=== PATIENT | female | born 1955 | race Caucasian/White ===

== ENCOUNTER → 2019-03-12 07:21 | Outpatient (CLI) | payer MEDICARE, OTHER, SELFPAY ==
--- NOTE | 2019-03-12 | DI.RAD.S_ITS ---
PROCEDURE: XR LUMBAR SPINE 2-3V INDICATIONS: Osteoarthritis TECHNIQUE: 3 views of the lumbar spine were acquired. COMPARISON: [facility], , L-SPINE 2-3 VIEWS, 05/07/2010, 10:52. FINDINGS: Bones: No fracture or focal osseous destruction. Lateral curvature of the spine. Multilevel degenerative endplate sclerosis and spurring. Diffuse facet arthropathy. Straightening of the normal lordotic curvature. Severe diffuse narrowing of all lumbar disc spaces. Trace retrolisthesis of L2 on L3 and L3 on L4. Grade 1 anterolisthesis of L5 on S1 Soft tissues: Scattered vascular calcifications seen in the aorta. IMPRESSION: Severe diffuse lumbar spondylosis and facet disease, progressed since 05/07/10. Dictated by: Frederick Dudley M.D. on 03/12/2019 at 10:16 Approved by: Frederick Dudley M.D. on 03/12/2019 at 10:17
--- NOTE | 2019-03-12 | DI.RAD.S_ITS ---
PROCEDURE: XR HAND RT MIN 3V INDICATIONS: osteoarthritis TECHNIQUE: 3 views of the hand(s) acquired. COMPARISON: [facility], , HAND 3V RIGHT, 04/22/2014, 9:28. FINDINGS: Bones: No fractures or dislocations. Carpal bones are normally aligned. No suspicious bony lesions. Severe first CMC joint degeneration, with severe subluxation as before, and triscaphe osteoarthritis. Chronic ossicle projects adjacent to the triquetrum. Diffuse interphalangeal joint degeneration. Soft tissues: No suspicious soft tissue calcifications. IMPRESSION: Severe right wrist joint degeneration. Overall, no interval change Dictated by: Frederick Dudley M.D. on 03/12/2019 at 11:32 Approved by: Frederick Dudley M.D. on 03/12/2019 at 11:35
--- NOTE | 2019-03-12 | DI.RAD.S_ITS ---
PROCEDURE: XR FOOT RT MIN 3V INDICATIONS: osteoarthritis TECHNIQUE: 3 views of the foot were acquired. COMPARISON: [facility], , FOOT 3V RIGHT, 04/22/2014, 9:28. FINDINGS: Bones: No fractures or dislocations. No suspicious bony lesions. There are unchanged surgical screws within the distal first metatarsal. There are similar mild degenerative changes of the first tarsometatarsal joint, first metatarsophalangeal joint, and first through fifth interphalangeal joints. Soft tissues: No tibiotalar joint effusion. IMPRESSION: Similar mild degenerative changes of the forefoot and right first digit when compared with exam of 04/22/14. Dictated by: Cedrick Ramon M.D. on 03/12/2019 at 13:47 Approved by: Cedrick Ramon M.D. on 03/12/2019 at 13:59
--- NOTE | 2019-03-12 | DI.RAD.S_ITS ---
PROCEDURE: XR HAND LT MIN 3V INDICATIONS: osteoarthritis TECHNIQUE: 3 views of the hand(s) acquired. COMPARISON: [facility], , HAND 3V LEFT, 04/22/2014, 9:28. [facility], CR, XR HAND RT MIN 3V, 03/12/2019, 7:34. FINDINGS: Bones: No fractures or dislocations. Carpal bones are normally aligned. No suspicious bony lesions. Severe first CMC joint degeneration with subluxation as before. Adjacent ununited ossified versus chronic ossicle. Overall, no interval change. Diffuse interphalangeal joint degeneration. Soft tissues: No suspicious soft tissue calcifications. IMPRESSION: Severe first CMC joint degeneration and subluxation. No definite interval change. Dictated by: Frederick Dudley M.D. on 03/12/2019 at 11:35 Approved by: Frederick Dudley M.D. on 03/12/2019 at 11:36
--- NOTE | 2019-03-12 | DI.RAD.S_ITS ---
PROCEDURE: XR FOOT LT MIN 3V INDICATIONS: osteoarthritis TECHNIQUE: 3 views of the foot were acquired. COMPARISON: [facility], CR, FOOT 3V LEFT, 04/22/2014, 9:28. [facility], CR, XR FOOT RT MIN 3V, 03/12/2019, 7:40. FINDINGS: Bones: No fractures or dislocations. No suspicious bony lesions. Similar-appearing surgical screws of the first metatarsal. Mild degenerative changes of the first metatarsophalangeal and first through fifth interphalangeal joints, similar to comparison exam of 04/22/14. There is mild degenerative change of the anterior tibiotalar joint, which is slightly increased from comparison exam. Soft tissues: No tibiotalar joint effusion. IMPRESSION: 1. Mild degenerative changes of the left forefoot and left first digit, similar to comparison exam of 04/22/14. 2. Mild degenerative change of the anterior left tibiotalar joint, slightly increased from comparison exam of 04/14/14. Dictated by: Cedrick Ramon M.D. on 03/12/2019 at 13:59 Approved by: Cedrick Ramon M.D. on 03/12/2019 at 14:04
[2019-03-12 09:17] LABS: Add Manual Diff / Slide Review NO; Basophils Absolute Auto 0 /uL (0-100); Basophils Percent Auto 0.6 % (0-2); Eosinophils Absolute Auto 100 /uL (0-450); Hematocrit 41.7 % (36-46); Hemoglobin 14.1 g/dL (12.0-16.0); Lymphocytes Absolute Auto 900 /uL (1100-4500); Lymphocytes Percent Auto 22.3 % (25-40); Mean Corpuscular HGB Conc 33.7 % (30-36); Mean Corpuscular Volume 91.9 fL (80-100); Monocytes Absolute Auto 400 /uL (0-900); Monocytes Percent Auto 8.8 % (3-14); Neutrophils Absolute Auto 2800 /uL (1500-7000); Neutrophils Percent Auto 66.3 % (50-75); Platelet Count 229 X10^3/uL (150-400); Red Blood Cell Count 4.54 X10^6/uL (4.0-5.2); Red Cell Distribution Width 12.7 % (11.6-14.8); White Blood Cell Count 4.3 X10^3/uL (4.5-11.0)
[2019-03-12 09:23] LABS: Hemoglobin A1C% w Est Avg Glu 5.2 % (4.0-6.0)
[2019-03-12 09:38] LABS: BUN Creatinine Ratio 13.3 (6-22); Blood Urea Nitrogen 12 mg/dL (7-17); Calcium 9.9 mg/dL (8.4-10.2); Carbon Dioxide 30 mmol/L (22-32); Chloride 99 mmol/L (98-107); Cholesterol 207 mg/dL (140-199); Estimated Glomerular Filt Rate > 60.0 mL/min (>60); Glucose 89 mg/dL (80-110); HDL Cholesterol 64 mg/dL (40-60); HEMOLYSIS < 15 (0-50); LDL Cholesterol Calculated 124 mg/dL (<100); Potassium 4.7 mmol/L (3.4-5.1); Sodium 137 mmol/L (137-145); Triglycerides 95 mg/dL (35-150)
== END ==
PROVIDERS: Visit Provider Student in an Organized Health Care Education/Training Program
DX: Z00.00 Encounter for general adult medical examination without abnormal findings (principal); M19.071 Primary osteoarthritis, right ankle and foot; M47.816 Spondylosis without myelopathy or radiculopathy, lumbar region; M19.042 Primary osteoarthritis, left hand; M19.041 Primary osteoarthritis, right hand; M18.12 Unilateral primary osteoarthritis of first carpometacarpal joint, left hand
CPT/HCPCS: 36415; 72100; 73130; 73630; 80048; 80061; 83036; 85025

== ENCOUNTER 2019-06-13 06:10 | Emergency (ER) | payer MEDICARE, OTHER, SELFPAY ==
[2019-06-13 06:22] VITALS: BP 190/86; PULSE 97; RESP 12; TEMP 36.5; O2SAT 98; BMI 27.4
[2019-06-13] MEDS: LIDOCAINE 1% W/EPI 1 ML SUBCUT (06:22)
--- NOTE | 2019-06-13 07:02 | DI.RAD.S_ITS ---
PROCEDURE: XR HAND RT MIN 3V INDICATIONS: fall with R hand pain TECHNIQUE: 3 views of the hand(s) acquired. COMPARISON: [facility], CR, XR HAND RT MIN 3V, 03/12/2019, 7:34. [facility], CR, HAND 3V RIGHT, 04/22/2014, 9:28. [facility], CR, HAND 3V RIGHT, 05/07/2010, 10:36. FINDINGS: Bones: There is an oblique fracture seen involving the 5th metacarpal shaft. No intra-articular involvement can be seen. Carpal bones are normally aligned. No suspicious bony lesions. Prominent focal degenerative change is seen involving carpometacarpal joint. Soft tissues: No suspicious soft tissue calcifications. IMPRESSION: 5th metacarpal shaft fracture. Focal prominent 1st carpometacarpal joint degenerative change. Dictated by: Faraz Resendiz M.D. on 06/13/2019 at 6:46 Approved by: Faraz Resendiz M.D. on 06/13/2019 at 6:47
--- NOTE | 2019-06-13 07:02 | DI.RAD.S_ITS ---
PROCEDURE: XR SHOULDER LT MIN 2V INDICATIONS: fall with shoulder pain TECHNIQUE: 3 views of the shoulder were acquired. COMPARISON: [facility], CR, XR HAND RT MIN 3V, 06/13/2019, 7:01. FINDINGS: Bones: No fractures or dislocations. No suspicious bony lesions. Visualized ribs appear intact. Degenerative changes are seen, including mild subacromial spurring. Soft tissues: No suspicious soft tissue calcifications. The visualized lung demonstrates an unremarkable appearance. IMPRESSION: Unremarkable imaging examination for age. Dictated by: Faraz Resendiz M.D. on 06/13/2019 at 6:48 Approved by: Faraz Resendiz M.D. on 06/13/2019 at 6:48
--- NOTE | 2019-06-13 07:05 | ED.FALL ---
HPI - Fall <Isaac Bradshaw DO - Last Filed: 06/14/19 05:23> General Chief Complaint: Fall Stated Complaint: facial wound tripped over wood at home/fell Time Seen by Provider: 06/13/19 06:12 Source: patient Mode of arrival: Family Vehicle Limitations: no limitations History of Present Illness HPI Narrative: 63-year-old female nonsmoker with noncontributory medical history presents with her in the chief complaint of a ground level fall in which she fell forward into a wood burning stove (it was not hot). She suffered a laceration to the left side of her face as well as an injury to her left anterior shoulder and right hand. She denies loss of consciousness or nausea or vomiting. She takes no blood thinners. She has full recall of the event. She denies any chest pain or shortness of breath. Her left shoulder hurts worse with range of motion, she denies any numbness, tingling or weakness. Right lateral hand hurts with range of motion but she can make a fist and denies any numbness, tingling or weakness. MD complaint: fall Onset (ago): minute(s) Fall from: standing Fall witnessed: yes, by family Place fall occurred: home Loss of consciousness: none Prolonged down time: no Symptoms prior to fall: none Context: tripped/slipped Location of injury: head and face Location of injury - extremities: Left: shoulder Severity: mild Quality: burning Related Data Previous Rx's Medication Instructions Recorded cephalexin [Keflex] 500 mg PO QID 7 Days #28 cap 06/13/19 Allergies Allergy/AdvReac Type Severity Reaction Status Date / Time Codeine Allergy Unknown Uncoded 09/03/17 13:01 Metoprolol Allergy Unknown Uncoded 09/03/17 13:01 Spironolactone Allergy Unknown Uncoded 09/03/17 13:01 Review of Systems <Isaac Bradshaw DO - Last Filed: 06/14/19 05:23> Constitutional Constitutional: Denies chills, Denies fatigue, Denies fever(s), Denies frequent falls, Denies lethargy and Denies weakness Eyes Eyes: Denies change in vision, Denies eye discharge, Denies irritation and Denies loss of vision ENT Ears, Nose, Mouth, and Throat: Denies change in voice, Denies dizziness, Denies neck pain, Denies sore throat and Denies throat swelling Cardiovascular Cardiovascular: Denies chest pain, Denies irregular heart rhythm, Denies lightheadedness, Denies palpitations, Denies dyspnea, Denies dyspnea on exertion and Denies orthopnea Respiratory Respiratory: Denies cough, Denies dyspnea, Denies dyspnea on exertion and Denies wheezing Gastrointestinal Gastrointestinal: Denies abdominal pain, Denies change in bowel habits, Denies diarrhea, Denies nausea and Denies vomiting Genitourinary Genitourinary: Denies hematuria, Denies flank pain, Denies urinary incontinence and Denies urinary urgency Musculoskeletal Musculoskeletal: Denies back pain, Denies muscle weakness, Denies neck pain, Denies numbness and Denies tingling Integumentary/Breasts Skin/Breast: Denies pruritus, Denies erythema, Denies rash and Reports wounds Neurologic Neurologic: Denies behavioral changes, Denies confusion, Denies dizziness, Denies frequent falls, Denies loss of vision, Denies numbness, Denies tingling and Denies weakness Psychiatric Psychiatric: Denies anxiety, Denies behavioral changes, Denies confusion, Denies depression, Denies homicidal ideation and Denies suicidal ideation Endocrine Endocrine: Denies fatigue, Denies flushing and Denies palpitations Hematologic/Lymphatic Hematologic/Lymphatic: Denies easy bruising Allergic/Immunologic Allergic/Immunologic: Denies urticaria, Denies throat swelling and Denies wheezing Patient History <Isaac Brasdhaw DO - Last Filed: 06/14/19 05:23> Social History Smoking Status: Never smoker Smoking Status: Never smoker Substance Use Type: does not use Exam <Isaac Bradshaw DO - Last Filed: 06/14/19 05:23> Narrative Exam Narrative: GENERAL: [63] year old patient appears stated age. Well-nourished, well-developed patient, in mild distress. GCS 15 HEAD: Atraumatic. Normocephalic. 5cm irregular flap laceration to L cheek. Minimal active bleeding. EYES: Pupils equal round and reactive. Extraocular motions intact. No scleral icterus. No injection or drainage. ENT: Nose without bleeding, purulent drainage. Throat without erythema, tonsillar hypertrophy or exudate. Airway patent. NECK: Trachea midline. Non tender CARDIOVASCULAR: Regular rate and rhythm without murmurs, gallops, or rubs. RESPIRATORY: Clear to auscultation. Breath sounds equal bilaterally. No wheezes, rales, or rhonchi. GASTROINTESTINAL: Abdomen soft, non-tender, nondistended. EXTREMITIES: Painful but full ROM of L shoulder with visible ecchymosis anteriorly. Full strength and sensation. R hand with mild edema and ecchymosis overlying 5th metacarpal. Closed and NV in tact BACK: Nontender without deformity or crepitance. No flank tenderness. NEURO: AOx3. SKIN: No rash or erythema of visible areas other than what is noted above. Initial Vital Signs Initial Vital Signs: Vital Signs Temperature 97.7 F 06/13/19 06:22 Pulse Rate 97 H 06/13/19 06:22 Respiratory Rate 12 06/13/19 06:22 Blood Pressure 190/86 H 06/13/19 06:22 Pulse Oximetry 98 06/13/19 06:22 <Breanna Bueno DO - Last Filed: 06/13/19 08:22> Initial Vital Signs Initial Vital Signs: Vital Signs Temperature 97.7 F 06/13/19 06:22 Pulse Rate 97 H 06/13/19 06:22 Respiratory Rate 12 06/13/19 06:22 Blood Pressure 190/86 H 06/13/19 06:22 Pulse Oximetry 98 06/13/19 06:22 Procedures <Isaac Bradshaw DO - Last Filed: 06/14/19 05:23> Laceration Repair Laceration 1: Site: face Side (If applicable): left Size (cm): 5 Description: flap Depth: involves muscle layer Local Anesthetic: lidocaine 1% and with epi Amount of anesthesia used (mL): 5 Pre-repair: wound explored Skin layer closed with: nylon Size (cm): 6-0 Number of sutures: 10 Technique: simple, interrupted Subcutaneous layer closed with: vicryl Size: 5-0 Number of sutures: 1 Technique: simple, interrupted Orthopedic Splinting/Casting Injury #1: Side: left Upper Extremity Injury Location: shoulder Upper Extremity Immobilizer: sling/shoulder immobilizer Post splinting neuro exam: intact Post splinting vascular exam: intact Placed by: Nursing Course <DO Osmar Lopez Last Filed: 06/14/19 05:23> Course Course Narrative: signed out to Dr. Bueno for completion of care. Orders Ordered: Discontinued Medications Lidocaine/Epinephrine (Xylocaine 1% W/Epi) 1 ml SUBCUT NOW ONE Stop: 06/13/19 06:17 Last Admin: 06/13/19 06:22 Dose: 1 ml Documented by: JEREMIAH Vital Signs Vital signs: Vital Signs - 8 hr 06/13/19 06:22 Temperature 97.7 F Pulse Rate 97 H Respiratory Rate 12 Blood Pressure 190/86 H Pulse Oximetry 98 <Breanna Bueno, - Last Filed: 06/13/19 08:22> Orders Ordered: Discontinued Medications Lidocaine/Epinephrine (Xylocaine 1% W/Epi) 1 ml SUBCUT NOW ONE Stop: 06/13/19 06:17 Last Admin: 06/13/19 06:22 Dose: 1 ml Documented by: JEREMIAH Vital Signs Vital signs: Vital Signs - 8 hr 06/13/19 06:22 Temperature 97.7 F Pulse Rate 97 H Respiratory Rate 12 Blood Pressure 190/86 H Pulse Oximetry 98 <Breanna Bueno, - Last Filed: 06/13/19 08:22> Imaging Data shoulder xray: Radiologist's Impression: [address] [address] XRay Report Signed Patient: Zimmer EtteMR#: [id number] : [id number]:[id number] Age/Sex: 63 / FDate of Service: 06/13/19 Loc: ED Accession Number: [id number] Procedure: XR shoulder LT min 2V Ordering Provider: Isaac Bradshaw D.O. PROCEDURE: XR SHOULDER LT MIN 2V INDICATIONS: fall with shoulder pain TECHNIQUE: 3 views of the shoulder were acquired. COMPARISON: [facility], CR, XR HAND RT MIN 3V, 06/13/2019, 7:01. FINDINGS: Bones: No fractures or dislocations. No suspicious bony lesions. Visualized ribs appear intact. Degenerative changes are seen, including mild subacromial spurring. Soft tissues: No suspicious soft tissue calcifications. The visualized lung demonstrates an unremarkable appearance. IMPRESSION: Unremarkable imaging examination for age. Dictated by: Faraz Resendiz M.D. on 06/13/2019 at 6:48 Approved by: Fraaz Resendiz M.D. on 06/13/2019 at 6:48 hand xray: Radiologist's Impression: [address] [address] XRay Report Signed Patient: Zimmer EtteMR#: [id number] : 4Acct:[id number] Age/Sex: 63 / FDate of Service: 06/13/19 Loc: ED Accession Number: [id number] Procedure: XR hand RT min 3V Ordering Provider: Isaac Bradshaw D.O. PROCEDURE: XR HAND RT MIN 3V INDICATIONS: fall with R hand pain TECHNIQUE: 3 views of the hand(s) acquired. COMPARISON: [facility], CR, XR HAND RT MIN 3V, 03/12/2019, 7:34. [facility], CR, HAND 3V RIGHT, 04/22/2014, 9:28. [facility], CR, HAND 3V RIGHT, 05/07/2010, 10:36. FINDINGS: Bones: There is an oblique fracture seen involving the 5th metacarpal shaft. No intra-articular involvement can be seen. Carpal bones are normally aligned. No suspicious bony lesions. Prominent focal degenerative change is seen involving carpometacarpal joint. Soft tissues: No suspicious soft tissue calcifications. IMPRESSION: 5th metacarpal shaft fracture. Focal prominent 1st carpometacarpal joint degenerative change. Dictated by: Faraz Resendiz M.D. on 06/13/2019 at 6:46 Approved by: Faraz Resendiz M.D. on 06/13/2019 at 6:47 MDM Narrative Medical decision making narrative: Patient and I reviewed imaging. Patient is actually able to use her right hand fairly well. She is able to drinking using glass. She has full range of motion of all 5 fingers and neurovascularly intact. She also has good movement of her shoulder although she finds that more uncomfortable than her hand. Patient was sutured by Dr. Bradshaw, she has minor ooze and had a small bandage. Patient is feeling better. Defers any additional prescriptions for pain. Splint placed by nursing staff, rechecked by myself. NVI after splint placement. Discharge Plan Departure Patient Disposition: Home Clinical Impression: Closed fracture of fifth metatarsal bone Complex laceration of face Qualifiers: Encounter type: initial encounter Qualified Code(s): S01.91XA - Laceration without foreign body of unspecified part of head, initial encounter Contusion of left shoulder Qualifiers: Encounter type: initial encounter Qualified Code(s): S40.012A - Contusion of left shoulder, initial encounter Contusion of hand, right Qualifiers: Encounter type: initial encounter Qualified Code(s): S60.221A - Contusion of right hand, initial encounter Discharge Date/Time: 06/13/19 08:10 Instructions: How to Prevent Falls Activity Restrictions/Additional Instructions: *You have been diagnosed with fall with facial laceration, shoulder contusion and hand fracture. Follow up with Orthopedic surgery in the next 5-7 days for recheck. Call for an appointment. *What to do: *Take medications as directed. You may take tylenol up to 1000mg every 8 hours as needed for pain. *Follow up with your primary care provider in 2-3 days, call for an appointment. Let them know you were seen in the Emergency Department and that we ask that you be seen in follow up *Return to ER if you should have any new, worsening or concerning symptoms Splint Care: Keep splint clean and dry. Elevated affected body part to decrease swelling. OK to use ice pack on the affected body part. Use for 15-20 minutes each time, for 5-6x per day. If you develop worsening pain, numbness, tingling, discoloration of the affected body part, loosen the splint by loosening the MATTHEW wrap, and either see your doctor for an urgent re-assessment, or return to the Emergency Department. Return to the Emergency Department for any new or worsening symptoms. Prescriptions: New cephalexin [Keflex] 500 mg capsule 500 mg PO QID 7 Days Qty: 28 RF: 0 Referrals: Yenny Cardona MD [Physician] -
== END 2019-06-13 08:10 | disposition home or self-care (01) ==
PROVIDERS: Emergency Provider Emergency Medicine
DX: S62.326A Displaced fracture of shaft of fifth metacarpal bone, right hand, initial encounter for closed fracture (principal); S01.91XA Laceration without foreign body of unspecified part of head, initial encounter; S40.012A Contusion of left shoulder, initial encounter; S60.221A Contusion of right hand, initial encounter; W18.09XA Striking against other object with subsequent fall, initial encounter
CPT/HCPCS: 12013; 29125; 73030; 73130; 99283

== ENCOUNTER 2020-11-19 18:14 | Emergency (ER) | payer MEDICARE, OTHER, SELFPAY ==
[2020-11-19 18:22] VITALS: BP 198/99; PULSE 107; RESP 18; TEMP 37; O2SAT 95
[2020-11-19 18:49] LABS: Add Manual Diff / Slide Review NO; Basophils Absolute Auto 0 /uL (0-100); Basophils Percent Auto 0.3 % (0-2); Eosinophils Absolute Auto 0 /uL (0-450); Eosinophils Percent Auto 0.1 % (2-4); Hematocrit 43.6 % (36-46); Hemoglobin 14.4 g/dL (12.0-16.0); Lymphocytes Absolute Auto 700 /uL (1100-4500); Lymphocytes Percent Auto 9.1 % (25-40); Mean Corpuscular HGB Conc 32.9 % (30-36); Mean Corpuscular Hemoglobin 30.6 PG (26-34); Monocytes Absolute Auto 300 /uL (0-900); Neutrophils Absolute Auto 6200 /uL (1500-7000); Neutrophils Percent Auto 86.5 % (50-75); Platelet Count 263 X10^3/uL (150-400); Red Blood Cell Count 4.69 X10^6/uL (4.0-5.2); White Blood Cell Count 7.2 X10^3/uL (4.5-11.0)
[2020-11-19 18:50] LABS: Alanine Aminotransferase 15 IU/L (<35); Albumin 4.4 g/dL (3.5-5.0); Albumin Globulin Ratio 1.7 (1.0-2.8); Alkaline Phosphatase 79 U/L (38-126); Aspartate Aminotransferase 22 IU/L (14-36); BUN Creatinine Ratio 14.5 (6-22); Blood Urea Nitrogen 12 mg/dL (7-17); Calcium 9.5 mg/dL (8.4-10.2); Carbon Dioxide 24 mmol/L (22-32); Chloride 103 mmol/L (98-107); Estimated Glomerular Filt Rate > 60.0 mL/min (>60); Globulin 2.6 g/dL (1.7-4.1); Glucose 139 mg/dL (80-110); HEMOLYSIS < 15 (0-50); Lipase 62 U/L (23-300); Potassium 4.1 mmol/L (3.4-5.1); Sodium 135 mmol/L (137-145)
[2020-11-19 20:32] LABS: Bacteria Urine None Seen; RBC Urine None Seen (0-5/HPF)
[2020-11-19 20:36] VITALS: BP 187/110; PULSE 93; RESP 16; O2SAT 96
[2020-11-19 20:40] LABS: Culture Indicated Urine Cult Not Indicated; Squamous Epithelial Cell Urine 0-1 /HPF (0-5/HPF); WBC Urine 1-5/HPF (0-5/HPF)
--- NOTE | 2020-11-19 20:43 | ED_ITS ---
HPI - General Adult General Chief complaint: Abdominal Pain Stated complaint: Cramps and Nausea Time Seen by Provider: 11/19/20 19:49 Source: patient Mode of arrival: Ambulatory History of Present Illness HPI narrative: Patient is a 64-year-old female here for evaluation of approximately 24 hours of abdominal cramping. She states she has had constipation in the past this is felt like his. Also has had some nausea but no vomiting. Related Data Previous Rx's Medication Instructions Recorded ciprofloxacin HCl 500 mg tablet 500 mg PO BID 10 Days #20 tab 11/19/20 metronidazole 500 mg tablet 500 mg PO TID 10 Days #30 tab 11/19/20 (Flagyl) Allergies Allergy/AdvReac Type Severity Reaction Status Date / Time Codeine Allergy Unknown Uncoded 09/03/17 13:01 Metoprolol Allergy Unknown Uncoded 09/03/17 13:01 Spironolactone Allergy Unknown Uncoded 09/03/17 13:01 Review of Systems Constitutional Constitutional: Denies fever(s) Cardiovascular Cardiovascular: Reports system reviewed and no additional complaints, except as documented Respiratory Respiratory: Reports system reviewed and no additional complaints, except as documented Gastrointestinal Gastrointestinal: Reports abdominal pain, Reports constipation, Reports nausea and Denies vomiting Genitourinary Genitourinary: Denies dysuria Genitourinary: Denies dysuria Musculoskeletal Musculoskeletal: Reports system reviewed and no additional complaints, except as documented Integumentary/Breasts Skin/Breast: Reports system reviewed and no additional complaints, except as documented Neurologic Neurologic: Reports system reviewed and no additional complaints, except as documented Psychiatric Psychiatric: Reports system reviewed and no additional complaints, except as do cumented Hematologic/Lymphatic On Anticoagulants: No Allergic/Immunologic Allergic/Immunologic: Reports system reviewed and no additional complaints, except as documented Patient History Medical History Constipation Social History Smoking Status: Never smoker Smoking Status: Never smoker Substance Use Type: does not use Exam Initial Vital Signs Initial Vital Signs: Vital Signs Temperature 98.6 F 11/19/20 18:22 Pulse Rate 107 H 11/19/20 18:22 Respiratory Rate 18 11/19/20 18:22 Blood Pressure 198/99 H 11/19/20 18:22 Pulse Oximetry 95 11/19/20 18:22 Const General: cooperative and healthy appearing [facility] Head: normal to inspection and normocephalic Eyes General: appearance normal, both eyes and all related structures Resp Effort & Inspection: normal respiratory effort Cardio Rate: tachycardic GI Inspection: non-distended Palpation: soft and tender Skin General: no rashes or lesions noted Neuro General: patient alert and patient awake Extrem General: normal to inspection and No edema Psych Appearance: grossly normal and well kempt Course Orders Ordered: Discontinued Medications Ciprofloxacin (Ciprofloxacin 250 Mg Tablet) 500 mg PO NOW ONE Stop: 11/19/20 22:08 Last Admin: 11/19/20 22:17 Dose: 500 mg Documented by: ATAYLOR Sodium Chloride (Normal Saline 0.9%) 1,000 mls @ 1,000 mls/hr IV BOLUS ONE Stop: 11/19/20 21:42 Last Infusion: 11/19/20 22:21 Dose: 0 mls/hr Documented by: Admin: 11/19/20 21:10 Dose: 1,000 mls/hr Documented by: ATAYLOR Metronidazole (Metronidazole 500 Mg Tablet) 500 mg PO NOW ONE Stop: 11/19/20 22:08 Last Admin: 11/19/20 22:17 Dose: 500 mg Documented by: ATAALISSAOR Vital Signs Vital signs: Vital Signs - 8 hr 11/19/20 18:22 11/19/20 20:36 Temperature 98.6 F Pulse Rate 107 H 93 H Respiratory Rate 18 16 Blood Pressure 198/99 H 187/110 H Pulse Oximetry 95 96 Medical Decision Making Medical Records Medical records reviewed: Yes I reviewed the patient's medical records. Lab Data Lab results reviewed: Yes I reviewed the patient's lab results. Result diagrams: 11/19/20 18:32 11/19/20 18:32 Labs: Lab Results 11/19/20 11/19/20 11/19/20 Range/Units 18:32 18:32 20:23 WBC 7.2 (4.5-11.0) X10^3/uL RBC 4.69 (4.0-5.2) X10^6/uL Hgb 14.4 (12.0-16.0) g/dL Hct 43.6 (36-46) % MCV 93.0 (80-100) fL MCH 30.6 (26-34) PG MCHC 32.9 (30-36) % RDW 13.0 (11.6-14.8) % Plt Count 263 (150-400) X10^3/uL Neut % (Auto) 86.5 H (50-75) % Lymph % (Auto) 9.1 L (25-40) % Sharp % (Auto) 4.0 (3-14) % Eos % (Auto) 0.1 L (2-4) % Baso % (Auto) 0.3 (0-2) % Neut # (Auto) 6200 (9202-6653) /uL Lymph # (Auto) 700 L (4117-8901) /uL Sharp # (Auto) 300 (0-900) /uL Eos # (Auto) 0 (0-450) /uL Baso # (Auto) 0 (0-100) /uL Sodium 135 L (137-145) mmol/L Potassium 4.1 (3.4-5.1) mmol/L Chloride 103 (98-107) mmol/L Carbon Dioxide 24 (22-32) mmol/L BUN 12 (7-17) mg/dL Creatinine 0.83 (0.52-1.04) mg/dL Estimated GFR > 60.0 (>60) mL/min BUN/Creatinine Ratio 14.5 (6-22) Glucose 139 H (80-110) mg/dL Calcium 9.5 (8.4-10.2) mg/dL Total Bilirubin 1.0 (0.2-1.3) mg/dL AST 22 (14-36) IU/L ALT 15 (<35) IU/L Alkaline Phosphatase 79 (38-126) U/L Total Protein 7.0 (6.3-8.2) g/dL Albumin 4.4 (3.5-5.0) g/dL Globulin 2.6 (1.7-4.1) g/dL Albumin/Globulin Ratio 1.7 (1.0-2.8) Lipase 62 (23-300) U/L Urine RBC None seen (0-5/HPF) Urine WBC 1-5/hpf (0-5/HPF) Ur Squamous Epith Cells 0-1 /hpf (0-5/HPF) Urine Bacteria None seen (None) Ur Culture Indicated? Cult not indicated Urine Dip Bedside Urine Glucose Negative Bedside Urine Bilirubin - Negative Bedside Urine Ketone - Negative Urine Specific [place] 1.015 Bedside Urine Occult Blood - Negative Bedside Urine pH 6.5 Bedside Urine Protein + 30 Bedside Urine Urobilinogen 0.2 mg/dL Bedside Urine Nitrite - Negative Bedside Urine Leukocytes +/- 15 Esterase Point of care testing: Urine Dip Bedside Urine Glucose Negative Bedside Urine Bilirubin - Negative Bedside Urine Ketone - Negative Urine Specific [place] 1.015 Bedside Urine Occult Blood - Negative Bedside Urine pH 6.5 Bedside Urine Protein + 30 Bedside Urine Urobilinogen 0.2 mg/dL Bedside Urine Nitrite - Negative Bedside Urine Leukocytes +/- [address] scan - abdomen/pelvis: Radiologist's Impression: [address] [id number] Scan ReportSigned Patient: Zimmer EtteMR#: [id number]: 4Acct:[id number]/Sex: 64 / FDate of Service: 11/19/20Loc: EDAccession Number: [id number] Procedure: CT abdomen pelvis w con Ordering Provider: Nate Clay D.O. PROCEDURE: CT ABDOMEN PELVIS W CON INDICATIONS: generalized abdominal pain no BM in 1 week TECHNIQUE: After the administration of intravenous contrast, axial sections acquired from the lung bases to the pubic symphysis. Coronal and sagittal reformats were performed. For radiation dose reduction, the following was used: automated exposure control, adjustment of mA and/or kV according to patient size. COMPARISON: None. FINDINGS: ABDOMEN: Lung bases: Normal. Heart: No significant findings. Liver: Hepatic steatosis. Right hepatic cysts. Subcentimeter hepatic foci are statistically cysts or hemangiomas, although technically too small to characterize accurately and therefore nonspecific. Gallbladder: Normal. Bile ducts: Normal. Pancreas: Normal. Spleen: Normal. Adrenals: Normal. Kidneys and Ureters: Right kidney absent. No hydronephrosis. Mild prominence of the left ureter although the exact etiology is unclear. Stomach and duodenum: Normal. Bowel: Large amount of stool is present. No transition point to suggest bowel obstruction. There is long segment mural thickening involving the sigmoid colon. Numerous colonic diverticula are present. The rectum is decompressed. Other: No free fluid or air. Abdominal nodes: Normal. Aorta and IVC: Normal in size. Ventral wall: Normal. PELVIS: Bladder: Normal. Inguinal region: No hernia. Pelvic nodes: Normal. Bones: Spondylytic changes and facet arthropathy. No vertebral body compression fracture. Diffuse osteopenia. IMPRESSION: Long segment sigmoid colonic wall thickening. This could reflect acute on chronic diverticulitis although technically nonspecific. Differential includes infectious or inflammatory colitis. As clinically warranted, consider further evaluation with lower endoscopy to exclude neoplasm if clinical data warrants. Hepatic steatosis. Large amount of stool. Dictated by: Frederick Dudley M.D. on 11/19/2020 at 21:38 Approved by: Frederick Dudley M.D. on 11/19/2020 at 21:44 [facility] Narrative Medical decision making narrative: CT scan of the abdomen shows findings that are consistent with constipation in this also fits her presentation. There was also some concern about diverticulitis so we will start her on antibiotics. I feel that we can hold on further workup for now. She was given return precautions and follow-up instructions. She expressed understanding and agreement. Discharge Plan Departure Patient Disposition: Home Clinical Impression: Diverticulitis, Constipation, Abdominal pain Instructions: DI for Diverticulitis Activity Restrictions/Additional Instructions: I do recommend that you contact your primary care provider to discuss further workup and to discuss the indications for a colonoscopy. This is the recommendation based on the findings today. Start taking the antibiotics as directed. You can change your diet to include increasing Your fluid intake and also increasing your fiber. This does not improve your constipation issues then you may need to start taking a stool softener or laxative. You can purchase these [id number]. return to the emergency department for any new or worsening symptoms Prescriptions: New ciprofloxacin HCl 500 mg tablet 500 mg PO BID 10 Days Qty: 20 RF: 0 metronidazole [Flagyl] 500 mg tablet 500 mg PO TID 10 Days Qty: 30 RF: 0 Referrals: Taty Boateng MD [Primary Care Provider] -
[2020-11-19] MEDS: SODIUM CHLORIDE 0.9% 1,000 ML 1000 ML IV (21:10)
[2020-11-19] MEDS: metroNIDAZOLE 500 MG TABLET PO (22:17)
[2020-11-19] MEDS: CIPROFLOXACIN 250 MG TABLET 500 MG PO (22:17)
[2020-11-19 22:21] VITALS: BP 180/90; PULSE 89; RESP 16; TEMP 37.1; O2SAT 96
== END 2020-11-19 22:21 | disposition home or self-care (01) ==
PROVIDERS: Emergency Provider Emergency Medicine; PCP Student in an Organized Health Care Education/Training Program
DX: K57.92 Diverticulitis of intestine, part unspecified, without perforation or abscess without bleeding (principal); R11.0 Nausea; K59.00 Constipation, unspecified
CPT/HCPCS: 36415; 74177; 80053; 81003; 81015; 83690; 85025; 96360; 99284; Q9967

== ENCOUNTER → 2022-04-17 10:28 | Outpatient (CLI) | payer MEDICARE, OTHER, SELFPAY | PROVIDERS: PCP Family Medicine; Referring Provider Family Medicine; Visit Provider Family Medicine | DX: Z13.820 Encounter for screening for osteoporosis (principal); Z78.0 Asymptomatic menopausal state; M81.0 Age-related osteoporosis without current pathological fracture | CPT/HCPCS: 77080 ==

== ENCOUNTER 2022-06-29 08:29 | Emergency (ER) | payer MEDICARE, OTHER, SELFPAY ==
[2022-06-29] VITALS (27 sets, daily range): BP systolic 140–181; BP diastolic 69–81; PULSE 80–101; RESP 16–20; TEMP 36.8–37; O2SAT 96–99; BMI 21.2
--- NOTE | 2022-06-29 09:11 | DI.CT.S_ITS ---
PROCEDURE: CT ABDOMEN PELVIS W CON INDICATIONS: Bilateral lower abdominal pain history of diverticulitis TECHNIQUE: After the administration of intravenous contrast, axial sections acquired from the lung bases to the pubic symphysis. Coronal and sagittal reformats were performed. For radiation dose reduction, the following was used: automated exposure control, adjustment of mA and/or kV according to patient size. COMPARISON: [facility], CT, CT ABDOMEN PELVIS W CON, 11/19/2020, 21:29. FINDINGS: Lower thorax: The lung bases are clear. Heart size normal. No hiatal hernia. Liver: Normal in size and attenuation. No contour deformity present. Renal cysts measure up to 1.4 cm, similar prior Biliary system: No calcified cholelithiasis or pericholecystic inflammation. No intra or extrahepatic bile duct dilatation. Pancreas: Unremarkable without mass or inflammation evident. Spleen: Normal in size and density. Adrenals: Normal morphology and density. Reproductive system: Unremarkable as visualized. Urinary system: Absent right kidney. Left kidney unremarkable. Gastrointestinal system: Wall thickening and pericolonic inflammatory change noted involving the transverse, descending and sigmoid colon. Several diverticula arise from the sigmoid colon as well. No evidence of pneumatosis, abscess or obstruction. There is a prominent loop of small bowel in the pelvis measuring up to 2.7 cm in diameter axis fluid-filled Appendix: No findings to suggest acute appendicitis. Peritoneal spaces: No mesenteric or retroperitoneal adenopathy. No free air. No free fluid. Vasculature: Aortic atherosclerotic vascular calcification noted without evidence of aneurysm. Abdominal wall: Abdominal wall intact without evidence of ventral or inguinal hernias. Musculoskeletal: Normal bone mineralization. Degenerative disc disease and arthropathy noted in lower lumbar spine. And grade 1 degenerative anterior spondylolisthesis L5-S1. No acute fractures. IMPRESSION: 1. Acute colitis. Wall thickening and mild inflammatory change involving the transverse, descending and sigmoid colon is either infectious or inflammatory. Although no pneumatosis present, colitis is in the distribution of the TO[place], and ischemic colitis not entirely excluded. No abscess, obstruction or evidence of perforation. 2. Superimposed sigmoid diverticulosis. Additional chronic changes as above. Approved by: Paddy Youngblood M.D. on 06/29/2022 at 9:54
--- NOTE | 2022-06-29 09:13 | ED_ITS ---
HPI - General Adult General Chief complaint: Abdominal Pain Stated complaint: ABD pain T-4 N/V/D fever Time Seen by Provider: 06/29/22 09:05 Source: patient Mode of arrival: Ambulatory Limitations: no limitations History of Present Illness HPI narrative: Patient is a 66-year-old female who is here for evaluation of approximately 1.5 weeks of lower abdominal left being greater than right tenderness. She has had symptoms similar to this in the past off and on for past couple years. During her 1st episode a couple years ago she was told that she had diverticulitis. That has been the only time that she is been seen for this discomfort because she states that every other time it is only lasts 1-2 days and that is completely resolved. She has had some subjective fevers. Some nausea. No diarrhea. Pain is not made worse with bowel movements or urination. Eating sometimes makes her discomfort worse and sometimes makes it better. No prior abdominal surgeries. Related Data Previous Rx's Medication Instructions Recorded sulfamethoxazole 400 1 tab PO BID 3 days #6 tabs 06/29/22 mg-trimethoprim 80 mg tablet (Bactrim) Allergies Allergy/AdvReac Type Severity Reaction Status Date / Time Codeine Allergy Unknown Uncoded 09/03/17 13:01 Metoprolol Allergy Unknown Uncoded 09/03/17 13:01 Spironolactone Allergy Unknown Uncoded 09/03/17 13:01 Review of Systems Constitutional Constitutional: Reports system reviewed and no additional complaints, except as documented Gastrointestinal Gastrointestinal: Reports system reviewed and no additional complaints, except as documented Genitourinary Genitourinary: Reports system reviewed and no additional complaints, except as documented Musculoskeletal Musculoskeletal: Reports system reviewed and no additional complaints, except as documented Patient History Medical History Constipation Social History Smoking Status: Never smoker Smoking Status: Never smoker Substance Use Type: does not use Exam Initial Vital Signs Initial Vital Signs: Vital Signs Pulse Oximetry 96 06/29/22 08:50 HENMT Head: normal to inspection and normocephalic GI Inspection: normal to inspection and non-distended Palpation: tender (Lower abdomen) Back/Spine/Pelvis Back: No CVA tenderness Skin General: no rashes or lesions noted Neuro General: patient alert, patient awake and moves all extremities Extrem General: normal to inspection and capillary refill normal Course Orders Ordered: ED Orders 06/29/22 09:00 Complete Blood Count AUTO DIFF Stat Comprehensive Metabolic Panel Stat Lactate (Lactic Acid) Stat Lipase Stat 06/29/22 09:11 CT abdomen pelvis w con Stat 06/29/22 10:20 Packed Cells Stat Type and Screen Stat Discontinued Medications Potassium Chloride (Potassium Chloride 20 Meq Tab) 40 meq PO NOW ONE Stop: 06/29/22 11:43 Last Admin: 06/29/22 12:23 Dose: 40 meq Documented By: RB Vital Signs Vital signs: Vital Signs - 8 hr 06/29/22 08:53 06/29/22 08:50 06/29/22 08:51 Temperature 98.2 F Pulse Rate 101 H 94 H Respiratory Rate 18 Blood Pressure 181/81 H Pulse Oximetry 96 96 98 Oxygen Delivery Method Room Air 06/29/22 08:51 06/29/22 09:00 06/29/22 09:00 Temperature Pulse Rate 83 Respiratory Rate Blood Pressure 181/81 H 158/74 H Pulse Oximetry 98 Oxygen Delivery Method 06/29/22 09:30 06/29/22 09:30 06/29/22 10:00 Temperature Pulse Rate 80 85 Respiratory Rate 18 Blood Pressure 167/80 H Pulse Oximetry 96 96 Oxygen Delivery Method 06/29/22 10:32 06/29/22 10:32 06/29/22 11:00 Temperature Pulse Rate 95 H Respiratory Rate Blood Pressure 169/76 H 150/74 H Pulse Oximetry 99 Oxygen Delivery Method 06/29/22 11:00 06/29/22 11:30 06/29/22 11:30 Temperature Pulse Rate 88 87 Respiratory Rate Blood Pressure 154/72 H Pulse Oximetry 96 98 Oxygen Delivery Method 06/29/22 12:00 06/29/22 13:15 06/29/22 13:17 Temperature Pulse Rate 82 88 89 Respiratory Rate Blood Pressure Pulse Oximetry 98 97 97 Oxygen Delivery Method 06/29/22 13:17 06/29/22 13:30 06/29/22 13:30 Temperature Pulse Rate 85 Respiratory Rate Blood Pressure 143/71 H 140/69 Pulse Oximetry 98 Oxygen Delivery Method 06/29/22 13:46 06/29/22 14:01 06/29/22 14:23 Temperature 98.6 F 98.3 F 98.3 F Pulse Rate 86 86 85 Respiratory Rate 17 18 19 Blood Pressure 157/77 H 159/75 H 157/75 H Pulse Oximetry Oxygen Delivery Method 06/29/22 14:55 06/29/22 15:30 06/29/22 13:45 Temperature 98.3 F 98.2 F Pulse Rate 91 H 86 Respiratory Rate 16 20 Blood Pressure 159/80 H 145/70 H 157/77 H Pulse Oximetry Oxygen Delivery Method 06/29/22 13:45 06/29/22 14:00 06/29/22 14:00 Temperature Pulse Rate 87 85 Respiratory Rate Blood Pressure 159/75 H Pulse Oximetry 98 97 Oxygen Delivery Method 06/29/22 14:15 06/29/22 14:15 06/29/22 14:30 Temperature Pulse Rate 86 Respiratory Rate Blood Pressure 157/75 H 162/79 H Pulse Oximetry 96 Oxygen Delivery Method 06/29/22 14:30 06/29/22 14:45 06/29/22 14:45 Temperature Pulse Rate 84 87 Respiratory Rate Blood Pressure 159/80 H Pulse Oximetry 97 97 Oxygen Delivery Method 06/29/22 15:04 06/29/22 15:05 06/29/22 15:05 Temperature Pulse Rate 96 H 88 Respiratory Rate Blood Pressure 152/76 H Pulse Oximetry 97 98 Oxygen Delivery Method 06/29/22 15:15 06/29/22 15:15 06/29/22 15:30 Temperature Pulse Rate 85 Respiratory Rate Blood Pressure 156/73 H 145/70 H Pulse Oximetry 99 Oxygen Delivery Method 06/29/22 15:30 Temperature Pulse Rate 88 Respiratory Rate Blood Pressure Pulse Oximetry 97 Oxygen Delivery Method Medical Decision Making Medical Records Medical records reviewed: Yes I reviewed the patient's medical records. Lab Data Lab results reviewed: Yes I reviewed the patient's lab results. 06/29/22 09:00 06/29/22 09:00 Labs: Lab Results 06/29/22 06/29/22 06/29/22 Range/Units 09:00 09:00 09:00 WBC 6.6 (4.5-11.0) X10^3/uL RBC 3.40 L (4.0-5.2) X10^6/uL Hgb 6.3 L* (12.0-16.0) g/dL Hct 21.6 L (36-46) % MCV 63.4 L (80-100) fL MCH 18.4 L (26-34) PG MCHC 29.1 L (30-36) % RDW 19.2 H (11.6-14.8) % Plt Count 532 H (150-400) X10^3/uL Neut % (Auto) Not Reportable Lymph % (Auto) Not Reportable [place] % (Auto) Not Reportable Eos % (Auto) Not Reportable Baso % (Auto) Not Reportable Lymph # (Auto) Not Reportable [place] # (Auto) Not Reportable Baso # (Auto) Not Reportable Total Counted 100 Seg Neutrophils % 74.0 H (38-70) % Lymphocytes % (Manual) 16.0 L (25-45) % Monocytes % (Manual) 10.0 (2-11) % Neutrophils # (Manual) 4884 (5822-0523) /uL Nucleated RBCs 1 H ( - 0) #/Diff RBC Morphology See below Hypochromasia 2+ H Poikilocytosis 1+ H Anisocytosis 2+ H Target Cells 1+ H Sodium 134 L (137-145) mmol/L Potassium 3.2 L (3.4-5.1) mmol/L Chloride 101 (98-107) mmol/L Carbon Dioxide 21 L (22-32) mmol/L BUN 14 (7-17) mg/dL Creatinine 0.94 (0.52-1.04) mg/dL Estimated GFR > 60 (>60) mL/min BUN/Creatinine Ratio 14.9 (6-22) Glucose 110 (80-110) mg/dL Lactate 0.8 (0.7-2.1) mmol/L Calcium 8.6 (8.4-10.2) mg/dL Total Bilirubin 0.4 (0.2-1.3) mg/dL AST 18 (14-36) IU/L ALT 15 (<35) IU/L Alkaline Phosphatase 91 (38-126) U/L Total Protein 6.5 (6.3-8.2) g/dL Albumin 3.8 (3.5-5.0) g/dL Globulin 2.7 (1.7-4.1) g/dL Albumin/Globulin Ratio 1.4 (1.0-2.8) Lipase 37 (23-300) U/L Blood Type Antibody Screen Crossmatch 06/29/22 Range/Units 10:20 WBC (4.5-11.0) X10^3/uL RBC (4.0-5.2) X10^6/uL Hgb (12.0-16.0) g/dL Hct (36-46) % MCV (80-100) fL MCH (26-34) PG MCHC (30-36) % RDW (11.6-14.8) % Plt Count (150-400) X10^3/uL Neut % (Auto) Lymph % (Auto) [place] % (Auto) Eos % (Auto) Baso % (Auto) Lymph # (Auto) [place] # (Auto) Baso # (Auto) Total Counted Seg Neutrophils % (38-70) % Lymphocytes % (Manual) (25-45) % Monocytes % (Manual) (2-11) % Neutrophils # (Manual) (5271-6016) /uL Nucleated RBCs ( - 0) #/Diff RBC Morphology Hypochromasia Poikilocytosis Anisocytosis Target Cells Sodium (137-145) mmol/L Potassium (3.4-5.1) mmol/L Chloride (98-107) mmol/L Carbon Dioxide (22-32) mmol/L BUN (7-17) mg/dL Creatinine (0.52-1.04) mg/dL Estimated GFR (>60) mL/min BUN/Creatinine Ratio (6-22) Glucose (80-110) mg/dL Lactate (0.7-2.1) mmol/L Calcium (8.4-10.2) mg/dL Total Bilirubin (0.2-1.3) mg/dL AST (14-36) IU/L ALT (<35) IU/L Alkaline Phosphatase (38-126) U/L Total Protein (6.3-8.2) g/dL Albumin (3.5-5.0) g/dL Globulin (1.7-4.1) g/dL Albumin/Globulin Ratio (1.0-2.8) Lipase (23-300) U/L Blood Type O Positive Antibody Screen Negative Crossmatch See Detail Urine Dip Bedside Urine Glucose Negative Bedside Urine Bilirubin - Negative Bedside Urine Ketone - Negative Urine Specific [place] 1.005 Bedside Urine Occult Blood - Negative Bedside Urine pH 6.0 Bedside Urine Protein - Negative Bedside Urine Urobilinogen - Negative Bedside Urine Nitrite - Negative Bedside Urine Leukocytes - Negative Esterase Point of care testing: Urine Dip Bedside Urine Glucose Negative Bedside Urine Bilirubin - Negative Bedside Urine Ketone - Negative Urine Specific [place] 1.005 Bedside Urine Occult Blood - Negative Bedside Urine pH 6.0 Bedside Urine Protein - Negative Bedside Urine Urobilinogen - Negative Bedside Urine Nitrite - Negative Bedside Urine Leukocytes - Negative Esterase Imaging Data CT scan - abdomen/pelvis: Radiologist's Impression: [address] [address] [address] Scan Report Signed Patient: Salmon MR#: [id number] : 1955 Acct:[id number] Age/Sex: 66 / F Date of Service: 06/29/22 Loc: ED Accession Number: [id number] ?? Procedure: CT abdomen pelvis w con Ordering Provider: Nate Clay D.O. PROCEDURE:? CT ABDOMEN PELVIS W CON ? INDICATIONS:? Bilateral lower abdominal pain history of diverticulitis ? TECHNIQUE:? After the administration of intravenous contrast, axial sections acquired from the lung bases to the pubic symphysis.? Coronal and sagittal reformats were performed.? For radiation dose reduction, the following was used:? automated exposure control, adjustment of mA and/or kV according to patient size.? ? COMPARISON:? [facility], CT, CT ABDOMEN PELVIS W CON, 11/19/2020, 21:29. ? FINDINGS: ? Lower thorax: The lung bases are clear.? Heart size normal.? No hiatal hernia. ? Liver:? Normal in size and attenuation. No contour deformity present.? Renal cysts measure up to 1.4 cm, similar prior ? Biliary system:? No calcified cholelithiasis or pericholecystic inflammation.? No intra or extrahepatic bile duct dilatation. ? Pancreas:? Unremarkable without mass or inflammation evident. ? Spleen:? Normal in size and density. ? Adrenals:? Normal morphology and density. ? Reproductive system:? Unremarkable as visualized. ? Urinary system:? Absent right kidney.? Left kidney unremarkable. ? Gastrointestinal system:? Wall thickening and pericolonic inflammatory change noted involving the transverse, descending and sigmoid colon.? Several diverticula arise from the sigmoid colon as well.? No evidence of pneumatosis, abscess or obstruction.? There is a prominent loop of small bowel in the pelvis measuring up to 2.7 cm in diameter axis fluid-filled ? Appendix:? No findings to suggest acute appendicitis. ? Peritoneal spaces:? No mesenteric or retroperitoneal adenopathy.? No free air.? No free fluid.? ? Vasculature:? Aortic atherosclerotic vascular calcification noted without evidence of aneurysm. ? Abdominal wall:? Abdominal wall intact without evidence of ventral or inguinal hernias. ? Musculoskeletal:? Normal bone mineralization.? Degenerative disc disease and arthropathy noted in lower lumbar spine.? And grade 1 degenerative anterior spondylolisthesis L5-S1.? No acute fractures.? ? IMPRESSION: ? 1. Acute colitis.? Wall thickening and mild inflammatory change involving the transverse, descending and sigmoid colon is either infectious or inflammatory.? Although no pneumatosis present, colitis is in the distribution of the TOBIN, and ischemic colitis not entirely excluded.? No abscess, obstruction or evidence of perforation. ? 2. Superimposed sigmoid diverticulosis.? Additional chronic changes as above. ? Approved by: Paddy Youngblood M.D. on 06/29/2022 at 9:54? MDM Narrative Medical decision making narrative: CT scan does show colitis without signs of diverticulitis. She is not had any recent travel and no recent antibiotics. She is had the symptoms for the past 10 days. Will start her on antibiotics for this after discussion of the risks and benefits. Patient was mildly hypokalemic. She tolerated oral potassium. Was also found today that she was anemic. She is not on blood thinners but does take an aspirin. We discussed the risks and benefits of a blood transfusion and I feel given her hemoglobin hematocrit today that a blood transfusion would be appropriate. She expressed understanding of these risks and benefits and she did receive 1 unit of packed red blood cells. I suspect that her bleeding is from a GI source. She is not had a colonoscopy. We did discuss the importance of colonoscopy in the concern that we have given her anemia and her occasional off and on abdominal discomfort of potential etiologies such as ulcerative colitis, Crohn's disease and colon cancer. Patient expressed understanding of this. She was given follow-up information for General surgery to have this performed as an outpatient as it does not need to happened today given her vital signs and her exam I suspect that the anemia is chronic. Patient does have a follow-up with her primary doctor in 10 days from now and she asked if she could wait until that to talk with her primary doctor about a colonoscopy. I told her that this would be appropriate. She was given return precautions and follow-up instructions. She expressed understanding and agreement. Discharge Plan Departure Patient Disposition: Home Clinical Impression: Colitis, Anemia Instructions: DI for Colitis Activity Restrictions/Additional Instructions: I do recommend that you start taking the antibiotics as directed. [facility] [place]. I do think it is important that you consider having a colonoscopy. Please talk with your primary doctor about this knee have an appointment later this month. I also provided you the contact information for the General surgery group here at the hospital and you can contact them to discuss the follow-up appointment. Return to the emergency department for new or worsening symptoms. Prescriptions: New sulfamethoxazole-trimethoprim [Bactrim] 400-80 mg tablet 1 tab PO BID 3 Days Qty: 6 0RF Referrals: Snehal Valdes MD [Physician] - Reilly Ross MD [Primary Care Provider] - Stand Alone Forms: Patient Portal/API
[2022-06-29 09:25] LABS: Alanine Aminotransferase 15 IU/L (<35); Albumin 3.8 g/dL (3.5-5.0); Albumin Globulin Ratio 1.4 (1.0-2.8); Alkaline Phosphatase 91 U/L (38-126); Aspartate Aminotransferase 18 IU/L (14-36); BUN Creatinine Ratio 14.9 (6-22); Bilirubin Total 0.4 mg/dL (0.2-1.3); Blood Urea Nitrogen 14 mg/dL (7-17); Calcium 8.6 mg/dL (8.4-10.2); Carbon Dioxide 21 mmol/L (22-32); Chloride 101 mmol/L (98-107); Estimated Glomerular Filt Rate > 60 mL/min (>60); Globulin 2.7 g/dL (1.7-4.1); Glucose 110 mg/dL (80-110); HEMOLYSIS < 15 (0-50); Lipase 37 U/L (23-300); Potassium 3.2 mmol/L (3.4-5.1); Sodium 134 mmol/L (137-145); Total Protein 6.5 g/dL (6.3-8.2)
[2022-06-29 09:52] LABS: Hematocrit 21.6 % (36-46); Mean Corpuscular HGB Conc 29.1 % (30-36); Mean Corpuscular Hemoglobin 18.4 PG (26-34); Mean Corpuscular Volume 63.4 fL (80-100); Platelet Count 532 X10^3/uL (150-400); Red Cell Distribution Width 19.2 % (11.6-14.8); White Blood Cell Count 6.6 X10^3/uL (4.5-11.0)
[2022-06-29 10:09] LABS: Add Manual Diff / Slide Review YES; Hemoglobin 6.3 g/dL (12.0-16.0)
[2022-06-29 11:24] LABS: Lactate (Lactic Acid) 0.8 mmol/L (0.7-2.1)
[2022-06-29 11:42] LABS: Hypochromasia 2+; Neutrophils Absolute Manual 4884 /uL (3000-5900); Nucleated Red Blood Cells 1 #/Diff; Total Cells Counted 100
[2022-06-29 11:43] LABS: Anisocytosis 2+; Poikilocytosis 1+
[2022-06-29 11:44] LABS: Target Cells 1+
[2022-06-29] MEDS: POTASSIUM CHLORIDE 20 MEQ TAB 40 MEQ PO (12:23)
== END 2022-06-29 15:56 | disposition home or self-care (01) ==
PROVIDERS: Emergency Provider Emergency Medicine; PCP Family Medicine
DX: K52.9 Noninfective gastroenteritis and colitis, unspecified (principal); D64.9 Anemia, unspecified; E87.6 Hypokalemia
CPT/HCPCS: 36415; 36430; 74177; 80053; 81003; 83605; 83690; 85007; 85025; 86850; 86900; 86901; 99284; P9016; P9040; Q9967

== ENCOUNTER 2023-08-09 08:52 | Inpatient (IN) | payer MEDICARE, OTHER, SELFPAY ==
[2023-08-09] VITALS (12 sets, daily range): BP systolic 134–185; BP diastolic 62–88; PULSE 72–84; RESP 16–18; TEMP 36.3–36.6; O2SAT 96–99; BMI 20.7
--- NOTE | 2023-08-09 09:04 | ED.RECABL ---
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 She would outpatient blood work done 4 days ago she had a hemoglobin of 5 at that time , 2 days ago, she was instructed to come to the emergency department for blood transfusion. She arrives for blood transfusion. She has absolutely no symptoms. She denies blood in her stool she denies black stool she denies shortness of breath dizziness or lightheadedness. She has had anemia previously a year ago she had a hemoglobin of 6.3 and a hematocrit of 21.6. Unclear what workup has been done for her. Related Data Allergies Allergy/AdvReac Type Severity Reaction Status Date / Time codeine Allergy Verified 08/09/23 09:00 Patient History Medical History Constipation Social History Smoking Status: Never smoker Smoking Status: Never smoker alcohol intake frequency: holidays/special occasions only Substance Use Type: does not use Exam Initial Vital Signs Initial Vital Signs: Vital Signs Temperature 97.8 F 08/09/23 08:54 Pulse Rate 84 08/09/23 08:54 Respiratory Rate 17 08/09/23 08:54 Blood Pressure 134/64 08/09/23 08:54 Pulse Oximetry 99 08/09/23 08:54 Oxygen Delivery Method Room Air 08/09/23 08:54 GENERAL: Alert pleasant 67-year-old female appears slightly pain HEENT: Head atraumatic,EOMI, pupils reactive, face symmetric, moist mucous membrane CARDIOVASCULAR: Regular rate and rhythm without murmurs, rubs or gallops. RESPIRATORY: Breath sounds equal bilaterally, no wheezes rales or rhonchi. ABDOMEN: Soft, nontender. Normoactive bowel sounds all 4 quadrants. No guarding or rebound. EXTREMITIES: Normal range of motion, no clubbing or edema. Neurovascularly intact NEUROLOGICAL: Alert and oriented x4.Normal gait and speech. SKIN: Warm, dry, no laceration, no petechiae, no rashes or lesions. Course Orders Ordered: ED Orders 08/09/23 09:00 CBC Auto Diff [Complete Blood Count AUTO DIFF] Stat CMP [Comprehensive Metabolic Panel] Stat PT [Prothrombin Time INR] Stat PTT [PTT Partial Thromboplastin Dev] Stat Type and Screen Stat 08/09/23 09:46 PRBC [Packed Cells] Stat Vital Signs Vital signs: Vital Signs - 8 hr 08/09/23 08:54 08/09/23 09:00 08/09/23 09:00 Temperature 97.8 F Pulse Rate 84 79 Respiratory Rate 17 Blood Pressure 134/64 135/62 Pulse Oximetry 99 99 Oxygen Delivery Method Room Air 08/09/23 09:30 08/09/23 09:30 Temperature Pulse Rate 72 Respiratory Rate Blood Pressure 145/68 H Pulse Oximetry 96 Oxygen Delivery Method MDM - Recheck/Abnormal Lab/Rx Lab Data 08/09/23 09:00 08/09/23 09:00 Labs: Lab Results 08/09/23 Range/Units 09:00 WBC 5.6 (4.5-11.0) X10^3/uL RBC 3.12 L (4.0-5.2) X10^6/uL Hgb 5.6 L* (12.0-16.0) g/dL Hct 20.4 L* (36-46) % MCV 65.3 L (80-100) fL MCH 17.9 L (26-34) PG MCHC 27.5 L (30-36) % RDW 20.7 H (11.6-14.8) % Plt Count 446 H (150-400) X10^3/uL Neut % (Auto) Not Reportable Lymph % (Auto) Not Reportable [place] % (Auto) Not Reportable Eos % (Auto) Not Reportable Baso % (Auto) Not Reportable Lymph # (Auto) Not Reportable [place] # (Auto) Not Reportable Baso # (Auto) Not Reportable PT 11.1 (9.4-12.5) SECONDS INR 1.0 (0.9-1.3) APTT 31 (25.1-36.5) SECONDS Sodium 134 L (137-145) mmol/L Potassium 4.2 (3.4-5.1) mmol/L Chloride 105 (98-107) mmol/L Carbon Dioxide 23 (22-32) mmol/L BUN 16 (7-17) mg/dL Creatinine 1.01 (0.52-1.04) mg/dL Estimated GFR > 60 (>60) mL/min BUN/Creatinine Ratio 15.8 (6-22) Glucose 92 (80-110) mg/dL Calcium 9.5 (8.4-10.2) mg/dL Total Bilirubin 0.6 (0.2-1.3) mg/dL AST 18 (14-36) IU/L ALT 10 (<35) IU/L Alkaline Phosphatase 63 (38-126) U/L Total Protein 6.9 (6.3-8.2) g/dL Albumin 4.2 (3.5-5.0) g/dL Globulin 2.7 (1.7-4.1) g/dL Albumin/Globulin Ratio 1.6 (1.0-2.8) MDM Narrative Medical decision making narrative: Patient 67-year-old female history of anemia presents today with anemia. She is completely asymptomatic she looks slightly pale. Vitals are stable. She denies any shortness of breath dizziness lightheadedness. She has no abdominal pain. Apparently she colitis in the past and after that has had a colonoscopy although I do not have record of that. She denies any sort of bloody stool or dark stool. She has no abdominal pain. Blood work has been reviewed and shows hemoglobin 5.6 hematocrit 20 point or no leukocytosis, electrolyte abnormality or TERESITA. Imaging not done Dr. Horn updated patient's symptoms test results she is reviewed patient's chart confirms colonoscopy in the past. She accepts patient to observation Patient seems that she is chronically anemic she has been compensating she is overall stable with any obvious blood loss. Patient is ordered 2 units of packed red blood cells. Discharge Plan Departure Patient Disposition: Admitted as Observation Clinical Impression: Anemia Admit Date/Time: 08/09/23 09:58 Admit Provider: Kaye Horn
--- NOTE | 2023-08-09 09:10 | PC.NURSE ---
Pt advised to come to ER by Dr Ross/[facility] office for hgb of approx 5 however pt is not sure and states i dont know, nobody tells me anything. They called me [2 days ago] and told me to come get a blood transfusion Pt is AAOx3, slightly pale however states she feels at baseline despite her chronic back pain. states she was told there was blood in her stool however none visible. Last transfusion was Jun 2022.
[2023-08-09 09:35] LABS: Prothrombin Time 11.1 SECONDS (9.4-12.5)
[2023-08-09 09:36] LABS: Mean Corpuscular HGB Conc 27.5 % (30-36); Mean Corpuscular Hemoglobin 17.9 PG (26-34); Mean Corpuscular Volume 65.3 fL (80-100); Platelet Count 446 X10^3/uL (150-400); Red Blood Cell Count 3.12 X10^6/uL (4.0-5.2); Red Cell Distribution Width 20.7 % (11.6-14.8); White Blood Cell Count 5.6 X10^3/uL (4.5-11.0)
[2023-08-09 09:38] LABS: PTT Partial Thromboplastin Tim 31 SECONDS (25.1-36.5)
[2023-08-09 09:44] LABS: Hematocrit 20.4 % (36-46); Hemoglobin 5.6 g/dL (12.0-16.0)
[2023-08-09 09:45] LABS: Add Manual Diff / Slide Review YES; Alanine Aminotransferase 10 IU/L (<35); Albumin 4.2 g/dL (3.5-5.0); Albumin Globulin Ratio 1.6 (1.0-2.8); Alkaline Phosphatase 63 U/L (38-126); Aspartate Aminotransferase 18 IU/L (14-36); BUN Creatinine Ratio 15.8 (6-22); Bilirubin Total 0.6 mg/dL (0.2-1.3); Blood Urea Nitrogen 16 mg/dL (7-17); Calcium 9.5 mg/dL (8.4-10.2); Carbon Dioxide 23 mmol/L (22-32); Chloride 105 mmol/L (98-107); Estimated Glomerular Filt Rate > 60 mL/min (>60); Globulin 2.7 g/dL (1.7-4.1); Glucose 92 mg/dL (80-110); HEMOLYSIS < 15 (0-50); Potassium 4.2 mmol/L (3.4-5.1); Sodium 134 mmol/L (137-145); Total Protein 6.9 g/dL (6.3-8.2)
[2023-08-09 10:39] LABS: Neutrophils Absolute Manual 3640 /uL (3000-5900); Total Cells Counted 100
[2023-08-09 10:40] LABS: Anisocytosis 2+; Hypochromasia 2+
[2023-08-09 10:41] LABS: Microcytosis 1+
--- NOTE | 2023-08-09 14:06 | DI.CT.S_ITS ---
PROCEDURE: CT ABDOMEN PELVIS W CON INDICATIONS: abdominal pain TECHNIQUE: After the administration of intravenous contrast, axial sections acquired from the lung bases to the pubic symphysis. Coronal and sagittal reformats were performed. For radiation dose reduction, the following was used: automated exposure control, adjustment of mA and/or kV according to patient size. COMPARISON: [facility], CT, CT ABDOMEN PELVIS W CON, 06/29/2022, 9:36. FINDINGS: Image quality: Diagnostic. Lower Chest: No significant findings at the lung bases. Coronary artery calcifications/stents. ABDOMEN: Liver: Right hepatic cysts and additional subcentimeter hepatic hypodensities which are too small to characterize, probable cysts versus hemangiomas. Gallbladder: No radiopaque gallstones or wall thickening. Biliary ducts: No biliary dilation. Pancreas: No ductal dilation. Spleen: Size is within normal limits. Adrenal Glands: No adrenal nodules. Kidneys and Ureters: Right kidney is absent. No hydronephrosis. No solid mass. No complex renal cystic lesion which requires follow up. Stomach and Bowel: No small bowel obstruction. Focal bowel wall thickening in the sigmoid colon, for example series 2, image 62. Scattered colonic diverticula without evidence of acute inflammation. Peritoneum: No abnormal intraperitoneal fluid. No free air. Ventral Wall: No significant ventral hernia. Abdominal Nodes: No retroperitoneal or mesenteric adenopathy by size criteria. Vessels: Aorta and inferior vena cava are normal in size. Aorto bi iliac atherosclerotic calcifications. PELVIS: Pelvic Organs: Unremarkable. Bladder: No bladder wall thickening, accounting for underdistention. Pelvic Nodes: No enlarged lymph nodes. Miscellaneous: No inguinal hernias are seen. Bones: No acute or suspicious osseous abnormality. No vertebral body compression fracture. Grade 1 anterolisthesis of L5 on S1 osseous abnormality. IMPRESSION: Short segment of bowel wall thickening of the sigmoid colon. Finding is indeterminate and underlying malignancy cannot be excluded. Recommend further evaluation with colonoscopy. Scattered colonic diverticula without CT evidence of acute diverticulitis. Approved by: Kimberly Mccarthy M.D. on 08/09/2023 at 18:11
--- NOTE | 2023-08-09 16:56 | P.HP_ITS ---
History of Present Illness History of Present Illness Date Patient Seen: 08/09/23 Time Patient Seen: 13:00 Chief complaint: states Dr sent her for a infusion Narrative: This is a very pleasant 67-year-old female who is under the primary care of Dr. Ross. She saw Dr. Ross on August 04 and H&H was obtained that subsequently showed hemoglobin of 5.6. A fit test was done that day as well and that result is positive. She was called and told to report to the ER for further workup and probable blood transfusion. She reported to the ER on day of admission which is today. Her vital signs were stable and she had no symptoms. Only symptoms or cramping in her legs that she attributes to her chronic low back pain. She does state that she has a history of diverticulosis in his had colitis before. I reviewed her ER visit in June of 2022. Her hemoglobin at that time was 6.6. She had a subsequent hemoglobin in her clinic that was in the same range. In December of 2022. No other blood work. She refused to have a colonoscopy. Dr. Ross discussed this with her on August 04 as well and she still declined. She does not think that she can go through the prep due to her diverticulosis and pain that she has intermittently with her constipation. She does not currently have constipation. She has no bowel symptoms except that she states sometimes after she eats she is upper abdominal pain. She was not able to characterize that further. Patient states she has been in her usual state of health. She denies any shortness a breath. She does feel tired but no chest pain no palpitations no lightheadedness no dizziness. She denies any hematuria, melena, hematochezia. She denies any diarrhea or constipation. She denies any weight loss or rashes or fevers or cough. She does state that she feels tired but feels this is normal for her age Past medical history: 1. Anemia of unclear etiology 2. Occipital CVA, followed by Dr. Genao 3. Peripheral vascular disease 4. Hyperlipidemia 5. Hypertension 6. Chronic low back pain 7. GERD 8. Osteoporosis 9. Osteoarthritis 10. History of tobacco use, quit in 1998 11. Congenitally absent kidney 12. Congenitally absent uterus. Patient is unsure of the exact syndrome. Medications: Catapres patch 0.1 mg, nifedipine extended release 30 mg daily, pravastatin 40 mg daily, omeprazole 20 mg daily, baby aspirin Allergies: Codeine Past surgical history: Cataract surgery Health related behavior. Patient no longer smokes. Patient does not use illicit drugs. Patient does not use alcohol. Family history: Dad of COPD and black lung in his 60s. He was a coal worker. Mom of acute IL at age 71 Maternal grandfather of an acute [place] Maternal grandmother had stomach cancer Social history: Patient lives with her . She is originally from [place] but came out here because her was in the . No children. Twelve point review of system is otherwise negative than [facility] Medical History Constipation Social History (Updated 08/09/23 @ 17:05 by Kaye Horn MD) household members: spouse Smoking Status: Former smoker Meds Home Medications and Allergies Allergies Allergy/AdvReac Type Severity Reaction Status Date / Time codeine Allergy Verified 08/09/23 09:00 Exam Vital Signs (past 8 hours): - 08/09/23 09:00 08/09/23 09:00 08/09/23 09:30 Temperature Pulse Rate 79 72 Respiratory Rate Blood Pressure 135/62 Pulse Oximetry 99 96 08/09/23 09:30 08/09/23 10:00 08/09/23 10:00 Temperature Pulse Rate 73 Respiratory Rate Blood Pressure 145/68 H 141/65 H Pulse Oximetry 96 08/09/23 10:57 08/09/23 11:13 08/09/23 13:48 Temperature 97.6 F 97.8 F 97.6 F Pulse Rate 75 76 80 Respiratory Rate 18 18 18 Blood Pressure 140/66 135/62 149/72 H Pulse Oximetry 08/09/23 14:14 08/09/23 14:30 08/09/23 14:31 Temperature 97.3 F L 97.6 F 97.6 F Pulse Rate 73 78 78 Respiratory Rate 18 18 18 Blood Pressure 156/75 H 158/74 H 158/74 H Pulse Oximetry 08/09/23 16:41 Temperature 97.8 F Pulse Rate 74 Respiratory Rate 18 Blood Pressure 185/88 H Pulse Oximetry Oxygen Delivery Method Room Air Narrative Exam Narrative: Patient is alert and oriented x3. She has in no apparent distress. She is lying in the hospital bed comfortably and appears slightly pale HEENT is unremarkable Neck: Patient with a right carotid bruit, no masses, no adenopathy Chest: Clear to auscultation with no wheezes rhonchi or crackles Cor: Regular rate and rhythm with distant S1-S2 Abdomen: Positive bowel sounds, soft, nontender, nondistended Extremities: No edema Moves all extremities well Neurologic exam is nonfocal. Skin shows no bruising or other abnormalities. Objective Labs 08/09/23 09:00 08/09/23 09:00 Labs: Laboratory Results - last 24 hr 08/09/23 09:00 WBC 5.6 RBC 3.12 L Hgb 5.6 L* Hct 20.4 L* MCV 65.3 L MCH 17.9 L MCHC 27.5 L RDW 20.7 H Plt Count 446 H Neut % (Auto) Not Reportable Lymph % (Auto) Not Reportable [place] % (Auto) Not Reportable Eos % (Auto) Not Reportable Baso % (Auto) Not Reportable Lymph # (Auto) Not Reportable [place] # (Auto) Not Reportable Baso # (Auto) Not Reportable Total Counted 100 Seg Neutrophils % 65.0 Lymphocytes % (Manual) 20.0 L Monocytes % (Manual) 12.0 H Eosinophils % (Manual) 2.0 Basophils % (Manual) 1.0 Neutrophils # (Manual) 3640 RBC Morphology See below Hypochromasia 2+ H Anisocytosis 2+ H Microcytosis 1+ H PT 11.1 INR 1.0 APTT 31 Sodium 134 L Potassium 4.2 Chloride 105 Carbon Dioxide 23 BUN 16 Creatinine 1.01 Estimated GFR > 60 BUN/Creatinine Ratio 15.8 Glucose 92 Calcium 9.5 Total Bilirubin 0.6 AST 18 ALT 10 Alkaline Phosphatase 63 Total Protein 6.9 Albumin 4.2 Globulin 2.7 Albumin/Globulin Ratio 1.6 Blood Type O Positive Antibody Screen Negative Crossmatch See Detail Assessment & Plan Assessment & Plan narrative: 67-year-old female with severe microcytic anemia of unclear etiology Assessment 1. Microcytic anemia of unclear etiology without any evidence of acute blood loss. She did have a guaiac that was positive. She is very asymptomatic which is suggestive that this is a chronic issue and review of her chart confirms that. There has been no clear etiology. Obviously this profound anemia puts her at great risk for other complications especially given her cardiovascular risk given her peripheral vascular disease and previous CVA. Plan: Patient will be admitted to the hospital for further workup. She is currently being transfused her 2nd unit. We will recheck H&H after this. Surgery was consulted to discuss EGD and colonoscopy due to patient being guaiac positive. Patient is adamant that she will not do a colonoscopy. She understands she could have occult malignancy. We had a lengthy discussion of potential etiologies of her condition. Discussed possibility of occult blood loss versus gross blood loss versus bone marrow issue versus hemolysis. She will be continued on a proton pump inhibitor. We will do a CT of her abdomen and pelvis. Unfortunately iron studies were not done be for she was transfused. She had a positive fit test that was done as an outpatient so we will not repeat this. Assessment 2. History of hypertension Plan: Will continue Catapres and nifedipine. Assessment 3. History of CVA without acute issues Plan: Continue with monitoring blood pressure and statin therapy. Assessment 4. Hyperlipidemia Plan: Continue pravastatin Assessment 5. GI prophylaxis Plan: Pantoprazole orally Assessment 6. DVT prophylaxis Plan: Due to severe anemia will hold any anticoagulants until we see if we are going to do any endoscopy. Assessment 7. Chronic back pain Plan: Will monitor give Tylenol. I am hopeful that her cramping is not related to the back pain but related to the profound anemia and will improve with blood transfusion.
[2023-08-09 17:37] LABS: Add Manual Diff / Slide Review NO; Basophils Absolute Auto 0 /uL (0-100); Basophils Percent Auto 0.6 % (0-2); Eosinophils Absolute Auto 200 /uL (0-450); Eosinophils Percent Auto 2.5 % (2-4); Hematocrit 29.5 % (36-46); Lymphocytes Absolute Auto 1400 /uL (1100-4500); Lymphocytes Percent Auto 19.1 % (25-40); Mean Corpuscular HGB Conc 30.5 % (30-36); Mean Corpuscular Hemoglobin 22.1 PG (26-34); Mean Corpuscular Volume 72.4 fL (80-100); Monocytes Absolute Auto 700 /uL (0-900); Monocytes Percent Auto 8.7 % (3-14); Neutrophils Absolute Auto 5200 /uL (1500-7000); Neutrophils Percent Auto 69.1 % (50-75); Platelet Count 400 X10^3/uL (150-400); Red Blood Cell Count 4.08 X10^6/uL (4.0-5.2); Red Cell Distribution Width 24.5 % (11.6-14.8); White Blood Cell Count 7.6 X10^3/uL (4.5-11.0)
[2023-08-09 18:00] LABS: Anisocytosis 2+; Hypochromasia 1+; Ovalocytes 1+; Polychromasia 1+; Stomatocytes 1+; Target Cells 1+
[2023-08-09 18:01] LABS: Macrocytosis 1+; Microcytosis 1+
[2023-08-10 04:00] VITALS: BP 148/80; PULSE 80; RESP 16; TEMP 36.7; O2SAT 97
[2023-08-10 05:57] LABS: Alanine Aminotransferase 10 IU/L (<35); Albumin 4.2 g/dL (3.5-5.0); Albumin Globulin Ratio 1.4 (1.0-2.8); Alkaline Phosphatase 65 U/L (38-126); Aspartate Aminotransferase 23 IU/L (14-36); BUN Creatinine Ratio 17.2 (6-22); Bilirubin Total 1.4 mg/dL (0.2-1.3); Blood Urea Nitrogen 16 mg/dL (7-17); Calcium 9.6 mg/dL (8.4-10.2); Carbon Dioxide 26 mmol/L (22-32); Chloride 103 mmol/L (98-107); Estimated Glomerular Filt Rate > 60 mL/min (>60); Globulin 2.9 g/dL (1.7-4.1); Glucose 85 mg/dL (80-110); HEMOLYSIS < 15 (0-50); Potassium 4.1 mmol/L (3.4-5.1); Sodium 136 mmol/L (137-145); Total Protein 7.1 g/dL (6.3-8.2)
[2023-08-10 05:59] LABS: Hematocrit 31.9 % (36-46); Hemoglobin 9.7 g/dL (12.0-16.0); Mean Corpuscular HGB Conc 30.4 % (30-36); Mean Corpuscular Hemoglobin 21.7 PG (26-34); Mean Corpuscular Volume 71.6 fL (80-100); Platelet Count 426 X10^3/uL (150-400); Red Blood Cell Count 4.46 X10^6/uL (4.0-5.2); Red Cell Distribution Width 24.6 % (11.6-14.8); White Blood Cell Count 5.6 X10^3/uL (4.5-11.0)
[2023-08-10 06:01] LABS: Add Manual Diff / Slide Review YES
[2023-08-10] MEDS: PANTOPRAZOLE DR 20 MG TABLET PO (06:23)
[2023-08-10 06:24] LABS: Neutrophils Absolute Manual 3248 /uL (3000-5900); Total Cells Counted 100
[2023-08-10 06:27] LABS: Anisocytosis 2+; Microcytosis 1+
[2023-08-10 06:28] LABS: Target Cells 1+
[2023-08-10] MEDS: NIFEdipine 30 MG TAB ER PO (08:52)
--- NOTE | 2023-08-10 09:09 | CM.DANOTE ---
DCP Assessment Note Pt is a 67yo F here following suggestion from Dr. Ross to come in for a transfusion due to low H&H. PCP Vandana Payer Medicare and for life. PRODUCT SPECIALIST reviewed EMR. After transfusion, H&H rising. Per H&P, no clear etiology for anemia at this time. Per RN, anticipate home today no CM needs. PRODUCT SPECIALIST met with spouse and pt in room. Pt reports eager to dc home. Active/indep/no DME/drives. Spouse plan for ride home. Denies CM needs. Plan: anticipate home when stable, potentially today. Spouse to transport in POV. CM team will follow as needed. STEVE Ba Discharge Planning/Care Management CM Discharge Assessment Start: 08/10/23 09:08 Freq: Status: Active Protocol: Document 08/10/23 09:09 (Rec: 08/10/23 09:09 [id number]) Discharge Planning Assessment Assigned Network Support Technician STEVE Gorman DPOA/Assigned Designee Name Elias spouse Contact Information [phone] Advance Directives? Yes Advance Directives on File No History Provided By Patient Prior Living Arrangements Mobile home Household Members spouse Type of transporation used prior to Drives own vehicle admit Independent with ADL's Yes Is patient alert and oriented? Yes Discharge Plan Home Transportation Arrangement spouse in POV Referrals Initiated None needed Whiteboard Updated in Patient Room with Yes name and ext. # of Network Support Technician Review Status In Process Next Review Type Continued Stay Review
--- NOTE | 2023-08-10 10:09 | PC.NURSE ---
Addendum entered by Maddie Frey R.N. 08/10/23 10:13: Patients blood pressure down to 178/78, pulse of 70 and map of 104. Original Note: Assess- Patient states that she is feeling good, she denies sob or feeling syncopal. Visiting with her at bedside and hoping to go home today. Systolic blood pressure 180s, patient given her blood pressure medication. Will recheck blood pressure again soon.
[2023-08-10 12:00] VITALS: BP 190/84; PULSE 81; RESP 12; TEMP 36.7; O2SAT 99
--- NOTE | 2023-08-10 12:05 | PM.DS.1 ---
History of Present Illness History of Present Illness Date Patient Seen: 08/10/23 Time Patient Seen: 12:05 Chief complaint: states Dr sent her for a infusion Narrative: This is a very pleasant 67-year-old female who is under the primary care of Dr. Ross. She saw Dr. Ross on August 04 and H&H was obtained that subsequently showed hemoglobin of 5.6. A fit test was done that day as well and that result is positive. She was called and told to report to the ER for further workup and probable blood transfusion. She reported to the ER on day of admission which is today. Her vital signs were stable and she had no symptoms. Only symptoms or cramping in her legs that she attributes to her chronic low back pain. She does state that she has a history of diverticulosis in his had colitis before. I reviewed her ER visit in June of 2022. Her hemoglobin at that time was 6.6. She had a subsequent hemoglobin in her clinic that was in the same range. In December of 2022. No other blood work. She refused to have a colonoscopy. Dr. Ross discussed this with her on August 04 as well and she still declined. She does not think that she can go through the prep due to her diverticulosis and pain that she has intermittently with her constipation. She does not currently have constipation. She has no bowel symptoms except that she states sometimes after she eats she is upper abdominal pain. She was not able to characterize that further. Patient states she has been in her usual state of health. She denies any shortness a breath. She does feel tired but no chest pain no palpitations no lightheadedness no dizziness. She denies any hematuria, melena, hematochezia. She denies any diarrhea or constipation. She denies any weight loss or rashes or fevers or cough. She does state that she feels tired but feels this is normal for her age Past medical history: 1. Anemia of unclear etiology 2. Occipital CVA, followed by Dr. Genao 3. Peripheral vascular disease 4. Hyperlipidemia 5. Hypertension 6. Chronic low back pain 7. GERD 8. Osteoporosis 9. Osteoarthritis 10. History of tobacco use, quit in 1998 11. Congenitally absent kidney 12. Congenitally absent uterus. Patient is unsure of the exact syndrome. Medications: Catapres patch 0.1 mg, nifedipine extended release 30 mg daily, pravastatin 40 mg daily, omeprazole 20 mg daily, baby aspirin Allergies: Codeine Past surgical history: Cataract surgery Health related behavior. Patient no longer smokes. Patient does not use illicit drugs. Patient does not use alcohol. Family history: Dad of COPD and black lung in his 60s. He was a coal worker. Mom of acute [place] at age 71 Maternal grandfather of an acute [place] Maternal grandmother had stomach cancer Social history: Patient lives with her . She is originally from [place] but came out here because her was in the . No children. Twelve point review of system is otherwise negative than HPI Discharge Providers Provider Date of admission: 08/09/23 09:58 Discharge Date: 08/10/23 Primary care physician: Reilly Ross MD Consults: 08/09/23 13:49 Consult to Physician Routine Comment: Consulting Provider: Eloy Castrejon Reason for consultation: guiac positive Has provider been notified: Yes Discharge provider: Kaye Horn MD Summary Hospital Course Discharge Diagnosis: 1. Severe microcytic anemia of unclear etiology, improved after 2 units packed red blood cells 2. Guaiac-positive stools 3. Intermittent constipation 4. Hypertension Hospital Course: Patient admitted to the hospital. She was given 2 units of packed red blood cells. Discussed with surgery but they did not feel like this was acute bleed. Patient does have guaiac-positive stools and intermittent constipation which she has had for years. Patient had no symptoms when her hemoglobin was 5.6 and maybe feels a little better today with increased energy but really did not have any problems and did not have any abdominal complaints. No other medication changes. However her blood pressure did increase today but she states that it does that when she gets stressed and blood pressure is fine at home. CT scan was done that showed thickening of left colon. Patient will be discharged home today. She will monitor blood pressure and call me if blood pressure is persistently above a systolic blood pressure of 180. She will continue on her same outpatient medications. She will follow up with Dr. Ross for further workup of her severe microcytic anemia and heme-positive stools. She consents to an EGD which will be done as an outpatient. She will need to have the referral. I discussed the findings on her CT scan that can not rule out malignancy and need for her to have some type of endoscopy. She is adamant that she could not go through the prep for colonoscopy. She says it would give her too much pain. We discussed that perhaps she could do a lesser prep and just have a flex sig to look at this area. Discussed with Dr. Ross and recommend iron studies, CEA and referral to photographic artist all as an outpatient. This was discussed with the patient as well. Status at Discharge Cognitive/behavioral status at discharge: oriented Functional status at discharge: independent ambulation Overall status at discharge: patient is back to baseline Exam Vital Signs (past 8 hours): Oxygen Delivery Method Room Air Oxygen Flow Rate 0 Narrative Exam Narrative: Color is improved today Afebrile vital signs are stable other than elevated blood pressure HEENT unremarkable and unchanged Neck: Supple without adenopathy Chest: Clear to auscultation without wheezes rhonchi or crackles Cor: Regular rate and rhythm without a murmur Abdomen: Positive bowel sounds x4. No masses and no tenderness Extremities no edema Pulses intact Objective Labs 08/10/23 05:30 08/10/23 05:30 Labs: Laboratory Results - last 24 hr 08/09/23 08/09/23 08/10/23 09:00 16:55 05:30 WBC 7.6 5.6 RBC 4.08 4.46 Hgb 9.0 L 9.7 L Hct 29.5 L 31.9 L MCV 72.4 L D 71.6 L MCH 22.1 L 21.7 L MCHC 30.5 D 30.4 RDW 24.5 H 24.6 H Plt Count 400 426 H Neut % (Auto) 69.1 Not Reportable Lymph % (Auto) 19.1 L Not Reportable [place] % (Auto) 8.7 Not Reportable Eos % (Auto) 2.5 Not Reportable Baso % (Auto) 0.6 Not Reportable Neut # (Auto) 5200 Lymph # (Auto) 1400 Not Reportable [place] # (Auto) 700 Not Reportable Eos # (Auto) 200 Baso # (Auto) 0 Not Reportable Total Counted 100 Seg Neutrophils % 58.0 Lymphocytes % (Manual) 28.0 Monocytes % (Manual) 6.0 Eosinophils % (Manual) 4.0 Basophils % (Manual) 4.0 H Neutrophils # (Manual) 3248 RBC Morphology See below See below Polychromasia 1+ H Hypochromasia 1+ H Anisocytosis 2+ H 2+ H Microcytosis 1+ H 1+ H Macrocytosis 1+ H Target Cells 1+ H 1+ H Ovalocytes 1+ H Stomatocytes 1+ H Sodium 136 L Potassium 4.1 Chloride 103 Carbon Dioxide 26 BUN 16 Creatinine 0.93 Estimated GFR > 60 BUN/Creatinine Ratio 17.2 Glucose 85 Calcium 9.6 Total Bilirubin 1.4 H AST 23 ALT 10 Alkaline Phosphatase 65 Total Protein 7.1 Albumin 4.2 Globulin 2.9 Albumin/Globulin Ratio 1.4 Blood Type O Positive Antibody Screen Negative Crossmatch See Detail [facility] Medical History Constipation Social History (Updated 08/09/23 @ 17:05 by Kaye Horn MD) household members: spouse Smoking Status: Former smoker Discharge Assessment & Plan Assessment and Plan Assessment: 1. Severe microcytic anemia of unclear etiology, improved after 2 units packed red blood cells 2. Guaiac-positive stools 3. Intermittent constipation 4. Hypertension Plan of Treatment: Discharge to home in stable condition. Continue same outpatient medications Follow up with Dr. Ross in anticipate referral to Dr. Castrejon for EGD and hopefully flex sig if patient will consent to at least this. Also recommend referral to Hematology. Also will need iron studies and CEA. Patient will call if systolic blood pressure greater than 180 and we will adjust medications. 36 minute spent with patient in discharge planning and discussing with nursing meeting with patient and arranging a plan. Discharge Plan Discharge Plan Patient Disposition: Home Discharge orders & Medications Follow up/Referrals: Reilly Ross MD [Primary Care Provider] - Discharge Health Status Multidrug resistant organism: No MDRO Diet/Activity/Treatments Diet: Diet as Tolerated Visit Report/Discharge Packet Stand Alone Forms: Patient Portal/API, Stroke Signs & Symptoms Discharge Data Primary Care Provider: Reilly Ross Attending Provider: Kaye Horn Admit Date/Time: 08/09/23 09:58
--- NOTE | 2023-08-10 12:45 | PC.NURSE ---
When taking pt vital signs, initial BP was 211/83 (MAP 148). RN retook BP an additional time on that arm and two times on the other arm. The lowest blood pressure taken was 190/84 (MAP 140). RN verified pt had received BP med that morning and verified that clonidine patch was intact on pt's skin. Pt denied GUERRA or vision changes. RN reported BP to provider, retook the BP with provider at bedside with systolic of 188. Provider instructed patient to take blood pressure at home and to call the office if SBP >180. Provider told pt to schedule a follow-up appointment with primary provider. Provider gave these instructions with RN at bedside.
--- NOTE | 2023-08-10 12:51 | CM.DPC ---
DCP Discharge Home SW spoke to MD and pt declines colonoscopy as pt does not feel she can tolerate the prep but agreeable to outpt EGD to determine source of bleed and no barriers to discharge and no discharge needs at this time. Pt medically stable to discharge this afternoon. Pt preference is to discharge home today and pt does not anticipate any further needs and spouse to provide transport. STEVE Veliz
== END 2023-08-10 14:08 | disposition home or self-care (01) | DRG 812 ==
LOC: ED 09:04 → AC 09:59
PROVIDERS: Admitting Provider Family Medicine; Emergency Provider Emergency Medicine; PCP Family Medicine; Referring Provider Emergency Medicine; Visit Provider Family Medicine
DX: D50.9 Iron deficiency anemia, unspecified (principal); I10 Essential (primary) hypertension; E78.5 Hyperlipidemia, unspecified; G89.29 Other chronic pain; M54.9 Dorsalgia, unspecified; R19.5 Other fecal abnormalities; K59.09 Other constipation; Z87.891 Personal history of nicotine dependence; Z86.73 Personal history of transient ischemic attack (TIA), and cerebral infarction without residual deficits
CPT/HCPCS: 36415; 36430; 74177; 80053; 85007; 85025; 85610; 85730; 86850; 86900; 86901; 99284; G0378; P9016; Q9967

== ENCOUNTER → 2023-08-24 10:11 | Outpatient (CLI) | payer MEDICARE, OTHER, SELFPAY ==
[2023-08-09 10:35] VITALS: BMI 20.7
--- NOTE | 2023-08-24 | DI.MRI.S_ITS ---
PROCEDURE: MR LUMBAR SPINE WO CON INDICATIONS: Spinal stenosis, lumbar region TECHNIQUE: Noncontrast sagittal T1 spin echo and T2 fast echo, sagittal STIR, and T2 fast spin echo through the lumbar spine. In cases with scoliosis, additional coronal T2 fast spin echo may be performed. COMPARISON: [facility], CT, CT ABDOMEN PELVIS W CON, 11/19/2020, 21:29. FINDINGS: Image quality: Excellent. Alignment and Curvature: There is sacralization of the L5 vertebral body and thus four [id number] vertebra. There is chronic grade 2 anterolisthesis L4 on S1. There is been about 2 mm of progression since 11/19/20. Trace retrolisthesis L2-3. Minor transverse scoliosis due to multilevel asymmetric disc height loss. Bone Marrow: Marrow is of normal overall signal. No acute vertebral body compression fractures. Spinal Cord: Conus medullaris terminates at the L1 level. Visualized cord demonstrates normal signal and size. Paraspinous Soft Tissues: No paravertebral masses. The right kidney is absent. T12-L1: Disc desiccation and moderate disc height loss. Broad-based right central and foraminal disc bulge without significant neural foraminal narrowing. L1-L2: Disc desiccation and moderate disc height loss. Broad-based near circumferential moderate disc osteophyte effacing the anterior CSF. Moderate facet arthropathy contributes to dorsal central canal narrowing resulting in a mild overall central canal stenosis. L2-L3: Severe disc height loss and desiccation. Circumferential disc osteophyte. Moderate to severe ligamentum flavum hypertrophy and facet arthropathy. Mild central canal narrowing. Moderate to severe left foraminal narrowing. L3-L4: Severe disc height loss and desiccation. Circumferential disc osteophyte. Prior right hemilaminectomy surgical change. Severe facet arthropathy and ligamentum flavum hypertrophy. Severe left foraminal narrowing and mild right foraminal narrowing mainly due to facet arthropathy. There is likely right lateral recess narrowing and mild central canal stenosis. L4-S1: There is disc uncovering and severe facet arthropathy. Moderate ligamentum flavum hypertrophy and central canal stenosis but with maintenance of CSF space. Severe right and moderate left foraminal narrowing. IMPRESSION: Chronic appearing disc and endplate degeneration at multiple levels. Chronic anterolisthesis L4-S1. Multilevel bilateral foraminal and central canal narrowing as described. Dictated by: Tracy Villarreal M.D. on 08/25/2023 at 11:17 Approved by: Tracy Villarreal M.D. on 08/25/2023 at 12:02
== END ==
PROVIDERS: PCP Family Medicine; Referring Provider Orthopaedic Surgery Orthopaedic Surgery of the Spine; Visit Provider Orthopaedic Surgery Orthopaedic Surgery of the Spine
DX: M48.062 Spinal stenosis, lumbar region with neurogenic claudication (principal); M48.07 Spinal stenosis, lumbosacral region; M43.16 Spondylolisthesis, lumbar region; M43.17 Spondylolisthesis, lumbosacral region; M47.816 Spondylosis without myelopathy or radiculopathy, lumbar region; M47.817 Spondylosis without myelopathy or radiculopathy, lumbosacral region
CPT/HCPCS: 72148

== ENCOUNTER → 2023-09-10 09:36 | Outpatient (CLI) | payer MEDICARE, OTHER, SELFPAY ==
[2023-08-09 10:35] VITALS: BMI 20.7
--- NOTE | 2023-09-10 09:38 | DI.CT.S_ITS ---
PROCEDURE: CT LUMBAR SPINE WO CON INDICATIONS: Spinal stenosis, lumbar region TECHNIQUE: Noncontrast 3 mm thick sections acquired from the T12 level to the sacrum. Sagittal and coronal reformats were constructed. For radiation dose reduction, the following was used: automated exposure control. COMPARISON: [facility], CT, CT ABDOMEN PELVIS W CON, 08/09/2023, 17:17. [facility], MR, MR LUMBAR SPINE WO CON, 08/24/2023, 10:17. FINDINGS: Image quality: Excellent. Bones: There is appearance of tried initial anatomy with lumbarization of the 1st sacral vertebral body. For purposes of this exam, vertebral bodies are labeled 1 through 5, in keeping with prior nomenclature.. Prior to any surgical intervention, full x-ray spine series is recommended for further evaluation. No visualized fracture or dislocation. No suspicious osseous lesions. There is 7 mm anterolisthesis of L5 on S1. Multilevel moderate to severe disc desiccation most significant from L3-4 through L5-S1. Sclerotic endplate changes are present. Multilevel anterior osteophytes are present most severe at L4-5. Disc bulges/disc osteophyte complexes are present at L1-2, L2-3 including left lateral component, L3-4, L4-5 including left lateral component as well as L5-S1. There is mild spinal stenosis L2-3, moderate L3-4, moderate to severe L4-5. Minimal bilateral foraminal narrowing T12-L1 moderate right foraminal narrowing with narrowing through the left subarticular recess at L1-2, moderate to severe left foraminal narrowing L2-3, severe left foraminal narrowing is present at L3-4,, severe right and mild right foraminal narrowing at L4-5, moderate to severe left and severe right foraminal narrowing with compression of the exiting right L5 nerve root at L5-S1. Multilevel facet and ligamentum flavum hypertrophy are present. Soft tissues: No retroperitoneal hematomas. Markedly atrophic right kidney. Multiple simple hepatic cysts. Visualized aorta is normal in caliber. IMPRESSION: Multilevel degenerative changes unchanged compared to MRI of 08/24/2023. Dictated by: Phoebe Saenz M.D. on 09/10/2023 at 13:45 Approved by: Phoebe Saenz M.D. on 09/10/2023 at 14:07
== END ==
LOC: CT 09:36
PROVIDERS: PCP Family Medicine; Referring Provider Orthopaedic Surgery Orthopaedic Surgery of the Spine; Visit Provider Orthopaedic Surgery Orthopaedic Surgery of the Spine
DX: M48.062 Spinal stenosis, lumbar region with neurogenic claudication (principal); M47.816 Spondylosis without myelopathy or radiculopathy, lumbar region; M51.36 Other intervertebral disc degeneration, lumbar region; K76.89 Other specified diseases of liver
CPT/HCPCS: 72131

== ENCOUNTER → 2023-10-15 08:56 | Outpatient (CLI) | payer MEDICARE, OTHER, SELFPAY ==
[2023-08-09 10:35] VITALS: BMI 20.7
[2023-10-15 10:40] LABS: Add Manual Diff / Slide Review NO; Basophils Absolute Auto 0 /uL (0-100); Eosinophils Absolute Auto 100 /uL (0-450); Eosinophils Percent Auto 2.3 % (2-4); Hemoglobin 9.6 g/dL (12.0-16.0); Lymphocytes Absolute Auto 1000 /uL (1100-4500); Lymphocytes Percent Auto 19.7 % (25-40); Mean Corpuscular Hemoglobin 24.7 PG (26-34); Mean Corpuscular Volume 79.6 fL (80-100); Monocytes Absolute Auto 500 /uL (0-900); Monocytes Percent Auto 9.6 % (3-14); Neutrophils Absolute Auto 3300 /uL (1500-7000); Neutrophils Percent Auto 67.4 % (50-75); Platelet Count 307 X10^3/uL (150-400); Red Cell Distribution Width 22.3 % (11.6-14.8); White Blood Cell Count 4.9 X10^3/uL (4.5-11.0)
[2023-10-15 10:49] LABS: Hemoglobin A1C% w Est Avg Glu 4.9 % (4.0-6.0)
[2023-10-15 11:16] LABS: Anisocytosis 1+
[2023-10-15 11:23] LABS: BUN Creatinine Ratio 17.4 (6-22); Blood Urea Nitrogen 20 mg/dL (7-17); Calcium 9.2 mg/dL (8.4-10.2); Carbon Dioxide 27 mmol/L (22-32); Chloride 104 mmol/L (98-107); Estimated Glomerular Filt Rate 52 mL/min (>60); Glucose 89 mg/dL (80-110); HEMOLYSIS < 15 (0-50); Potassium 4.6 mmol/L (3.4-5.1); Sodium 138 mmol/L (137-145)
== END ==
PROVIDERS: PCP Family Medicine; Referring Provider Orthopaedic Surgery Orthopaedic Surgery of the Spine; Visit Provider Orthopaedic Surgery Orthopaedic Surgery of the Spine
DX: Z01.818 Encounter for other preprocedural examination (principal); Z01.812 Encounter for preprocedural laboratory examination; R73.9 Hyperglycemia, unspecified
CPT/HCPCS: 36415; 80048; 83036; 85025; 93005

== ENCOUNTER → 2023-11-04 07:26 | Outpatient (CLI) | payer MEDICARE, OTHER, SELFPAY ==
[2023-08-09 10:35] VITALS: BMI 20.7
[2023-11-04 08:49] LABS: Add Manual Diff / Slide Review NO; Basophils Absolute Auto 0 /uL (0-100); Eosinophils Absolute Auto 100 /uL (0-450); Eosinophils Percent Auto 2.7 % (2-4); Hematocrit 32.1 % (36-46); Lymphocytes Absolute Auto 1100 /uL (1100-4500); Lymphocytes Percent Auto 22.2 % (25-40); Mean Corpuscular HGB Conc 31.2 % (30-36); Mean Corpuscular Hemoglobin 25.2 PG (26-34); Mean Corpuscular Volume 80.7 fL (80-100); Monocytes Absolute Auto 500 /uL (0-900); Monocytes Percent Auto 9.5 % (3-14); Neutrophils Absolute Auto 3100 /uL (1500-7000); Neutrophils Percent Auto 64.6 % (50-75); Platelet Count 291 X10^3/uL (150-400); Red Blood Cell Count 3.98 X10^6/uL (4.0-5.2); Red Cell Distribution Width 22.1 % (11.6-14.8); White Blood Cell Count 4.9 X10^3/uL (4.5-11.0)
[2023-11-04 09:00] LABS: Anisocytosis 1+; Poikilocytosis 1+
[2023-11-04 09:18] LABS: Blood Urea Nitrogen 22 mg/dL (7-17); Calcium 9.4 mg/dL (8.4-10.2); Carbon Dioxide 27 mmol/L (22-32); Chloride 104 mmol/L (98-107); Estimated Glomerular Filt Rate 58 mL/min (>60); Glucose 93 mg/dL (80-110); HEMOLYSIS < 15 (0-50); Potassium 5.1 mmol/L (3.4-5.1); Sodium 136 mmol/L (137-145)
== END ==
LOC: LAB 07:28
PROVIDERS: PCP Family Medicine; Referring Provider Orthopaedic Surgery Orthopaedic Surgery of the Spine; Visit Provider Orthopaedic Surgery Orthopaedic Surgery of the Spine
DX: Z01.812 Encounter for preprocedural laboratory examination (principal)
CPT/HCPCS: 36415; 80048; 85025

== ENCOUNTER → 2023-11-20 07:23 | Outpatient (CLI) | payer MEDICARE, OTHER, SELFPAY ==
[2023-08-09 10:35] VITALS: BMI 20.7
--- NOTE | 2023-11-20 07:24 | DI.NM.S_ITS ---
PROCEDURE: NM EXERCISE TREADMILL NON NUC COMPARISON: None. INDICATIONS: Abnormal EKG FINDINGS: The patient exercised for 6 minutes and 1 second reaching 97% of maximum predicted heart rate. 7.0METs, NELY -2%. Resting ECG showed non-specific ST changes in the inferior and anterolateral leads. No diagnostic ST changes and no angina during exercise or recovery. Rare PVCs present. IMPRESSION: Low risk, normal treadmill ECG only stress test form inducible ischemia standpoint. Average exercise tolerance (7.0METS, NELY -2%). Dictated by: Robert Caldwell MD on 11/20/2023 at 17:38 Approved by: Robert Caldwell MD on 11/20/2023 at 17:41
== END ==
PROVIDERS: PCP Family Medicine; Referring Provider Family Medicine; Visit Provider Family Medicine
DX: R94.31 Abnormal electrocardiogram [ECG] [EKG] (principal)
CPT/HCPCS: 93017

== ENCOUNTER 2023-12-22 06:05 | Inpatient (IN) | payer MEDICARE, OTHER, SELFPAY ==
[2023-08-09 10:35] VITALS: BMI 20.7
[2023-10-23 09:48] VITALS: BMI 20.5
[2023-12-22] VITALS (18 sets, daily range): BP systolic 127–218; BP diastolic 64–98; PULSE 70–889; RESP 10–18; TEMP 35.6–37.1; O2SAT 92–100; BMI 21.4
[2023-12-22] MEDS: ACETAMINOPHEN 325 MG TABLET 975 MG PO (07:10)
[2023-12-22] MEDS: LACTATED RINGERS 1,000 ML 42 ML IV ×3 (07:11→12:53)
--- NOTE | 2023-12-22 07:39 | PM.PREOP ---
Pre-operative Note Interval Note History & Physical reviewed/Exam performed by Physician: Yes Changes to H&P: No
--- NOTE | 2023-12-22 07:43 | PM.OP.1 ---
Operative Date/Time/Diagnoses Date of procedure: 12/22/23 Time of procedure: 07:40 Pre-op diagnosis: 1. L3-4, L4-S1 foramen stenosis 2. L4-S1 anterolisthesis 3. Spinal stenosis with radiculopathy Post-op diagnosis: same Procedure & Clinicians Procedure: 1. L3-4, L4-S1 Postero-lateral and posterior interbody fusion 2. L3-4, L4-S1 interbody cage placement. 3. L3-4, L4-S1 decompressive laminectomy with bilateral facetecomies 4. L3-4, L4-S1 Posterior segmental instrumentation 5. Patriot of bone marrow from iliac crest 6. Utilization of microsurgical technique and operating microscope 7. Utilization of robotic assisted navigation Same procedure as scheduled: Yes Indications: Patient has been having chronic back pain and worsening lumbar radiculopathy bilaterally left worse than right. Patient is found to have significant lumbar foraminal stenosis bilaterally at L3-4 L4-S1 as well as significant instability at L4-S1 level correlating with her symptoms. Patient failed multiple conservative management with worsening back pain, leg pain weakness and numbness in her lower extremity. Patient has been having difficulty performing activity of daily living. After discussing risks benefits of treatment options, patient elected proceed with surgery. Surgeon: Yenny Cardona Production Team Leader: Tamiko Oliveros Click Yes if Unassisted: No Anesthesia Type: General Operative Notes Closure Type: primary Specimen(s): none sent Prosthetic devices, grafts, tissues, transplants, or devices: Globus CREO MIS screws, Rise cages Applied: catheter Estimated Blood Loss (mL): 150 Blood products transfused: none Procedure in detail: Patient was seen in the preoperative area. Risks and benefits of the surgery was discussed with the patient. Informed consent was obtained from the patient and placed in the chart. Surgical site was marked. Patient was taken to the operative room. General anesthesia was administered. Prophylactic antibiotic was given to the patient less than 30 min before the incision was made. Patient was placed into a prone position on the Nathan table. Patient's back was then prepped and draped in the sterile fashion. Time-out was performed at this time. After patient was prepped and draped, patient's PSIS was palpated and marked bilaterally. Small 1 cm incision was made over the PSIS for placement of the reference probes. Two trocar was placed into the PSIS 1 on each side. The reference probe was attached to the trocar of the reference apparatus. Patient has 4 lumbar segments per Radiology. In order to keep nomenclature and levels and naming consistent patient's two most caudal mobile segments are named L3-4, L4-S1. And there are 2 levels of her lumbar spine being surgically decompressed and fused today. At this time the C-arm imaging was used to confirm AP and lateral of L3-4, L4-S1 vertebrae and merged the C-arm imaging using the [employer] robotic navigation system with the CT of the lumbar spine. After successful merging was completed and confirmed, skin marker was used to gene out the skin incision using the [employer] robotic arm. Bilateral incision was made at this time. Pre templated trajectory was used and guided using the [employer] robotic navigation system for bilateral L3, L4, S1 pedicle screw placement. This was done by using the robotic arm to guide the high-speed bur to make a cortical entry point. Next a drill was placed also using the robotic arm and guided using the navigation system drilling partially through bilateral L3, L4 and S1 pedicles. Next L3, L4, S1 pedicle screws it was pre templated and measured was placed onto the power roll off driver and inserted into the pedicles bilaterally. After all 6 screws were placed C-arm imaging was taken of both AP and lateral to confirm the placement. Excellent placement of the screws were confirmed and a matched precisely with the pre planned screw placement using the navigation system. MARs retractor was inserted using [employer]ivation guidence. Globus MARS retractors was placed inside the incision and docked onto the L3 and L4 lamina. Using microsurgical technique and operating microscope, a L3, L4 laminectomy and L3-4, L4-S1 facetectomy was performed using a Kerrison rongeur. The laminectomy and facetectomy was performed in order to decompress patient's cauda equina as well as the nerve roots exiting at the L3-4, L4-S1 level. Patient was found have severe central stenosis, lateral recess and neural foramen stenosis which was fully decompressed after the laminectomy facetectomy. Patient had visible gross instability at the L4-S1 level once the facet joints were able to be visualized. Once the decompression was completed, L3-4, L4-S1 were both grossly unstable and required fusion procedure to stabilize. More than 75% of the facets were removed during the process of decompression rendering L3-4, L4-S1 level grossly unstable and required a fusion procedure at the same time. The disc space at L3-4, L4-S1 was identified, and a total diskectomy was performed at L3-4, L4-S1 level. The endplates were decorticated using a rasp and shaver. The total diskectomy and decortication was performed at L3-4, L4-S1 level in order to to accomplish a L3-4, L4-S1 fusion. The local bone from the laminectomy and facetectomy was saved for local bone grafting. After the total diskectomy and decortication was completed, Viacel bone graft material was combined with local bone that was harvested earlier. At this time, a separate skin is incision was made over the iliac crest. A Jamshidi needle was inserted into the iliac crest through a separate skin incision. 5 cc of bone marrow aspiration was obtained through the separate skin incision using a Jamshidi needle from the iliac crest. The bone marrow aspiration was combined with local bone and the Viacel bone grafting material. The bone grafting material was placed into the L3-4, L4-S1 interbody space along with a expandable cage. The cage was expanded to its maximum height using the torque limiting screwdriver. The disc preparation as well as the cage insertion were also performed under navigation guidance. After the cage was placed, AP and lateral C-arm imaging was taken to confirm placement of the cage and excellent position was confirmed. Globus MARS retractor was inserted and docked onto the L3-4, L4-S1 posterolateral gutter on the right side. Using the power drill, posterior-lateral decortication was performed at L3-4, L4-S1 level until bleeding cortical bone was identified. The remaining bone grafting material was placed into the L3-4, L4-S1 posterior lateral gutter he order to accomplish posterolateral fusion at the L3-4, L4-S1 level. At this time the tulips were attached to the L3, L4, S1 pedicle screw shanks. After measuring the length of the rods, they were inserted into the tulips of the pedicle screws and locked in place using locking caps and torque limiting screwdriver bilaterally. Total 6 caps and 2 titanium rods was used in order to complete the posterior instrumentation construct. After all the hardware was placed, and confirmed with AP and lateral C-arm imaging, the wound was then irrigated with sterile normal saline and packed with Ray-Suly gauze for 3 min to accomplish hemostasis. After the gauze was removed the deep fascia was closed with #1 Vicryl suture. The subcutaneous layer was closed with 2-0 Vicryl. The skin was closed with skin anders. Patient tolerated the procedure well. There were no complications. Neuro monitoring system was used to monitor patient's neurologic status throughout entire procedure. There was no disturbance of the neural monitoring signals throughout the case. The Operation could not have been safely performed without compromising the technical result or length of the procedure, without the assistance of a skilled surgical technician. The surgical technician was medically necessary for proper positioning, retraction and manipulation of instruments, proper exposure, surgical preparation, and manipulation of tissue. Complications: none Post-operative Condition: stable Disposition: PACU Plan for aftercare: Admit to inpatient hospital
[2023-12-22] MEDS: CEFAZOLIN 2 GM/100 ML PREMIX 100 ML IV ×3 (08:10→20:24)
--- NOTE | 2023-12-22 08:14 | SUR.OPER ---
Prone on spine table, head in foam head support, padded chest and pelvic supports, gel pad at knees, lower legs supported by pillows; nipples, genitalia and toes free of pressure, arms secured on foam padded arm boards at <90 degrees abduction. Tape over blanket at thigh secured to table.
[2023-12-22] MEDS: BUPIVACAINE LIPOSOME 266 MG/20 ML VIAL INJ (08:21)
[2023-12-22] MEDS: BUPIVACAINE 0.25% (PF) 60 ML, EPINEPHrine 0.15 MG INJ (08:22)
--- NOTE | 2023-12-22 12:07 | DI.RAD.S_ITS ---
PROCEDURE: XR LUMBAR SPINE 2-3V INDICATIONS: L4-5, L5-S1 TLIF ROBOT TECHNIQUE: 4 low resolution intraoperative fluoroscopic spot films COMPARISON: [facility], [place], XR LUMBAR SPINE 2-3V, 03/12/2019, 7:38. FINDINGS: L4-5 and L5-S1 discectomy and fusion with posterior instrumentation in good position intraoperatively IMPRESSION: Fluoroscopic guidance Approved by: Paddy Youngblood M.D. on 12/22/2023 at 13:30
[2023-12-22] MEDS: HYDROMORPHONE 1 MG INJ IV ×2 (12:33→12:46)
[2023-12-22] MEDS: ONDANSETRON 4 MG/2 ML INJ IV (12:34)
[2023-12-22] MEDS: OXYCODONE IR 5 MG TABLET PO (12:47)
[2023-12-22] MEDS: LACTATED RINGERS 1,000 ML 125 ML IV ×2 (13:17→23:12)
[2023-12-22] MEDS: NIFEdipine 30 MG TAB ER PO (16:00)
[2023-12-22] MEDS: OXYCODONE IR 10 MG TABLET PO ×3 (16:02→23:22)
--- NOTE | 2023-12-22 17:59 | PC.NURSE ---
Addendum entered by Maddie Frey R.N. 12/22/23 19:01: Patients last systolic pressure 202, Texted Dr. Cardona who called to consult about pressures. Patient just given 10mg of oral hydralazine and 0.1mg of po clonidine. There is also a prn hydralazine order. She is resting supine. Original Note: Patients blood pressure has been high last reading 186/80s. Phoned and he was going to talk to pharmacist to see what other options we could do for her. She was given her nifedipine 30mg and 10mg of po oxycodone that helped for her pain. She has a bulky back dressing on that is cdi and is lying supine. She is getting LR at 125cc/hr and tolerating this well. SCDS in place and patient is resting comfortably. No new orders at this time.
--- NOTE | 2023-12-22 18:52 | PM.CN ---
History of Present Illness Consult details Date Patient Seen: 12/22/23 Time Patient Seen: 18:52 Chief complaint: Translam Intrbody Fus./Laminotomy -Robot Narrative: Asked to see a patient he was having hypertension tonight. Her last BP was 202/84. She was history of hypertension and solitary kidney. She was status bone a spinal fusion procedure. Her pain is at about a 5/10 but really exacerbates only when she was moving. She takes a clot Catapres patch chronically which she took off yesterday. She also takes nifedipine 30 mg a day. She denies any symptoms of chest pain or headache. No dyspnea. In reviewing her blood pressures today they have all been elevated over the 150-160 range but have escalated recently. Certainly part of this is related to pain. Meds Home Medications and Allergies Home Medications Medication Instructions Recorded Confirmed Type aspirin 81 mg tablet,delayed 81 mg PO DAILY 09/12/23 12/22/23 History release acetaminophen 650 mg 1,300 mg PO DAILY PRN Pain 10/23/23 12/22/23 History tablet,extended release cetirizine 10 mg tablet 10 mg PO DAILY 10/23/23 12/22/23 History clonidine 0.1 mg/24 hr weekly 1 patch transdermal QWEEK 10/23/23 12/22/23 History transdermal patch diclofenac sodium 1 % topical gel 2 g topical QID PRN Pain 10/23/23 12/22/23 History ferrous sulfate 324 mg (65 mg 324 mg PO BID 10/23/23 12/22/23 History iron) tablet,delayed release nifedipine 30 mg tablet,extended 30 mg PO DAILY 10/23/23 10/23/23 History release 24 hr omeprazole 20 mg tablet,delayed 20 mg PO DAILY 10/23/23 12/22/23 History release pravastatin 40 mg tablet 40 mg PO DAILY 10/23/23 12/22/23 History propylene glycol 0.6 % eye drops 1 drp EYE-BOTH DAILY 10/23/23 12/22/23 History (Systane Complete) Allergies Allergy/AdvReac Type Severity Reaction Status Date / Time codeine AdvReac Severe Dizziness Verified 12/22/23 06:32 Review of Systems Review of Systems Narrative: All else reviewed and otherwise unremarkable except as noted in the history and physical. Exam Vital Signs (past 8 hours): - 12/22/23 12:21 12/22/23 12:26 12/22/23 12:31 Temperature 97.5 F L Pulse Rate 77 889 H 86 Respiratory Rate 11 L 11 L 11 L Blood Pressure 133/64 127/71 157/70 H Pulse Oximetry 97 97 97 Oxygen Delivery Method Nasal Cannula Nasal Cannula Nasal Cannula Oxygen Flow Rate 2 2 2 12/22/23 12:36 12/22/23 12:41 12/22/23 12:46 Temperature Pulse Rate 85 83 80 Respiratory Rate 11 L 11 L 10 L Blood Pressure 164/79 H 161/79 H 162/81 H Pulse Oximetry 97 97 96 Oxygen Delivery Method Nasal Cannula Nasal Cannula Nasal Cannula Oxygen Flow Rate 2 2 2 12/22/23 12:54 12/22/23 13:10 12/22/23 13:45 Temperature 96.4 F L 96.1 F L Pulse Rate 80 81 83 Respiratory Rate 11 L 16 16 Blood Pressure 161/84 H 163/81 H 176/91 H Pulse Oximetry 96 92 97 Oxygen Delivery Method Nasal Cannula Oxygen Flow Rate 2 2 0 12/22/23 15:15 12/22/23 18:37 Temperature 96.7 F L 96.9 F L Pulse Rate 71 70 Respiratory Rate 16 16 Blood Pressure 197/86 H 202/84 H Pulse Oximetry 99 100 Oxygen Delivery Method Oxygen Flow Rate 2 2 Oxygen Delivery Method Nasal Cannula Oxygen Flow Rate 2 Narrative Exam Narrative: NAD, alert and oriented. Fluent speech. Lungs are clear, normal rate and effort. Heart is regular, no murmur gallop or rub. Abdomen is soft, non distended. Extremities are free of edema. Good pedal pulses. No rash or lesions. No joint swelling on arms or legs. She was calm, and has normal judgment. Objective Labs Labs: Laboratory Results - last 24 hr 12/22/23 06:58 Blood Type O Positive Antibody Screen Negative [facility] Medical History Occipital stroke (~2017) Easy bruisability 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 PVD (peripheral vascular disease) Gastrointestinal hemorrhage with melena Spinal stenosis Hallux valgus Heart murmur Osteoporosis Arthritis Hyperlipemia Hypertension Slipped cervical disc Pancreatitis Constipation Surgical History History of bunionectomy of right great toe History of bunionectomy of left great toe Hx of bilateral cataract extraction Hx of laparoscopy H/O eye surgery Family History Mother Heart disease Brother Diabetes mellitus Skin cancer Grandmother Cancer Social History marital status: household members: spouse lives independently: Yes occupational status: employed Tobacco & Substance Use Smoking Status: Former smoker alcohol intake: current substance use type: does not use Assessment & Plan Assessment & Plan narrative: Hypertension, with very poor control in the post operative. Solitary kidney. Plan: -hydralazine 10 mg p.o. Q 8 hours, clonidine 0.1 mg p.o. b.i.d.. Hydralazine IV as needed hypertension. Continue amlodipine 30 mg XL. -monitor blood pressure and pain control overnight. -monitor renal function. -discontinue IV metoprolol order which is written as a as needed. Time-Based Coding :: 25 min spent with patient and on the chart (including review of chart, obtaining history, exam, reviewing outside data, placing orders, documenting exam and treatment plan, and counseling patient) on 12/21.
[2023-12-22] MEDS: cloNIDine 0.1 MG TABLET PO (18:59)
[2023-12-22] MEDS: HYDRALAZINE 10 MG TABLET PO (18:59)
[2023-12-22] MEDS: FERROUS SULFATE 325 MG TABLET PO (20:24)
[2023-12-22] MEDS: HYDRALAZINE 20 MG/ML VIAL 10 MG IV (20:25)
[2023-12-22] MEDS: ACETAMINOPHEN 325 MG TABLET 650 MG PO (21:54)
[2023-12-23] VITALS (7 sets, daily range): BP systolic 108–143; BP diastolic 52–71; PULSE 68–77; RESP 16–17; TEMP 36.6–37; O2SAT 94–97
[2023-12-23] MEDS: CEFAZOLIN 2 GM/100 ML PREMIX 100 ML IV (03:40)
[2023-12-23] MEDS: OXYCODONE IR 10 MG TABLET PO ×2 (03:40→08:08)
[2023-12-23] MEDS: HYDRALAZINE 10 MG TABLET PO (03:41)
[2023-12-23 05:32] LABS: Hematocrit 26.7 % (36-46); Hemoglobin 8.4 g/dL (12.0-16.0)
[2023-12-23 06:06] LABS: BUN Creatinine Ratio 18.3 (6-22); Blood Urea Nitrogen 15 mg/dL (7-17); Calcium 8.2 mg/dL (8.4-10.2); Carbon Dioxide 26 mmol/L (22-32); Chloride 99 mmol/L (98-107); Estimated Glomerular Filt Rate > 60 mL/min (>60); Glucose 103 mg/dL (80-110); HEMOLYSIS < 15 (0-50); Potassium 4.3 mmol/L (3.4-5.1); Sodium 130 mmol/L (137-145)
--- NOTE | 2023-12-23 07:42 | P.PN_ITS ---
Subjective Subjective Date Patient Seen: 12/23/23 Time Patient Seen: 07:42 Interval history: Emily sitting up in be comforably w/ 1L O2 via NC; this was taken off during our visit and she maintained O2 sats 96% or greater. She c/o post-surgical pain and reports that the pain in her legs is much less intense and frequent than it had been prior to surgery. She had SBP > [address] Stack was consulted and made medication changes. She has hypertension at baseline d/t congenital kidney agenesis; has only one functioning kidney. She removed her catapres patch on the day before surgery in anticipation of surgery; she thinks that plus the combination of surgery is what drove up her BP. Dr Stack changed meds, and Cr and BUN today are WNL. Exam Vital Signs (past 8 hours): - 12/23/23 02:14 12/23/23 03:41 12/23/23 05:05 Temperature 98.6 F Pulse Rate 77 Respiratory Rate 17 Blood Pressure 143/71 H 132/67 132/67 Pulse Oximetry 96 Oxygen Flow Rate 1 Oxygen Delivery Method Nasal Cannula Oxygen Flow Rate 1 Narrative Exam Narrative: 5/5 strength in hip flexors, quadriceps, hamstrings, DF, PF, EHL bilaterally. Sensation to light touch intact throughout BLE, calves soft and compressible. SCDs are off; spt says she likes them, but they cause calf cramping and her back is currently too sore for her to reach down and adjust them. Objective Labs 12/23/23 05:05 12/23/23 05:05 Labs: Laboratory Results - last 24 hr 12/22/23 12/23/23 06:58 05:05 Hgb 8.4 L Hct 26.7 L Sodium 130 L Potassium 4.3 Chloride 99 Carbon Dioxide 26 BUN 15 Creatinine 0.82 Estimated GFR > 60 BUN/Creatinine Ratio 18.3 Glucose 103 Calcium 8.2 L Blood Type O Positive Antibody Screen Negative [facility] Medical History (Updated 12/23/23 @ 07:51 by Tamiko Oliveros PA-C) Occipital stroke (~2016) Easy bruisability 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 PVD (peripheral vascular disease) Gastrointestinal hemorrhage with melena Spinal stenosis Hallux valgus Heart murmur Osteoporosis Arthritis Hyperlipemia Hypertension Slipped cervical disc Pancreatitis Constipation Surgical History (Updated 12/23/23 @ 07:50 by Tamiko Oliveros PA-C) History of bunionectomy of right great toe History of bunionectomy of left great toe Hx of bilateral cataract extraction Hx of laparoscopy H/O eye surgery Family History Mother Heart disease Brother Diabetes mellitus Skin cancer Grandmother Cancer Social History marital status: household members: spouse lives independently: Yes occupational status: employed Smoking Status: Former smoker alcohol intake: current substance use type: does not use Assessment & Plan Post-op Assessment and plan (1) S/P lumbar fusion: Assessment and Plan narrative: Remove Duffy, work w/ PT today. Plan to d/c home w/ spouse tomorrow if she makes adequate progress today. (2) Acute on chronic blood loss anemia: Assessment and Plan narrative: Pt had a suspected GI bleed earlier this year and it was recommended that she have a colonoscopy. Discussed pts refusal to get a colonoscopy. She explained to me that she has severe diverticulosis and the thought of doing the bowel prep required will cause unbearable pain. She said her blood levels have been stable with oral iron. She has a specific diet she follows to manage her diverticulitis symptoms. (3) Hypertension: Assessment and Plan narrative: Appreciate Dr Stack's help w/ management. Hopeful to d/c tomorrow if he feels this is appropriate and will change meds per his recommendations. Postoperative Procedures: Procedures Operation Date: 12/22/23 07:45 Actual Procedure Side Surgeon p L3-4, L4-S1 TLIF with posterior instrumentation Yenny Cardona MD Postoperative day: 1 Quality VTE Deep Vein Thrombosis/Pulmonary Embolism Present on Admission: No
[2023-12-23] MEDS: LORATADINE 10 MG TABLET PO (08:07)
[2023-12-23] MEDS: ASPIRIN EC 81 MG TABLET PO (08:07)
[2023-12-23] MEDS: FERROUS SULFATE 325 MG TABLET PO (08:07)
[2023-12-23] MEDS: cloNIDine 0.1 MG TABLET PO (08:07)
[2023-12-23] MEDS: NIFEdipine 30 MG TAB ER PO (08:11)
--- NOTE | 2023-12-23 09:17 | PM.PN.1 ---
Subjective Subjective Interval history: Doing well this morning. Pain is 5/10. No leg weakness or numbness. Blood pressure is well-controlled. Kidney function is also normal. Exam Vital Signs (past 8 hours): - 12/23/23 02:14 12/23/23 03:41 12/23/23 05:05 Temperature 98.6 F Pulse Rate 77 Respiratory Rate 17 Blood Pressure 143/71 H 132/67 132/67 Pulse Oximetry 96 Oxygen Flow Rate 1 12/23/23 08:07 Temperature Pulse Rate Respiratory Rate Blood Pressure 130/67 Pulse Oximetry Oxygen Flow Rate Oxygen Delivery Method Nasal Cannula Oxygen Flow Rate 1 Narrative Exam Narrative: NAD, alert and oriented. Fluent speech. Lungs are clear, normal rate and effort. Heart is regular, no murmur gallop or rub. Abdomen is soft, non distended. Extremities are free of edema. Can wiggle feet without difficulty, good pedal pulses. 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 PVD (peripheral vascular disease) Gastrointestinal hemorrhage with melena Spinal stenosis Hallux valgus Heart murmur Osteoporosis Arthritis Hyperlipemia Hypertension Slipped cervical disc Pancreatitis Constipation Surgical History History of bunionectomy of right great toe History of bunionectomy of left great toe Hx of bilateral cataract extraction Hx of laparoscopy H/O eye surgery Family History Mother Heart disease Brother Diabetes mellitus Skin cancer Grandmother Cancer Social History marital status: household members: spouse lives independently: Yes occupational status: employed Smoking Status: Former smoker alcohol intake: current substance use type: does not use Assessment & Plan Assessment & Plan narrative: 1. Hypertension, with very poor control in the post operative. Pressures are better today with pain control, p.o. hydralazine, and p.o. clonidine. 2. Solitary kidney. Renal function is stable. Plan: -Continue hydralazine 10 mg p.o. Q 8 hours, clonidine 0.1 mg p.o. b.i.d.. Hydralazine IV as needed hypertension. Continue amlodipine 30 mg XL. -monitor blood pressure and pain control overnight. -monitor renal function. Would recommend continuing his medications until discharge and then stopping her clonidine and transitioning back to her Catapres patch. Medicine is signing off, contact us for further issues or questions. Time-Based Coding :: 20 min spent with patient and on the chart (including review of chart, obtaining history, exam, reviewing outside data, placing orders, documenting exam and treatment plan, and counseling patient) on 12/22. Quality VTE Deep Vein Thrombosis/Pulmonary Embolism Present on Admission: No
--- NOTE | 2023-12-23 10:20 | OT.IP.EVAL ---
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 Constipation Easy bruisability Gastrointestinal hemorrhage with melena Hallux valgus Heart murmur Hyperlipemia Hypertension Herron-Rokitansky Syndrome Occipital stroke (~2017) Osteoporosis Pancreatitis PVD (peripheral vascular disease) Slipped cervical disc Spinal stenosis Surgical History (Last Reviewed 12/23/23 @ 09:17 by Giles Stack MD) H/O eye surgery History of bunionectomy of left great toe History of bunionectomy of right great toe Hx of bilateral cataract extraction Hx of laparoscopy Occupational Therapy Inpatient Evaluation/Re-Eval M1 PT/OT-IP Prior Functional Status Start: 12/23/23 10:26 Freq: NEEDED Status: Active Protocol: Document 12/23/23 10:26 [facility] (Rec: 12/23/23 10:41 [facility] [id number]) Medical Review Prior Functional Status Medical History Reviewed Yes Communication Independent Mobility and Gait Pt did not use a device to walk with and limited for distance and needing to use the grocery cart at the store. Activities of Daily Living and IADL's Pt able to do but had pain. Prior Functional Level (Other details) Pt's to be able to assist her. Social History Household Members spouse Living Arrangements Mobile home Number of Floors (Floors) One Floor Number of Stairs To Enter/Railing? 4-5 steps with bilateral rails . Home Environment Standard Height Toilet,High Toilet,Tub/Shower Home Equipment Front Wheel Walker,Straight Cane,Long Handled Sponge,Long Handled Shoe Horn Additional Social History Comment Pt insists that she will just stay sleep in the recliner to start. M2 OT-IP Current Condition Start: 12/23/23 10:26 Freq: Status: Active Protocol: Document 12/23/23 10:26 [facility] (Rec: 12/23/23 10:41 [facility] [id number]) Occupational Therapy Current Condition Current Condition Evaluation Date 12/23/23 Treatment Diagnosis S/P L3-4, L4-S1 TLIF Diagnosis Onset Date 12/22/23 Post Operative Precautions Lumbar Precautions Log Roll,No Twisting,Limit Bending,Lifting Restriction of 10 lbs,Gait Belt above Incisional Area M3 OT- IP Subjective and Pain Start: 12/23/23 10:26 Freq: Status: Active Protocol: Document 12/23/23 10:26 [facility] (Rec: 12/23/23 10:41 [facility] [id number]) OT- Subjective Occupational Therapy Visit Type Type Initial Evaluation Visit Start Time 09:35 Visit Stop Time 10:20 Occupational Therapy Visit Comments Patient Comments Pt agreed to get up. Patient/Caregiver Goals To go home. OT Pain Assessment Pain When Pain Assessed At Rest Pain Present Pain Present Pain Reported Location back Intensity 7 Scale Used Numeric (0 - 10) M4 OT- IP ADL's Start: 12/23/23 10:26 Freq: Status: Active Protocol: Document 12/23/23 10:26 [facility] (Rec: 12/23/23 10:41 [facility] [id number]) OT QEJ-Noyu-[place]av General Evaluation Self-Feeding Ability Independent OT ADL-Grooming General Evaluation Grooming Ability Standby Assistance Areas Needing Assistance Retrieving/Set-up of Grooming Items Comments OT Grooming Comments While seated. OT ADL-Oral Care General Eval Oral Care Ability Independent Comments Oral Care Comments While seated, pt just completed when OT came in. Educated if standing to hinge at her hips to spit or just spit into a cup to best follow her back precautions. OT ADL-Dressing General Eval Lower Body Dressing Ability Maximum Assistance Comments OT Dressing Comments Pt will need assist from her . Otherwise would benefit from LB dressing equipment. Pt states to just wear slippers and a gown as home. OT ADL-Toileting General Evaluation Toileting Ability Total Assistance Areas Needing Assistance Empty Catheter or Colostomy Comments OT Toileting Comments Duffy in place. Spoke of standing to wipe , use of wet one and pads at night. Pt may benefit from a BSC as pt to sleep in the recliner initially. OT ADL-Bathing Comments OT Bathing Comments Pt states the tub/shower is being renovated and so will the other tub, and at this time to just sponge off. Educated of covering the dressing during showering needs. M5 OT- IP IADL's Start: 12/23/23 10:26 Freq: Status: Active Protocol: Document 12/23/23 10:26 [facility] (Rec: 12/23/23 10:41 [facility] [id number]) OT-Instrumental Activities of Daily Living Deficits IADL Deficits Identified Deficits Home Safety Awareness Awareness of Need for Assistance at Home Good Awareness Ability to Problem Solve Emergency Able to Problem Solve Situations Medication Management Medication Management No Deficits Identified Money Management Money Management Caregiver Provides Assistance Meal Preparation Meal Preparation Caregiver Provides Assist Orthodontic Assistant Orthodontic Assistant Caregiver Provides Assist M6 OT- IP Functional Cognition Start: 12/23/23 10:26 Freq: Status: Active Protocol: Document 12/23/23 10:26 [facility] (Rec: 12/23/23 10:41 [facility] [id number]) Cognitive Factors Limiting Selfcare Function Cognitive Ability Level of Alertness Alert Patient Orientation Name,Age,Birthday,Month,Date, Year,Day of Week,Place, Situation Attention Span Ability Capable of Focused Attention, Capable of Sustained Attention Ability to Follow Commands Able to Follow One Step Commands Safety Awareness Decreased Recall of Precautions Cognitive Comments Cognitive Assessment Comments Pt needing initial education of her back precautions and then able to follow for mobility needs. OT- Vision and Hearing OT- Hearing Assessment OT- Hearing Assessment WFL OT- Vision Assessment Visual Acuity Glasses All The Time Visual Attentiveness WFL Occular Pursuits WFL M7 OT- IP Mobility and Balance Start: 12/23/23 10:26 Freq: Status: Active Protocol: Document 12/23/23 10:26 [facility] (Rec: 12/23/23 10:41 [facility] [id number]) OT- Bed Mobility Assessment Supine to Sit Supine to Sit Assist Standby Assistance Scooting Scooting to Edge of Bed Standby Assistance Scooting Up and Down in Bed Standby Assistance OT-Transfer Assessment Sit to and From Stand Sit to and from Stand Minimal Assistance Transfers Transfer Ability Contact Guard Assistance Technique Transfer Destination Bed,Chair Transfer Technique Stand Step Pivot Devices Transfer Assistive Devices Gait Belt,Front Wheeled Walker Comments Mobility Comments Pt states to sleep in the recliner and not wanting to do log rolling at this time. With HOB up pt able to get her legs the edge of bed. RICHARD to stand to FWW. CGA with FWW to transfer to the recliner. BP with hob up 96/51, sitting at EOB 101/51, standing 87/45, after transfer to recliner 92 /49 and 100/48- pt not symptomatic and nursing notified of BP number as prior was having HTN especially yesterday. OT- Balance Assessment Sitting Balance and Reactions Static Sitting Balance Ability Good Dynamic Sitting Balance Ability Good Standing Balance and Reactions Static Standing Balance Ability Fair Dynamic Standing Balance Ability Fair M8 OT- IP Objective Assessments Start: 12/23/23 10:26 Freq: Status: Active Protocol: Document 12/23/23 10:26 [facility] (Rec: 12/23/23 10:41 [facility] [id number]) OT Gross Range of Motion Upper Extremity Range of Motion Assessment Within Functional Limits OT Strength Upper Extremity Strength Assessment Within Functional Limits M9 OT- IP Assessment and Plan Start: 12/23/23 10:26 Freq: Status: Active Protocol: Document 12/23/23 10:26 [facility] (Rec: 12/23/23 10:41 [facility] [id number]) OT Summary Assessment and Plan Potential Rehabilitation Potential Excellent Analytic Complexity at Evaluation Low Summary OT Impairments Pain,Strength,Balance, Functional Mobility,Dressing, Toileting,Bathing,Toilet Transfers,Shower Transfers Progress Towards Goals Progressing Toward Goals Assessment Summary Pt low complexity and main barriers are steps, and will need assist for ADL needs for her or benefit from getting LB dressing equipment. Pt will also benefit from a BSC and plans to sleep in the recliner initially. Pt to go home with 24/7 available assist when medically stable. Goals Grooming Goal Independent Dressing Goal Minimal Assistance Toileting Goal Independent Bathing Goal Minimal Assistance Toilet Transfer Goal Independent Shower Transfer Goal Standby Assistance Days to Meet Goals 7 Frequency of Treatment Other frequency 5x/wk Treatment Plan OT Treatment Plan ADL Training,Functional Mobility,Patient/Family Education,Discharge Planning Discharge Recommendations OT Discharge Recommendations Home with 24/7 Assist Available Home Equipment Needs LB dressing equipment, BSC Transportation Needs at Discharge Private Vehicle
[2023-12-23] MEDS: ACETAMINOPHEN 325 MG TABLET 650 MG PO (11:20)
--- NOTE | 2023-12-23 11:20 | PT.IIE ---
Current Diagnoses Acute posthemorrhagic anemia (12/22/23) Essential (primary) hypertension (12/22/23) Spondylolisthesis, lumbar region (12/22/23) Spinal stenosis, lumbar region with neurogenic claudication (12/22/23) Arthrodesis status (12/22/23) Surgery Performed Operation Date: 12/22/23 07:45 Actual Procedures p L3-4, L4-S1 TLIF with posterior instrumentation - Yenny Cardona MD Surgical History (Last Reviewed 12/23/23 @ 09:17 by Giles Stack MD) H/O eye surgery History of bunionectomy of left great toe History of bunionectomy of right great toe Hx of bilateral cataract extraction Hx of laparoscopy Medical History (Last Reviewed 12/23/23 @ 09:17 by Giles Stack MD) Arthritis 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 Constipation Easy bruisability Gastrointestinal hemorrhage with melena Hallux valgus Heart murmur Hyperlipemia Hypertension Herron-Rokitansky Syndrome Occipital stroke (~2017) Osteoporosis Pancreatitis PVD (peripheral vascular disease) Slipped cervical disc Spinal stenosis Physical Therapy Inpatient Evaluation/Re-Eval M1 PT/OT-IP Prior Functional Status Start: 12/23/23 12:52 Freq: NEEDED Status: Active Protocol: Document 12/23/23 11:20 [facility] (Rec: 12/23/23 13:04 [facility] [id number]) Medical Review Prior Functional Status Medical History Reviewed Yes Communication able to make needs known Mobility and Gait pt stated that she was independent with all mobilities and ambulation without AD Social History Household Members spouse Living Arrangements House Number of Floors (Floors) One Floor Number of Stairs To Enter/Railing? has 4 steps B rails to enter the house Home Environment High Toilet,Tub/Shower Home Equipment Front Wheel Walker,Straight Cane,Hand Held Shower,Long Handled Sponge,Long Handled Shoe Horn Additional Social History Comment pt stated that she will do sponge bathing for now since shower is in the process of renovation M2 PT-IP Current Condition Start: 12/23/23 12:52 Freq: NEEDED Status: Active Protocol: Document 12/23/23 11:20 [facility] (Rec: 12/23/23 13:04 [facility] [id number]) Physical Therapy Current Condition Current Condition Evaluation Date 12/23/23 Treatment Diagnosis s/p L#-4, L4-S1 TLIF; difficulty in walking Onset Date 12/22/23 M3 PT-IP Subjective Start: 12/23/23 12:52 Freq: NEEDED Status: Active Protocol: Document 12/23/23 11:20 [facility] (Rec: 12/23/23 13:04 AB [id number]) Subjective Physical Therapy Visit Type Type Initial Evaluation Visit Start Time 11:20 Visit Stop Time 11:40 Number of CONTROL TOWER OPERATOR Visits 0 Physical Therapy Visit Comments Patient Comments agreeable to do PT Therapy Pain Assessment Pain When Pain Assessed At Rest Pain Present Pain Present Pain Reported Location back Intensity 7 Scale Used Numeric (0 - 10) Pain Behaviors Guarding Pain Management Techniques Distraction,Modification of Treatment,Timing of Activity with Medications M4 PT-IP Mobility and Gait Start: 12/23/23 12:52 Freq: NEEDED Status: Active Protocol: Document 12/23/23 11:20 [facility] (Rec: 12/23/23 13:04 [id number]) PT-Bed Mobility Assessment Rolling Type of Rolling Log Rolling Level of Assist Standby Assistance PT-Transfer Assessment Sit to and From Stand Sit to and from Stand Contact Guard Assistance,1 Person Assistance,Use of Upper Extremities Equipment Transfer Assistive Device Gait Belt,Front Wheeled Walker Orthotic/Prosthetic Devices or Brace: No Transfers Transfer Destination Chair Transfer Technique ambulated Transfer Ability Level of Assist Contact Guard Assistance,1 Person Assistance,Use of Upper Extremities Comments Mobility Comments pt supine in bed and agreeable to do PT. obtained PLOF and home set up from pt. reviewed back precautions with pt. pt completed log roll supine to sit SBA. able to sit on EOB SBA. complete sit to stand CGA and ambulated ~ 20 ft using FWW CGA. pt sat on the chair for lunch. positioned pt on the chair. call light and table placed within reach. Caregiver training set up at 2 pm this afternoon. Gait Assessment Gait Gait Assistance Required: Contact Guard Assist Distance (Feet) 20 Able to Maintain Weight Bearing Status Yes During Gait Assistive Devices Assistive Device Gait Belt,Front Wheeled Walker Orthotic/Prosthetic Devices or Brace: No Gait Deviations General Gait Pattern Decreased Stride Length, Decreased Feet Clearance Factors Limiting Gait Function Factors Limiting Gait Function Decreased Activity Tolerance, Decreased Strength,Difficulty Following Directions,Limited Range of Motion,Pain,Poor Balance,Poor Safety Awareness PT-Balance Assessment Sitting Balance and Reactions Static Sitting Balance Ability Good Dynamic Sitting Balance Ability Good Standing Balance and Reactions Static Standing Balance Ability Fair Dynamic Standing Balance Ability Fair Device Used FWW M5 PT-IP Objective Assessments Start: 12/23/23 12:52 Freq: NEEDED Status: Active Protocol: Document 12/23/23 11:20 [facility] (Rec: 12/23/23 13:04 AB [id number]) Orientation Orientation/Cognition Level of Alertness Alert Orientation Name,Place,Situation Language Function Ability No Deficits Noted Safety Awareness Decreased Safety Awareness Memory Description No Deficits Noted Gross Range of Motion Lower Extremity ROM Assessment Within Functional Limits Strength Lower Extremity Strength Assessment Within Functional Limits Coordination Assessment Gross Coordination Gross Coordination WNL Sensation Assessment Sensation Gross Sensation WNL Muscle Tone Muscle Tone WNL Yes M6 PT-IP Treatment Start: 12/23/23 12:52 Freq: NEEDED Status: Active Protocol: Document 12/23/23 11:20 [facility] (Rec: 12/23/23 13:04 AB [id number]) Physical Therapy Treatment Education Education Provided Precautions,Weight Bearing Status,Safety M7 PT-IP Assessment and Plan Start: 12/23/23 12:52 Freq: NEEDED Status: Active Protocol: Document 12/23/23 11:20 [facility] (Rec: 12/23/23 13:04 AB [id number]) PT Summary Assessment and Plan Potential Rehabilitation Potential Fair Status of Condition at Evaluation Stable Summary Impairments Pain,ROM,Strength,Balance, Coordination,Sensation,Bed Mobility,Transfers,Gait, Activity Tolerance Assessment Summary pt is a 67 y/o F s/p L3-4, L4- S1 TLIF POD 1. pt requiring CGA with mobility using FWW. caregiver training set up for this afternoon ~ 2 pm. will continue to assess progress. pt also has stairs to enter the house and will complete stair climbing training prior to d/c. Goals Bed Mobility Goal Independent Transfer Goal Independent,Front Wheeled Walker Gait Goal Independent,Front Wheel Walker Gait Distance 200 Other Goals up/down 4 steps B rails SBA Days to Meet Goals 5 Frequency of Treatment Frequency Of Treatment Twice a Day Treatment Plan Physical Therapy Treatment Plan Bed Mobility Training,Transfer Training,Gait Training, Therapeutic Exercise,Balance Retraining,Post Op Education, Discharge Planning,Hot or Cold Pack,Neuromuscular Re-ed, Coordination Retraining,Manual Therapy Precautions Lumbar Precautions Log Roll,No Twisting,Limit Bending,Lifting Restriction of 10 lbs,Gait Belt above Incisional Area Recommendations To Nursing Amount of Assist Needed 1 Person Assist Discharge Recommendations PT Discharge Recommendations Home with Assistance Transportation Needs at Discharge Private Vehicle
--- NOTE | 2023-12-23 14:00 | PT.IPTN ---
Current Diagnoses Acute posthemorrhagic anemia (12/22/23) Essential (primary) hypertension (12/22/23) Spondylolisthesis, lumbar region (12/22/23) Spinal stenosis, lumbar region with neurogenic claudication (12/22/23) Arthrodesis status (12/22/23) Surgery Performed Operation Date: 12/22/23 07:45 Actual Procedures p L3-4, L4-S1 TLIF with posterior instrumentation - Yenny Cardona MD Physical Therapy Treatment Note M2 PT-IP Current Condition Start: 12/23/23 12:52 Freq: NEEDED Status: Discharge Protocol: Document 12/23/23 11:20 [facility] (Rec: 12/23/23 13:04 AB [id number]) Physical Therapy Current Condition Current Condition Evaluation Date 12/23/23 Treatment Diagnosis s/p L#-4, L4-S1 TLIF; difficulty in walking Onset Date 12/22/23 M3 PT-IP Subjective Start: 12/23/23 12:52 Freq: NEEDED Status: Discharge Protocol: Document 12/23/23 14:00 [facility] (Rec: 12/23/23 16:36 AB [id number]) Subjective Physical Therapy Visit Type Type Treatment Note Visit Start Time 14:00 Visit Stop Time 14:40 Number of TEACHER COUNSELOR Visits 0 Physical Therapy Visit Comments Patient Comments agreeable to do PT Therapy Pain Assessment Pain When Pain Assessed At Rest Pain Present Pain Present Pain Reported Location back Intensity 5 Scale Used Numeric (0 - 10) Pain Management Techniques Distraction,Modification of Treatment,Re-positioning, Timing of Activity with Medications M4 PT-IP Mobility and Gait Start: 12/23/23 12:52 Freq: NEEDED Status: Discharge Protocol: Document 12/23/23 14:00 [facility] (Rec: 12/23/23 16:36 AB [id number]) PT-Bed Mobility Assessment Rolling Type of Rolling Log Rolling Level of Assist Standby Assistance Supine to Sit Supine to Sit Standby Assistance Sit to Supine Sit to Supine Standby Assistance PT-Transfer Assessment Sit to and From Stand Sit to and from Stand Contact Guard Assistance,1 Person Assistance,Use of Upper Extremities Equipment Transfer Assistive Device Gait Belt,Front Wheeled Walker Orthotic/Prosthetic Devices or Brace: No Transfers Transfer Destination Bed,Chair Transfer Technique ambulated Transfer Ability Level of Assist Contact Guard Assistance,1 Person Assistance,Use of Upper Extremities Comments Mobility Comments pt sitting on the chair. spouse in room for caregiver training. educated spouse on pt's back precautions and log roll. spouse stated that he is familiar with the precautions /log roll since he had back surgeries before as well. educated spouse on how to use safety belt and how to assist pt. spouse was able to put safety belt on and assisted pt with sit to stand from the chair. pt ambulated to the EOB ~ 20 ft. pt completed log roll sit<>supine SBA and cues for techniques. pt completed sit to stand with spouse assisting and ambulated in the hallway using FWW CGA ~ 40 ft . stair climbing training: educated pt and spouse on how to do stairs. pt completed up /down steps using B rails CGA. spouse was able to assist pt safely. assisted pt back to her room. ambulated from w/c to bed using fWW CGA with spouse assisting. pt completed log roll sit to supine SBA. positioned pt in bed. call light and table placed within reach. Gait Assessment Gait Gait Assistance Required: Contact Guard Assist Distance (Feet) 40 Able to Maintain Weight Bearing Status Yes During Gait Assistive Devices Assistive Device Gait Belt,Front Wheeled Walker Orthotic/Prosthetic Devices or Brace: No Gait Deviations General Gait Pattern Decreased Stride Length, Decreased Feet Clearance Factors Limiting Gait Function Factors Limiting Gait Function Decreased Activity Tolerance, Decreased Strength,Limited Range of Motion,Pain,Poor Balance,Poor Safety Awareness Stair Climbing Assessment Evaluation Level of Assist On Stairs Contact Guard Assistance Devices Stair Climbing Assistive Devices Left Railing,Right Railing Technique/Endurance Stair Climbing Direction Ascend and Descend Stair Climbing Technique Step to Step Number of Steps Climbed 3 Stair Climbing Set # Repetitions (reps) 1 M5 PT-IP Objective Assessments Start: 12/23/23 12:52 Freq: NEEDED Status: Discharge Protocol: Document 12/23/23 11:20 [facility] (Rec: 12/23/23 13:04 AB [id number]) Orientation Orientation/Cognition Level of Alertness Alert Orientation Name,Place,Situation Language Function Ability No Deficits Noted Safety Awareness Decreased Safety Awareness Memory Description No Deficits Noted Gross Range of Motion Lower Extremity ROM Assessment Within Functional Limits Strength Lower Extremity Strength Assessment Within Functional Limits Coordination Assessment Gross Coordination Gross Coordination WNL Sensation Assessment Sensation Gross Sensation WNL Muscle Tone Muscle Tone WNL Yes M6 PT-IP Treatment Start: 12/23/23 12:52 Freq: NEEDED Status: Discharge Protocol: Document 12/23/23 14:00 [facility] (Rec: 12/23/23 16:36 AB [id number]) Physical Therapy Treatment Education Education Provided Precautions,Safety M7 PT-IP Assessment and Plan Start: 12/23/23 12:52 Freq: NEEDED Status: Discharge Protocol: Document 12/23/23 14:00 [facility] (Rec: 12/23/23 16:36 AB [id number]) PT Summary Assessment and Plan Potential Rehabilitation Potential Fair Summary Impairments Pain,ROM,Strength,Balance, Coordination,Sensation,Tone, Cognition,Bed Mobility, Transfers,Gait,Activity Tolerance Assessment Summary pt progressing slowly with mobility. caregiver training conducted and spouse was able to safely assist pt with mobility. pt may go home when medically stable. Goals Bed Mobility Goal Independent Transfer Goal Independent,Front Wheeled Walker Gait Goal Independent,Front Wheel Walker Gait Distance 200 Other Goals up/down 4 steps B rails SBA Days to Meet Goals 5 Frequency of Treatment Frequency Of Treatment Twice a Day Treatment Plan Physical Therapy Treatment Plan Bed Mobility Training,Transfer Training,Gait Training, Therapeutic Exercise,Balance Retraining,Post Op Education, Discharge Planning,Hot or Cold Pack,Neuromuscular Re-ed, Coordination Retraining,Manual Therapy Precautions Lumbar Precautions Log Roll,No Twisting,Limit Bending,Lifting Restriction of 10 lbs,Gait Belt above Incisional Area Recommendations To Nursing Amount of Assist Needed 1 Person Assist Discharge Recommendations PT Discharge Recommendations Home with Assistance Transportation Needs at Discharge Private Vehicle
--- NOTE | 2023-12-23 14:00 | CM.DANOTE ---
Initial DCP Assessment Visit Note Reviewed EMR and team rounds for status updates. Met with pt at bedside to introduce self and role, pt was found to be alert/oriented, and able to discuss her preference for home d/c once she's medically cleared, which we anticipated for tomorrow 12/23. Pt resides with her in their own home in [place]. Her will be here to transport her tomorrow am after cg training. She denies any further d/c assistance or resource needs at this time. Payor: Medicare Attending: Dr. Cardona Pt is a 67 year-old F post-op day 1 from her TLIF surgery. She is doing well postoperatively with no concerns at this time. Pt has a hx of worsening lumbar pain with radiculopathy pain going down both legs. She's tried conservative methods with no lasting benefit. She states that she is independent at baseline, however recently the pain has been limiting her ability to drive and engage in ADL's without considerable discomfort. She has all of the DME she will need at home, and has a plan for OP PT in place. Will continue to monitor for any further evolving d/c needs prior to her departure home. Discharge Planning/Care Management Advanced directive, confirm from FAMILY Start: 12/22/23 13:39 Freq: Q24H Status: Active Protocol: Document 12/23/23 13:12 CM (Rec: 12/23/23 13:14 CM [id number]) Advance Directive, confirm on record Time 13:14 Person contacted Pt Copy received No Advanced directive available on record No CM Discharge Assessment Start: 12/23/23 13:55 Freq: Status: Active Protocol: Document 12/23/23 13:55 DPL (Rec: 12/23/23 14:00 DPL [id number]) Discharge Planning Assessment Assigned Fusing Furnace Loader STEVE Nicholas Advance Directives? Yes: AMARJIT Advance Directives on File No History Provided By Patient,Medical Record Has Patient been admitted in last 30 No days? Prior Living Arrangements House Household Members spouse Type of transporation used prior to Drives own vehicle admit Independent with ADL's Yes Is patient alert and oriented? Yes Comment N/A Caregiver for Another No Community Services used prior to Physical Therapy admission: DME Already Rented / Owned Elevated Toilet Seat,FWW / Walker Patient/Family Preference OP PT Therapy Barriers to Discharge No Discharge Plan Home Transportation Arrangement spouse in POV Referrals Initiated None needed Whiteboard Updated in Patient Room with Yes name and ext. # of Fusing Furnace Loader Review Status In Process Please Provide Date Initial DC 12/23/23 Assessment Was Performed Pre-Anesthesia Assessment Start: 10/23/23 09:48 Freq: Status: Active Protocol: Document 10/23/23 09:48 CAB (Rec: 10/23/23 10:31 CAB [id number]) Pre-Anesthesia Assessment Preferred Name [facility] Patient Information Reviewed Via Phone Assessment Assessment Completed With Patient Diagnostic Results BMP/CMP,CBC Primary Care Provider Reilly Ross Comment Pre-op 09/16/23 and clearance form 09/02/23 scanned and in surgery folder Seen Specialist in Last 12 Months Yes Specialist Seen Orthopedist Primary Language Pakistani Preferred Language Pakistani Still Operator Gin Required No Height 154.94 cm Weight 49.442 kg Body Mass Index (BMI) 20.5 Hearing Ability Normal Visual Assist Glasses Dentition Type Teeth, Natural Present,Teeth, Missing Barriers to Learning None Hx Anesthesia Reactions No Hx Family Anesthesia Reaction No Hx Malignant Hyperthermia No Hx Blood Transfusions Yes: s/p anemia jun-jul 2023 Hx Blood Transfusion Reaction No Anesthesia Review Requested Yes: PAC courstesy re: abnormal pre-op 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 No Does patient have MENDEZ/SOB No Hx Sleep Apnea No Currently Taking a Beta Nestor No Can You Climb a Flight of Stairs Without Yes SOB Hx Chest Pain No Hx SOB No Hx Syncope or Dizziness No Anti-Coagulant Therapy Yes: ASA 81mg Has a Cooker Syrup No Cardiac Testing No Hx Pacemaker/ICD No Pacemaker Rep Required? No Cardiac Clearance Received Not Applicable Diet Type At Home Regular Dysphagia No Gastrointestinal Symptoms None Chronic UTI No Urinary Catheter Present No Hx Urinary Self Catheterization No Diabetes No HgbA1C 4.9 Date 10/15/23 Patient No Lactating No Hx Drug Resistant Organism No Presence of External or Internal Medical Yes: Bilat eye IOLs, joao great Devices toe Received a COVID vaccine? Yes Received all doses? Yes Marital Status Lives With spouse Current Living Arrangements Mobile home Number of Floors (Floors) One Floor Support System Spouse Does the Patient Have Assistance After Yes Surgery Patient Discharge Plan Description Return Home Comment Pt advised overnight length of stay per surgeon Feels Safe in Current Environment Yes Been Physically Hurt or Threatened By a No Person in Current Environment Do you have thoughts of harming yourself None or others? Are you currently considering suicide? No Do you have a plan to hurt yourself or No Plan others? Do You Have Any Spiritual Beliefs That No May Affect Your HC Choices? Do You Have Any Cultural Practices That No May Affect Your HC Choices? Who Can We Speak to About Patient's Care Family, friends Identifying Code for Release of Patient Declines to issue Information Health Care Proxy/Next of Kin Elias () Health Care Proxy Emergency Contact Name Elias () Emergency Contact Advance Directives? Yes: POLST Advance Directives on File No Power of Industrial Spraypainter Yes Power of Industrial Spraypainter Name Elias () Power of Industrial Spraypainter PAC Instructions Durable medical equipment, Medications to take/avoid, Nasal antibiotic,No ETOH/ petroleum product on skin DOS, NPO,Pre-surgical wash,Sensory aids,Sturdy shoes/comfortable clothes,Do not bring valuables and remove jewelry
--- NOTE | 2023-12-23 15:18 | PC.NURSE ---
Pt has been cleared by Physical Therapy and would like to d/c home today. Sent a message down to OR per Pt request.
--- NOTE | 2023-12-23 15:30 | P.DS_ITS ---
History of Present Illness History of Present Illness Date Patient Seen: 12/23/23 Time Patient Seen: 15:30 Chief complaint: Translam Intrbody Fus./Laminotomy -Robot Narrative: Operative Date/Time/Diagnoses Date of procedure: 12/22/23 Time of procedure: 07:40 Pre-op diagnosis: 1. L3-4, L4-S1 foramen stenosis 2. L4-S1 anterolisthesis 3. Spinal stenosis with radiculopathy Post-op diagnosis: same Procedure & Clinicians Procedure: 1. L3-4, L4-S1 Postero-lateral and posterior interbody fusion 2. L3-4, L4-S1 interbody cage placement. 3. L3-4, L4-S1 decompressive laminectomy with bilateral facetecomies 4. L3-4, L4-S1 Posterior segmental instrumentation 5. Shade of bone marrow from iliac crest 6. Utilization of microsurgical technique and operating microscope 7. Utilization of robotic assisted navigation Same procedure as scheduled: Yes Indications: Patient has been having chronic back pain and worsening lumbar radiculopathy bilaterally left worse than right. Patient is found to have significant lumbar foraminal stenosis bilaterally at L3-4 L4-S1 as well as significant instability at L4-S1 level correlating with her symptoms. Patient failed multiple conservative management with worsening back pain, leg pain weakness and numbness in her lower extremity. Patient has been having difficulty performing activity of daily living. After discussing risks benefits of treatment options, patient elected proceed with surgery. Surgeon: Yenny Cardona Plate And Weld Inspector: Tamiko Oliveros Click Yes if Unassisted: No Anesthesia Type: General Operative Notes Closure Type: primary Specimen(s): none sent Prosthetic devices, grafts, tissues, transplants, or devices: Globus CREO MIS screws, Rise cages Applied: catheter Estimated Blood Loss (mL): 150 Blood products transfused: none Discharge Providers Provider Date of admission: 12/22/23 06:05 Discharge Date: 12/23/23 Primary care physician: Reilly Ross MD Consults: 10/23/23 14:10 Consult to Anesthesiology Routine Comment: Consulting Provider: Anesthesiologist Reason for consultation: PAC courtesy re: Abnormal pre-op EKG 12/22/23 13:10 Consult to Occupational Therapy Evaluate & Treat Comment: Physician Instructions: Evaluate and treat Consult to Physical Therapy Evaluate & Treat Comment: Physician Instructions: Evaluate and Treat Discharge provider: Tamiko Oliveros PA-C Summary Hospital Course Discharge Diagnosis: 1) L3-4, L4-S1 foramen stenosis, L4-S1 anterolisthesis, Spinal stenosis with radiculopathy; s/p L3-4 and L4-S1 lumbar fusion 2) Acute on chronic anemia d/t expected surgical blood loss 3) Postoperative exacerbation of hypertension Hospital Course: Ms Mckeon's hospital course was remarkable for postoperative HTN; the hospitalist service was consulted and this was episodically treated with addition of hydralazine. Her BP had returned to normal on the morning of POD# 1. Later that day, I received a message that the pt wanted to discharge home. I called the pt to confirm, and she reported that she was eating and voiding without difficulty and despite pain was comfortable with discharging with family. She was evaluated by PT and they felt she was safe for discharge. Exam Vital Signs (past 8 hours): - 12/23/23 08:00 12/23/23 08:07 12/23/23 11:16 Temperature 97.9 F Pulse Rate 68 69 Respiratory Rate 16 Blood Pressure 130/62 130/67 108/52 L Pulse Oximetry 94 Oxygen Delivery Method Oxygen Flow Rate 0 Fraction of Inspired Oxygen 12/23/23 11:38 Temperature Pulse Rate Respiratory Rate Blood Pressure Pulse Oximetry 97 Oxygen Delivery Method Nasal Cannula Oxygen Flow Rate 1 Fraction of Inspired Oxygen 24 Fraction of Inspired Oxygen 24 SaO2/FiO2 Ratio 404 Oxygen Delivery Method Nasal Cannula Oxygen Flow Rate 1 Narrative Exam Narrative: Please see progress note from earlier today. 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 PVD (peripheral vascular disease) Gastrointestinal hemorrhage with melena Spinal stenosis Hallux valgus Heart murmur Osteoporosis Arthritis Hyperlipemia Hypertension Slipped cervical disc Pancreatitis Constipation Surgical History History of bunionectomy of right great toe History of bunionectomy of left great toe Hx of bilateral cataract extraction Hx of laparoscopy H/O eye surgery Family History Mother Heart disease Brother Diabetes mellitus Skin cancer Grandmother Cancer Social History marital status: household members: spouse lives independently: Yes occupational status: employed Smoking Status: Former smoker alcohol intake: current substance use type: does not use Discharge Assessment & Plan Assessment and Plan Assessment: 1) L3-4, L4-S1 foramen stenosis, L4-S1 anterolisthesis, Spinal stenosis with radiculopathy; s/p L3-4 and L4-S1 lumbar fusion 2) Acute on chronic anemia d/t expected surgical blood loss 3) Postoperative exacerbation of hypertension Plan of Treatment: 1) Pt has received all postop pain meds. 2) Continue FeSO4. No further intervention required. 3) Continue home HTN meds. Recommended f/u w/ PCP within next 1-2 weeks for review. Discharge Plan Discharge Plan Patient Disposition: Home Discharge orders & Medications Prescriptions: Continued aspirin 81 mg tablet,delayed release (DR/EC) 81 mg PO DAILY clonidine 0.1 mg/24 hr Patch Weekly 1 patch TRANSDERMAL QWEEK pravastatin 40 mg Tablet 40 mg PO DAILY acetaminophen 650 mg Tablet Extended Release 1,300 mg PO DAILY PRN (Reason: Pain) nifedipine 30 mg Tablet Extended Release 24hr 30 mg PO DAILY cetirizine 10 mg Tablet 10 mg PO DAILY ferrous sulfate 324 mg (65 mg iron) Tablet,Delayed Release (Dr/Ec) 324 mg PO BID diclofenac sodium 1 % Gel 2 g TOPICAL QID PRN (Reason: Pain) omeprazole 20 mg Tablet,Delayed Release (Dr/Ec) 20 mg PO DAILY Systane Complete 0.6 % Drops 1 drp EYE-BOTH DAILY Follow up/Referrals: Yenny Cardona MD [Physician] - 2 Weeks Reilly Ross MD [Primary Care Provider] - Diet/Activity/Treatments Diet: Diet as Tolerated Activity: No deep bending or twisting at the waist. No lifting more than 10 pounds. Cold/Heat Therapy: Heating pad to low back as needed for pain. Skin/Wound/Dressing Care Report to your healthcare provider any signs of infection, such as:: chills, fever, night sweats, unusual drainage and unusual redness Dressing: May shower. Keep dressing as dry as possible. If dressing becomes wet or dirty, may remove and replace with clean, dry gauze. No bathing or otherwise soaking incisions. Do not apply any creams, lotions, or ointments to incisions. Visit Report/Discharge Packet Instructions: DI for Transforaminal Lumbar Interbody Fusion, DI for Prescription Opioid Use Stand Alone Forms: Patient Portal/API, Stroke Signs & Symptoms, Surgery Discharge Discharge Data Primary Care Provider: Reilly Ross VTE Deep Vein Thrombosis/Pulmonary Embolism Present on Admission: No
--- NOTE | 2023-12-23 16:10 | PC.NURSE ---
Pt is dressed and ready for discharge home with Spouse. IV has been removed. Change dressing to back to water resistant Coversite. Went over d/c instructions with Pt -discussed d/c meds, time of last dose, reviewed stroke education, s/s of infection, back precautions, and follow up appointments. Encouraged Pt to drink plenty of fluids to prevent constipation or dehydration. Reminded Pt that she is not to exceed 3000mg of Acetaminophen in 24 hours due to risk of liver damage. Pt denied further questions and was taken out via w/c by DREDGE OPERATOR SUPERVISOR to POV with Spouse and all belongings.
== END 2023-12-23 16:15 | disposition home or self-care (01) | DRG 454 ==
PROVIDERS: Internal Medicine; Admitting Provider Orthopaedic Surgery Orthopaedic Surgery of the Spine; PCP Family Medicine; Referring Provider Orthopaedic Surgery Orthopaedic Surgery of the Spine; Visit Provider Orthopaedic Surgery Orthopaedic Surgery of the Spine
PROC: 0SG00AJ Fusion of Lumbar Vertebral Joint with Interbody Fusion Device, Posterior Approach, Anterior Column, Open Approach (ICD-10-PCS; principal; 2023-12-22 07:45)
DX: M48.061 Spinal stenosis, lumbar region without neurogenic claudication (principal); D62 Acute posthemorrhagic anemia; Q60.0 Renal agenesis, unilateral; M48.07 Spinal stenosis, lumbosacral region; M43.17 Spondylolisthesis, lumbosacral region; I10 Essential (primary) hypertension; M54.17 Radiculopathy, lumbosacral region; M54.16 Radiculopathy, lumbar region; E78.5 Hyperlipidemia, unspecified; Z87.891 Personal history of nicotine dependence
CPT/HCPCS: 36415; 72100; 76000; 80048; 85014; 85018; 86850; 86900; 86901; 97161; 97165; 97530; 97535; A9270; C1713; C9290; J0171; J0330; J0360; J0690; J1100; J1170; J2250; J2405; J2704; J3010

== ENCOUNTER 2024-03-20 18:39 | Emergency (ER) | payer MEDICARE, OTHER, SELFPAY ==
[2023-12-22 13:31] VITALS: BMI 21.4
[2024-03-20 19:00] VITALS: BP 187/93; PULSE 92; RESP 16; TEMP 36.3; O2SAT 97; BMI 21.4
[2024-03-20 20:56] VITALS: BP 198/89; PULSE 88; O2SAT 95
[2024-03-20 21:00] VITALS: BP 197/88; PULSE 84; O2SAT 97
[2024-03-20 21:12] LABS: Appearance Urine UA SL CLOUDY; Bilirubin Urine UA NEGATIVE (NEGATIVE); Color Urine UA YELLOW; Glucose Urine UA NEGATIVE (Negative); Ketones Urine UA TRACE (NEGATIVE); Leukocyte Esterase Urine UA 3+ (NEGATIVE); Nitrite Urine UA NEGATIVE (Negative); Occult Blood Urine UA 2+ (Negative); Protein Urine UA TRACE (Negative); Specific Gravity Urine UA 1.015 (1.000-1.035); Urobilinogen Urine UA 0.2 E.U./dL (0.2)
[2024-03-20 21:14] LABS: pH Urine UA 5.5 (4.5-8.0)
[2024-03-20 21:20] LABS: Urine Volume 10mL (spun)
[2024-03-20 21:21] LABS: Bacteria Urine Many (>30); RBC Urine 5-10/HPF (0-5/HPF); Squamous Epithelial Cell Urine 1-5 /HPF (0-5/HPF); WBC Urine 30-100/HPF (0-5/HPF)
[2024-03-20 21:22] LABS: Culture Indicated Urine Specimen Cultured
[2024-03-20 21:30] VITALS: BP 173/84; PULSE 77; O2SAT 95
--- NOTE | 2024-03-20 22:06 | PC.NURSE ---
Patient tells this RN that it's not actually blood in her urine she thinks its her stool, patient states that she has been experiencing incontinence of bowel and bladder for two months. Patients urine is cloudy and malodorous. Patient had spine surgery in November
--- NOTE | 2024-03-20 23:47 | ED_ITS ---
HPI - Female Genitourinary General Chief complaint: Urogenital-Female Stated complaint: bleed in urine or stool, not sure Time Seen by Provider: 03/20/24 23:47 History of Present Illness HPI Narrative: 68-year-old female has blood in her urine diaper noted, with frequency of urination, and painful urination, ongoing urinary incontinence, no self catheterization, no indwelling Duffy catheter or suprapubic catheters. No recent exposure to antibiotics. No fevers or chills. She has chronic back pain after surgery a few months ago, has postoperative discomfort that is not changed. Denies pain in her flanks. Denies anterior abdominal discomfort. No diarrhea symptoms. No black or red stools. No injury trauma or new activities. Denies cough or shortness of breath. Related Data Previous Rx's Medication Instructions Recorded nitrofurantoin 100 mg PO Q12H 7 days #14 caps 03/21/24 monohydrate/macrocrystals 100 mg capsule (Macrobid) phenazopyridine 100 mg tablet 100 mg PO TID PRN pain 6 doses #6 03/21/24 (Pyridium) tabs Allergies Allergy/AdvReac Type Severity Reaction Status Date / Time codeine AdvReac Verified 03/20/24 19:00 Review of Systems Review of Systems Narrative: see HPI Exam Narrative Exam Narrative: GENERAL: Well-developed patient, in mild distress. HEAD: Atraumatic. Normocephalic. EYES: Pupils equal round and reactive. Extraocular motions intact. No scleral icterus. No injection or drainage. ENT: Nose without bleeding, purulent drainage. Throat without erythema, tonsillar hypertrophy or exudate. Airway patent. NECK: Trachea midline. Non tender CARDIOVASCULAR: Regular rate and rhythm without murmurs, gallops, or rubs. RESPIRATORY: Clear to auscultation. Breath sounds equal bilaterally. No wheezes, rales, or rhonchi. GASTROINTESTINAL: Abdomen soft, non-tender, nondistended. EXTREMITIES: No edema or joint tenderness. BACK: Nontender without deformity or crepitance. No flank tenderness. NEURO: AOx3. Motor functions grossly nonfocal SKIN: No rash or erythema of visible areas Initial Vital Signs Initial Vital Signs: Vital Signs Temperature 97.4 F L 03/20/24 19:00 Pulse Rate 92 H 03/20/24 19:00 Respiratory Rate 16 03/20/24 19:00 Blood Pressure 187/93 H 03/20/24 19:00 Pulse Oximetry 97 03/20/24 19:00 Oxygen Delivery Method Room Air 03/20/24 19:00 Course Orders Ordered: Discontinued Medications Nitrofurantoin Macrocrystals (Nitrofurantoin Er 100 Mg Capsule) 100 mg PO NOW ONE Stop: 03/21/24 00:02 Last Admin: 03/21/24 00:06 Dose: 100 mg Documented By: NIKKY Phenazopyridine HCl (Phenazopyridine 100 Mg Tablet) 100 mg PO NOW ONE Stop: 03/21/24 00:02 Last Admin: 03/21/24 00:07 Dose: 100 mg Documented By: NIKKY Vital Signs Vital signs: Vital Signs - 8 hr 03/20/24 19:00 03/20/24 20:56 03/20/24 20:56 Temperature 97.4 F L Pulse Rate 92 H 88 Respiratory Rate 16 Blood Pressure 187/93 H 198/89 H Pulse Oximetry 97 95 Oxygen Delivery Method Room Air 03/20/24 21:00 03/20/24 21:00 03/20/24 21:30 Temperature Pulse Rate 84 77 Respiratory Rate Blood Pressure 197/88 H Pulse Oximetry 97 95 Oxygen Delivery Method 03/20/24 21:30 Temperature Pulse Rate Respiratory Rate Blood Pressure 173/84 H Pulse Oximetry Oxygen Delivery Method MDM - Female Genitourinary Lab Data Attestation: I reviewed the patient's lab results. Lab results narrative: Urinalysis suspicious for infection, urine culture pending Labs: Lab Results 03/20/24 Range/Units 21:04 Urine Color Yellow Urine Appearance Sl cloudy Urine pH 5.5 (4.5-8.0) Ur Specific [place] 1.015 (1.000-1.035) Urine Protein Trace H (Negative) Urine Glucose (UA) Negative (Negative) g/dL Urine Ketones Trace H (NEGATIVE) Urine Occult Blood 2+ H (Negative) Urine Nitrate Negative (Negative) Urine Bilirubin Negative (NEGATIVE) Urine Urobilinogen 0.2 (0.2) E.U./dL Ur Leukocyte Esterase 3+ H (NEGATIVE) Urine RBC 5-10/hpf H (0-5/HPF) Urine WBC 30-100/hpf H (0-5/HPF) Ur Squamous Epith Cells 1-5 /hpf (0-5/HPF) Urine Bacteria Many (>30) H (None) Ur Culture Indicated? Specimen cultured Vol Urine Centrifuged 10ml (spun) MDM Narrative Medical decision making narrative: 68-year-old with UTI symptoms, some possible gross hematuria symptoms, afebrile, sirs screen negative, no flank pain area discomfort, has back pain but feels like it is postoperative surgical back surgery related and not increased or changed. No anterior abdominal discomfort. No anterior abdominal tenderness, no CVA region tenderness. Urinalysis suspicious for infection. We will treat for cystitis. Oral dose nitrofurantoin antibiotic, oral dose Pyridium. Further antibiotic and Pyridium prescription doses sent to her pharmacy. Encouraged to drink plenty of fluid. Informed that the Pyridium may make her urine appear orange/red in color. Advised recheck with regular provider if symptoms not improving in the next 2-3 days. Return precautions also discussed Discharge Plan Departure Patient Disposition: Home Clinical Impression: Urinary tract infection Instructions: DI for Urinary Tract Infection (UTI) Prescriptions: New nitrofurantoin monohyd/m-cryst [Macrobid] 100 mg capsule 100 mg PO Q12H 7 Days Qty: 14 0RF Rx Instructions: must administer with a meal/food phenazopyridine [Pyridium] 100 mg tablet 100 mg PO TID PRN (Reason: pain) Qty: 6 0RF Stand Alone Forms: Patient Portal/API
[2024-03-21] MEDS: NITROFURANTOIN ER 100 MG CAPSULE PO (00:06)
[2024-03-21] MEDS: PHENAZOPYRIDINE 100 MG TABLET PO (00:07)
[2024-03-21 00:11] VITALS: BP 179/83; PULSE 87; RESP 17; TEMP 36.4; O2SAT 97
== END 2024-03-21 00:24 | disposition home or self-care (01) ==
PROVIDERS: Emergency Provider Emergency Medicine
DX: N39.0 Urinary tract infection, site not specified (principal)
CPT/HCPCS: 81001; 87077; 87086; 87186; 99283

== ENCOUNTER 2024-03-31 22:36 | Emergency (ER) | payer MEDICARE, OTHER, SELFPAY ==
[2023-12-22 13:31] VITALS: BMI 21.4
[2024-03-31 22:41] VITALS: BP 193/88; PULSE 88; RESP 15; TEMP 36.4; O2SAT 98; BMI 20.9
--- NOTE | 2024-03-31 22:58 | ED.GENADULT ---
HPI - General Adult General Chief complaint: Urogenital-Female Stated complaint: bleeding and pain in genital area Time Seen by Provider: 03/31/24 22:39 Source: patient Mode of arrival: Ambulatory History of Present Illness HPI narrative: Patient is a 68-year-old female. Has recently seen here in the emergency department and diagnosed with a urinary tract infection. Completed a course of antibiotics. Has followed up with the primary doctor's office. During that time at the doctor's office which was approximately 1.5 weeks ago she states she had ?scraping? of some lesions that were on her labia and also in the inside of her vagina. She states that the pathology results were negative. There was no signs of infection or malignancy. She states that since that time she has had increase in discomfort, quite a bit of irritation, and now is having bleeding. She contacted her primary doctor's office today however she never received a phone call back from the provider so she comes in the emergency department for pain control. Related Data Home Medications Medication Instructions Recorded Confirmed aspirin 81 mg tablet,delayed 81 mg PO DAILY 09/12/23 12/22/23 release acetaminophen 650 mg 1,300 mg PO DAILY PRN Pain 10/23/23 12/22/23 tablet,extended release cetirizine 10 mg tablet 10 mg PO DAILY 10/23/23 12/22/23 clonidine 0.1 mg/24 hr weekly 1 patch transdermal QWEEK 10/23/23 12/22/23 transdermal patch diclofenac sodium 1 % topical gel 2 g topical QID PRN Pain 10/23/23 12/22/23 ferrous sulfate 324 mg (65 mg 324 mg PO BID 10/23/23 12/22/23 iron) tablet,delayed release nifedipine 30 mg tablet,extended 30 mg PO DAILY 10/23/23 10/23/23 release 24 hr omeprazole 20 mg tablet,delayed 20 mg PO DAILY 10/23/23 12/22/23 release pravastatin 40 mg tablet 40 mg PO DAILY 10/23/23 12/22/23 propylene glycol 0.6 % eye drops 1 drp EYE-BOTH DAILY 10/23/23 12/22/23 (Systane Complete) Previous Rx's Medication Instructions Recorded phenazopyridine 100 mg tablet 100 mg PO TID PRN pain 6 doses #6 03/21/24 (Pyridium) tabs lidocaine 5 % topical gel 1 ea topical TID PRN vaginal pain 03/31/24 #10 grams Allergies Allergy/AdvReac Type Severity Reaction Status Date / Time codeine AdvReac Severe Dizziness Verified 03/22/24 08:02 Review of Systems Review of Systems Narrative: See HPI Patient History Medical History Occipital stroke (~2017) Easy bruisability 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 PVD (peripheral vascular disease) Gastrointestinal hemorrhage with melena Spinal stenosis Hallux valgus Heart murmur Osteoporosis Arthritis Hyperlipemia Hypertension Slipped cervical disc Pancreatitis Constipation Surgical History History of bunionectomy of right great toe History of bunionectomy of left great toe Hx of bilateral cataract extraction Hx of laparoscopy H/O eye surgery Family History Mother Heart disease Brother Diabetes mellitus Skin cancer Grandmother Cancer Social History marital status: household members: spouse lives independently: Yes occupational status: employed Smoking Status: Former smoker alcohol intake: current substance use type: does not use Smoking Status: Former smoker alcohol intake frequency: holidays/special occasions only Substance Use Type: does not use Exam Initial Vital Signs Initial Vital Signs: Vital Signs Temperature 97.6 F 03/31/24 22:41 Pulse Rate 88 03/31/24 22:41 Respiratory Rate 15 03/31/24 22:41 Blood Pressure 193/88 H 03/31/24 22:41 Pulse Oximetry 98 03/31/24 22:41 Oxygen Delivery Method Room Air 03/31/24 22:41 Const General: cooperative and No ill appearing HENMT Head: normal to inspection Other: Quite a bit of irritation noted in the vaginal region. No blisters. No pustules. I could not see a specific lesion where any biopsy was taken however there does appear to be mucosal irritation most likely from an area of ?scraping. No active bleeding. Course Orders Ordered: Discontinued Medications Lidocaine HCl (Lidocaine Jelly 2% 5 Ml) 1 applic TOP NOW ONE Stop: 03/31/24 23:10 Last Admin: 03/31/24 23:24 Dose: Not Given Documented By: CHERY Lidocaine HCl (Lidocaine 2% (Glydo) 6 Ml Gel) 6 ml TOP NOW ONE Stop: 03/31/24 23:15 Last Admin: 03/31/24 23:26 Dose: 6 ml Documented By: CHERY Vital Signs Vital signs: Vital Signs - 8 hr 03/31/24 22:41 Temperature 97.6 F Pulse Rate 88 Respiratory Rate 15 Blood Pressure 193/88 H Pulse Oximetry 98 Oxygen Delivery Method Room Air Medical Decision Making MDM Narrative Medical decision making narrative: There was no specific source of infection seen. Her exam is not consistent with an STI such as herpes. She reports vast improvement of symptoms after some lidocaine jelly. Will discharge home with a prescription for lidocaine jelly in his instructions to contact her primary doctor's office for a follow-up. We will hold on any antibiotics for now. Patient was given return precautions. Discharge Plan Departure Patient Disposition: Home Clinical Impression: Vaginal pain, Urinary tract infection Activity Restrictions/Additional Instructions: Use the topical lidocaine jelly as needed for the discomfort. Tried to keep the areas clean as possible with soap and water. Tomorrow contact your primary care doctor's office for a follow-up. Return to the emergency department for new symptoms. Prescriptions: New lidocaine 5 % gel 1 ea topical TID PRN (Reason: vaginal pain) Qty: 10 2RF No Action aspirin 81 mg tablet,delayed release (DR/EC) 81 mg PO DAILY clonidine 0.1 mg/24 hr Patch Weekly 1 patch TRANSDERMAL QWEEK pravastatin 40 mg Tablet 40 mg PO DAILY acetaminophen 650 mg Tablet Extended Release 1,300 mg PO DAILY PRN (Reason: Pain) nifedipine 30 mg Tablet Extended Release 24hr 30 mg PO DAILY cetirizine 10 mg Tablet 10 mg PO DAILY ferrous sulfate 324 mg (65 mg iron) Tablet,Delayed Release (Dr/Ec) 324 mg PO BID diclofenac sodium 1 % Gel 2 g TOPICAL QID PRN (Reason: Pain) omeprazole 20 mg Tablet,Delayed Release (Dr/Ec) 20 mg PO DAILY Systane Complete 0.6 % Drops 1 drp EYE-BOTH DAILY phenazopyridine [Pyridium] 100 mg tablet 100 mg PO TID PRN (Reason: pain) Qty: 6 0RF Referrals: Reilly Ross MD [Primary Care Provider] - Stand Alone Forms: Patient Portal/API/Survey
--- NOTE | 2024-03-31 23:15 | PC.NURSE ---
chaperoned pelvic exam with Dr Clay, dried blood noted to pt's labia and around the vagina, area is raw and tender
--- NOTE | 2024-03-31 23:20 | PC.NURSE ---
lidocain jelly applied to vaginal area pt tolerated well, pt states pain not totally relieved but eased and tolerable
[2024-03-31] MEDS: LIDOCAINE 2% (GLYDO) 6 ML GEL TOP (23:26)
--- NOTE | 2024-03-31 23:29 | PC.NURSE ---
pt c/o pain to the labia and perineum area, states area is raw and irritated, has been seen by her physician who took scrapings of some sores
== END 2024-03-31 23:44 | disposition home or self-care (01) ==
PROVIDERS: Emergency Provider Emergency Medicine; PCP Family Medicine
DX: N39.0 Urinary tract infection, site not specified (principal); R10.2 Pelvic and perineal pain
CPT/HCPCS: 99282

== ENCOUNTER → 2024-04-02 | Outpatient (CLI) | payer MEDICARE, OTHER, SELFPAY ==
[2023-12-22 13:31] VITALS: BMI 21.4
--- NOTE | 2024-04-02 | DI.CT.S_ITS ---
PROCEDURE: CT ABDOMEN PELVIS W CON INDICATIONS: pelvic and perineal pain TECHNIQUE: After the administration of intravenous contrast, axial sections acquired from the lung bases to the pubic symphysis. Coronal and sagittal reformats were performed. For radiation dose reduction, the following was used: automated exposure control, adjustment of mA and/or kV according to patient size. COMPARISON: [facility], CT, CT ABDOMEN PELVIS W CON, 08/09/2023, 17:17. FINDINGS: Image quality: Diagnostic. Lower Chest: Clear lung bases. Heavy coronary artery calcification versus stent. ABDOMEN: Liver: Numerous tiny hepatic cysts. No solid mass. Gallbladder: No wall thickening or calcified stones. Biliary ducts: No biliary dilation. Pancreas: Normal size and morphology without visible ductal dilatation or inflammation. Spleen: Size is within normal limits. Adrenal Glands: No adrenal nodules. Kidneys and Ureters: The right kidney is absent. The left kidney demonstrates minor hydronephrosis. No nephrolithiasis. No suspicious renal mass. No hydroureter. Stomach and Bowel: In the left lower quadrant, there is a short segment of marked circumferential mucosal thickening and hyperenhancement. This measures about 4.3 cm in length. There is transmural extension of abnormal hyperenhancing mass to the left lateral pelvic sidewall about 1 cm beyond the serosal surface. Proximal to this, the colon is within normal limits but contains a moderately increased quantity of solid stool. Normal appendix. Normal stomach and small bowel loops. Peritoneum: No abnormal intraperitoneal fluid. No free air. Ventral Wall: No significant ventral hernia. Abdominal Nodes: No retroperitoneal or mesenteric adenopathy by size criteria. Vessels: The abdominal aorta, IVC, and portal vein are of normal caliber. Heavy abdominal aortic atherosclerotic calcification. PELVIS: Pelvic Organs: The uterus is absent. Ovaries are not seen. Bladder: No wall thickening, stones, or definite intraluminal mass. Pelvic Nodes: 1.8 cm hyperenhancing left pelvic sidewall lymph node. No other pelvic adenopathy. Miscellaneous: No inguinal hernias are seen. Bones: No aggressive osseous abnormality. Posterior fusion hardware and disc spacers from L4 through S1. IMPRESSION: Suspicious mucosal thickening and enhancement within a short segment of mid sigmoid colon extension to the left pelvic sidewall. Findings are suspicious for malignancy, either primary or metastatic disease. Chronic infection is possible, less likely. Colonoscopy recommended if recently performed. 1.8 cm hyperenhancing pelvic sidewall lymph node. Several hypodensities in the liver, though one is less hypodense compared to several other is and may not be a simple cyst or hemangioma. Right nephrectomy. Dictated by: Tracy Villarreal M.D. on 04/02/2024 at 21:35 Approved by: Tracy Villarreal M.D. on 04/02/2024 at 21:52
== END ==
PROVIDERS: PCP Family Medicine; Referring Provider Family Medicine; Visit Provider Family Medicine
DX: K63.9 Disease of intestine, unspecified (principal); R10.2 Pelvic and perineal pain; N89.8 Other specified noninflammatory disorders of vagina; R59.0 Localized enlarged lymph nodes; Z90.5 Acquired absence of kidney
CPT/HCPCS: 74177; Q9967

== ENCOUNTER 2024-04-15 06:33 | Inpatient (IN) | payer MEDICARE, OTHER, SELFPAY ==
[2023-12-22 13:31] VITALS: BMI 21.4
[2024-04-15] VITALS (19 sets, daily range): BP systolic 118–160; BP diastolic 60–82; PULSE 69–90; RESP 6–18; TEMP 35.8–36.6; O2SAT 90–98; BMI 20.5
--- NOTE | 2024-04-15 | PATH_ITS ---
[facility] [place] Accession Number: [id number] No. of containers..01 Tissue . 01 Material submitted: . colon - SIGMOID COLON W STITCH AT PROXIMAL END . 01 Clinical history: . 4 OTHER SPECIMENS REC'D WITH CASE [id number] DOCS SENT TO SCANNING 04 21 24 . 01 Diagnosis: SIGMOID COLON WITH STITCH AT PROXIMAL END, PARTIAL RESECTION: Invasive adenocarcinoma, moderately differentiated and with the following features: Tumor size: 4.8 x 4.5 cm. Tumor extent: Invades through muscularis propria into pericolonic tissue. Macroscopic tumor perforation: Not identified. Lymphovascular invasion: Not identified. Perineural invasion: Not identified. Tumor buds: Not applicable. Margins: All margins are negative for invasive carcinoma. Five lymph nodes, negative for metastatic carcinoma (0/5). See comment. Tumor deposits: Not identified. Pathologic stage: pT3 pN0. MRV 04/26/2024 1453 Local . 01 Comment: Only one lymph node was identified on the initial examination. Re-examination and submission of tissue identified four additional lymph nodes. . 01 Electronically signed: . Serenity Smith MD, Pathologist NPI- [id number] . 01 Gross description: . Received in formalin with two patient identifiers and sigmoid, stitch at 1, is an oriented segment of colon, 11.3 cm in length and ranging from 1.5 to 4.3 cm in diameter. The serosa is intact with a pale buck hard smooth area, 3.6 x 3.5 cm, located 4.2 cm from the nearest proximal margin. The remaining serosa is buck and smooth with no perforations immediately identified. The proximal margin is inked blue, the distal margin is inked black, the slightly ragged mesenteric margin is green, and the pale buck area of serosa is inked orange. . The lumen contains a small amount of buck mucoid material. An annular friable mass is located centrally and measures 4.8 x 4.5 cm, but not obstructing the lumen. The mass extends through the wall into the adjacent adipose, and is at the orange-inked serosal surface. The mass is located 2.6 cm from the proximal margin, 2.4 cm from the distal margin, and is at the green-inked mesenteric margin as well. The remaining mucosa is buck and velvety with normal appearing folds and diverticula measuring up to 0.9 cm deep. No additional lesions are identified. Palpation of the small amount of attached adipose reveals six buck lymph node candidates ranging from 0.1 to 0.2 cm in greatest dimension. . Stoker Mechanic sections are submitted as follows: A1: Entire proximal margin en face. A2: Entire distal margin en face. A3: Mass to normal mucosa. A4-A5: Mass to deepest extension with orange-inked serosa and nearest mesenteric margin. A6: Diverticula and normal mucosa. A7: Six intact lymph node candidates. ([id number]) . Palpation reveals four buck lymph node candidates ranging from 0.2 cm to 0.3 cm in greatest dimension. The soft tissue is submitted as follows: A8: Whole bisected lymph node candidate. A9: Three intact lymph node candidates. . A10-A13: Additional adipose tissue with possible lymph node candidates. ([id number]) /MRV 04/26/2024 [facility]5 Local . 01 Pathologist provided ICD-10: C18.7 . 01 CPT . 794463 Performed at: [address] [id number] MD Alcides Dugan MD Phone: [phone]
--- NOTE | 2024-04-15 | PATH_ITS ---
[facility] Accession Number: [id number] No. of containers..04 Tissue . 01 Material submitted: . PART A: colon - SIGMOID COLON PART B: rectum - RECTAL FISTULA PART C: vagina - RIGHT VAGINAL WALL INTROITUS PART D: vagina - LEFT VAGINAL WALL INTROTIUS . 01 Diagnosis: A. SIGMOID COLON, BIOPSY: Invasive, moderately differentiated adenocarcinoma, with immunophenotype consistent with colonic primary. No perineural or lymphovascular invasion identified. See comment. . B. RECTAL FISTULA, BIOPSY: No tissue identified. . C. RIGHT VAGINAL WALL INTROITUS, BIOPSY: Invasive squamous cell carcinoma, well to moderately differentiated (p16 diffusely and strongly positive). Suspicious for lymphovascular invasion. See commment. . D. LEFT VAGINAL WALL INTROITUS, BIOPSY: Atypical squamous proliferation ( atleast high-grade squamous intraepithelial squamous proliferation) with features worrisome for invasion, in a background of ulceration and inflamed granulation tissue. MRV 04/23/2024 1342 Local . 01 Comment: B. Immunohistochemistry for mismatch repair proteins was performed and showed the following results- MLH1: Intact nuclear expression; MSH2: Intact nuclear expression; MSH6: Intact nuclear expression and PMS2: Intact nuclear expression. Background nonneoplastic tissue/internal control with intact nuclear expression. INTERPRETATION: No loss of nuclear expression of MMR proteins: low probability of microsatellite instability-high (MSI-H)* . As part of ongoing senior quality assurance engineer, this case is also reviewed by Dr. Madeleine Omalley, who agrees with the interpretation. . Findings were called to the provider's office and a message for call back was left on 04/21/[address] Smith. . 01 Electronically signed: . Serenity Smith MD, Pathologist NPI- [id number] . 01 Gross description: . Part A: SIGMOID COLON: Received in formalin are 3 fragment(s) of buck, soft tissue measuring 0.2 x 0.2 x 0.2 cm to 0.5 x 0.2 x 0.2 cm submitted entirely in 1 cassette(s) Part B: RECTAL FISTULA: Received in formalin is 1 fragment(s) of buck, soft tissue measuring 0.1 x 0.1 x 0.1 cm submitted entirely in 1 cassette(s) Part C: RIGHT VAGINAL WALL INTROITUS: Received in formalin is 1 fragment(s) of buck, soft tissue measuring 0.6 x 0.5 x 0.4 cm submitted entirely in 1 cassette(s) Part D: LEFT VAGINAL WALL INTROTIUS: Received in formalin is 1 fragment(s) of buck, soft tissue measuring 0.5 x 0.5 x 0.4 cm submitted entirely in 1 cassette(s) /SHERI 04/16/2024 2000 Local . 01 Microscopic: . A. The malignant cells forming glands are positive for SATB2, CDX2, and villin, and are negative for PAX8, vimentin, MO, and GATA3. P16 shows nonspecific focal expression. These findings support adenocarcinoma of colon and argue against adenocarcinoma from muelllerian and cervical origin. . C. The malignant cells are positive for p40, CK5/6, and p16, confirming squamous cell carcinoma. Controls stain appropriately. . * This test was developed and the performance characteristics were validated by [employer]. It has not been cleared or approved by the U.S. Food and Drug Administration. . 01 Pathologist provided ICD-10: C18.7, C52 . 01 CPT . 427323, 430985, [id number], M53370, 053501, 501177 Specimen Comment: A courtesy copy of this report has been sent to [phone] Performed at: [address] [facility], [place], [place] [id number] MD Alcides Dugan MD Phone: [phone]
[2024-04-15] MEDS: LACTATED RINGERS 1,000 ML 42 ML IV (07:04)
--- NOTE | 2024-04-15 07:26 | SUR.OPER ---
Lithotomy on padded OR bed, head on pillow, arms secured on padded arm boards at <90 degrees abduction. Legs secured in padded yellow fins stirrups.
--- NOTE | 2024-04-15 07:30 | PM.GYNHP.1 ---
History of Present Illness History of Present Illness Narrative: Emily Mckeon is a 68 year old female with vaginal pain, suspect vaginal cancer. Also has sigmoid colon wall thickening. She is here for an examination under anesthesia possible biopsies. We will also do a cystoscopy if suspect this has gone into the bladder. Dr. Webb we will do a colonoscopy to rule out colon pathology. 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 PVD (peripheral vascular disease) Gastrointestinal hemorrhage with melena Spinal stenosis Hallux valgus Heart murmur Osteoporosis Arthritis Hyperlipemia Hypertension Slipped cervical disc Pancreatitis Constipation Surgical History (Updated 04/12/24 @ 10:45 by Theresa Pradhan RN) History of back surgery (12/22/23) History of bunionectomy of right great toe History of bunionectomy of left great toe Hx of bilateral cataract extraction Hx of laparoscopy H/O eye surgery Family History Mother Heart disease Brother Diabetes mellitus Skin cancer Grandmother Cancer Social History marital status: household members: spouse lives independently: Yes occupational status: employed Smoking Status: Former smoker alcohol intake: never substance use type: does not use Meds Home Medications and Allergies Home Medications Medication Instructions Recorded Confirmed Type aspirin 81 mg tablet,delayed 81 mg PO DAILY 09/12/23 04/15/24 History release acetaminophen 650 mg 1,300 mg PO DAILY PRN Pain 10/23/23 04/08/24 History tablet,extended release cetirizine 10 mg tablet 10 mg PO DAILY 10/23/23 04/15/24 History clonidine 0.1 mg/24 hr weekly 1 patch transdermal QWEEK 10/23/23 04/15/24 History transdermal patch diclofenac sodium 1 % topical gel 2 g topical QID PRN Pain 10/23/23 04/08/24 History ferrous sulfate 324 mg (65 mg 324 mg PO BID 10/23/23 04/08/24 History iron) tablet,delayed release nifedipine 30 mg tablet,extended 30 mg PO DAILY 10/23/23 04/15/24 History release 24 hr omeprazole 20 mg tablet,delayed 20 mg PO DAILY 10/23/23 04/15/24 History release pravastatin 40 mg tablet 40 mg PO DAILY 10/23/23 04/15/24 History propylene glycol 0.6 % eye drops 1 drp EYE-BOTH DAILY 10/23/23 04/08/24 History (Systane Complete) lidocaine 5 % topical gel 1 ea topical TID PRN vaginal pain 03/31/24 04/08/24 Rx #10 grams oxycodone 5 mg tablet 2.5 mg (1/2 x 5 mg) PO Q6H PRN 04/08/24 04/08/24 Rx pain #10 tabs Allergies Allergy/AdvReac Type Severity Reaction Status Date / Time codeine AdvReac Severe Dizziness Verified 04/15/24 06:57 Exam Vital Signs (past 8 hours): - 04/15/24 07:05 Temperature 97.7 F Pulse Rate 84 Respiratory Rate 16 Blood Pressure 145/75 H Pulse Oximetry 98 Oxygen Delivery Method Room Air Oxygen Delivery Method Room Air Narrative Exam Narrative: Generally: A thin white female, no acute distress Lungs: Clear to auscultation bilaterally Cardiovascular: Regular rate and rhythm Abdomen: Soft and flat. External genitalia: Examined in the office, deferred today to OR Vagina: Examined in the office, deferred today to OR Extremities: No edema Assessment & Plan Assessment & Plan narrative: Assessment: 68-year-old with vaginal pain, suspect vaginal cancer Thickening of the colon wall on imaging Plan: Examination under anesthesia with biopsy of the vagina, possible cystoscopy Colonoscopy by Dr. Webb The risks, benefits, and alternatives to the examination under anesthesia with biopsy and possible cystoscopy are bleeding and infection. A full par Q was held and consent form was signed. Time-Based Coding :: [TOTAL MINUTES] spent with patient and on the chart (including review of chart, obtaining history, exam, reviewing outside data, placing orders, documenting exam and treatment plan, and counseling patient) on [DATE].
--- NOTE | 2024-04-15 07:34 | PM.PREOP ---
Pre-operative Note Interval Note History & Physical reviewed/Exam performed by Physician: Yes Changes to H&P: No H&P completed within 30 days and has changed as indicated here:: 04/15/24
--- NOTE | 2024-04-15 07:42 | PM.PREOP ---
Pre-operative Note COVID-19 COVID-19 status: Not tested Interval Note History & Physical reviewed/Exam performed by Physician: Yes Changes to H&P: No ASA Class (for procedural sedation): III
[2024-04-15] MEDS: ACETAMINOPHEN 325 MG TABLET 650 MG PO (07:45)
--- NOTE | 2024-04-15 08:06 | PM.OP.COLON ---
Operative Date/Time/Diagnoses Date of procedure: 04/15/24 Time of procedure: 08:06 Pre-op diagnosis: Abnormal CT scan Post-op diagnosis: same Procedure & Clinicians Study performed: Sigmoidoscopy Same procedure as scheduled: Yes Surgeon: Palmer Webb Procedure Notes Procedure in detail: Surgeon: Palmer Webb MD Anesthesia: Analisa Ibanez DO Procedure: The patient was brought to the operating room on the [facility] and placed in left lateral decubitus position. The patient was connected to monitoring devices. A time-out was performed. Sedation was administered. Once the patient was adequately sedated, a digital rectal exam was performed and was normal. The scope was then inserted and advanced to the mid sigmoid colon where there was an apparent stricture. There was inflamed tissue at the entrance to the stricture which was biopsied with the Jumbo forceps. There were some diverticula adjacent to the stricture. The scope could not be safely advanced through the stricture. The scope was slowly withdrawn. 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 The scope could easily be inserted into the cavity where there was fungating tissue. A single biopsies were taken from within the rectovaginal fistula with cold forceps. The scope was straightened and removed. Dr. Wynn then proceeded with her portion of the procedure. 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
[2024-04-15] MEDS: HYDROMORPHONE 1 MG INJ IV (08:47)
--- NOTE | 2024-04-15 08:52 | PM.GYNOP.1 ---
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 Patient unable to tolerate exam in the office. Surgeon: Sarah Wynn Anesthesia Type: Sedation Operative Notes Findings: Large rectovaginal fistula Proximally to 0.5 cm of rectovaginal septum from the introitus Friable vaginal tissue Stool coming from a fistula at the 10 o'clock position around the introitus Normal bladder, ureteral jets seen on both sides Closure Type: not applicable Specimen(s): other (Right and left vaginal introitus biopsies) Estimated blood loss (mL): 5 Blood products transfused: none Procedure in detail: After informed consent was obtained, the patient was taken to the operating room where she was placed in the side-lying position. A colonoscopy was performed by Dr. Webb under a separate note. The patient was then placed in the dorsal lithotomy position, and prepped and draped in the usual sterile fashion. The urethral area was re-prepped with Betadine. The cystoscope passed easily into the bladder. There was a bubble seen at the dome of the bladder. Ureteral jets were seen from both ureters. There were no abnormalities of the bladder wall or no masses compressing the bladder. The cystoscope was removed from the bladder. Attention was then turned to the vagina. There was stool seen coming from both the rectum and through the vagina. At the introitus there was some firm erythematous tissue. There was stool seen coming from a fistulous track at the 10 o'clock position just inside the introitus. There was some fairly erythematous and firm vaginal tissue that extended from the introitus for about 2-1/2 cm, and then there was a gaping hole into the rectum. The area was rinsed with 1 L of fluid. The area for proposed biopsies was cleaned with Betadine. Using a 4 mm punch, a biopsy was taken at the right and left vagina with the erythematous, firm tissue. Pressure was held for hemostasis. Sponge, lap, and instrument counts were correct x2. Patient tolerated the procedure well, and was taken to PACU in stable condition. Complications: none Post-operative Condition: stable Disposition: PACU Plan for aftercare: To acute care after recovery
[2024-04-15] MEDS: LACTATED RINGERS 1,000 ML 50 ML IV (10:30)
[2024-04-15] MEDS: MORPHINE 2 MG/ML INJ 1 MG IV ×2 (10:32→14:05)
[2024-04-15 13:54] LABS: Prothrombin Time 11.7 SECONDS (9.4-12.5)
[2024-04-15 14:03] LABS: Alanine Aminotransferase 14 IU/L (<35); Albumin 3.7 g/dL (3.5-5.0); Albumin Globulin Ratio 1.7 (1.0-2.8); Alkaline Phosphatase 84 U/L (38-126); Aspartate Aminotransferase 26 IU/L (14-36); BUN Creatinine Ratio 18.9 (6-22); Bilirubin Total 0.4 mg/dL (0.2-1.3); Blood Urea Nitrogen 14 mg/dL (7-17); Calcium 9.3 mg/dL (8.4-10.2); Carbon Dioxide 26 mmol/L (22-32); Chloride 103 mmol/L (98-107); Estimated Glomerular Filt Rate > 60 mL/min (>60); Globulin 2.2 g/dL (1.7-4.1); Glucose 112 mg/dL (80-110); HEMOLYSIS < 15 (0-50); Potassium 4.5 mmol/L (3.4-5.1); Sodium 136 mmol/L (137-145); Total Protein 5.9 g/dL (6.3-8.2)
[2024-04-15 14:33] LABS: Add Manual Diff / Slide Review NO; Basophils Absolute Auto 0 /uL (0-100); Basophils Percent Auto 0.2 % (0-2); Eosinophils Absolute Auto 0 /uL (0-450); Eosinophils Percent Auto 0.1 % (2-4); Hematocrit 29.9 % (36-46); Lymphocytes Absolute Auto 200 /uL (1100-4500); Lymphocytes Percent Auto 4.9 % (25-40); Mean Corpuscular HGB Conc 30.1 % (30-36); Mean Corpuscular Hemoglobin 23.6 PG (26-34); Mean Corpuscular Volume 78.2 fL (80-100); Monocytes Absolute Auto 100 /uL (0-900); Monocytes Percent Auto 1.7 % (3-14); Neutrophils Absolute Auto 3900 /uL (1500-7000); Neutrophils Percent Auto 93.1 % (50-75); Platelet Count 345 X10^3/uL (150-400); Red Blood Cell Count 3.82 X10^6/uL (4.0-5.2); Red Cell Distribution Width 17.3 % (11.6-14.8); White Blood Cell Count 4.2 X10^3/uL (4.5-11.0)
--- NOTE | 2024-04-15 15:20 | P.HP_ITS ---
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 She had a vaginal exam under anesthesia and sigmoidoscopy today which demonstrated a fungating mass in the vagina, colovaginal fistula and colonic striture beyond which the scope could not be advanced. Prior abdominal surgery is diagnostic laparoscopy. 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 PVD (peripheral vascular disease) Gastrointestinal hemorrhage with melena Spinal stenosis Hallux valgus Heart murmur Osteoporosis Arthritis Hyperlipemia Hypertension Slipped cervical disc Pancreatitis Constipation Surgical History History of back surgery (12/22/23) History of bunionectomy of right great toe History of bunionectomy of left great toe Hx of bilateral cataract extraction Hx of laparoscopy H/O eye surgery Family History Mother Heart disease Brother Diabetes mellitus Skin cancer Grandmother Cancer Social History marital status: household members: spouse lives independently: Yes occupational status: employed Smoking Status: Former smoker alcohol intake: never substance use type: does not use Meds Home Medications and Allergies Home Medications Medication Instructions Recorded Confirmed Type aspirin 81 mg tablet,delayed 81 mg PO DAILY 09/12/23 04/15/24 History release acetaminophen 650 mg 1,300 mg PO DAILY PRN Pain 10/23/23 04/08/24 History tablet,extended release cetirizine 10 mg tablet 10 mg PO DAILY 10/23/23 04/15/24 History clonidine 0.1 mg/24 hr weekly 1 patch transdermal QWEEK 10/23/23 04/15/24 History transdermal patch diclofenac sodium 1 % topical gel 2 g topical QID PRN Pain 10/23/23 04/08/24 History ferrous sulfate 324 mg (65 mg 324 mg PO BID 10/23/23 04/08/24 History iron) tablet,delayed release nifedipine 30 mg tablet,extended 30 mg PO DAILY 10/23/23 04/15/24 History release 24 hr omeprazole 20 mg tablet,delayed 20 mg PO DAILY 10/23/23 04/15/24 History release pravastatin 40 mg tablet 40 mg PO DAILY 10/23/23 04/15/24 History propylene glycol 0.6 % eye drops 1 drp EYE-BOTH DAILY 10/23/23 04/08/24 History (Systane Complete) lidocaine 5 % topical gel 1 ea topical TID PRN vaginal pain 03/31/24 04/08/24 Rx #10 grams oxycodone 5 mg tablet 2.5 mg (1/2 x 5 mg) PO Q6H PRN 04/08/24 04/08/24 Rx pain #10 tabs Allergies Allergy/AdvReac Type Severity Reaction Status Date / Time codeine AdvReac Severe Dizziness Verified 04/15/24 06:57 Exam Vital Signs (past 8 hours): - 04/15/24 08:42 04/15/24 08:45 04/15/24 08:50 Temperature 97.8 F Pulse Rate 82 83 79 Respiratory Rate 12 18 16 Blood Pressure 132/73 135/60 147/75 H Pulse Oximetry 95 92 94 Oxygen Delivery Method Room Air Oxygen Flow Rate 04/15/24 08:55 04/15/24 09:35 04/15/24 10:05 Temperature 96.7 F L 96.9 F L Pulse Rate 85 82 78 Respiratory Rate 14 16 Blood Pressure 144/70 H 158/66 H 136/67 Pulse Oximetry 93 96 90 L Oxygen Delivery Method Room Air Oxygen Flow Rate 0 0 04/15/24 11:04 04/15/24 11:35 04/15/24 12:35 Temperature 97.4 F L Pulse Rate 72 79 Respiratory Rate Blood Pressure 124/65 154/76 H Pulse Oximetry 91 95 Oxygen Delivery Method Room Air Oxygen Flow Rate 0 0 04/15/24 15:14 Temperature 97.5 F L Pulse Rate 80 Respiratory Rate 16 Blood Pressure 158/82 H Pulse Oximetry 96 Oxygen Delivery Method Room Air Oxygen Flow Rate Oxygen Delivery Method Room Air Oxygen Flow Rate 0 Narrative Exam Narrative: Gen-Elderly woman alert and oriented Abdomen-Soft non tender Objective Labs 04/15/24 14:26 04/15/24 13:30 Labs: Laboratory Results - last 24 hr 04/15/24 04/15/24 13:30 14:26 WBC 4.2 L RBC 3.82 L Hgb 9.0 L Hct 29.9 L MCV 78.2 L MCH 23.6 L MCHC 30.1 RDW 17.3 H Plt Count 345 Neut % (Auto) 93.1 H Lymph % (Auto) 4.9 L [place] % (Auto) 1.7 L Eos % (Auto) 0.1 L Baso % (Auto) 0.2 Neut # (Auto) 3900 Lymph # (Auto) 200 L [place] # (Auto) 100 Eos # (Auto) 0 Baso # (Auto) 0 PT 11.7 INR 1.0 Sodium 136 L Potassium 4.5 Chloride 103 Carbon Dioxide 26 BUN 14 Creatinine 0.74 Estimated GFR > 60 BUN/Creatinine Ratio 18.9 Glucose 112 H Calcium 9.3 Total Bilirubin 0.4 AST 26 ALT 14 Alkaline Phosphatase 84 Total Protein 5.9 L Albumin 3.7 Globulin 2.2 Albumin/Globulin Ratio 1.7 Assessment & Plan Assessment and plan (1) Colovaginal fistula: Status: Acute Assessment & Plan narrative: 68F with a colovaginal fistula and distal colonic stricture in setting 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 Extensive discussion with the patient and her Elias in regards to management. I am recommending colectomy (sigmoid vs low anterior) with diverting colostomy. In the setting of chronic fistula malnutrition and malignancy her risk of anastamotic leak is significant and therefore diverting colostomy is indicated. Operative risks including but not limited to hemorrhage, infection, damage to surrounding structures chronic wound, and rare but serious risk of VA, CVA, and . She and her provide informed consent to proceed. Time-Based Coding :: [TOTAL MINUTES] spent with patient and on the chart (including review of chart, obtaining history, exam, reviewing outside data, placing orders, documenting exam and treatment plan, and counseling patient) on [DATE]. Quality VTE Deep Vein Thrombosis/Pulmonary Embolism Present on Admission: No
[2024-04-15] MEDS: PIPERACILLIN/TAZO 3.375 GM in SODIUM CHLORIDE 0.9% 100 ML IV (15:58)
--- NOTE | 2024-04-15 16:22 | SUR.OPER ---
Supine on padded OR bed with pink pad, head on pillow, arms padded and tucked at sides, legs uncrossed, safety belt at thigh, tape over blanket over lower legs .
[2024-04-15] MEDS: BUPIVACAINE 0.25% (PF) VIAL 30 ML INJ (16:27)
[2024-04-15] MEDS: ACETAMINOPHEN IV 1,000 MG/100 ML VIAL 400 MG IV (16:30)
[2024-04-15] MEDS: BUPIVACAINE LIPOSOME 266 MG/20 ML VIAL INJ (17:32)
--- NOTE | 2024-04-15 18:05 | P.OP_ITS ---
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 Bilateral lower extremity compression devices were applied. General anesthesia was induced she was intubated with an endotracheal tube. She received 3.375 g of Zosyn prior to skin incision. She was then prepped and draped in sterile fashion after a Duffy catheter was placed. Time-out was performed. An infraumbilical incision was made the abdomen was entered and pneumoperitoneum was established. General inspection of the abdomen demonstrated dilated loops of colon no evidence of hepatic metastasis or overt carcinomatosis. Additional working ports were placed in the right lower quadrant suprapubic and left upper quadrant. The descending colon was mobilized from its lateral attachments following the white line of Toldt to the level of the splenic flexure. As we reached the sigmoid colon it is lateral attachments were divided using sharp dissection. An extensive search for the left ureter was made but its presence could not be confirmed. There were extensive inflammatory changes along the left pelvic sidewall and the sigmoid colon was adherent to this. We mobilized as much of the sigmoid colon laparoscopically as we could safely but ultimately it needed to be finger fractured off of the pelvic sidewall. A lower midline incision was made. Using blunt dissection the sigmoid colon was mobilized off of the pelvic sidewall. There was a large firm mass within the sigmoid colon presumably colonic malignancy. A window within the mesentery of the distal colon was made and the colon was divided using the contour stapler. The mesentery to the sigmoid colon was then divided using the LigaSure. The colon was divided at the rectosigmoid junction using a 2nd staple load of the contour stapler. We left a long rectal stump and placed a prolene suture at its end to gene it. No attempt to separate the rectum from the vagina was made we largely left the pelvis undisturbed. We fashioned an end colostomy. A circular incision on the left abdominal wall was made the rectus muscle was bluntly split the fascia was incised in a cruciate fashion on the anterior sheath and simple vertical incision on the posterior sheath. It easily accommodated 2 fingerbreadths after being bluntly dilated. The distal colon was then brought through the abdominal wall. Colostomy was matured using Vicryl suture and it was well perfused. The abdomen was then copiously lavaged with saline hemostasis was checked. The fascia was then closed in a running manner using PDS suture. The the skin was then closed using anders followed by the application of sterile dressings. The estimated blood loss was approximately 50 mL. The vagina was then copiously irrigated with dilute Betadine given its extensive contamination from the fistula. The sponge and instrument count at the end of the operation was correct x2. Patient emerged from anesthesia was transferred to recovery in stable condition. Complications: none Post-operative Condition: stable Disposition: Acute Care
[2024-04-15] MEDS: ONDANSETRON 4 MG/2 ML INJ IV (19:47)
[2024-04-15] MEDS: MORPHINE 2 MG/ML INJ IV (19:48)
[2024-04-16] VITALS (7 sets, daily range): BP systolic 99–110; BP diastolic 54–58; PULSE 80–86; RESP 16; TEMP 35.5–37.1; O2SAT 91–97
[2024-04-16] MEDS: MORPHINE 2 MG/ML INJ IV ×4 (01:13→20:05)
[2024-04-16 05:54] LABS: Add Manual Diff / Slide Review NO; Basophils Absolute Auto 0 /uL (0-100); Basophils Percent Auto 0.1 % (0-2); Eosinophils Absolute Auto 0 /uL (0-450); Hematocrit 23.2 % (36-46); Lymphocytes Absolute Auto 400 /uL (1100-4500); Mean Corpuscular Hemoglobin 23.5 PG (26-34); Mean Corpuscular Volume 78.3 fL (80-100); Monocytes Absolute Auto 900 /uL (0-900); Monocytes Percent Auto 7.3 % (3-14); Neutrophils Absolute Auto 11000 /uL (1500-7000); Neutrophils Percent Auto 89.6 % (50-75); Platelet Count 355 X10^3/uL (150-400); Red Blood Cell Count 2.96 X10^6/uL (4.0-5.2); Red Cell Distribution Width 17.5 % (11.6-14.8); White Blood Cell Count 12.3 X10^3/uL (4.5-11.0)
[2024-04-16 06:00] LABS: BUN Creatinine Ratio 11.4 (6-22); Blood Urea Nitrogen 19 mg/dL (7-17); Calcium 8.4 mg/dL (8.4-10.2); Carbon Dioxide 25 mmol/L (22-32); Chloride 103 mmol/L (98-107); Estimated Glomerular Filt Rate 33 mL/min (>60); Glucose 115 mg/dL (80-110); HEMOLYSIS < 15 (0-50); Potassium 4.4 mmol/L (3.4-5.1); Sodium 134 mmol/L (137-145)
[2024-04-16] MEDS: PANTOPRAZOLE DR 20 MG TABLET PO (06:41)
[2024-04-16] MEDS: ACETAMINOPHEN 325 MG TABLET 650 MG PO ×4 (06:41→20:04)
[2024-04-16] MEDS: SODIUM CHLORIDE 0.9% 1,000 ML 1000 ML IV (09:07)
[2024-04-16] MEDS: NIFEdipine 30 MG TAB ER PO (09:07)
[2024-04-16] MEDS: LORATADINE 10 MG TABLET PO (09:07)
[2024-04-16] MEDS: OXYCODONE IR 5 MG TABLET PO ×2 (09:08→12:57)
[2024-04-16] MEDS: PRAVASTATIN 20 MG TABLET 40 MG PO (09:08)
--- NOTE | 2024-04-16 10:08 | P.PN_ITS ---
Subjective Subjective Date Patient Seen: 04/16/24 Time Patient Seen: 10:08 Interval history: Postoperative day 1 status post laparoscopic-assisted Ivania's for obstructing colon mass. No acute overnight events Colostomy productive Tolerating full liquids Exam Vital Signs (past 8 hours): - 04/16/24 05:40 04/16/24 08:00 Temperature 98.1 F 98.7 F Pulse Rate 83 86 Respiratory Rate 16 16 Blood Pressure 101/54 L 110/56 L Pulse Oximetry 96 93 Oxygen Flow Rate 0 0 Oxygen Delivery Method Room Air Oxygen Flow Rate 0 Narrative Exam Narrative: General adult woman alert oriented no acute distress Abdomen dressings clean dry intact. Colostomy well perfused and productive Objective Labs 04/16/24 05:00 04/16/24 05:00 Labs: Laboratory Results - last 24 hr 04/15/24 04/15/24 04/16/24 13:30 14:26 05:00 WBC 4.2 L 12.3 H D RBC 3.82 L 2.96 L Hgb 9.0 L 7.0 L Hct 29.9 L 23.2 L MCV 78.2 L 78.3 L MCH 23.6 L 23.5 L MCHC 30.1 30.0 RDW 17.3 H 17.5 H Plt Count 345 355 Neut % (Auto) 93.1 H 89.6 H Lymph % (Auto) 4.9 L 3.0 L [place] % (Auto) 1.7 L 7.3 Eos % (Auto) 0.1 L 0.0 L Baso % (Auto) 0.2 0.1 Neut # (Auto) 3900 05494 H Lymph # (Auto) 200 L 400 L [place] # (Auto) 100 900 Eos # (Auto) 0 0 Baso # (Auto) 0 0 PT 11.7 INR 1.0 Sodium 136 L 134 L Potassium 4.5 4.4 Chloride 103 103 Carbon Dioxide 26 25 BUN 14 19 H Creatinine 0.74 1.66 H Estimated GFR > 60 33 L BUN/Creatinine Ratio 18.9 11.4 Glucose 112 H 115 H Calcium 9.3 8.4 Total Bilirubin 0.4 AST 26 ALT 14 Alkaline Phosphatase 84 Total Protein 5.9 L Albumin 3.7 Globulin 2.2 Albumin/Globulin Ratio 1.7 PFSH Medical History Occipital stroke (~2017) Easy bruisability 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 PVD (peripheral vascular disease) Gastrointestinal hemorrhage with melena Spinal stenosis Hallux valgus Heart murmur Osteoporosis Arthritis Hyperlipemia Hypertension Slipped cervical disc Pancreatitis Constipation Surgical History History of back surgery (12/22/23) History of bunionectomy of right great toe History of bunionectomy of left great toe Hx of bilateral cataract extraction Hx of laparoscopy H/O eye surgery Family History Mother Heart disease Brother Diabetes mellitus Skin cancer Grandmother Cancer Social History marital status: household members: spouse lives independently: Yes occupational status: employed Smoking Status: Former smoker alcohol intake: never substance use type: does not use Assessment & Plan Post-op Postoperative Procedures: Procedures Operation Date: 04/15/24 07:45 Actual Procedure Side Surgeon p Colonoscopy with BIOPSIES Palmer Webb MD p 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 -advance to regular diet -SCDs and Lovenox -colostomy teaching -PTOT -removed catheter -acute kidney injury 1 L fluid bolus now recheck labs tomorrow morning Quality VTE Deep Vein Thrombosis/Pulmonary Embolism Present on Admission: No
--- NOTE | 2024-04-16 10:30 | PT.IIE ---
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, cystoscopy - Sarah Wynn MD Operation Date: 04/15/24 15:00 Actual Procedures p Laparoscopically Assisted Colectomy and Colostomy(Not Applicable) - Eloy Castrejon MD Surgical History (Last Reviewed 04/15/24 @ 15:29 by Eloy Castrejon MD) H/O eye surgery History of back surgery (12/22/23) History of bunionectomy of left great toe History of bunionectomy of right great toe Hx of bilateral cataract extraction Hx of laparoscopy Medical History (Last Reviewed 04/15/24 @ 15:29 by Eloy Castrejon MD) Arthritis 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 Constipation Easy bruisability Gastrointestinal hemorrhage with melena Hallux valgus Heart murmur Hyperlipemia Hypertension Herron-Rokitansky Syndrome Occipital stroke (~2017) Osteoporosis Pancreatitis PVD (peripheral vascular disease) Slipped cervical disc Spinal stenosis Physical Therapy Inpatient Evaluation/Re-Eval M1 PT/OT-IP Prior Functional Status Start: 04/16/24 12:12 Freq: NEEDED Status: Active Protocol: Document 04/16/24 10:30 AB (Rec: 04/16/24 12:25 AB [id number]) Medical Review Prior Functional Status Medical History Reviewed Yes Communication able to make needs known Mobility and Gait pt stated that she was independent with all mobilities and ambulation without AD Social History Household Members spouse Living Arrangements Mobile home Number of Floors (Floors) One Floor Number of Stairs To Enter/Railing? 4 steps B rails to enter Home Environment Standard Height Toilet,Walk in Shower,Built-In Shower Seat Home Equipment Front Wheel Walker,Straight Cane,Hand Held Shower,Grab Bars In Shower M2 PT-IP Current Condition Start: 04/16/24 12:12 Freq: NEEDED Status: Active Protocol: Document 04/16/24 10:30 AB (Rec: 04/16/24 12:25 AB [id number]) Physical Therapy Current Condition Current Condition Evaluation Date 04/16/24 Treatment Diagnosis s/p colectomy & colostomy; difficulty in walking Onset Date 04/15/24 M3 PT-IP Subjective Start: 04/16/24 12:12 Freq: NEEDED Status: Active Protocol: Document 04/16/24 10:30 AB (Rec: 04/16/24 12:25 [id number]) Subjective Physical Therapy Visit Type Type Initial Evaluation Visit Start Time 10:30 Visit Stop Time 11:05 Number of THERMOSTAT MECHANIC Visits 0 Physical Therapy Visit Comments Patient Comments agreed to do PT but needs encouragement Therapy Pain Assessment Pain When Pain Assessed At Rest Pain Present Pain Present Pain Reported Location Groin Intensity 9 Scale Used Numeric (0 - 10) Pain Management Techniques Distraction,Modification of Treatment,Re-positioning, Timing of Activity with Medications Abdomen Intensity 9 Scale Used Numeric (0 - 10) Pain Management Techniques Distraction,Modification of Treatment,Re-positioning, Timing of Activity with Medications M4 PT-IP Mobility and Gait Start: 04/16/24 12:12 Freq: NEEDED Status: Active Protocol: Document 04/16/24 10:30 AB (Rec: 04/16/24 12:25 [id number]) PT-Bed Mobility Assessment Rolling Type of Rolling Log Rolling Level of Assist Maximal Assistance Supine to Sit Supine to Sit Maximum Assistance,Head of Bed Elevated Sit to Supine Sit to Supine Minimal Assistance,Head of Bed Elevated PT-Transfer Assessment Sit to and From Stand Sit to and from Stand Contact Guard Assistance,Use of Upper Extremities Equipment Transfer Assistive Device Gait Belt,Front Wheeled Walker Orthotic/Prosthetic Devices or Brace: No Comments Mobility Comments pt supine in bed and spouse in room. obtained PLOF and home setup. educated pt regarding abdominal precautions and log roll bed mobility. BP: 113/56 . completed supine to sit log roll max A and max cues. pt needing increase time to complete all tasks and tends to direct her own care. pt able to sit on EOB SBA. pt agreed to stand but does not want to transfer and sit on the chair. completed sit to stand CGA. pt able to take side steps towards HOB using FWW CGA. pt sat back on the bed. completed sit to supine log roll min A and max cues. positioned pt on the chair. call light and table placed within reach. Gait Assessment Gait Gait Assistance Required: Contact Guard Assist,1 Person Assist Distance (Feet) 2 Able to Maintain Weight Bearing Status Yes During Gait Assistive Devices Assistive Device Gait Belt,Front Wheeled Walker Orthotic/Prosthetic Devices or Brace: No Gait Deviations General Gait Pattern Step-to Gait Factors Limiting Gait Function Factors Limiting Gait Function Decreased Activity Tolerance, Decreased Strength,Difficulty Following Directions,Limited Range of Motion,Pain,Poor Balance,Poor Safety Awareness Comments Gait Comments side stepping to positioned towards HOB. PT-Balance Assessment Sitting Balance and Reactions Static Sitting Balance Ability Good Dynamic Sitting Balance Ability Fair Standing Balance and Reactions Static Standing Balance Ability Fair Dynamic Standing Balance Ability Fair Device Used FWW M5 PT-IP Objective Assessments Start: 04/16/24 12:12 Freq: NEEDED Status: Active Protocol: Document 04/16/24 10:30 AB (Rec: 04/16/24 12:25 AB [id number]) Orientation Orientation/Cognition Level of Alertness Alert Gross Range of Motion Lower Extremity ROM Assessment Within Functional Limits Strength Lower Extremity Strength Hip 3+/5 Knee 4-/5 Comments Strength Comments pain limiting MMT Sensation Assessment Sensation Gross Sensation WNL Muscle Tone Muscle Tone WNL Yes M6 PT-IP Treatment Start: 04/16/24 12:12 Freq: NEEDED Status: Active Protocol: Document 04/16/24 10:30 AB (Rec: 04/16/24 12:25 AB [id number]) Physical Therapy Treatment Education Education Provided Precautions,Weight Bearing Status,Post-Op Packet,Safety M7 PT-IP Assessment and Plan Start: 04/16/24 12:12 Freq: NEEDED Status: Active Protocol: Document 04/16/24 10:30 AB (Rec: 04/16/24 12:25 AB [id number]) PT Summary Assessment and Plan Potential Rehabilitation Potential Fair Status of Condition at Evaluation Evolving Summary Impairments Pain,ROM,Strength,Balance, Coordination,Sensation,Tone, Cognition,Bed Mobility, Transfers,Gait,Activity Tolerance Assessment Summary pt is a 68 y/o F who has a colovaginal fistula and vaginal mass and underwent colectomy and colostomy POD 1. pt with colostomy bag and has abdominal precautions. pt requiring max A for supine to sit log roll and min A for sit to supine log roll. pt able to stand CGA but refused to ambulate but was able to take a few steps towards HOB for positioning using FWW CGA. pt with c/o increase abdominal and groin pain affecting mobility and activity tolerance. pt has her spouse to assist her at home. will continue to assess progress. Goals Bed Mobility Goal Standby Assistance Transfer Goal Standby Assistance,Front Wheeled Walker Gait Goal Standby Assistance,Front Wheel Walker Gait Distance 100 Other Goals improve bed mobility, transfers and ambulation using FWW/LRAD 200 ft mod I up/down 4 steps B rails SBA Days to Meet Goals 10 Frequency of Treatment Frequency Of Treatment Once a Day Treatment Plan Physical Therapy Treatment Plan Bed Mobility Training,Transfer Training,Gait Training, Therapeutic Exercise,Balance Retraining,Post Op Education, Discharge Planning,Hot or Cold Pack,Neuromuscular Re-ed, Coordination Retraining,Manual Therapy Precautions Abdominal Surgery Precautions Log Roll,Lifting Restrictions, Gait Belt above Incisional Area Recommendations To Nursing Amount of Assist Needed 1 Person Assist Discharge Recommendations PT Discharge Recommendations Home with 16/12 Assist Available,Home Health Transportation Needs at Discharge Private Vehicle,Wheelchair/ Cabulance
[2024-04-16] MEDS: LACTATED RINGERS 1,000 ML 50 ML IV (12:59)
--- NOTE | 2024-04-16 13:56 | CM.DANOTE ---
DCP Assessment Note: Pt is a 68yo female, resident of [place], is admitted for colovaginal fistula. Pt lives in a mobile home with her spouse. Pt's Primary Care Provider is Dr. Reilly Ross and insurance is Medicare and [employer]. Reviewed chart and team rounds for pt's medical status and initial discharge needs. Per RN, pt will likely discharge home with ostomy bag and will need support with managing it, initially. DCP met w/patient at bedside; introduced self and role. Patient was found in bed, alert and oriented, cooperative with assessment. Pt confirmed living situation and good support in . Pt expressed preference in discharging home but is hopeful to speak with providers about her ostomy bag and continued care. Pt has no history of home health or SNF Rehab. DCP discussed home health referral with patient as she will be discharging home with ostomy bag. DCP provided Medicare Choice list and discussed the two agencies who service [facility]. Patient stated she did not want to make a choice until she spoke with surgeon re: post-discharge care plans. Per PT, pt is being recommended for home with home health. Plan: Anticipating discharge home with home health, pending agency preference before referral can be sent. CM team will follow closely for coordination of discharge plans. LUISA Braswell Discharge Planning/Care Management Advanced directive, confirm from FAMILY Start: 04/15/24 10:44 Freq: Q24H Status: Active Protocol: Document 04/15/24 10:44 ALTA (Rec: 04/15/24 10:53 ALTA [id number]) Advance Directive, confirm on record Time 10:53 Person contacted Elias Copy received No CM Discharge Assessment Start: 04/16/24 13:54 Freq: Status: Active Protocol: Document 04/16/24 13:54 MW (Rec: 04/16/24 13:56 MW [id number]) Discharge Planning Assessment Assigned Bar Assistant STEVE Vera/Assigned Designee Name Elias, Spouse Contact Information [phone] Advance Directives? Yes Advance Directives on File No History Provided By Patient,Medical Record Has Patient been admitted in last 30 No days? Prior Living Arrangements Mobile home Comment [place] [facility] Members spouse Type of transporation used prior to Drives own vehicle admit Independent with ADL's Yes Is patient alert and oriented? Yes Caregiver for Another No Patient/Family Preference Home with Home Health Comment RN for ostomy care management Barriers to Discharge No Discharge Plan Home Transportation Arrangement Spouse Referrals Initiated None needed Whiteboard Updated in Patient Room with Yes name and ext. # of Bar Assistant Comment [phone] Review Status In Process Please Provide Date Initial DC 04/16/24 Assessment Was Performed Next Review Type Continued Stay Review
[2024-04-16] MEDS: OXYCODONE IR 10 MG TABLET PO ×2 (15:22→22:15)
--- NOTE | 2024-04-16 15:58 | CM.DPC ---
DCP Continued: DCP notified that for pt ostomy care, post-discharge, a home health referral would need to be placed by end of business day. Pt to obtain initial supplies at discharge. RN services would be requested for ostomy education and supply refills. DCP re-entered room, discussed above information. Patient made choice of [facility]. DCP sent referral with clinicals to [facility], pending review and acceptance. Signed [id number] encounter order completed and uploaded in EMR. Plan: Pending acceptance for home health for RN services, anticipating discharge home with spouse when medically cleared. LUISA Braswell
[2024-04-16 16:09] LABS: Hemoglobin 5.8 g/dL (12.0-16.0)
[2024-04-16 16:10] LABS: Hematocrit 19.5 % (36-46)
--- NOTE | 2024-04-16 16:33 | PM.PN.1 ---
Subjective Subjective Date Patient Seen: 04/16/24 Time Patient Seen: 16:33 Interval history: CTSP Re: Low urine output. Patient feels well, but was anemic this AM, bolused for low UOP and increasing creatinine. NSAIDs stopped. Exam Vital Signs (past 8 hours): - 04/16/24 09:00 Oxygen Delivery Method Room Air Oxygen Delivery Method Room Air Oxygen Flow Rate 0 Narrative Exam Narrative: Awake, alert. Feels well, asymptomatic. Abdomen is soft. Objective Labs 04/16/24 16:00 04/16/24 05:00 Labs: Laboratory Results - last 24 hr 04/16/24 04/16/24 05:00 16:00 WBC 12.3 H D RBC 2.96 L Hgb 7.0 L 5.8 L* Hct 23.2 L 19.5 L* MCV 78.3 L MCH 23.5 L MCHC 30.0 RDW 17.5 H Plt Count 355 Neut % (Auto) 89.6 H Lymph % (Auto) 3.[address] [place] % (Auto) 7.3 Eos % (Auto) 0.0 L Baso % (Auto) 0.1 Neut # (Auto) 62700 H Lymph # (Auto) [address] 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 PVD (peripheral vascular disease) Gastrointestinal hemorrhage with melena Spinal stenosis Hallux valgus Heart murmur Osteoporosis Arthritis Hyperlipemia Hypertension Slipped cervical disc Pancreatitis Constipation Surgical History History of back surgery (12/22/23) History of bunionectomy of right great toe History of bunionectomy of left great toe Hx of bilateral cataract extraction Hx of laparoscopy H/O eye surgery Family History Mother Heart disease Brother Diabetes mellitus Skin cancer Grandmother Cancer Social History marital status: household members: spouse lives independently: Yes occupational status: employed Smoking Status: Former smoker alcohol intake: never substance use type: does not use Assessment & Plan Assessment and plan (1) Anemia: Qualifiers: Anemia type: unspecified type Qualified Code(s): D64.9 - Anemia, unspecified Status: Acute Assessment & Plan narrative: Patient has been transfused previously this year. Repeat H&H is low, and she is willing to have another transfusion to hopefully improve her TERESITA. Time-Based Coding :: [TOTAL MINUTES] spent with patient and on the chart (including review of chart, obtaining history, exam, reviewing outside data, placing orders, documenting exam and treatment plan, and counseling patient) on [DATE]. Quality VTE Deep Vein Thrombosis/Pulmonary Embolism Present on Admission: No
[2024-04-16 23:22] LABS: Hemoglobin 6.9 g/dL (12.0-16.0)
[2024-04-17] VITALS (10 sets, daily range): BP systolic 100–143; BP diastolic 52–74; PULSE 78–95; RESP 16–18; TEMP 35.9–37.4; O2SAT 91–97
[2024-04-17] MEDS: OXYCODONE IR 10 MG TABLET PO ×3 (02:24→12:07)
[2024-04-17] MEDS: ACETAMINOPHEN 325 MG TABLET 650 MG PO ×4 (02:25→20:35)
--- NOTE | 2024-04-17 02:35 | PC.NURSE ---
At 2248 One unit PRBC infusion completed, pt tolerated well. BP 103/57. Urine output [id number] = 125cc plus some leakage possibly from bladder spasms, estimated to be about 100cc. Order in for H/H [address] Muniz notified of above. This RN asked if the NS bolus that was ordered prior to the blood should be infused now, or if the maintenance fluids of LR 50cc/hr should be resumed. Per Dr Muniz, resume the maintenance fluids of LR at 50cc/hr and hold off on the bolus. Notify him if the hemoglobin is <7.5. Post transfusion H/H 6.9/. Dr Muniz notified and orders received to infuse a second unit of PRBC. 2nd unit infusion completed at 0255, patient tolerated well. BP now 120/59 and urine output adequate.
[2024-04-17 05:41] LABS: Add Manual Diff / Slide Review NO; Basophils Absolute Auto 0 /uL (0-100); Basophils Percent Auto 0.6 % (0-2); Eosinophils Absolute Auto 100 /uL (0-450); Eosinophils Percent Auto 1.2 % (2-4); Hematocrit 30.2 % (36-46); Hemoglobin 9.7 g/dL (12.0-16.0); Lymphocytes Absolute Auto 1000 /uL (1100-4500); Mean Corpuscular Volume 78.3 fL (80-100); Monocytes Absolute Auto 600 /uL (0-900); Monocytes Percent Auto 6.9 % (3-14); Neutrophils Absolute Auto 6800 /uL (1500-7000); Neutrophils Percent Auto 79.3 % (50-75); Platelet Count 314 X10^3/uL (150-400); Red Blood Cell Count 3.86 X10^6/uL (4.0-5.2); Red Cell Distribution Width 17.2 % (11.6-14.8); White Blood Cell Count 8.6 X10^3/uL (4.5-11.0)
[2024-04-17] MEDS: PANTOPRAZOLE DR 20 MG TABLET PO (05:45)
[2024-04-17 05:52] LABS: BUN Creatinine Ratio 12.1 (6-22); Blood Urea Nitrogen 28 mg/dL (7-17); Calcium 8.4 mg/dL (8.4-10.2); Carbon Dioxide 23 mmol/L (22-32); Chloride 103 mmol/L (98-107); Estimated Glomerular Filt Rate 22 mL/min (>60); Glucose 97 mg/dL (80-110); HEMOLYSIS < 15 (0-50); Potassium 3.8 mmol/L (3.4-5.1); Sodium 132 mmol/L (137-145)
[2024-04-17] MEDS: ENOXAPARIN 30 MG/0.3 ML SYRINGE SUBCUT (08:14)
[2024-04-17] MEDS: NIFEdipine 30 MG TAB ER PO (08:15)
[2024-04-17] MEDS: PRAVASTATIN 20 MG TABLET 40 MG PO (08:15)
[2024-04-17] MEDS: LORATADINE 10 MG TABLET PO (08:15)
[2024-04-17] MEDS: SODIUM CHLORIDE 0.9% 1,000 ML 84 ML IV (08:28)
--- NOTE | 2024-04-17 11:10 | PT.IPTN ---
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 SPECIALIST, Biopsies, cystoscopy - Sarah Wynn MD Operation Date: 04/15/24 15:00 Actual Procedures p Laparoscopically Assisted Colectomy and Colostomy(Not Applicable) - Eloy Castrejon MD Physical Therapy Treatment Note M2 PT-IP Current Condition Start: 04/16/24 12:12 Freq: NEEDED Status: Active Protocol: Document 04/16/24 10:30 AB (Rec: 04/16/24 12:25 AB [id number]) Physical Therapy Current Condition Current Condition Evaluation Date 04/16/24 Treatment Diagnosis s/p colectomy & colostomy; difficulty in walking Onset Date 04/15/24 M3 PT-IP Subjective Start: 04/16/24 12:12 Freq: NEEDED Status: Active Protocol: Document 04/17/24 11:39 TS (Rec: 04/17/24 11:47 TS [id number]) Subjective Physical Therapy Visit Type Type Treatment Note Visit Start Time 11:10 Visit Stop Time 11:38 Number of CUSTOM FURRIER Visits 1 Physical Therapy Visit Comments Patient Comments Pt found resting in bed, she is agreeable to PT. Therapy Pain Assessment Pain When Pain Assessed At Rest Pain Present Pain Present Pain Reported M4 PT-IP Mobility and Gait Start: 04/16/24 12:12 Freq: NEEDED Status: Active Protocol: Document 04/17/24 11:39 TS (Rec: 04/17/24 11:47 TS [id number]) PT-Bed Mobility Assessment Supine to Sit Supine to Sit Minimal Assistance,1 Person Assistance Sit to Supine Sit to Supine Minimal Assistance,1 Person Assistance Scooting Scooting to Edge of Bed Contact Guard Assistance PT-Transfer Assessment Sit to and From Stand Sit to and from Stand Contact Guard Assistance,Use of Upper Extremities Equipment Transfer Assistive Device Gait Belt,Front Wheeled Walker Orthotic/Prosthetic Devices or Brace: No Comments Mobility Comments Supine to sit Leatha for sitting up to EOB, pt prefers not to logroll. STS with FWW CGA, pt refused to use gait belt due to pain. She ambulates ~15' in the room CGA with FWW. She performs steps x3 with use of FWW over stepstool. Pt ambualtes back to the bed. Sit to supine Leatha for LE's. Pt was left in bed, all needs met . Gait Assessment Gait Gait Assistance Required: Contact Guard Assist,1 Person Assist Distance (Feet) 15 Able to Maintain Weight Bearing Status Yes During Gait Assistive Devices Assistive Device Gait Belt,Front Wheeled Walker Orthotic/Prosthetic Devices or Brace: No Gait Deviations General Gait Pattern Step-to Gait Factors Limiting Gait Function Factors Limiting Gait Function Decreased Activity Tolerance, Decreased Strength,Difficulty Following Directions,Limited Range of Motion,Pain,Poor Balance,Poor Safety Awareness Stair Climbing Assessment Evaluation Level of Assist On Stairs Contact Guard Assistance Devices Stair Climbing Assistive Devices Front Wheel Walker Technique/Endurance Stair Climbing Direction Ascend and Descend Stair Climbing Technique Step to Step Number of Steps Climbed 3 Comments Stair Climbing Comments FWW over stepstool PT-Balance Assessment Sitting Balance and Reactions Static Sitting Balance Ability Good Dynamic Sitting Balance Ability Fair Standing Balance and Reactions Static Standing Balance Ability Fair Dynamic Standing Balance Ability Fair Device Used FWW M5 PT-IP Objective Assessments Start: 04/16/24 12:12 Freq: NEEDED Status: Active Protocol: Document 04/16/24 10:30 AB (Rec: 04/16/24 12:25 AB [id number]) Orientation Orientation/Cognition Level of Alertness Alert Gross Range of Motion Lower Extremity ROM Assessment Within Functional Limits Strength Lower Extremity Strength Hip 3+/5 Knee 4-/5 Comments Strength Comments pain limiting MMT Sensation Assessment Sensation Gross Sensation WNL Muscle Tone Muscle Tone WNL Yes M6 PT-IP Treatment Start: 04/16/24 12:12 Freq: NEEDED Status: Active Protocol: Document 04/17/24 11:39 TS (Rec: 04/17/24 11:47 TS [id number]) Physical Therapy Treatment Education Education Provided Precautions,Weight Bearing Status,Post-Op Packet,Safety M7 PT-IP Assessment and Plan Start: 04/16/24 12:12 Freq: NEEDED Status: Active Protocol: Document 04/17/24 11:39 TS (Rec: 04/17/24 11:47 TS [id number]) PT Summary Assessment and Plan Potential Rehabilitation Potential Fair Summary Impairments Pain,ROM,Strength,Balance, Coordination,Sensation,Tone, Cognition,Bed Mobility, Transfers,Gait,Activity Tolerance Progress Towards Goals Slow Progress due to Pain Assessment Summary Pt is making some progress with her mobility but is limited by pain. She performs bed mobility Leatha. She progressed her gait to ~15'CGA with use of FWW. She performed stairs x3. Pt has slow movements with mobility due to guarding of pain. She required decreased assist for all mobility this session. PT is recommending home 16/12. Goals Bed Mobility Goal Standby Assistance Transfer Goal Standby Assistance,Front Wheeled Walker Gait Goal Standby Assistance,Front Wheel Walker Gait Distance 100 Other Goals improve bed mobility, transfers and ambulation using FWW/LRAD 200 ft mod I up/down 4 steps B rails SBA Days to Meet Goals 10 Frequency of Treatment Frequency Of Treatment Once a Day Treatment Plan Physical Therapy Treatment Plan Bed Mobility Training,Transfer Training,Gait Training, Therapeutic Exercise,Balance Retraining,Post Op Education, Discharge Planning,Hot or Cold Pack,Neuromuscular Re-ed, Coordination Retraining,Manual Therapy Precautions Abdominal Surgery Precautions Log Roll,Lifting Restrictions, Gait Belt above Incisional Area Recommendations To Nursing Amount of Assist Needed 1 Person Assist Discharge Recommendations PT Discharge Recommendations Home with 16/12 Assist Available,Home Health Transportation Needs at Discharge Private Vehicle
[2024-04-17 12:21] LABS: BUN Creatinine Ratio 14.6 (6-22); Blood Urea Nitrogen 27 mg/dL (7-17); Calcium 8.3 mg/dL (8.4-10.2); Carbon Dioxide 25 mmol/L (22-32); Chloride 103 mmol/L (98-107); Estimated Glomerular Filt Rate 29 mL/min (>60); Glucose 98 mg/dL (80-110); HEMOLYSIS < 15 (0-50); Magnesium 1.7 mg/dL (1.6-2.3); Potassium 4.1 mmol/L (3.4-5.1); Sodium 132 mmol/L (137-145)
[2024-04-17] MEDS: MAGNESIUM SULFATE 4 GM/100 ML PIGGYBACK IV (12:54)
--- NOTE | 2024-04-17 13:12 | PM.PN.1 ---
Subjective Subjective Date Patient Seen: 04/17/24 Time Patient Seen: 13:13 Interval history: Patient had increased creatinine this AM, repeat showed some improvement at noon. She has started her post-op diuesis and has a good amount of urine (over 500 ml) in her urimeter at the time of my exam. She is somnolent, but feels well. No flatus or BM since surgery. Exam Vital Signs (past 8 hours): - 04/17/24 12:03 Temperature 98.4 F Pulse Rate 80 Respiratory Rate 17 Blood Pressure 126/67 Pulse Oximetry 93 Oxygen Flow Rate 0 Oxygen Delivery Method Room Air Oxygen Flow Rate 0 Narrative Exam Narrative: Incisions are clean, dry, intact. Objective Labs 04/17/24 05:15 04/17/24 11:57 Labs: Laboratory Results - last 24 hr 04/16/24 04/16/24 04/16/24 16:00 16:58 23:00 WBC RBC Hgb 5.8 L* 6.9 L* Hct 19.5 L* 22.0 L MCV MCH MCHC RDW Plt Count Neut % (Auto) Lymph % (Auto) [place] % (Auto) Eos % (Auto) Baso % (Auto) Neut # (Auto) Lymph # (Auto) [place] # (Auto) Eos # (Auto) Baso # (Auto) Sodium Potassium Chloride Carbon Dioxide BUN Creatinine Estimated GFR BUN/Creatinine Ratio Glucose Calcium Phosphorus Magnesium Blood Type O Positive Antibody Screen Negative Crossmatch See Detail 04/17/24 04/17/24 05:15 11:57 WBC 8.6 RBC 3.86 L Hgb 9.7 L Hct 30.2 L MCV 78.3 L MCH 25.0 L MCHC 32.0 RDW 17.2 H Plt Count 314 Neut % (Auto) 79.3 H Lymph % (Auto) 12.0 L [place] % (Auto) 6.9 Eos % (Auto) 1.2 L Baso % (Auto) 0.6 Neut # (Auto) 6800 Lymph # (Auto) 1000 L [place] # (Auto) 600 Eos # (Auto) 100 Baso # (Auto) 0 Sodium 132 L 132 L Potassium 3.8 4.1 Chloride 103 103 Carbon Dioxide 23 25 BUN 28 H 27 H Creatinine 2.32 H 1.85 H Estimated GFR 22 L 29 L BUN/Creatinine Ratio 12.1 14.6 Glucose 97 98 Calcium 8.4 8.3 L Phosphorus 4.0 Magnesium 1.7 Blood Type Antibody Screen Crossmatch [facility] Medical History Occipital stroke (~2017) Easy bruisability 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 PVD (peripheral vascular disease) Gastrointestinal hemorrhage with melena Spinal stenosis Hallux valgus Heart murmur Osteoporosis Arthritis Hyperlipemia Hypertension Slipped cervical disc Pancreatitis Constipation Surgical History History of back surgery (12/22/23) History of bunionectomy of right great toe History of bunionectomy of left great toe Hx of bilateral cataract extraction Hx of laparoscopy H/O eye surgery Family History Mother Heart disease Brother Diabetes mellitus Skin cancer Grandmother Cancer Social History marital status: household members: spouse lives independently: Yes occupational status: employed Smoking Status: Former smoker alcohol intake: never substance use type: does not use Assessment & Plan Assessment and plan (1) Anemia: Qualifiers: Anemia type: unspecified type Qualified Code(s): D64.9 - Anemia, unspecified Status: Acute Assessment & Plan narrative: 1. Anemia - improved appropriately to 2 units yesterday. 2. Oliguria - improving presently, with improvement of her TERESITA. Will continue to avoid NSAIDS for this reason. 3. Await bowel function. Patient declines protein supplements. Time-Based Coding :: [TOTAL MINUTES] spent with patient and on the chart (including review of chart, obtaining history, exam, reviewing outside data, placing orders, documenting exam and treatment plan, and counseling patient) on [DATE]. Quality VTE Deep Vein Thrombosis/Pulmonary Embolism Present on Admission: No
[2024-04-17] MEDS: MORPHINE 2 MG/ML INJ IV (15:16)
--- NOTE | 2024-04-17 15:58 | PC.NURSE ---
Day shift note: Patient C/O sharp pain to mid abdomen. Abdominal distention noted. No flatus or BM. Notified Dr. Shelton regarding change to abdominal pain severity intensity, and inadequate pain relief with current pain medications. New order for abdominal XRY and pain medications adjustments.
--- NOTE | 2024-04-17 15:59 | DI.RAD.S_ITS ---
PROCEDURE: XR ACUTE ABDOMEN SERIES INDICATIONS: abdominal distention TECHNIQUE: One view chest and two views of the abdomen were acquired. COMPARISON: [facility], CT, CT ABDOMEN PELVIS W CON, 04/02/2024, 15:24. [facility], CR, XR LUMBAR SPINE 2 OR 3 VIEWS, 04/06/2024, 10:04. FINDINGS: Surgical changes and devices: Lumbar spine fixation hardware is seen. Abdominal skin anders are seen. Chest: Lungs are clear. Heart size is normal. No pleural effusions. No pneumoperitoneum. Abdomen: Dilated loops of colon can be seen, with a transverse colon measuring 7 cm. There is suspicion for free intraperitoneal gas. Bones: No suspicious bony lesions. IMPRESSION: These imaging findings are most compatible with postoperative ileus. Apparent peritoneal gas can be seen, which is attributed to recent surgery. Please correlate with known patient history. If clinically appropriate, a follow-up CT could be considered for further evaluation. Dictated by: Faraz Resendiz M.D. on 04/17/2024 at 15:32 Approved by: Faraz Resendiz M.D. on 04/17/2024 at 15:35
[2024-04-17] MEDS: PREGABALIN 25 MG CAPSULE 50 MG PO (17:06)
[2024-04-17] MEDS: methocarbamoL 500 MG TABLET PO ×2 (17:06→23:12)
[2024-04-17] MEDS: SIMETHICONE 80 MG TABLET 40 MG PO (17:45)
[2024-04-17] MEDS: ONDANSETRON 4 MG/2 ML INJ IV (17:50)
--- NOTE | 2024-04-17 17:55 | PC.NURSE ---
At 1700, patient complained of increased pain after abdominal xray. No relief from morphine that was given earlier. Notified MD Shelton of pt's inadequate pain control. directed this RN to try robaxin first, which is already prescribed, and to call pharmacy to adjust time of pregamblin so that pt could have it sooner. This RN called pharmacy and had the time readjusted for pregamblin. No new medication orders.
[2024-04-17] MEDS: BISACODYL 5 MG TABLET 10 MG PO (20:34)
[2024-04-17] MEDS: OXYCODONE IR 5 MG TABLET PO (20:34)
[2024-04-18] MEDS: SODIUM CHLORIDE 0.9% 1,000 ML 1000 ML IV (00:16)
[2024-04-18] MEDS: SODIUM CHLORIDE 0.9% 1,000 ML 84 ML IV ×3 (00:20→22:28)
[2024-04-18] MEDS: ACETAMINOPHEN 325 MG TABLET 650 MG PO ×4 (02:56→21:13)
[2024-04-18] MEDS: OXYCODONE IR 5 MG TABLET PO (02:56)
[2024-04-18] MEDS: PANTOPRAZOLE DR 20 MG TABLET PO (05:17)
[2024-04-18 07:05] LABS: Add Manual Diff / Slide Review NO; Basophils Absolute Auto 100 /uL (0-100); Basophils Percent Auto 1.2 % (0-2); Eosinophils Absolute Auto 200 /uL (0-450); Hematocrit 29.8 % (36-46); Hemoglobin 9.2 g/dL (12.0-16.0); Lymphocytes Absolute Auto 600 /uL (1100-4500); Lymphocytes Percent Auto 10.5 % (25-40); Mean Corpuscular Hemoglobin 24.4 PG (26-34); Mean Corpuscular Volume 78.9 fL (80-100); Monocytes Absolute Auto 500 /uL (0-900); Monocytes Percent Auto 7.4 % (3-14); Neutrophils Absolute Auto 4700 /uL (1500-7000); Neutrophils Percent Auto 76.9 % (50-75); Platelet Count 303 X10^3/uL (150-400); Red Blood Cell Count 3.77 X10^6/uL (4.0-5.2); Red Cell Distribution Width 17.3 % (11.6-14.8); White Blood Cell Count 6.1 X10^3/uL (4.5-11.0)
[2024-04-18 07:29] LABS: Blood Urea Nitrogen 16 mg/dL (7-17); Calcium 8.4 mg/dL (8.4-10.2); Carbon Dioxide 24 mmol/L (22-32); Chloride 106 mmol/L (98-107); Estimated Glomerular Filt Rate 47 mL/min (>60); Glucose 109 mg/dL (80-110); HEMOLYSIS < 15 (0-50); Potassium 3.6 mmol/L (3.4-5.1); Sodium 136 mmol/L (137-145)
[2024-04-18 08:00] VITALS: O2SAT 95
[2024-04-18] MEDS: BISACODYL 5 MG TABLET 10 MG PO ×2 (08:47→21:15)
[2024-04-18] MEDS: PRAVASTATIN 20 MG TABLET 40 MG PO (08:47)
[2024-04-18] MEDS: NIFEdipine 30 MG TAB ER PO (08:48)
[2024-04-18] MEDS: ENOXAPARIN 30 MG/0.3 ML SYRINGE SUBCUT (08:48)
[2024-04-18] MEDS: LORATADINE 10 MG TABLET PO (08:48)
[2024-04-18] MEDS: PREGABALIN 25 MG CAPSULE 50 MG PO ×2 (08:48→21:13)
[2024-04-18] MEDS: methocarbamoL 500 MG TABLET PO ×3 (09:48→21:20)
--- NOTE | 2024-04-18 11:08 | PC.NURSE ---
Addendum entered by Prabha Calle R.N. 04/18/24 11:23: MD Shelton did place order for the ice pack. Original Note: Pt started to complain of pressure in her bladder. Assessment showed swelling around pelvis, as well as bruising on right labia. There is good output from ledezma catheter. Bladder scan showed 21. This RN notified MD Shelton about change in status, and reviewed pt's lab results from this morning. He said he will come to bedside later today to assess her. No new orders at this time. This RN will give pt an ice pack to help with swelling.
--- NOTE | 2024-04-18 12:34 | CM.DPNOTE ---
Addendum entered by STEVE Saxena 04/18/24 13:50: ADD: Emailed Pat at [email or web address] a request for receipt of this referral and patient's acceptance on to services upon discharge. Original Note: DCP Cont Reviewed chart. Patient discussed in multidisciplinary rounds. Patient with persistent pain and is likely still multiple days out from discharge. Plan remains discharge home w/spouse, [facility] services to help manage new Ostomy and supplies, w/close outpatient follow up. CM team following clinical course closely. STEVEN
--- NOTE | 2024-04-18 13:17 | PT-IP ANOTE ---
PT checks on pt who is resting in bed. She declines PT and getting OOB today. Con't efforts next date.
--- NOTE | 2024-04-18 13:36 | PM.PN.1 ---
Subjective Subjective Date Patient Seen: 04/18/24 Time Patient Seen: 13:36 Interval history: Patient has not yet passed gas or had a bowel movement. She feels like she needs to urinate, but her Ledezma is draining well, her creatinine is improving. Bladder scan does not reveal more than 20 mL of urine around the bladder. I explained to her this might be feelings of bruising down in her pelvis from the surgical dissection combined with spasm from the Ledezma catheter. Exam Vital Signs (past 8 hours): Oxygen Delivery Method Nasal Cannula Oxygen Flow Rate 2 Narrative Exam Narrative: Incisions are clean, dry, intact. Objective Labs 04/18/24 06:10 04/18/24 06:10 Labs: Laboratory Results - last 24 hr 04/18/24 06:10 WBC 6.1 RBC 3.77 L Hgb 9.2 L Hct 29.8 L MCV 78.9 L MCH 24.4 L MCHC 31.0 RDW 17.3 H Plt Count 303 Neut % (Auto) 76.9 H Lymph % (Auto) 10.5 L [place] % (Auto) 7.4 Eos % (Auto) 4.0 Baso % (Auto) 1.2 Neut # (Auto) 4700 Lymph # (Auto) 600 L [place] # (Auto) 500 Eos # (Auto) 200 Baso # (Auto) 100 Sodium 136 L Potassium 3.6 Chloride 106 Carbon Dioxide 24 BUN 16 Creatinine 1.23 H Estimated GFR 47 L BUN/Creatinine Ratio 13.0 Glucose 109 Calcium 8.4 PFSH Medical History Occipital stroke (~2017) Easy bruisability 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 PVD (peripheral vascular disease) Gastrointestinal hemorrhage with melena Spinal stenosis Hallux valgus Heart murmur Osteoporosis Arthritis Hyperlipemia Hypertension Slipped cervical disc Pancreatitis Constipation Surgical History History of back surgery (12/22/23) History of bunionectomy of right great toe History of bunionectomy of left great toe Hx of bilateral cataract extraction Hx of laparoscopy H/O eye surgery Family History Mother Heart disease Brother Diabetes mellitus Skin cancer Grandmother Cancer Social History marital status: household members: spouse lives independently: Yes occupational status: employed Smoking Status: Former smoker alcohol intake: never substance use type: does not use Assessment & Plan Assessment and plan (1) Anemia: Qualifiers: Anemia type: unspecified type Qualified Code(s): D64.9 - Anemia, unspecified Status: Acute Assessment & Plan narrative: 1. Anemia - improved appropriately to 2 units Friday night, now stable. 2. Oliguria - improving presently, with improvement of her TERESITA. Will continue to avoid NSAIDS for this reason. 3. Await bowel function. Patient declines protein supplements. 4. Bladder spasms, will see if we can improve with pyridium. She had a colovaginal fistula, and a single kidney, so will continue ledezma until tomorrow and discuss with primary surgeon. Time-Based Coding :: [TOTAL MINUTES] spent with patient and on the chart (including review of chart, obtaining history, exam, reviewing outside data, placing orders, documenting exam and treatment plan, and counseling patient) on [DATE]. Quality VTE Deep Vein Thrombosis/Pulmonary Embolism Present on Admission: No
[2024-04-18] MEDS: PHENAZOPYRIDINE 100 MG TABLET 200 MG PO ×2 (14:32→21:15)
[2024-04-18 21:00] VITALS: BP 189/93; PULSE 90; RESP 20; TEMP 36.7; O2SAT 91
[2024-04-18 21:39] VITALS: BP 181/84
--- NOTE | 2024-04-18 21:49 | PC.NURSE ---
pt blood pressure is elevated 186/84, will reassess in another hour. pt is having pain 10/10 to abdomen due to surgery, pt medicated with tylenol and methacarbomal, this nurse explained to patient that I need to call the MD pt states please don't call the doctor, I am fine and don't need anything. will see what her blood pressure is in 1 hour. pt is currently assymptomatic with her high BP.
[2024-04-18 22:34] VITALS: BP 169/79
[2024-04-19] MEDS: ACETAMINOPHEN 325 MG TABLET 650 MG PO ×4 (02:48→20:20)
[2024-04-19] MEDS: PANTOPRAZOLE DR 20 MG TABLET PO (06:32)
[2024-04-19] MEDS: methocarbamoL 500 MG TABLET PO ×2 (06:33→23:10)
[2024-04-19 07:43] VITALS: BP 205/107; PULSE 91; RESP 17; TEMP 36.6; O2SAT 88
[2024-04-19 07:47] VITALS: BP 177/77; O2SAT 92
[2024-04-19] MEDS: NIFEdipine 30 MG TAB ER PO (07:59)
[2024-04-19] MEDS: PREGABALIN 25 MG CAPSULE 50 MG PO (08:00)
[2024-04-19] MEDS: PRAVASTATIN 20 MG TABLET 40 MG PO (08:01)
[2024-04-19] MEDS: BISACODYL 5 MG TABLET 10 MG PO ×2 (08:01→20:20)
[2024-04-19] MEDS: LORATADINE 10 MG TABLET PO (08:01)
[2024-04-19] MEDS: OXYBUTYNIN 5 MG TABLET PO ×2 (08:02→20:20)
[2024-04-19] MEDS: PHENAZOPYRIDINE 100 MG TABLET 200 MG PO ×3 (08:02→20:20)
[2024-04-19] MEDS: ENOXAPARIN 40 MG/0.4 ML SYRINGE SUBCUT (08:06)
[2024-04-19] MEDS: CLONIDINE 0.1 MG/24 HR 1 EACH TOP (10:23)
[2024-04-19] MEDS: SODIUM CHLORIDE 0.9% 1,000 ML 84 ML IV (10:30)
--- NOTE | 2024-04-19 11:34 | CM.DPC ---
DCP Cont: Per Surgeon, pt making some progress since her 2 units she received Friday for severe anemia and pain a little better managed but no flatus or bm yet and waiting for bowel function to return. Duffy remains in for today and draining well but pt with some bladder spasms. PT recommending home with spouse 16/12 assist. SW confirmed with [facility] that they accept pt's referral for HH RN for new ostomy management and sent updated notes to review for potential of d/c tomorrow if stable. Plan: SW to follow for plan of d/c home with spouse and new [facility] RN for ostomy care at d/c and any further identified discharge planning needs. STEVE Veliz
--- NOTE | 2024-04-19 12:16 | P.PN_ITS ---
Subjective Subjective Date Patient Seen: 04/19/24 Time Patient Seen: 12:16 Interval history: Patient has air and stool in her ostomy today. She has not yet had ostomy teaching. Her appetite is improving, but she has been sleeping most of the day. Her urine output has been better the last 2 days. Exam Vital Signs (past 8 hours): - 04/19/24 07:43 04/19/24 07:47 Temperature 97.9 F Pulse Rate 91 H Respiratory Rate 17 Blood Pressure 205/107 H 177/77 H Pulse Oximetry 88 L 92 Oxygen Flow Rate 0 Oxygen Delivery Method Nasal Cannula Oxygen Flow Rate 0 Narrative Exam Narrative: Gen: NAD, sitting comfortably in bed, appears well HEENT: Sclera are anicteric, head is normocephalic and atraumatic, trachea is midline. 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 PVD (peripheral vascular disease) Gastrointestinal hemorrhage with melena Spinal stenosis Hallux valgus Heart murmur Osteoporosis Arthritis Hyperlipemia Hypertension Slipped cervical disc Pancreatitis Constipation Surgical History History of back surgery (12/22/23) History of bunionectomy of right great toe History of bunionectomy of left great toe Hx of bilateral cataract extraction Hx of laparoscopy H/O eye surgery Family History Mother Heart disease Brother Diabetes mellitus Skin cancer Grandmother Cancer Social History marital status: household members: spouse lives independently: Yes occupational status: employed Smoking Status: Former smoker alcohol intake: never substance use type: does not use Assessment & Plan Assessment and plan (1) Anemia: Qualifiers: Anemia type: unspecified type Qualified Code(s): D64.9 - Anemia, unspecified Status: Acute Assessment & Plan narrative: 1. Anemia - improved appropriately to 2 units Friday night, if repeat H and H is stable, no further checks are needed. 2. Oliguria - improving presently, with improvement of her TERESITA. Will continue to avoid NSAIDS for this reason. If her creatinine has normalized today, we will discontinue Duffy catheter. 3. Patient now has bowel function. Patient declines protein supplements, ensure is unconsumed a bedside. Ask the nurse to arrange for ostomy education. 4. Bladder spasms -does not seem to be complaint today as it was yesterday Time-Based Coding :: [TOTAL MINUTES] spent with patient and on the chart (including review of chart, obtaining history, exam, reviewing outside data, placing orders, documenting exam and treatment plan, and counseling patient) on [DATE]. Quality VTE Deep Vein Thrombosis/Pulmonary Embolism Present on Admission: No
--- NOTE | 2024-04-19 14:22 | PT-IP ANOTE ---
PT checks on pt. Pt declines working with PT this afternoon.
[2024-04-19 14:34] LABS: Hematocrit 35.3 % (36-46); Hemoglobin 10.8 g/dL (12.0-16.0); Mean Corpuscular HGB Conc 30.7 % (30-36); Mean Corpuscular Hemoglobin 24.1 PG (26-34); Mean Corpuscular Volume 78.6 fL (80-100); Platelet Count 367 X10^3/uL (150-400); Red Blood Cell Count 4.49 X10^6/uL (4.0-5.2); Red Cell Distribution Width 16.9 % (11.6-14.8); White Blood Cell Count 7.1 X10^3/uL (4.5-11.0)
[2024-04-19 14:43] LABS: BUN Creatinine Ratio 14.3 (6-22); Blood Urea Nitrogen 12 mg/dL (7-17); Calcium 8.2 mg/dL (8.4-10.2); Carbon Dioxide 24 mmol/L (22-32); Chloride 105 mmol/L (98-107); Estimated Glomerular Filt Rate > 60 mL/min (>60); Glucose 104 mg/dL (80-110); HEMOLYSIS < 15 (0-50); Potassium 3.3 mmol/L (3.4-5.1); Sodium 135 mmol/L (137-145)
--- NOTE | 2024-04-19 17:28 | PC.NURSE ---
Day shift: Colostomy kit given to patient this afternoon. Pt stated she didn't have any questions at this time, but we will plan on doing more education tomorrow AM. Alma locked PIV and removed Duffy cathetar this afternoon per MD Shelton's orders. Minimal pain. Pt OOB with 1 PA to chair, BSC, and shower. Colostomy putting out liquid brown stool. Will continue to monitor.
[2024-04-19 20:00] VITALS: BP 177/80; PULSE 83; RESP 16; TEMP 36.6; O2SAT 92
--- NOTE | 2024-04-19 23:38 | PC.NURSE ---
Pt voiding on the bedside commode after ledezma removal during dayshift. Pt having some stools during urination which patient states is coming out of vagina. pt educated of home health care which will help her with her colostomy care.
--- NOTE | 2024-04-20 00:59 | PC.NURSE ---
Assumed care of patient at 00:30. Prior nurseJulieta completed assessment.
[2024-04-20] MEDS: ACETAMINOPHEN 325 MG TABLET 650 MG PO ×4 (03:41→20:37)
[2024-04-20] MEDS: PANTOPRAZOLE DR 20 MG TABLET PO (05:29)
[2024-04-20 08:00] VITALS: BP 198/88; PULSE 87; RESP 16; TEMP 36.6; O2SAT 96
[2024-04-20] MEDS: ENOXAPARIN 40 MG/0.4 ML SYRINGE SUBCUT (08:08)
[2024-04-20] MEDS: BISACODYL 5 MG TABLET 10 MG PO ×2 (08:08→20:37)
[2024-04-20] MEDS: NIFEdipine 30 MG TAB ER PO (08:08)
[2024-04-20] MEDS: PRAVASTATIN 20 MG TABLET 40 MG PO (08:09)
[2024-04-20] MEDS: OXYBUTYNIN 5 MG TABLET PO ×2 (08:09→20:37)
[2024-04-20] MEDS: methocarbamoL 500 MG TABLET PO ×2 (08:09→22:47)
[2024-04-20] MEDS: LORATADINE 10 MG TABLET PO (08:09)
[2024-04-20 09:00] VITALS: BP 166/91; PULSE 77
--- NOTE | 2024-04-20 09:43 | PC.NURSE ---
Addendum entered by Magdalena Bowen R.N. 04/20/24 14:07: See note from MD Shelton regarding MD Castrejon's response to stool coming out of vagina and/or rectum. No further stool out of perineum this shift. Started doing extensive hands on teaching today with patient re: colostomy. Had patient practice emptying and closing/cleaning end of the bag. Showed her how to measure a stoma and attach wafer + bag. Supplies she is going home with is not what is currently on her. Questions answered. Will do more teaching tomorrow AM and patient is agreeable to change colostomy bag with RN help tomorrow AM - offered today for practice and patient declined. Will continue to monitor. Original Note: Day shift: Notified MD Shelton regarding patient's elevated BP and patient reporting stool coming out of her vagina last night. MD stated that he would round on patient soon.
[2024-04-20] MEDS: POTASSIUM CHLORIDE 20 MEQ TAB 40 MEQ PO (10:38)
--- NOTE | 2024-04-20 11:29 | CM.DPC ---
DCP Cont. Reviewed EMR and team rounds for status updates. Pt will likely d/c on 04/21. PRIVATE BRANCH EXCHANGE REPAIRER met with pt at bedside and explained the role of the RN from [facility], [facility] is scheduled to start on Wednesday 04/25. Monitoring for any further evolving needs.
[2024-04-20 11:59] LABS: BUN Creatinine Ratio 12.2 (6-22); Blood Urea Nitrogen 10 mg/dL (7-17); Calcium 8.8 mg/dL (8.4-10.2); Carbon Dioxide 29 mmol/L (22-32); Chloride 100 mmol/L (98-107); Estimated Glomerular Filt Rate > 60 mL/min (>60); Glucose 111 mg/dL (80-110); HEMOLYSIS < 15 (0-50); Potassium 3.2 mmol/L (3.4-5.1); Sodium 135 mmol/L (137-145)
--- NOTE | 2024-04-20 13:00 | PT.IPTN ---
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 ASSISTANT BUSINESS MANAGER, Biopsies, cystoscopy - Sarah Wynn MD Operation Date: 04/15/24 15:00 Actual Procedures p Laparoscopically Assisted Colectomy and Colostomy(Not Applicable) - Eloy Castrejon MD Physical Therapy Treatment Note M2 PT-IP Current Condition Start: 04/16/24 12:12 Freq: NEEDED Status: Active Protocol: Document 04/16/24 10:30 AB (Rec: 04/16/24 12:25 AB [id number]) Physical Therapy Current Condition Current Condition Evaluation Date 04/16/24 Treatment Diagnosis s/p colectomy & colostomy; difficulty in walking Onset Date 04/15/24 M3 PT-IP Subjective Start: 04/16/24 12:12 Freq: NEEDED Status: Active Protocol: Document 04/20/24 13:14 TS (Rec: 04/20/24 13:18 TS [id number]) Subjective Physical Therapy Visit Type Type Treatment Note Visit Start Time 13:00 Visit Stop Time 13:14 Number of NON LINEAR EDITOR Visits 2 Physical Therapy Visit Comments Patient Comments Pt found resting in the chair, she is agreeable to PT. Therapy Pain Assessment Pain When Pain Assessed At Rest Pain Present Pain Present Pain Reported M4 PT-IP Mobility and Gait Start: 04/16/24 12:12 Freq: NEEDED Status: Active Protocol: Document 04/20/24 13:14 TS (Rec: 04/20/24 13:18 TS [id number]) PT-Transfer Assessment Sit to and From Stand Sit to and from Stand Standby Assistance Equipment Transfer Assistive Device Gait Belt,Front Wheeled Walker Orthotic/Prosthetic Devices or Brace: No Comments Mobility Comments STS with FWW SBA. pt ambulates ~80' into the hallway, has some fatigue and requests back to the room. Pt was left in the chair, all needs met. Gait Assessment Gait Gait Assistance Required: Standby Assistance Distance (Feet) 80 Assistive Devices Assistive Device Gait Belt,Front Wheeled Walker Orthotic/Prosthetic Devices or Brace: No Factors Limiting Gait Function Factors Limiting Gait Function Decreased Activity Tolerance, Decreased Strength,Difficulty Following Directions,Limited Range of Motion,Pain,Poor Balance,Poor Safety Awareness PT-Balance Assessment Sitting Balance and Reactions Static Sitting Balance Ability Good Dynamic Sitting Balance Ability Fair Standing Balance and Reactions Static Standing Balance Ability Fair Dynamic Standing Balance Ability Fair Device Used FWW M5 PT-IP Objective Assessments Start: 04/16/24 12:12 Freq: NEEDED Status: Active Protocol: Document 04/16/24 10:30 AB (Rec: 04/16/24 12:25 AB [id number]) Orientation Orientation/Cognition Level of Alertness Alert Gross Range of Motion Lower Extremity ROM Assessment Within Functional Limits Strength Lower Extremity Strength Hip 3+/5 Knee 4-/5 Comments Strength Comments pain limiting MMT Sensation Assessment Sensation Gross Sensation WNL Muscle Tone Muscle Tone WNL Yes M6 PT-IP Treatment Start: 04/16/24 12:12 Freq: NEEDED Status: Active Protocol: Document 04/20/24 13:14 TS (Rec: 04/20/24 13:18 TS [id number]) Physical Therapy Treatment Education Education Provided Precautions,Weight Bearing Status,Post-Op Packet,Safety M7 PT-IP Assessment and Plan Start: 04/16/24 12:12 Freq: NEEDED Status: Active Protocol: Document 04/20/24 13:14 TS (Rec: 04/20/24 13:18 TS [id number]) PT Summary Assessment and Plan Potential Rehabilitation Potential Fair Summary Impairments Pain,ROM,Strength,Balance, Coordination,Sensation,Tone, Cognition,Bed Mobility, Transfers,Gait,Activity Tolerance Progress Towards Goals Progressing Toward Goals Assessment Summary Sierra is making progress with her mobility. She is SBA for STS with FWW. She ambulates ~ 80' SBA with FWW. She has some fatigue and pain with gait. PT is recommending pt return home with assist and HHPT. Goals Bed Mobility Goal Standby Assistance Transfer Goal Standby Assistance,Front Wheeled Walker Gait Goal Standby Assistance,Front Wheel Walker Gait Distance 100 Other Goals improve bed mobility, transfers and ambulation using FWW/LRAD 200 ft mod I up/down 4 steps B rails SBA Days to Meet Goals 10 Frequency of Treatment Frequency Of Treatment Once a Day Treatment Plan Physical Therapy Treatment Plan Bed Mobility Training,Transfer Training,Gait Training, Therapeutic Exercise,Balance Retraining,Post Op Education, Discharge Planning,Hot or Cold Pack,Neuromuscular Re-ed, Coordination Retraining,Manual Therapy Precautions Abdominal Surgery Precautions Log Roll,Lifting Restrictions, Gait Belt above Incisional Area Recommendations To Nursing Amount of Assist Needed Standby Assistance Discharge Recommendations PT Discharge Recommendations Home with Assistance,Home Health Transportation Needs at Discharge Private Vehicle
--- NOTE | 2024-04-20 13:11 | PM.PN.1 ---
Subjective Subjective Date Patient Seen: 04/20/24 Time Patient Seen: 13:11 Interval history: Patient is tolerating food better today. She has not yet had an opportunity to change her colostomy bag herself and is somewhat apprehensive about caring for the ostomy. Per nursing she had a bowel movement through either her vagina or rectum despite diversion. Discuss with her primary surgeon Dr. Key and he stated that her prep preoperatively was inadequate and this is not surprisin to him that she passed some stool. Exam Vital Signs (past 8 hours): - 04/20/24 08:00 04/20/24 09:00 Temperature 97.8 F Pulse Rate 87 77 Respiratory Rate 16 Blood Pressure 198/88 H 166/91 H Pulse Oximetry 96 Oxygen Delivery Method Nasal Cannula Oxygen Flow Rate 0 Objective Labs 04/19/24 14:25 04/20/24 11:00 Labs: Laboratory Results - last 24 hr 04/19/24 04/20/24 14:25 11:00 WBC 7.1 RBC 4.49 Hgb 10.8 L Hct 35.3 L MCV 78.6 L MCH 24.1 L MCHC 30.7 RDW 16.9 H Plt Count 367 Sodium 135 L 135 L Potassium 3.3 L 3.2 L Chloride 105 100 Carbon Dioxide 24 29 BUN 12 10 Creatinine 0.84 0.82 Estimated GFR > 60 > 60 BUN/Creatinine Ratio 14.3 12.2 Glucose 104 111 H Calcium 8.2 L 8.8 PFSH Medical History Occipital stroke (~2017) Easy bruisability 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 PVD (peripheral vascular disease) Gastrointestinal hemorrhage with melena Spinal stenosis Hallux valgus Heart murmur Osteoporosis Arthritis Hyperlipemia Hypertension Slipped cervical disc Pancreatitis Constipation Surgical History History of back surgery (12/22/23) History of bunionectomy of right great toe History of bunionectomy of left great toe Hx of bilateral cataract extraction Hx of laparoscopy H/O eye surgery Family History Mother Heart disease Brother Diabetes mellitus Skin cancer Grandmother Cancer Social History marital status: household members: spouse lives independently: Yes occupational status: employed Smoking Status: Former smoker alcohol intake: never substance use type: does not use Assessment & Plan Assessment and plan (1) Colovaginal fistula: Status: Acute Assessment & Plan narrative: Patient is having bowel function through her ostomy, encouraging nurses to continue giving her ostomy teaching and to coordinate home health social have resources upon discharge. She has the ostomy teaching kit at bedside, but is reluctant to try. Per Dr. Castrejon, drainage from her vagina or rectum at this time is not surprising. Does not recommend any additional imaging at this time. Creatinine as normalized and her anemia has been stable following transfusions on Friday. Time-Based Coding :: [TOTAL MINUTES] spent with patient and on the chart (including review of chart, obtaining history, exam, reviewing outside data, placing orders, documenting exam and treatment plan, and counseling patient) on [DATE]. Quality VTE Deep Vein Thrombosis/Pulmonary Embolism Present on Admission: No
[2024-04-20 20:00] VITALS: BP 178/89; PULSE 79; RESP 16; TEMP 36.4; O2SAT 97
[2024-04-20] MEDS: PHENAZOPYRIDINE 100 MG TABLET 200 MG PO (20:37)
[2024-04-21] MEDS: ACETAMINOPHEN 325 MG TABLET 650 MG PO ×2 (02:48→07:52)
--- NOTE | 2024-04-21 03:14 | PC.NURSE ---
NOC 2130: Spent 35 min educating patient on ostomy emptying and bag changing. Talked patient through emptying current bag, patient was tentative but receptive. Pt expressed concern about how often to change bag; walked patient through educational materials to find answer (Q 3-7 days). Reminded patient to practice on her own as much as possible. Placed education kit on side table for patient to review per pt request. Pt resting comfortably, call light within reach, bed low/locked, care continues.
[2024-04-21] MEDS: PANTOPRAZOLE DR 20 MG TABLET PO (05:01)
[2024-04-21 05:10] VITALS: BP 163/83
[2024-04-21] MEDS: BISACODYL 5 MG TABLET 10 MG PO (07:53)
[2024-04-21] MEDS: PRAVASTATIN 20 MG TABLET 40 MG PO (07:53)
[2024-04-21] MEDS: LORATADINE 10 MG TABLET PO (07:53)
[2024-04-21] MEDS: methocarbamoL 500 MG TABLET PO (07:53)
[2024-04-21] MEDS: ENOXAPARIN 40 MG/0.4 ML SYRINGE SUBCUT (07:54)
[2024-04-21] MEDS: OXYBUTYNIN 5 MG TABLET PO (07:54)
[2024-04-21] MEDS: NIFEdipine 30 MG TAB ER PO (07:54)
[2024-04-21 08:08] LABS: BUN Creatinine Ratio 13.7 (6-22); Blood Urea Nitrogen 10 mg/dL (7-17); Calcium 8.7 mg/dL (8.4-10.2); Carbon Dioxide 29 mmol/L (22-32); Chloride 100 mmol/L (98-107); Estimated Glomerular Filt Rate > 60 mL/min (>60); Glucose 107 mg/dL (80-110); HEMOLYSIS < 15 (0-50); Magnesium 1.5 mg/dL (1.6-2.3); Potassium 3.1 mmol/L (3.4-5.1); Sodium 135 mmol/L (137-145)
--- NOTE | 2024-04-21 09:08 | PM.PN.1 ---
Subjective Subjective Date Patient Seen: 04/21/24 Time Patient Seen: 09:08 Interval history: Patient had an opportunity to work with her colostomy bag yesterday. The nurses thinks she might still have some intermittent drainage from either her vagina or rectal stump. Otherwise, the patient looks well and is eating okay. Exam Vital Signs (past 8 hours): - 04/21/24 05:10 Blood Pressure 163/83 H Oxygen Delivery Method Nasal Cannula Oxygen Flow Rate 0 Narrative Exam Narrative: Gen: NAD, sitting comfortably in bed, appears well HEENT: Sclera are anicteric, head is normocephalic and atraumatic, trachea is midline. CV: RRR, no JVD Resp: clear to auscultation bilaterally, equal chest wall movement bilaterally Abd: soft, nontender, ostomy pink and viable with air and stool in the bag. 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 PVD (peripheral vascular disease) Gastrointestinal hemorrhage with melena Spinal stenosis Hallux valgus Heart murmur Osteoporosis Arthritis Hyperlipemia Hypertension Slipped cervical disc Pancreatitis Constipation Surgical History History of back surgery (12/22/23) History of bunionectomy of right great toe History of bunionectomy of left great toe Hx of bilateral cataract extraction Hx of laparoscopy H/O eye surgery Family History Mother Heart disease Brother Diabetes mellitus Skin cancer Grandmother Cancer Social History marital status: household members: spouse lives independently: Yes occupational status: employed Smoking Status: Former smoker alcohol intake: never substance use type: does not use Assessment & Plan Assessment and plan (1) Colovaginal fistula: Status: Acute Assessment & Plan narrative: Patient is having bowel function through her ostomy, and she has been able to work with ostomy teaching with the nursing staff. Patient states that she would be home alone today, but her can get her in the morning tomorrow. Per Dr. Castrejon, drainage from her vagina or rectum at this time is not surprising. Does not recommend any additional imaging at this time. Creatinine as normalized and her anemia has been stable following transfusions on Friday. Time-Based Coding :: [TOTAL MINUTES] spent with patient and on the chart (including review of chart, obtaining history, exam, reviewing outside data, placing orders, documenting exam and treatment plan, and counseling patient) on [DATE]. Quality VTE Deep Vein Thrombosis/Pulmonary Embolism Present on Admission: No
[2024-04-21] MEDS: POTASSIUM CHLORIDE 20 MEQ TAB 40 MEQ PO (10:16)
[2024-04-21] MEDS: MAGNESIUM CHLORIDE 64 MG TABLET 128 MG PO (10:16)
--- NOTE | 2024-04-21 10:43 | CM.DPC ---
DCP Cont. Reviewed EMR and team rounds for status updates. Pt has been medically cleared for home d/c, her spouse is at bedside and will transport her home. STRADDLE BUGGY OPERATOR explained that [facility] will begin services on Friday, 04/25, and that they will be reaching out to pt/spouse within the next few days to clarify a time.
--- NOTE | 2024-04-21 10:49 | P.DS_ITS ---
History of Present Illness History of Present Illness Date Patient Seen: 04/21/24 Time Patient Seen: 10:49 Date of Onset of Symptoms: 04/21/24 Chief complaint: Exam Under Anesthesia PHYSICAL ANTHROPOLOGIST/Colonoscopy Narrative: Mrs Mckeon is a 68 y.o woman with a colovaginal fistula and a distal colonic stricture. She had a vaginal exam under anesthesia and sigmoidoscopy today which demonstrated a fungating mass in the vagina, colovaginal fistula and colonic striture beyond which the scope could not be advanced. Prior abdominal surgery is diagnostic laparoscopy. Discharge Providers Provider Date of admission: 04/15/24 06:33 Discharge Date: 04/21/24 Primary care physician: Reilly Ross MD Consults: 04/15/24 18:32 Consult to Physical Therapy Evaluate & Treat Comment: Physician Instructions: Evaluate and Treat 04/16/24 10:06 Consult to Discharge Planning Routine Comment: new colostomy Consult to Physical Therapy Evaluate & Treat Comment: Physician Instructions: Evaluate and Treat 04/16/24 15:32 Consult to Home Health Routine Comment: RN Reason For Exam: Colovaginal fistula, new ostomy bag 04/19/24 12:15 Consult to Ostomy Specialist Routine Comment: Consulting Provider: Discharge provider: Calos Shelton MD Summary Hospital Course Discharge Diagnosis: 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 She was anemic preoperatively and became more anemic postoperatively required blood transfusions. She had a slight bump in her creatinine which resolved after stopping NSAIDs and giving her IV fluids. After adequate PT/OT and ostomy teaching, patient was ready for discharge on postop day 7. Status at Discharge Cognitive/behavioral status at discharge: oriented Time Spent with Patient Time spent: Greater than 30 minutes Exam Vital Signs (past 8 hours): - 04/21/24 05:10 Blood Pressure 163/83 H Oxygen Delivery Method Nasal Cannula Oxygen Flow Rate 0 Narrative Exam Narrative: Gen: NAD, sitting comfortably in bed, appears well HEENT: Sclera are anicteric, head is normocephalic and atraumatic, trachea is midline. CV: RRR, no JVD Resp: clear to auscultation bilaterally, equal chest wall movement bilaterally Abd: soft, nontender, ostomy pink and viable with air and stool in the bag. 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 PVD (peripheral vascular disease) Gastrointestinal hemorrhage with melena Spinal stenosis Hallux valgus Heart murmur Osteoporosis Arthritis Hyperlipemia Hypertension Slipped cervical disc Pancreatitis Constipation Surgical History History of back surgery (12/22/23) History of bunionectomy of right great toe History of bunionectomy of left great toe Hx of bilateral cataract extraction Hx of laparoscopy H/O eye surgery Family History Mother Heart disease Brother Diabetes mellitus Skin cancer Grandmother Cancer Social History marital status: household members: spouse lives independently: Yes occupational status: employed Smoking Status: Former smoker alcohol intake: never substance use type: does not use Discharge Assessment & Plan Assessment and Plan Assessment: 1. Colon mass with colovaginal fistula 2. Chronic renal insufficiency 3. Anemia requiring transfusion Plan of Treatment: Patient is go home with home health and ostomy supplies. Follow-up scheduled with Dr. Key for next week. Pathology pending. Discharge Plan Discharge Plan Patient Disposition: Home Discharge orders & Medications Prescriptions: New methocarbamol 500 mg Tablet 500 mg PO QID PRN (Reason: Muscle Spasm or pain) 30 Days Qty: 120 0RF Continued oxycodone 5 mg tablet 2.5 mg PO Q6H PRN (Reason: pain) Qty: 10 0RF Rx Instructions: Take 1/2 tab every 6 hours as needed for pain aspirin 81 mg tablet,delayed release (DR/EC) 81 mg PO DAILY clonidine 0.1 mg/24 hr Patch Weekly 1 patch TRANSDERMAL QWEEK Patient Comments: placed on anterior L chest pravastatin 40 mg Tablet 40 mg PO DAILY acetaminophen 650 mg Tablet Extended Release 1,300 mg PO PRN PRN (Reason: Pain) nifedipine 30 mg Tablet Extended Release 24hr 30 mg PO DAILY cetirizine 10 mg Tablet 10 mg PO DAILY ferrous sulfate 324 mg (65 mg iron) Tablet,Delayed Release (Dr/Ec) 324 mg PO BID diclofenac sodium 1 % Gel 2 g TOPICAL QID PRN (Reason: Pain) omeprazole 20 mg Tablet,Delayed Release (Dr/Ec) 20 mg PO DAILY Systane Complete 0.6 % Drops 1 drp EYE-BOTH DAILY PRN (Reason: Dry Eye(S)) Follow up/Referrals: Reilly Ross MD [Primary Care Provider] - Skin/Wound/Dressing Care Report to your healthcare provider any signs of infection, such as:: chills, fever, night sweats, increased pain, unusual drainage and unusual redness Other wound treatment: Ostomy teaching and ostomy supplies. Visit Report/Discharge Packet Instructions: How to Care for Your Colostomy or Ileostomy Stand Alone Forms: Patient Portal/API, Stroke Signs & Symptoms Discharge Data Primary Care Provider: Reilly Ross Quality VTE Deep Vein Thrombosis/Pulmonary Embolism Present on Admission: No
--- NOTE | 2024-04-21 13:22 | PC.NURSE ---
Day shift: Further hands-on teaching done including walking through and showing patient how to do colostomy bag change. This RN changed ostomy bag prior to patient's d/c. Patient able to watch and verbalized understanding. All ostomy supplies sent home with patient. All belongings with patient. PIV d/c'ed prior to discharge. KISHAN Christina went over all discharge information with patient and patient's SO. They both stated understanding, all questions answered. This RN also changed aquacel and allevant dressings on patient's abdomen as they were saturated from the shower.
--- NOTE | 2024-04-23 08:57 | CM.DPNOTE ---
DCP Follow up Note: Pt discharged on 04/21 back home. [facility] called this DCP today, requesting to confirm that pt has been discharged and to notify that start of care is scheduled for Friday, 04/26. No other clinicals requested for HH, pt to follow up with care with [facility]. LUISA Braswell
== END 2024-04-21 12:10 | disposition home health service (06) | DRG 330 ==
LOC: AC 09:38 → OR 04-16 12:44 → AC 04-16 12:44
PROVIDERS: Surgery; Admitting Provider Obstetrics & Gynecology; PCP Family Medicine; Referring Provider Obstetrics & Gynecology; Visit Provider Obstetrics & Gynecology
PROC: 0DJD8ZZ Inspection of Lower Intestinal Tract, Via Natural or Artificial Opening Endoscopic (ICD-10-PCS; CPT 45378; principal; 2024-04-15 07:45)
PROC: 0UBG7ZX Excision of Vagina, Via Natural or Artificial Opening, Diagnostic (ICD-10-PCS; CPT 57410; 2024-04-15 07:45)
PROC: 0DTE0ZZ Resection of Large Intestine, Open Approach (ICD-10-PCS; principal; 2024-04-15 15:00)
DX: N82.3 Fistula of vagina to large intestine (principal); C18.7 Malignant neoplasm of sigmoid colon; K56.699 Other intestinal obstruction unspecified as to partial versus complete obstruction; N17.9 Acute kidney failure, unspecified; C79.82 Secondary malignant neoplasm of genital organs; D62 Acute posthemorrhagic anemia; N32.89 Other specified disorders of bladder; N18.9 Chronic kidney disease, unspecified; E78.5 Hyperlipidemia, unspecified; I12.9 Hypertensive chronic kidney disease with stage 1 through stage 4 chronic kidney disease, or unspecified chronic kidney disease; D63.1 Anemia in chronic kidney disease; D63.0 Anemia in neoplastic disease; Z87.891 Personal history of nicotine dependence; Z90.5 Acquired absence of kidney
CPT/HCPCS: 36415; 36430; 74022; 80048; 80053; 83735; 84100; 85014; 85018; 85025; 85027; 85610; 86850; 86900; 86901; 94762; 97162; 97530; P9016; A9270; C9290; J0134; J1100; J1171; J1650; J2270; J2405; J2543; J2704; J3010; J3475; J3490

== ENCOUNTER 2024-07-13 06:46 | Inpatient (IN) | payer MEDICARE, OTHER, SELFPAY ==
[2024-04-15 09:37] VITALS: BMI 20.5
[2024-07-13] VITALS (19 sets, daily range): BP systolic 120–155; BP diastolic 62–80; PULSE 78–108; RESP 18–28; TEMP 37.1; O2SAT 83–95; BMI 17.0
--- NOTE | 2024-07-13 07:48 | ED.ABDPAIN ---
HPI - Abdominal Pain General Chief Complaint: Abdominal Pain Stated Complaint: col stump came out Time Seen by Provider: 07/13/24 06:59 Source: patient Mode of arrival: Wheelchair History of Present Illness HPI narrative: Patient is a 68-year-old female with history of colovaginal fistula with ostomy vaginal cancer lung cancer presenting to day with ostomy pain. She reports that she woke up and went to change her bag but the ostomy was all the way out it has since receded but remains extremely painful. She was found to be hypoxic and tachycardic at triage. She denies any sort of shortness of breath or chest pain. She says the lung cancer has not been biopsied or treated. She is currently undergoing radiation therapy only for her vaginal cancer. She was in chronic pain only taking Tylenol has multiple side effects to opiate medication does not want any opiates. Related Data Home Medications Medication Instructions Recorded Confirmed aspirin 81 mg tablet,delayed 81 mg PO DAILY 09/12/23 05/17/24 release acetaminophen 650 mg 1,300 mg PO PRN PRN Pain 10/23/23 05/17/24 tablet,extended release cetirizine 10 mg tablet 10 mg PO DAILY 10/23/23 05/17/24 clonidine 0.1 mg/24 hr weekly 1 patch transdermal QWEEK 10/23/23 05/17/24 transdermal patch diclofenac sodium 1 % topical gel 2 g topical QID PRN Pain 10/23/23 05/17/24 ferrous sulfate 324 mg (65 mg 324 mg PO BID 10/23/23 05/17/24 iron) tablet,delayed release nifedipine 30 mg tablet,extended 30 mg PO DAILY 10/23/23 05/17/24 release 24 hr omeprazole 20 mg tablet,delayed 20 mg PO DAILY 10/23/23 05/17/24 release pravastatin 40 mg tablet 40 mg PO DAILY 10/23/23 05/17/24 propylene glycol 0.6 % eye drops 1 drp EYE-BOTH DAILY PRN Dry Eye(S) 10/23/23 05/17/24 (Systane Complete) Previous Rx's Medication Instructions Recorded oxycodone 5 mg tablet 2.5 mg (1/2 x 5 mg) PO Q6H PRN 04/08/24 pain #10 tabs Allergies Allergy/AdvReac Type Severity Reaction Status Date / Time codeine AdvReac Severe Dizziness Verified 05/17/24 11:12 Patient History Medical History Adenocarcinoma of sigmoid colon Occipital stroke (~2017) Easy bruisability 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 PVD (peripheral vascular disease) Gastrointestinal hemorrhage with melena Spinal stenosis Hallux valgus Heart murmur Osteoporosis Arthritis Hyperlipemia Hypertension Slipped cervical disc Pancreatitis Constipation Surgical History History of back surgery (12/22/23) History of bunionectomy of right great toe History of bunionectomy of left great toe Hx of bilateral cataract extraction Hx of laparoscopy H/O eye surgery Family History Mother Heart disease Brother Diabetes mellitus Skin cancer Grandmother Cancer Social History marital status: household members: spouse lives independently: Yes occupational status: employed Smoking Status: Former smoker alcohol intake: never substance use type: does not use Smoking Status: Former smoker alcohol intake frequency: holidays/special occasions only Exam Initial Vital Signs Initial Vital Signs: Vital Signs Temperature 98.8 F 07/13/24 06:55 Pulse Rate 108 H 07/13/24 06:55 Respiratory Rate 18 07/13/24 06:55 Blood Pressure 155/78 H 07/13/24 06:55 Pulse Oximetry 88 L 07/13/24 06:55 Oxygen Delivery Method Room Air 07/13/24 06:55 GENERAL: Thin chronically ill 68-year-old female HEENT: Head atraumatic,EOMI, pupils reactive, face symmetric, moist mucous membranes CARDIOVASCULAR: Regular rate and rhythm without murmurs, rubs or gallops. RESPIRATORY: Breath sounds equal bilaterally, no wheezes rales or rhonchi. ABDOMEN: Soft, ostomy left lower quadrant with good amount of stool in bag ostomy it is self stump is pink does not seem to be significantly out but quite tender no significant swelling EXTREMITIES: Normal range of motion, no clubbing or edema. Neurovascularly intact NEUROLOGICAL: Alert and oriented x4.Normal gait and speech. SKIN: Warm, dry, no laceration, no petechiae, no rashes or lesions. Course Orders Ordered: ED Orders 07/13/24 10:47 Blood Culture Stat Lactate (Lactic Acid) Stat Acetaminophen (Acetaminophen 325 Mg Tablet) 650 mg PO Q6H PRN PRN Reason: Fever/Mild Pain (1-3) Al Hydrox/Mg Hydrox/Simethicone (Mag Hydrox/Alum/Simeth 30 Ml Udc) 30 ml PO Q6HR PRN PRN Reason: Dyspepsia Heparin Sodium (Porcine) (Heparin 5,000 Unit/Ml Vial) 5,000 unit SUBCUT BID NOLAN Last Admin: 07/13/24 16:56 Dose: 5,000 unit Documented By: ELIZA Ceftriaxone Sodium 1,000 mg/ (Sodium Chloride) 100 mls @ 200 mls/hr IV Q24H NOLAN Azithromycin 500 mg/ Dextrose 250 mls @ 250 mls/hr IV Q24H NOLAN Acetaminophen (Ofirmev) 1,000 mg in 100 mls @ 400 mls/hr IV Q6H PRN PRN Reason: Fever/Mild Pain (1-3) Naloxone HCl (Naloxone 0.4 Mg/Ml Vial) 0.2 mg IV Q2MIN PRN PRN Reason: Opiate Reversal Ondansetron HCl (Ondansetron 4 Mg/2 Ml Inj) 4 mg IV Q8HR PRN PRN Reason: Nausea And Vomiting Oxycodone HCl (Oxycodone Ir 5 Mg Tablet) 5 mg PO Q3H PRN PRN Reason: Pain, Moderate (4-6) Sennosides (Sennosides 8.6 Mg Tablet) 17.2 mg PO BEDTIME NOLAN Discontinued Medications Acetaminophen (Ofirmev) 1,000 mg in 100 mls @ 400 mls/hr IV NOW ONE Stop: 07/13/24 08:08 Last Infusion: 07/13/24 08:26 Dose: Infused Documented By: Admin: 07/13/24 08:11 Dose: 400 mls/hr Documented By: BRANNON Ceftriaxone Sodium 1,000 mg/ (Sodium Chloride) 100 mls @ 200 mls/hr IV NOW ONE Stop: 07/13/24 10:05 Last Infusion: 07/13/24 11:26 Dose: Infused Documented By: Admin: 07/13/24 10:49 Dose: 200 mls/hr Documented By: BRANNON Azithromycin 500 mg/ Dextrose 250 mls @ 250 mls/hr IV NOW ONE Stop: 07/13/24 10:05 Last Infusion: 07/13/24 12:49 Dose: Infused Documented By: Admin: 07/13/24 11:36 Dose: 250 mls/hr Documented By: SHAY Vital Signs Vital signs: Vital Signs - 8 hr 07/13/24 09:51 07/13/24 09:56 07/13/24 09:56 Pulse Rate 85 94 H Blood Pressure 134/67 Pulse Oximetry 83 L 85 L Oxygen Delivery Method Room Air Oximask Oxygen Flow Rate 6 07/13/24 10:00 07/13/24 10:00 07/13/24 10:30 Pulse Rate 92 H 89 Blood Pressure 120/63 Pulse Oximetry 88 L 93 Oxygen Delivery Method Oximask Oxygen Flow Rate 6 07/13/24 10:31 07/13/24 10:31 07/13/24 11:00 Pulse Rate 86 Blood Pressure 136/69 130/69 Pulse Oximetry 92 Oxygen Delivery Method Oxygen Flow Rate 07/13/24 11:00 07/13/24 11:11 07/13/24 11:30 Pulse Rate 84 Blood Pressure 131/65 Pulse Oximetry 94 95 Oxygen Delivery Method Nasal Cannula Oxygen Flow Rate 4 07/13/24 11:30 07/13/24 12:00 07/13/24 12:00 Pulse Rate 85 78 Blood Pressure 123/68 Pulse Oximetry 93 95 Oxygen Delivery Method Nasal Cannula Oxygen Flow Rate 4 MDM - Abdominal Pain Lab Data 07/13/24 07:55 07/13/24 07:55 Labs: Lab Results 07/13/24 07/13/24 Range/Units 07:55 10:47 WBC 6.4 (4.5-11.0) X10^3/uL RBC 4.59 (4.0-5.2) X10^6/uL Hgb 12.8 (12.0-16.0) g/dL Hct 40.2 (36-46) % MCV 87.6 (80-100) fL MCH 27.8 (26-34) PG MCHC 31.8 (30-36) % RDW 18.4 H (11.6-14.8) % Plt Count 253 (150-400) X10^3/uL Neut % (Auto) Not Reportable Lymph % (Auto) Not Reportable [place] % (Auto) Not Reportable Eos % (Auto) Not Reportable Baso % (Auto) Not Reportable Lymph # (Auto) Not Reportable [place] # (Auto) Not Reportable Baso # (Auto) Not Reportable Total Counted 100 Seg Neutrophils % 88.0 H (38-70) % Band Neutrophils % 2.0 L (3-7) % Lymphocytes % (Manual) 4.0 L (25-45) % Monocytes % (Manual) 6.0 (2-11) % Neutrophils # (Manual) 5760 (6723-2749) /uL RBC Morphology See below Anisocytosis 1+ H PT 11.2 (9.4-12.5) SECONDS INR 1.0 (0.9-1.3) APTT 32 (25.1-36.5) SECONDS Sodium 133 L (137-145) mmol/L Potassium 3.5 (3.4-5.1) mmol/L Chloride 100 (98-107) mmol/L Carbon Dioxide 20 L (22-32) mmol/L BUN 18 H (7-17) mg/dL Creatinine 0.82 (0.52-1.04) mg/dL Estimated GFR > 60 (>60) mL/min BUN/Creatinine Ratio 22.0 (6-22) Glucose 85 (80-110) mg/dL Lactate 0.9 (0.7-2.1) mmol/L Calcium 9.1 (8.4-10.2) mg/dL Total Bilirubin 0.5 (0.2-1.3) mg/dL AST 27 (14-36) IU/L ALT 14 (<35) IU/L Alkaline Phosphatase 96 (38-126) U/L Total Creatine Kinase 76 (30-135) U/L Troponin I 0.018 (0.01-0.034) ng/mL NT-Pro-B Natriuret Pep 321 H (<125) pg/mL Total Protein 6.7 (6.3-8.2) g/dL Albumin 3.7 (3.5-5.0) g/dL Globulin 3.0 (1.7-4.1) g/dL Albumin/Globulin Ratio 1.2 (1.0-2.8) Lipase 51 (23-300) U/L Imaging Data CT scan - chest: Radiologist's Impression: PROCEDURE: CT ANGIO CHEST PE PROTOCOL INDICATIONS: hypoxic with lung cancer TECHNIQUE: After the administration of intravenous contrast, 2 mm thick sections acquired from the pulmonary apices to the posterior costophrenic angles. 3-dimensional maximum intensity projection (MIP) coronal and sagittal reformats were then acquired through the thorax. For radiation dose reduction, the following was used: automated exposure control, adjustment of mA and/or kV according to patient size. COMPARISON: [facility], CT, CT ABDOMEN PELVIS W CON, 07/13/2024, 8:39. [facility], CT, CT ABDOMEN PELVIS W CON, 04/02/2024, 15:24. [facility], [place], PET NECK TO MID THIGH, 06/24/2024, 9:36. FINDINGS: Image quality: Diagnostic. Pulmonary arteries: Pulmonary arteries are normal in size, and demonstrate no intraluminal filling defects to suggest central pulmonary embolism. Lower Neck: No enlarged lymph nodes. Thyroid: There are bilateral thyroid nodules which are present on image 7 of series 3, measuring 2.3 cm on the right and 2.7 cm on the left. On the recent PET-CT, there is vague increased FDG activity in the thyroid beds. This is a nonspecific finding on PET-CT. Axillae: No enlarged lymph nodes. Chest Wall: Unremarkable. Bones: Question small subtle lesion in the lateral aspect of the left humeral head with peripheral sclerosis and low-density center, potentially a metastatic bony lesion. Lungs and Pleura: No pneumothorax or pleural effusions. Small spiculated lung mass, superior segment of left lower lobe, 1.0 cm, markedly FDG avid, likely a small spiculated primary bronchogenic carcinoma. Interval development of pneumonia and atelectasis in the basilar left lower lobe. Heart: Heart size is normal. No pericardial effusion. Thoracic Vessels: Mild aneurysmal dilatation of the ascending aorta, measuring 4.2 cm in diameter. Mediastinum and Kaye: No enlarged lymph nodes. Esophagus: No wall thickening. No hiatal hernia. Upper Abdomen: See separate report performed on the same day. IMPRESSION: 1. No pulmonary embolus. 2. 1.0 cm spiculated lesion in the superior segment of the left lower lobe is consistent with a probable primary bronchogenic carcinoma. 3. Pneumonia and atelectasis in the left lower lobe. 4. Question tiny subtle left humeral head bony metastatic lesion. 5. Bilateral thyroid nodules are greater than 2 cm each, with subtle increased FDG activity on PET-CT. Comment: Recommend further evaluation of the thyroid nodules on a nonemergent basis utilizing thyroid ultrasound. Dictated by: Jairo Trent M.D. on 07/13/2024 at 9:34 CT scan - abdomen/pelvis: Radiologist's Impression: PROCEDURE: CT ABDOMEN PELVIS W CON INDICATIONS: ostomy pain vaginal cancer TECHNIQUE: After the administration of intravenous contrast, axial sections acquired from the lung bases to the pubic symphysis. Coronal and sagittal reformats were performed. For radiation dose reduction, the following was used: automated exposure control, adjustment of mA and/or kV according to patient size. COMPARISON: [facility], [place], PET NECK TO MID THIGH, 06/24/2024, 9:36. [facility], CT, CT ABDOMEN PELVIS W CON, 04/02/2024, 15:24. FINDINGS: Image quality: Diagnostic. Lower Chest: Left basilar pneumonia and atelectasis. ABDOMEN: Liver: Subtle 9 mm lateral segment subcapsular left lobe liver lesion on image 37 of series 3, segment 2, is FDG avid, consistent with a metastatic lesion. Multiple other hypodensities are present in the liver without abnormal FDG activity on PET. Gallbladder: No radiopaque gallstones or wall thickening. Biliary ducts: No biliary dilation. Pancreas: No ductal dilation. Spleen: Size is within normal limits. Adrenal Glands: No adrenal nodules. Kidneys and Ureters: Right kidney is absent. Left kidney and ureter are unremarkable. Stomach and Bowel: Normal colonic caliber, without significant wall thickening. Sigmoid colectomy and left-sided and colostomy. Peritoneum: No abnormal intraperitoneal fluid. No free air. Ventral Wall: No significant ventral hernia. Abdominal Nodes: No retroperitoneal or mesenteric adenopathy by size criteria. Vessels: Aorta and inferior vena cava are normal in size. PELVIS: Pelvic Organs: Enhancement and abnormal thickening and infiltration of the surrounding tissue involving the vagina and vulva with fluid present in the cavity of the vagina, potentially partially representing central necrosis, consistent with vaginal carcinoma, locally invasive. Bladder: No bladder wall thickening, accounting for underdistention. Pelvic Nodes: There is a enhancing malignant enlarged left pelvic sidewall lymph node measuring 2.3 cm with associated marked increased activity on PET-CT. This was present at the time of sigmoid colectomy. Miscellaneous: No inguinal hernias are seen. Bones: No aggressive osseous abnormality. IMPRESSION: 1. There is extensive abnormal appearance of the vagina and vulva consistent with infiltrative locally advanced vaginal carcinoma. 2. Malignant left pelvic sidewall lymph node, previously noted. 3. Interval sigmoid colectomy with end colostomy. 4. Very subtle lateral segment left lobe liver lesion. 5. Left basilar pneumonia. 6. Remote right nephrectomy. Dictated by: Jairo Trent M.D. on 07/13/2024 at 9:48 ECG Data Attestation: I personally reviewed and interpreted this ECG as follows: Prior ECG tracings: available for review Interpretation: Normal sinus rhythm rate 90 PA interval 138 QRS [address] changes MDM Narrative Medical decision making narrative: MDM CC: Ostomy pain Complicating co-morbidities: Colovaginal fistula vaginal cancer lung cancer Medical records reviewed: Admission from March 2024 reviewed Differential considered: Obstruction, metastatic cancer pulmonary embolism Exam documented above, pertinent findings include: Alert week chronically ill 68-year-old female ostomy is tender but no significant swelling. Breath sounds are equal Lab Test results independently reviewed as above. Pertinent findings: WBC 6.4, lactate 0.9 CMP 133 potassium 3.5 chloride 100 bicarb 20 BUN 18 creatinine 0.8 Bilirubin liver enzymes within normal limits Troponin 0.018 with BNP 321 Independently reviewed EKG as above Sinus rhythm no ischemia Imaging studies independently reviewed: CT chest does not show any evidence of pulmonary embolism does show a left lower lobe spiculated mass concerning for malignancy also suggestive of pneumonia in the left lower lobe Questionable bony metastasis in the left humeral head CT abdomen no evidence obstruction persistent malignancy vaginal carcinoma malignant left pelvic sidewall lymph node. Also subtle liver lesion Consultations: Dr. Ross initially consulted in regards to admission. However both he and patient agree that another provider would be best. Dr. Stack kindly accepts patient Treatments: Rocephin azithromycin, IV Tylenol Patient was offered stronger narcotic pain medication however she adamantly declines does not tolerate narcotics well Re-evaluations: Patient pain improved after Tylenol Discussion: 68-year-old female with history of colovaginal fistula vaginal cancer lung cancer presenting to day with ostomy issue. She is found to be hypoxic and tachycardic at triage. Denies shortness of breath not normally on oxygen. She has not for pulmonary embolism she has an ongoing left lower lobe mass concerning for malignancy. She was awaiting biopsy to confirm type of cancer if it is metastasis versus 2nd primary. CT is suggestive of pneumonia however patient has no leukocytosis she has a normal lactate no evidence of severe sepsis. Blood cultures are pending. She was empirically treated for community-acquired pneumonia Rocephin and azithromycin. She reports that she has a slight cough but does not feel like it is too bad. She was mostly concerned about her ostomy however this seems to be resolved she continues to have stool and output. CT abdomen did not find cause for ostomy pain or problem. She was persistent vaginal carcinoma. She was undergoing radiation treatment. She reports she was supposed to be going daily for the next 6 weeks. She has not yet started chemotherapy waiting on lung biopsy. Discharge Plan Departure Patient Disposition: Admitted As Inpatient Clinical Impression: Pneumonia, Hypoxia, Mass of left lung Admit Date/Time: 07/13/24 12:04 Admit Provider: Giles Stack
--- NOTE | 2024-07-13 07:54 | DI.CT.S_ITS ---
PROCEDURE: CT ANGIO CHEST PE PROTOCOL INDICATIONS: hypoxic with lung cancer TECHNIQUE: After the administration of intravenous contrast, 2 mm thick sections acquired from the pulmonary apices to the posterior costophrenic angles. 3-dimensional maximum intensity projection (MIP) coronal and sagittal reformats were then acquired through the thorax. For radiation dose reduction, the following was used: automated exposure control, adjustment of mA and/or kV according to patient size. COMPARISON: [facility], CT, CT ABDOMEN PELVIS W CON, 07/13/2024, 8:39. [facility], CT, CT ABDOMEN PELVIS W CON, 04/02/2024, 15:24. [place], [place], PET NECK TO MID THIGH, 06/24/2024, 9:36. FINDINGS: Image quality: Diagnostic. Pulmonary arteries: Pulmonary arteries are normal in size, and demonstrate no intraluminal filling defects to suggest central pulmonary embolism. Lower Neck: No enlarged lymph nodes. Thyroid: There are bilateral thyroid nodules which are present on image 7 of series 3, measuring 2.3 cm on the right and 2.7 cm on the left. On the recent PET-CT, there is vague increased FDG activity in the thyroid beds. This is a nonspecific finding on PET-CT. Axillae: No enlarged lymph nodes. Chest Wall: Unremarkable. Bones: Question small subtle lesion in the lateral aspect of the left humeral head with peripheral sclerosis and low-density center, potentially a metastatic bony lesion. Lungs and Pleura: No pneumothorax or pleural effusions. Small spiculated lung mass, superior segment of left lower lobe, 1.0 cm, markedly FDG avid, likely a small spiculated primary bronchogenic carcinoma. Interval development of pneumonia and atelectasis in the basilar left lower lobe. Heart: Heart size is normal. No pericardial effusion. Thoracic Vessels: Mild aneurysmal dilatation of the ascending aorta, measuring 4.2 cm in diameter. Mediastinum and Kaye: No enlarged lymph nodes. Esophagus: No wall thickening. No hiatal hernia. Upper Abdomen: See separate report performed on the same day. IMPRESSION: 1. No pulmonary embolus. 2. 1.0 cm spiculated lesion in the superior segment of the left lower lobe is consistent with a probable primary bronchogenic carcinoma. 3. Pneumonia and atelectasis in the left lower lobe. 4. Question tiny subtle left humeral head bony metastatic lesion. 5. Bilateral thyroid nodules are greater than 2 cm each, with subtle increased FDG activity on PET-CT. Comment: Recommend further evaluation of the thyroid nodules on a nonemergent basis utilizing thyroid ultrasound. Dictated by: Jairo Trent M.D. on 07/13/2024 at 9:34 Approved by: Jairo Trent M.D. on 07/13/2024 at 9:48
--- NOTE | 2024-07-13 07:54 | DI.CT.S_ITS ---
PROCEDURE: CT ABDOMEN PELVIS W CON INDICATIONS: ostomy pain vaginal cancer TECHNIQUE: After the administration of intravenous contrast, axial sections acquired from the lung bases to the pubic symphysis. Coronal and sagittal reformats were performed. For radiation dose reduction, the following was used: automated exposure control, adjustment of mA and/or kV according to patient size. COMPARISON: [facility], [place], PET NECK TO MID THIGH, 06/24/2024, 9:36. [facility], CT, CT ABDOMEN PELVIS W CON, 04/02/2024, 15:24. FINDINGS: Image quality: Diagnostic. Lower Chest: Left basilar pneumonia and atelectasis. ABDOMEN: Liver: Subtle 9 mm lateral segment subcapsular left lobe liver lesion on image 37 of series 3, segment 2, is FDG avid, consistent with a metastatic lesion. Multiple other hypodensities are present in the liver without abnormal FDG activity on PET. Gallbladder: No radiopaque gallstones or wall thickening. Biliary ducts: No biliary dilation. Pancreas: No ductal dilation. Spleen: Size is within normal limits. Adrenal Glands: No adrenal nodules. Kidneys and Ureters: Right kidney is absent. Left kidney and ureter are unremarkable. Stomach and Bowel: Normal colonic caliber, without significant wall thickening. Sigmoid colectomy and left-sided and colostomy. Peritoneum: No abnormal intraperitoneal fluid. No free air. Ventral Wall: No significant ventral hernia. Abdominal Nodes: No retroperitoneal or mesenteric adenopathy by size criteria. Vessels: Aorta and inferior vena cava are normal in size. PELVIS: Pelvic Organs: Enhancement and abnormal thickening and infiltration of the surrounding tissue involving the vagina and vulva with fluid present in the cavity of the vagina, potentially partially representing central necrosis, consistent with vaginal carcinoma, locally invasive. Bladder: No bladder wall thickening, accounting for underdistention. Pelvic Nodes: There is a enhancing malignant enlarged left pelvic sidewall lymph node measuring 2.3 cm with associated marked increased activity on PET-CT. This was present at the time of sigmoid colectomy. Miscellaneous: No inguinal hernias are seen. Bones: No aggressive osseous abnormality. IMPRESSION: 1. There is extensive abnormal appearance of the vagina and vulva consistent with infiltrative locally advanced vaginal carcinoma. 2. Malignant left pelvic sidewall lymph node, previously noted. 3. Interval sigmoid colectomy with end colostomy. 4. Very subtle lateral segment left lobe liver lesion. 5. Left basilar pneumonia. 6. Remote right nephrectomy. Dictated by: Jairo Trent M.D. on 07/13/2024 at 9:48 Approved by: Jairo Trent M.D. on 07/13/2024 at 10:00
[2024-07-13] MEDS: ACETAMINOPHEN IV 1,000 MG/100 ML VIAL 400 MG IV ×2 (08:11→23:05)
[2024-07-13 08:12] LABS: Hematocrit 40.2 % (36-46); Hemoglobin 12.8 g/dL (12.0-16.0); Mean Corpuscular HGB Conc 31.8 % (30-36); Mean Corpuscular Hemoglobin 27.8 PG (26-34); Mean Corpuscular Volume 87.6 fL (80-100); Platelet Count 253 X10^3/uL (150-400); Red Blood Cell Count 4.59 X10^6/uL (4.0-5.2); Red Cell Distribution Width 18.4 % (11.6-14.8); White Blood Cell Count 6.4 X10^3/uL (4.5-11.0)
[2024-07-13 08:15] LABS: Add Manual Diff / Slide Review YES; Prothrombin Time 11.2 SECONDS (9.4-12.5)
--- NOTE | 2024-07-13 08:17 | EKG_ITS ---
[address] [address] Test Date: 2024-07-13 Pat Name: Emily Mckeon Department: [facility] Room: Gender: Female Emergency Response Officer: vanessa : 1955 Requested By: Order Number: [id number] Reading MD: Giles Stack Measurements Intervals [place] Rate: 90 P: 69 CA: 138 QRS: 39 QRSD: 86 T: 72 QT: 380 QTc: 464 Interpretive Statements Normal sinus rhythm Minimal voltage criteria for LVH, may be normal variant ( Sanjay product ) T wave abnormality, consider lateral ischemia Electronically Signed On 07-13-2024 13:28:53 PST by Giles Stack
[2024-07-13 08:18] LABS: PTT Partial Thromboplastin Tim 32 SECONDS (25.1-36.5)
[2024-07-13 08:19] LABS: Alanine Aminotransferase 14 IU/L (<35); Albumin 3.7 g/dL (3.5-5.0); Albumin Globulin Ratio 1.2 (1.0-2.8); Alkaline Phosphatase 96 U/L (38-126); Aspartate Aminotransferase 27 IU/L (14-36); Bilirubin Total 0.5 mg/dL (0.2-1.3); Blood Urea Nitrogen 18 mg/dL (7-17); Calcium 9.1 mg/dL (8.4-10.2); Carbon Dioxide 20 mmol/L (22-32); Chloride 100 mmol/L (98-107); Creatine Kinase 76 U/L (30-135); Estimated Glomerular Filt Rate > 60 mL/min (>60); Glucose 85 mg/dL (80-110); HEMOLYSIS < 15 (0-50); Lipase 51 U/L (23-300); Potassium 3.5 mmol/L (3.4-5.1); Sodium 133 mmol/L (137-145); Total Protein 6.7 g/dL (6.3-8.2)
[2024-07-13 08:28] LABS: Anisocytosis 1+; Neutrophils Absolute Manual 5760 /uL (3000-5900); Total Cells Counted 100
[2024-07-13 08:31] LABS: NT-proBNP (BNP-Adult 18+) 321 pg/mL (<125); Troponin I 0.018 ng/mL (0.01-0.034)
--- NOTE | 2024-07-13 10:14 | PC.NURSE ---
Pt returned from restroom at 83%, placed on oximask @ 6L. Physician aware. Current O2 91%.
[2024-07-13] MEDS: cefTRIAXone 1,000 MG in SODIUM CHLORIDE 0.9% 100 ML 200 MG IV (10:49)
[2024-07-13 11:07] LABS: Lactate (Lactic Acid) 0.9 mmol/L (0.7-2.1)
[2024-07-13] MEDS: AZITHROMYCIN 500 MG in DEXTROSE 5% IN WATER 250 ML 250 MG IV (11:36)
--- NOTE | 2024-07-13 13:04 | PM.HP.1 ---
History of Present Illness History of Present Illness Date Patient Seen: 07/13/24 Chief complaint: col stump came out Narrative: ED Course: Patient is a 68-year-old female with history of colovaginal fistula with ostomy vaginal cancer lung cancer presenting to day with ostomy pain. She reports that she woke up and went to change her bag but the ostomy was all the way out it has since receded but remains extremely painful. She was found to be hypoxic and tachycardic at triage. She denies any sort of shortness of breath or chest pain. She says the lung cancer has not been biopsied or treated. She is currently undergoing radiation therapy only for her vaginal cancer. She was in chronic pain only taking Tylenol has multiple side effects to opiate medication does not want any opiates. She was given IV antibiotics in the ED for hypoxemia and pneumonia on imaging. S: She came in for prolapse of her ostomy today. Upon arrival to the ER had reduced. She thinks maybe the seatbelt pushed it back in. She was no pain there but does have chronic pain from her vaginal cancer. She recently started therapy at [facility] in [place]. She had a ostomy back in March when she was initially made aware of her diagnosis of locally advanced vaginal cancer. She was hypoxemic in the ER, but denies rhinorrhea, cough, or a sensation of being short of breath. She denies recent fevers, or chills. She takes Tylenol at home for pain, but requests IV Tylenol here because it works better. She declines any opiates. 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 PVD (peripheral vascular disease) Gastrointestinal hemorrhage with melena Spinal stenosis Hallux valgus Heart murmur Osteoporosis Arthritis Hyperlipemia Hypertension Slipped cervical disc Pancreatitis Constipation Surgical History History of back surgery (12/22/23) History of bunionectomy of right great toe History of bunionectomy of left great toe Hx of bilateral cataract extraction Hx of laparoscopy H/O eye surgery Family History Mother Heart disease Brother Diabetes mellitus Skin cancer Grandmother Cancer Social History marital status: household members: spouse lives independently: Yes occupational status: employed Smoking Status: Former smoker alcohol intake: never substance use type: does not use Meds Home Medications and Allergies Home Medications Medication Instructions Recorded Confirmed Type aspirin 81 mg tablet,delayed 81 mg PO DAILY 09/12/23 05/17/24 History release acetaminophen 650 mg 1,300 mg PO PRN PRN Pain 10/23/23 05/17/24 History tablet,extended release cetirizine 10 mg tablet 10 mg PO DAILY 10/23/23 05/17/24 History clonidine 0.1 mg/24 hr weekly 1 patch transdermal QWEEK 10/23/23 05/17/24 History transdermal patch diclofenac sodium 1 % topical gel 2 g topical QID PRN Pain 10/23/23 05/17/24 History ferrous sulfate 324 mg (65 mg 324 mg PO BID 10/23/23 05/17/24 History iron) tablet,delayed release nifedipine 30 mg tablet,extended 30 mg PO DAILY 10/23/23 05/17/24 History release 24 hr omeprazole 20 mg tablet,delayed 20 mg PO DAILY 10/23/23 05/17/24 History release pravastatin 40 mg tablet 40 mg PO DAILY 10/23/23 05/17/24 History propylene glycol 0.6 % eye drops 1 drp EYE-BOTH DAILY PRN Dry Eye(S) 10/23/23 05/17/24 History (Systane Complete) oxycodone 5 mg tablet 2.5 mg (1/2 x 5 mg) PO Q6H PRN 04/08/24 05/17/24 Rx pain #10 tabs Allergies Allergy/AdvReac Type Severity Reaction Status Date / Time codeine AdvReac Severe Dizziness Verified 05/17/24 11:12 Review of Systems Review of Systems Narrative: All else reviewed and otherwise unremarkable except as noted in the history and physical. Exam Vital Signs (past 8 hours): - 07/13/24 06:55 07/13/24 07:30 07/13/24 07:39 Temperature 98.8 F Pulse Rate 108 H 99 H 92 H Respiratory Rate 18 20 Blood Pressure 155/78 H Pulse Oximetry 88 L 92 Oxygen Delivery Method Room Air Nasal Cannula Oxygen Flow Rate 2 07/13/24 07:52 07/13/24 07:52 07/13/24 08:00 Temperature Pulse Rate 94 H Respiratory Rate Blood Pressure 134/70 136/65 Pulse Oximetry 91 Oxygen Delivery Method Oxygen Flow Rate 07/13/24 08:00 07/13/24 08:30 07/13/24 08:30 Temperature Pulse Rate 91 H 85 Respiratory Rate Blood Pressure 128/63 Pulse Oximetry 93 93 Oxygen Delivery Method Oxygen Flow Rate 07/13/24 08:51 07/13/24 08:51 07/13/24 09:00 Temperature Pulse Rate 88 Respiratory Rate Blood Pressure 146/70 H 131/62 Pulse Oximetry 92 Oxygen Delivery Method Oxygen Flow Rate 07/13/24 09:00 07/13/24 09:51 07/13/24 09:56 Temperature Pulse Rate 86 85 Respiratory Rate Blood Pressure 134/67 Pulse Oximetry 93 83 L Oxygen Delivery Method Room Air Oxygen Flow Rate 07/13/24 09:56 07/13/24 10:00 07/13/24 10:00 Temperature Pulse Rate 94 H 92 H Respiratory Rate Blood Pressure 120/63 Pulse Oximetry 85 L 88 L Oxygen Delivery Method Oximask Oximask Oxygen Flow Rate 6 6 07/13/24 10:30 07/13/24 10:31 07/13/24 10:31 Temperature Pulse Rate 89 86 Respiratory Rate Blood Pressure 136/69 Pulse Oximetry 93 92 Oxygen Delivery Method Oxygen Flow Rate 07/13/24 11:00 07/13/24 11:00 07/13/24 11:11 Temperature Pulse Rate 84 Respiratory Rate Blood Pressure 130/69 Pulse Oximetry 94 95 Oxygen Delivery Method Nasal Cannula Oxygen Flow Rate 4 07/13/24 11:30 07/13/24 11:30 07/13/24 12:00 Temperature Pulse Rate 85 78 Respiratory Rate Blood Pressure 131/65 Pulse Oximetry 93 95 Oxygen Delivery Method Nasal Cannula Oxygen Flow Rate 4 07/13/24 12:00 Temperature Pulse Rate Respiratory Rate Blood Pressure 123/68 Pulse Oximetry Oxygen Delivery Method Oxygen Flow Rate Oxygen Delivery Method Nasal Cannula Oxygen Flow Rate 4 Narrative Exam Narrative: NAD, alert and oriented, fluent speech, calm. Normocephalic skull, EOMI, anicteric sclera, symmetric pupils. Oropharynx unremarkable, no droop. Neck supple, midline trachea, no adenopathy. Lungs clear, normal rate and effort. Heart regular, no murmur gallop or rub. Abdomen is soft, non distended and non tender. Extremities are free of edema. Skin is free of rash or lesions. Joints are not swollen or deformed. Judgment appears to be normal. Ostomy is unremarkable in appearance. Objective ECG Impression: Rate: 90 P: 69 [place]: 138 QRS: 39 QRSD: 86 T: 72 QT: 380 QTc: 464 Interpretive Statements Normal sinus rhythm Minimal voltage criteria for LVH, may be normal variant ( [place] product ) T wave abnormality, consider lateral ischemia Imaging CT scan - abdomen: Radiologist's impression: 1. There is extensive abnormal appearance of the vagina and vulva consistent with infiltrative locally advanced vaginal carcinoma. 2. Malignant left pelvic sidewall lymph node, previously noted. 3. Interval sigmoid colectomy with end colostomy. 4. Very subtle lateral segment left lobe liver lesion. 5. Left basilar pneumonia. 6. Remote right nephrectomy. CT scan - chest: Radiologist's impression: 1. No pulmonary embolus. 2. 1.0 cm spiculated lesion in the superior segment of the left lower lobe is consistent with a probable primary bronchogenic carcinoma. 3. Pneumonia and atelectasis in the left lower lobe. 4. Question tiny subtle left humeral head bony metastatic lesion. 5. Bilateral thyroid nodules are greater than 2 cm each, with subtle increased FDG activity on PET-CT. Comment: Recommend further evaluation of the thyroid nodules on a nonemergent basis utilizing thyroid ultrasound. Labs 07/13/24 07:55 07/13/24 07:55 Labs: Laboratory Results - last 24 hr 07/13/24 07/13/24 07:55 10:47 WBC 6.4 RBC 4.59 Hgb 12.8 Hct 40.2 MCV 87.6 MCH 27.8 MCHC 31.8 RDW 18.4 H Plt Count 253 Neut % (Auto) Not Reportable Lymph % (Auto) Not Reportable Emanuel % (Auto) Not Reportable Eos % (Auto) Not Reportable Baso % (Auto) Not Reportable Lymph # (Auto) Not Reportable Emanuel # (Auto) Not Reportable Baso # (Auto) Not Reportable Total Counted 100 Seg Neutrophils % 88.0 H Band Neutrophils % 2.0 L Lymphocytes % (Manual) 4.0 L Monocytes % (Manual) 6.0 Neutrophils # (Manual) 5760 RBC Morphology See below Anisocytosis 1+ H PT 11.2 INR 1.0 APTT 32 Sodium 133 L Potassium 3.5 Chloride 100 Carbon Dioxide 20 L BUN 18 H Creatinine 0.82 Estimated GFR > 60 BUN/Creatinine Ratio 22.0 Glucose 85 Lactate 0.9 Calcium 9.1 Total Bilirubin 0.5 AST 27 ALT 14 Alkaline Phosphatase 96 Total Creatine Kinase 76 Troponin I 0.018 NT-Pro-B Natriuret Pep 321 H Total Protein 6.7 Albumin 3.7 Globulin 3.0 Albumin/Globulin Ratio 1.2 Lipase 51 Assessment & Plan Assessment & Plan narrative: 1. Pneumonia, present on admission and active. 2. Acute hypoxic respiratory failure. Present on admission and active. 3. Advanced vaginal carcinoma . Present on admission and active. 4. Ostomy prolapse, resolved upon arrival. 5. Lung mass, present on admission and active. 6. Bony lesions, present on admission and active. Plan: -IV antibiotics, ceftriaxone and azithromycin for pneumonia. Blood cultures. -wean oxygen as able. -Tylenol IV for pain control with conversion to oral within the next 3-4 doses. -anticipate 2 midnights of care in the hospital for her pneumonia and hypoxemia. She was anxious to leave the hospital as soon as possible to resume her cancer treatments. She lives in [place]. She was full resuscitation. Time-Based Coding :: 35 min spent with patient and on the chart (including review of chart, obtaining history, exam, reviewing outside data, placing orders, documenting exam and treatment plan, and counseling patient) on 07/13. Quality MIPS - Admit I confirm the patient?s Advance Care Plan is present, Code status is documented, Surrogate decision maker is in patient?s record [If Yes, STOP here]: Yes MIPS - Meds 'Current medications' to include all prescriptions, [id number] products, herbals, cannabis/cannabidiol products, and vitamin/mineral/dietary (nutritional) supplements. I have utilized all available resources to obtain, update, or review the patient?s current medications. [If Yes, STOP here]: Yes
[2024-07-13] MEDS: HEPARIN 5,000 UNIT/ML VIAL 5000 UNIT SUBCUT ×2 (16:56→21:11)
[2024-07-13] MEDS: IBUPROFEN 400 MG TABLET PO (18:19)
[2024-07-13] MEDS: SODIUM CHLORIDE 0.9% FLUSH 10 ML IV ×3 (21:11→23:20)
--- NOTE | 2024-07-13 23:09 | PC.NURSE ---
Pain level 7, but declined any narcotic. Requested Tylenol IV administered & infusing. Will monitor & continue plan of care.
[2024-07-14] MEDS: OXYCODONE IR 5 MG TABLET 2.5 MG PO ×3 (05:38→19:53)
[2024-07-14 06:47] LABS: Add Manual Diff / Slide Review NO; Basophils Absolute Auto 0 /uL (0-100); Basophils Percent Auto 0.2 % (0-2); Eosinophils Absolute Auto 100 /uL (0-450); Eosinophils Percent Auto 1.3 % (2-4); Hematocrit 38.8 % (36-46); Hemoglobin 12.5 g/dL (12.0-16.0); Lymphocytes Absolute Auto 300 /uL (1100-4500); Lymphocytes Percent Auto 4.9 % (25-40); Mean Corpuscular HGB Conc 32.2 % (30-36); Mean Corpuscular Volume 87.1 fL (80-100); Monocytes Absolute Auto 400 /uL (0-900); Monocytes Percent Auto 5.5 % (3-14); Neutrophils Absolute Auto 5800 /uL (1500-7000); Neutrophils Percent Auto 88.1 % (50-75); Platelet Count 279 X10^3/uL (150-400); Red Blood Cell Count 4.45 X10^6/uL (4.0-5.2); Red Cell Distribution Width 18.3 % (11.6-14.8); White Blood Cell Count 6.6 X10^3/uL (4.5-11.0)
[2024-07-14 06:57] LABS: BUN Creatinine Ratio 17.7 (6-22); Blood Urea Nitrogen 11 mg/dL (7-17); Calcium 8.7 mg/dL (8.4-10.2); Carbon Dioxide 21 mmol/L (22-32); Chloride 102 mmol/L (98-107); Estimated Glomerular Filt Rate > 60 mL/min (>60); Glucose 86 mg/dL (80-110); HEMOLYSIS 135 (0-50); Sodium 134 mmol/L (137-145)
[2024-07-14 07:00] VITALS: BP 142/90; PULSE 89; RESP 16; TEMP 36.2; O2SAT 96
[2024-07-14] MEDS: ACETAMINOPHEN IV 1,000 MG/100 ML VIAL 400 MG IV (08:49)
[2024-07-14] MEDS: SODIUM CHLORIDE 0.9% FLUSH 10 ML IV ×2 (08:49→19:53)
[2024-07-14] MEDS: HEPARIN 5,000 UNIT/ML VIAL 5000 UNIT SUBCUT ×2 (08:49→19:56)
--- NOTE | 2024-07-14 08:53 | CM.DANOTE ---
Initial DCP Assessment Visit Note Reviewed EMR and spoke directly with patient regarding patient's medical status and updates. Met with patient at bedside to introduce self and role. Patient was alert and oriented. Patient lives at home with spouse and has been independent with ADLs prior to this hospitalization. Patient has a walker and cane at home that she does not normally use. Plan will be to discharge home with spouse. Patient is open to working with home health if that turns out to be needed after hospitalization. as of this morning patient said she doubts she would need any help from a caregiver. Payor: Medicare PCP: Dr Reilly Ross Patient is a 68 year old femal who came to the ER on 07/13/24 for ostomy pain. Patient has known vaginal and lung cancer. Ostomy concern self resolved on the way to the ER. CT at the ER showed a lung mass, pneumonia, possible humeral head metastases, a liver lesion, and bilateral thyroiid nodules. Patient is on IV antibiotics currently. Patient is hopeful to return home with her spouse after hospitalization. Patient's spouse will help with transportation at discharge. If neede dpatient is open to working with in home caregivers. As of today se felt that was not needed. DCP will continue to monitor for needs related to discharge home. Discharge Planning/Care Management CM Discharge Assessment Start: 07/14/24 08:47 Freq: Status: Active Protocol: Document 07/14/24 08:47 GABBY (Rec: 07/14/24 08:53 GABBY [id number]) Discharge Planning Assessment Assigned Buckle Strap Puncher Duong Hinds RN DPOA/Assigned Designee Name Elias Mckeon Contact Information [phone] Advance Directives? Yes Advance Directives on File Yes History Provided By Patient,Medical Record Expected Length of Stay 2 Has Patient been admitted in last 30 No days? Prior Living Arrangements House Household Members spouse Comment Patient lives in her own home with her spouse and dog. Type of transporation used prior to Drives own vehicle admit Comment Patient self transports and spouse is able to help with transportation as well. Independent with ADL's Yes Is patient alert and oriented? Yes Comment Patient said she has not needed any caregivers up until this hospitalization. she said she is open to working with caregivers at home if needed after this hospitalization. Caregiver for Another No Comment None. DME Already Rented / Owned FWW / Walker,Cane Comment Patient said she has a walker and a cane at home if she needs them but they are not items that she has been using up until now. Patient/Family Preference Home with Home Health Comment Unclear if home health will be needed at this time but patient is open to it if needed. Barriers to Discharge No Discharge Plan Home Transportation Arrangement Spouse Referrals Initiated None needed Additional Comment May need home health referral when plan of care is known more clearly. Inpatient Status as of 07/13/24 Whiteboard Updated in Patient Room with Yes name and ext. # of Buckle Strap Puncher Review Status In Process Please Provide Date Initial DC 07/14/24 Assessment Was Performed
[2024-07-14 09:07] VITALS: O2SAT 96
[2024-07-14] MEDS: cefTRIAXone 1,000 MG in SODIUM CHLORIDE 0.9% 100 ML 200 MG IV (09:30)
[2024-07-14] MEDS: AZITHROMYCIN 500 MG in DEXTROSE 5% IN WATER 250 ML 250 MG IV (10:20)
[2024-07-14] MEDS: LORazepam 2 MG/ML INJ 0.5 MG IV (17:54)
[2024-07-14] MEDS: CALCIUM CARBONATE 500 MG TAB 1000 MG PO ×2 (17:54→22:53)
--- NOTE | 2024-07-14 18:41 | P.PN_ITS ---
Subjective Subjective Interval history: Patient is a 68-year-old female with history of colovaginal fistula with ostomy vaginal cancer lung cancer presented initially with ostomy pain. She reports that she woke up and went to change her bag but the ostomy was all the way out it has since receded but remains extremely painful. She was found to be hypoxic and tachycardic at triage. Interval history: having more abdominal pain today, it is not entirely clear if this is cancer related, possible constipation, or muscloskeletal in nature at his time. improved breathing today with regards to hypoxia. Patient is still under care of [facility], but sees Dr. Horn, previously Vandana and discussed with PCP today who feels therapeutic relationship is impaired. Given her current provider does not come into the hospital recommended continued management with hospitalists. Exam Vital Signs (past 8 hours): Oxygen Delivery Method Nasal Cannula Oxygen Flow Rate 3 Narrative Exam Narrative: NAD, alert and oriented, fluent speech, calm. Normocephalic skull, EOMI, anicteric sclera, symmetric pupils. Oropharynx unremarkable, no droop. Neck supple, midline trachea, no adenopathy. Lungs clear, normal rate and effort. Heart regular, no murmur gallop or rub. Abdomen is soft, non distended and non tender. Objective Labs 07/14/24 06:05 07/14/24 06:05 Labs: Laboratory Results - last 24 hr 07/13/24 07/14/24 07:55 06:05 WBC 6.6 RBC 4.45 Hgb 12.5 Hct 38.8 MCV 87.1 MCH 28.0 MCHC 32.2 RDW 18.3 H Plt Count 279 Neut % (Auto) 88.1 H Lymph % (Auto) 4.9 L [place] % (Auto) 5.5 Eos % (Auto) 1.3 L Baso % (Auto) 0.2 Neut # (Auto) 5800 Lymph # (Auto) 300 L [place] # (Auto) 400 Eos # (Auto) 100 Baso # (Auto) 0 Percent Retic Cancelled Sodium 134 L Potassium 4.0 Chloride 102 Carbon Dioxide 21 L BUN 11 Creatinine 0.62 Estimated GFR > 60 BUN/Creatinine Ratio 17.7 Glucose 86 Calcium 8.7 Iron Cancelled TIBC Cancelled % Saturation Cancelled Transferrin Cancelled Ferritin Cancelled Vitamin B12 Cancelled Folate Cancelled [facility] Medical History Adenocarcinoma of sigmoid colon Occipital stroke (~2017) Easy bruisability 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 PVD (peripheral vascular disease) Gastrointestinal hemorrhage with melena Spinal stenosis Hallux valgus Heart murmur Osteoporosis Arthritis Hyperlipemia Hypertension Slipped cervical disc Pancreatitis Constipation Surgical History History of back surgery (12/22/23) History of bunionectomy of right great toe History of bunionectomy of left great toe Hx of bilateral cataract extraction Hx of laparoscopy H/O eye surgery Family History Mother Heart disease Brother Diabetes mellitus Skin cancer Grandmother Cancer Social History marital status: household members: spouse lives independently: Yes occupational status: employed Smoking Status: Former smoker alcohol intake: never substance use type: does not use Assessment & Plan Assessment & Plan narrative: 1. Pneumonia, present on admission and active. 2. Acute hypoxic respiratory failure. Present on admission and active. 3. Advanced vaginal carcinoma . Present on admission and active. 4. Ostomy prolapse, resolved upon arrival. 5. Lung mass, present on admission and active. 6. Bony lesions, present on admission and active. Plan: -IV antibiotics, ceftriaxone and azithromycin for pneumonia. Blood cultures pending -wean oxygen as able, goal O2 90-96%. Now on 3L. -anticipate 2 midnights of care in the hospital for her pneumonia and hypoxemia. -continue to work on acute on chronic pain control, patient refusing any more than 2.5 mg of oxycodone. She was anxious to leave the hospital as soon as possible to resume her cancer treatments. Will try to get her off O2 prior to discharge. She lives in [place]. She was full resuscitation. Time-Based Coding :: [TOTAL MINUTES] spent with patient and on the chart (including review of chart, obtaining history, exam, reviewing outside data, placing orders, documenting exam and treatment plan, and counseling patient) on [DATE].
[2024-07-14 20:00] VITALS: BP 168/93; PULSE 99; RESP 18; TEMP 37.3; O2SAT 92
[2024-07-15] MEDS: OXYCODONE IR 5 MG TABLET 2.5 MG PO ×6 (00:27→17:20)
[2024-07-15] MEDS: BENZOCAINE/MENTHOL 1 LOZ PKT 1 EACH PO ×2 (00:29→19:53)
[2024-07-15] MEDS: CALCIUM CARBONATE 500 MG TAB 1000 MG PO ×3 (03:03→19:52)
--- NOTE | 2024-07-15 03:08 | PC.NURSE ---
Patient is alert and oriented. Very weepy and anxious. States I feel like shit, and I just want it to be over. Discussed cancer treatment vs hospice but patient states she needs to continue treatments but just wants to feel better. Breath sounds diminished and is on oxygen at 1L/min per NC with sat of 92%. Noted moist/loose sounding cough which she reports is productive but she states she swallows it rather than spitting it out. Complains also of sore throat from coughing so obtained order for Cepacol lozenge which has provided her with some relief. HRR and has elevated BP of 168/93. Denies nausea but complains of stomach upset and has been medicated with Tums x 2 so far this shift. BT hypoactive. Has colostomy on left abdomen which has green/brown stool in bag. Refuses any assistance to get in/out of bed due to having painful perineum so goes very slowly when getting up to use BSC. When voiding she pees standing up as states it is too painful to sit down. Denied any dysuria with urination. Perineum is reddened and swollen and she endorses pain/tenderness with even light touch. Declines higher dose of oxycodone stating she starts hallucinating with higher dose so Dr. Wells contacted and increased frequency of the 2.5mg from q6h to q3h as needed and after she received 2nd dose she slept for approx 3 hours and was less emotionally labile once awake. Educated as to when she can have the next doses of oxycodone and Cepacol and patient expressed her appreciation. She is able to turn herself in bed. Refuses use of SCD's. Fall risk score is moderate but has been calling appropriately for assistance so alarm is not in use at this time.
[2024-07-15 05:32] LABS: Add Manual Diff / Slide Review NO; Basophils Absolute Auto 0 /uL (0-100); Basophils Percent Auto 0.3 % (0-2); Eosinophils Absolute Auto 100 /uL (0-450); Eosinophils Percent Auto 0.8 % (2-4); Hematocrit 38.5 % (36-46); Hemoglobin 12.4 g/dL (12.0-16.0); Lymphocytes Absolute Auto 500 /uL (1100-4500); Lymphocytes Percent Auto 5.9 % (25-40); Mean Corpuscular HGB Conc 32.2 % (30-36); Mean Corpuscular Hemoglobin 27.9 PG (26-34); Mean Corpuscular Volume 86.6 fL (80-100); Monocytes Absolute Auto 500 /uL (0-900); Monocytes Percent Auto 5.9 % (3-14); Neutrophils Absolute Auto 7000 /uL (1500-7000); Neutrophils Percent Auto 87.1 % (50-75); Platelet Count 312 X10^3/uL (150-400); Red Blood Cell Count 4.45 X10^6/uL (4.0-5.2); Red Cell Distribution Width 18.1 % (11.6-14.8); White Blood Cell Count 8.1 X10^3/uL (4.5-11.0)
[2024-07-15 05:43] LABS: BUN Creatinine Ratio 12.9 (6-22); Blood Urea Nitrogen 9 mg/dL (7-17); Calcium 9.6 mg/dL (8.4-10.2); Carbon Dioxide 23 mmol/L (22-32); Chloride 100 mmol/L (98-107); Estimated Glomerular Filt Rate > 60 mL/min (>60); Glucose 106 mg/dL (80-110); HEMOLYSIS < 15 (0-50); Potassium 2.9 mmol/L (3.4-5.1); Sodium 133 mmol/L (137-145)
[2024-07-15] MEDS: PANTOPRAZOLE DR 20 MG TABLET PO (06:19)
[2024-07-15] MEDS: NIFEdipine 30 MG TAB ER PO (06:19)
[2024-07-15 07:05] VITALS: O2SAT 93
[2024-07-15 09:10] VITALS: BP 145/86; PULSE 88; RESP 16; TEMP 36.2; O2SAT 93
[2024-07-15] MEDS: FERROUS SULFATE 325 MG TABLET PO ×2 (09:23→22:15)
[2024-07-15] MEDS: ASPIRIN EC 81 MG TABLET PO (09:23)
[2024-07-15] MEDS: LORATADINE 10 MG TABLET PO (09:24)
[2024-07-15] MEDS: HEPARIN 5,000 UNIT/ML VIAL 5000 UNIT SUBCUT ×2 (09:26→22:15)
[2024-07-15] MEDS: SODIUM CHLORIDE 0.9% FLUSH 10 ML IV ×2 (09:30→22:18)
[2024-07-15] MEDS: GABAPENTIN 300 MG CAPSULE PO (09:55)
[2024-07-15] MEDS: cefTRIAXone 1,000 MG in SODIUM CHLORIDE 0.9% 100 ML 200 MG IV (09:56)
--- NOTE | 2024-07-15 10:52 | DIET.CONS ---
Dietary Consultation Note Admission Date: 07/13/2024 12:04 Assessment: 68 y F initially presenting with ostomy prolapse that was resolved and admitted for pneumonia, resp failure. Dietitian consulted for wt loss and decreased appetite. PMH of advanced vaginal carcinoma. Currently undergoing radiation therapy. Recent admission in Nov that lead to diagnosis of advanced vaginal cancer. Had ostomy placed after sigmoid colectomy. Met with pt at bedside who reports significant decrease in appetite. Trying to do multiple meals at home, but reports that when she's not hungry she only takes a few bites and unable to make self eat more. Doesn't like Ensure, protein smoothies, milk, or yogurts. Tolerates nut butter and meats/poultry well. Likes vanilla ice cream. Confirms she has had significant weight loss recently. 108-112 lb is usual body weight in past year. Now 90 lb. Ht: 154.94 cm Wt: 41 kg BMI: 17.0 UBW: 50.349 kg on 03/31/24 (-18.5% weight loss within 4 months, severe) Last BM: 07/14/24 (07/14/24 04:37) MNA: 9 Samson Score: 17 Diet: 07/13/24 Lunch General (Regular) Diet Diet Modifications: Nutrition Percent Meal Consumed 50% 07/15/24 09:50 Percent Meal Consumed 0% 07/14/24 18:00 Percent Meal Consumed 50% 07/14/24 11:39 Percent Meal Consumed 25% 07/13/24 18:00 Labs: RBC 4.45 X10^6/uL (4.0-5.2) 07/15/24 04:50 Hgb 12.4 g/dL (12.0-16.0) 07/15/24 04:50 Hct 38.5 % (36-46) 07/15/24 04:50 Creatinine 0.70 mg/dL (0.52-1.04) 07/15/24 04:50 Lactate 0.9 mmol/L (0.7-2.1) 07/13/24 10:47 Iron Cancelled 07/13/24 07:55 % Saturation Cancelled 07/13/24 07:55 Ferritin Cancelled 07/13/24 07:55 NT-Pro-B Natriuret Pep 321 pg/mL (<125) H 07/13/24 07:55 Nutrition Diagnosis: Severe acute Protein Calorie Malnutrition r/t increased calorie-protein needs (radiation therapy) and decreased calorie-protein intakes as evidenced by advanced vaginal carcinoma currently receiving radiation therapy, -18.5% weight loss within 4 months (severe), <50% of estimated energy needs for 1 month (severe), BMI underweight for age (17.1) Interventions: -Provided educ and packet on increasing kcals and protein intake -Brainstormed tolerated options available here and at home home to increasing kcal/protein intake - i.e. small freq meals, adding oils/additional meat or nut butters to sandwiches or between meals, caloric-protein drinks -Denies wanting ONS, protein smoothie, additional protein supplementation options available here with meals. Discussed other options here - snacks between meals/before bed available at nursing station, adding additional calories to meals, focusing on protein sources EER: 1450 kcals (35 kcals/kg) 65-70 g protein (1.5-1.7 g/kg per carcinoma/PCM) Monitoring/Evaluations: PO intakes Electronically Signed by: Latoya Pradhan 07/15/24 10:52 Clinical Dietitian [address] [id number]
[2024-07-15] MEDS: AZITHROMYCIN 500 MG in DEXTROSE 5% IN WATER 250 ML 250 MG IV (10:59)
[2024-07-15] MEDS: POTASSIUM CHLORIDE 10 MEQ TAB 30 MEQ PO ×2 (12:16→17:20)
--- NOTE | 2024-07-15 18:16 | PM.PN.1 ---
Subjective Subjective Interval history: Patient is a 68-year-old female with history of colovaginal fistula with ostomy vaginal cancer lung cancer presented initially with ostomy pain. She reports that she woke up and went to change her bag but the ostomy was all the way out it has since receded but remains extremely painful. She was found to be hypoxic and tachycardic at triage. Interval history: Abdominal pain more controlled today, tolerable. was down to 1L of O2 this morning, by the end of the day off O2 at rest. Exam Vital Signs (past 8 hours): Oxygen Delivery Method Nasal Cannula Oxygen Flow Rate 1 Narrative Exam Narrative: NAD, alert and oriented, fluent speech, calm. Normocephalic skull, EOMI, anicteric sclera, symmetric pupils. Oropharynx unremarkable, no droop. Neck supple, midline trachea, no adenopathy. Lungs clear, normal rate and effort. Heart regular, no murmur gallop or rub. Abdomen is soft, non distended and non tender. Objective Labs 07/15/24 04:50 07/15/24 04:50 Labs: Laboratory Results - last 24 hr 07/15/24 04:50 WBC 8.1 RBC 4.45 Hgb 12.4 Hct 38.5 MCV 86.6 MCH 27.9 MCHC 32.2 RDW 18.1 H Plt Count 312 Neut % (Auto) 87.1 H Lymph % (Auto) 5.9 L [place] % (Auto) 5.9 Eos % (Auto) 0.8 L Baso % (Auto) 0.3 Neut # (Auto) 7000 Lymph # (Auto) 500 L [place] # (Auto) 500 Eos # (Auto) 100 Baso # (Auto) 0 Sodium 133 L Potassium 2.9 L Chloride 100 Carbon Dioxide 23 BUN 9 Creatinine 0.70 Estimated GFR > 60 BUN/Creatinine Ratio 12.9 Glucose 106 Calcium 9.6 PFSH Medical History Adenocarcinoma of sigmoid colon Occipital stroke (~2017) Easy bruisability 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 PVD (peripheral vascular disease) Gastrointestinal hemorrhage with melena Spinal stenosis Hallux valgus Heart murmur Osteoporosis Arthritis Hyperlipemia Hypertension Slipped cervical disc Pancreatitis Constipation Surgical History History of back surgery (12/22/23) History of bunionectomy of right great toe History of bunionectomy of left great toe Hx of bilateral cataract extraction Hx of laparoscopy H/O eye surgery Family History Mother Heart disease Brother Diabetes mellitus Skin cancer Grandmother Cancer Social History marital status: household members: spouse lives independently: Yes occupational status: employed Smoking Status: Former smoker alcohol intake: never substance use type: does not use Assessment & Plan Assessment & Plan narrative: 1. Pneumonia, present on admission and active. 2. Acute hypoxic respiratory failure. Present on admission and active. 3. Advanced vaginal carcinoma . Present on admission and active. 4. Ostomy prolapse, resolved upon arrival. 5. Lung mass, present on admission and active. 6. Bony lesions, present on admission and active. Plan: -IV antibiotics, ceftriaxone and azithromycin for pneumonia. Blood cultures no growth. -wean oxygen as able, goal O2 90-96%. Now off this evening! -continue to work on acute on chronic pain control, patient refusing any more than 2.5 mg of oxycodone. She was anxious to leave the hospital as soon as possible to resume her cancer treatments. If no return of hypoxia tomorrow can discharge home. She lives in [place]. She was full resuscitation. Time-Based Coding :: [TOTAL MINUTES] spent with patient and on the chart (including review of chart, obtaining history, exam, reviewing outside data, placing orders, documenting exam and treatment plan, and counseling patient) on [DATE].
--- NOTE | 2024-07-15 18:42 | PC.NURSE ---
Day shift: Patient's oxygen continues to decline when not on supplemental oxygen, down to 85 percent on room air. Up to 92 percent on 1.5L NC. Instructed and educated patient on use of incentive spirometer - patient able to return demonstrate. Patient continues to have extreme pain in groin/vagina with significant brown/buck discharge. Patient declines any more than 2.5mg oxycodone. Patient reports mild pain on coccyx - red area that is blanchable and not open. Educated patient on importance of turning while in bed and mobilization to keep pressure off of the coccyx. Will continue to monitor.
[2024-07-15] MEDS: OXYCODONE IR 5 MG TABLET PO ×2 (19:52→23:30)
[2024-07-15 20:15] VITALS: BP 121/73; PULSE 86; RESP 16; TEMP 37.2; O2SAT 93
[2024-07-15 22:15] LABS: HEMOLYSIS < 15 (0-50); Magnesium 1.7 mg/dL (1.6-2.3); Potassium 3.9 mmol/L (3.4-5.1)
[2024-07-15] MEDS: PRAVASTATIN 20 MG TABLET 40 MG PO (22:15)
[2024-07-16] MEDS: OXYCODONE IR 5 MG TABLET PO ×4 (02:09→11:51)
[2024-07-16] MEDS: ACETAMINOPHEN 325 MG TABLET 650 MG PO (02:09)
[2024-07-16] MEDS: BENZOCAINE/MENTHOL 1 LOZ PKT 1 EACH PO ×3 (02:10→11:51)
[2024-07-16] MEDS: CALCIUM CARBONATE 500 MG TAB 1000 MG PO ×3 (02:11→11:51)
[2024-07-16] MEDS: PANTOPRAZOLE DR 20 MG TABLET PO (06:35)
[2024-07-16] MEDS: NIFEdipine 30 MG TAB ER PO (06:35)
[2024-07-16] MEDS: FERROUS SULFATE 325 MG TABLET PO (09:17)
[2024-07-16] MEDS: LORATADINE 10 MG TABLET PO (09:17)
[2024-07-16] MEDS: GABAPENTIN 300 MG CAPSULE PO (09:17)
[2024-07-16] MEDS: ASPIRIN EC 81 MG TABLET PO (09:17)
[2024-07-16] MEDS: SODIUM CHLORIDE 0.9% FLUSH 10 ML IV (09:18)
[2024-07-16] MEDS: HEPARIN 5,000 UNIT/ML VIAL 5000 UNIT SUBCUT (09:18)
[2024-07-16] MEDS: cefTRIAXone 1,000 MG in SODIUM CHLORIDE 0.9% 100 ML 200 MG IV (09:19)
[2024-07-16 10:20] VITALS: O2SAT 91
[2024-07-16 10:21] VITALS: BP 134/80; PULSE 75; RESP 18; TEMP 36.1; O2SAT 90
[2024-07-16] MEDS: AMOXICILLIN/CLAV 875/125 MG 1 TAB PO (11:50)
--- NOTE | 2024-07-16 14:19 | P.DS_ITS ---
History of Present Illness History of Present Illness Date Patient Seen: 07/16/24 Chief complaint: col stump came out Narrative: Per admitting provider, ED Course: Patient is a 68-year-old female with history of colovaginal fistula with ostomy vaginal cancer lung cancer presenting to day with ostomy pain. She reports that she woke up and went to change her bag but the ostomy was all the way out it has since receded but remains extremely painful. She was found to be hypoxic and tachycardic at triage. She denies any sort of shortness of breath or chest pain. She says the lung cancer has not been biopsied or treated. She is currently undergoing radiation therapy only for her vaginal cancer. She was in chronic pain only taking Tylenol has multiple side effects to opiate medication does not want any opiates. She was given IV antibiotics in the ED for hypoxemia and pneumonia on imaging. S: She came in for prolapse of her ostomy today. Upon arrival to the ER had reduced. She thinks maybe the seatbelt pushed it back in. She was no pain there but does have chronic pain from her vaginal cancer. She recently started therapy at [facility] in [place]. She had a ostomy back in March when she was initially made aware of her diagnosis of locally advanced vaginal cancer. She was hypoxemic in the ER, but denies rhinorrhea, cough, or a sensation of being short of breath. She denies recent fevers, or chills. She takes Tylenol at home for pain, but requests IV Tylenol here because it works better. She declines any opiates. Discharge Providers Provider Date of admission: 07/13/24 12:04 Discharge Date: 07/16/24 Primary care physician: Reilly Ross MD Consults: 07/13/24 14:18 Consult to Dietitian, Adult Routine Comment: Reason For Exam: weight lose and decreased apptetite. Discharge provider: Zelalem Hinojosa DO Summary Hospital Course Discharge Diagnosis: 1. Pneumonia, present on admission and active. 2. Acute hypoxic respiratory failure. Present on admission and active. 3. Advanced vaginal carcinoma . Present on admission and active. 4. Ostomy prolapse, resolved upon arrival. 5. Lung mass, present on admission and active. 6. Bony lesions, present on admission and active. 7. history of prior hypoxic respiratory failure Hospital Course: This is a 68 year old female with vaginal carcinoma, who initially presented with a prolapse of her ostomy which resolved. She was noted to be hypoxic in the ER, admitted after imaging showed possible pneumonia. She did have a slight improvement in hypoxia with antibiotics, and she felt symptomatically improved. On the day of discharge, she was still requiring 2 L of home O2. She reports previously needing home oxygen before. Home oxygen was ordered and the patient was discharged home. She was continued on another 3 days of oral antibiotics on discharge for completion of treatment for possible pneumonia. Imaging also showed possible lung mass, she plans to follow up with her oncologist for ongoing treatments in the near future. Time Spent with Patient Time spent: Greater than 30 minutes Exam Vital Signs (past 8 hours): - 07/16/24 10:20 07/16/24 10:21 Temperature 97.0 F L Pulse Rate 75 Respiratory Rate 18 Blood Pressure 134/80 Pulse Oximetry 91 90 L Oxygen Flow Rate 0 0 Oxygen Delivery Method Nasal Cannula Oxygen Flow Rate 0 Narrative Exam Narrative: NAD, alert and oriented, fluent speech, calm. Normocephalic skull, EOMI, anicteric sclera, symmetric pupils. Oropharynx unremarkable, no droop. Neck supple, midline trachea, no adenopathy. Lungs clear, normal rate and effort. Heart regular, no murmur gallop or rub. Abdomen is soft, non distended and non tender. Objective Labs 07/15/24 04:50 07/15/24 21:59 Labs: Laboratory Results - last 24 hr 07/15/24 21:59 Potassium 3.9 Magnesium 1.7 PFSH Medical History Adenocarcinoma of sigmoid colon Occipital stroke (~2017) Easy bruisability 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 PVD (peripheral vascular disease) Gastrointestinal hemorrhage with melena Spinal stenosis Hallux valgus Heart murmur Osteoporosis Arthritis Hyperlipemia Hypertension Slipped cervical disc Pancreatitis Constipation Surgical History History of back surgery (12/22/23) History of bunionectomy of right great toe History of bunionectomy of left great toe Hx of bilateral cataract extraction Hx of laparoscopy H/O eye surgery Family History Mother Heart disease Brother Diabetes mellitus Skin cancer Grandmother Cancer Social History marital status: household members: spouse lives independently: Yes occupational status: employed Smoking Status: Former smoker alcohol intake: never substance use type: does not use Discharge Plan Discharge Plan Patient Disposition: Home Provider Discharge Comment: You were admitted to the hospital with low oxygen and possible pneumonia. Unable to wean from supplemental therapy at this time, continue O2 with goal 90-96% while on therapy. [facility] after discharge, ideally next week to review hospitalization. Discharge orders & Medications Prescriptions: New amoxicillin-pot clavulanate 875-125 mg Tablet 1 tab PO BID 3 Days Qty: 6 0RF Continued oxycodone 5 mg tablet 2.5 mg PO Q6H PRN (Reason: pain) Qty: 10 0RF Rx Instructions: Take 1/2 tab every 6 hours as needed for pain aspirin 81 mg tablet,delayed release (DR/EC) 81 mg PO DAILY clonidine 0.1 mg/24 hr Patch Weekly 1 patch TRANSDERMAL QWEEK Patient Comments: placed on anterior L chest pravastatin 40 mg Tablet 40 mg PO DAILY acetaminophen 650 mg Tablet Extended Release 1,300 mg PO PRN PRN (Reason: Pain) nifedipine 30 mg Tablet Extended Release 24hr 30 mg PO DAILY cetirizine 10 mg Tablet 10 mg PO DAILY ferrous sulfate 324 mg (65 mg iron) Tablet,Delayed Release (Dr/Ec) 324 mg PO BID diclofenac sodium 1 % Gel 2 g TOPICAL QID PRN (Reason: Pain) omeprazole 20 mg Tablet,Delayed Release (Dr/Ec) 20 mg PO DAILY Systane Complete 0.6 % Drops 1 drp EYE-BOTH DAILY PRN (Reason: Dry Eye(S)) gabapentin [Neurontin] 300 mg capsule 300 mg PO 1XD Follow up/Referrals: Reilly Ross MD [Primary Care Provider] - 1 Week Diet/Activity/Treatments Diet: Diet as Tolerated and Regular Activity: As tolerated, no restrictions Visit Report/Discharge Packet Instructions: DI for Heart Failure Stand Alone Forms: Congestive Heart Failure, Patient Portal/API, Stroke Signs & Symptoms Discharge Data Primary Care Provider: Reilly Ross
--- NOTE | 2024-07-16 14:36 | CM.DPNOTE ---
DCP Continued: Reviewed EMR and team rounds for pt?s medical status. Per hospitalist, pt discharge dependent on if she can tolerate being off of O2 and/or after a home O2 evaluation. No discharge needs identified at this time. Plan: Anticipating dc home with spouse to transport when medically stable, discharge orders are in on 07.16.24. CM Team will continue to follow for coordination of discharge plans. SUSHIL Braswell
--- NOTE | 2024-07-16 17:14 | PC.NURSE ---
Discharge: Pt left hospital via WC to private vehicle with spouse. Pt took all belongings, IV removed, education done, pt stable and A&Ox4.
== END 2024-07-16 17:15 | disposition home or self-care (01) | DRG 193 ==
LOC: ED 11:32 → AC 12:05
PROVIDERS: Admitting Provider Hospitalist; Emergency Provider Emergency Medicine; PCP Family Medicine; Referring Provider Emergency Medicine; Visit Provider Hospitalist
DX: J18.9 Pneumonia, unspecified organism (principal); J96.01 Acute respiratory failure with hypoxia; K94.09 Other complications of colostomy; C52 Malignant neoplasm of vagina; R00.0 Tachycardia, unspecified; R91.8 Other nonspecific abnormal finding of lung field; M89.9 Disorder of bone, unspecified; G89.3 Neoplasm related pain (acute) (chronic); E78.5 Hyperlipidemia, unspecified; I10 Essential (primary) hypertension; Z87.891 Personal history of nicotine dependence; Z85.038 Personal history of other malignant neoplasm of large intestine; Z87.19 Personal history of other diseases of the digestive system
CPT/HCPCS: 36415; 71275; 74177; 80048; 80053; 82550; 82607; 82728; 82746; 83540; 83550; 83605; 83690; 83735; 83880; 84132; 84484; 85007; 85025; 85045; 85610; 85730; 87040; 93005; 94618; 94762; 96365; 96367; 96375; 99284; 99285; J0131; J0696; J1644; J2060; Q9967

== ENCOUNTER 2024-07-19 07:12 | Emergency (ER) | payer MEDICARE, OTHER, SELFPAY ==
[2024-07-13 14:09] VITALS: BMI 17.0
[2024-07-19] VITALS (16 sets, daily range): BP systolic 122–149; BP diastolic 64–92; PULSE 68–102; RESP 16–20; TEMP 37–37.2; O2SAT 83–100; BMI 18.8
--- NOTE | 2024-07-19 07:48 | DI.CT.S_ITS ---
PROCEDURE: CT ABDOMEN PELVIS W CON INDICATIONS: abd pain, stoma retreated LLQ TECHNIQUE: After the administration of intravenous contrast, axial sections acquired from the lung bases to the pubic symphysis. Coronal and sagittal reformats were performed. For radiation dose reduction, the following was used: automated exposure control, adjustment of mA and/or kV according to patient size. COMPARISON: [facility], CT, CT ABDOMEN PELVIS W CON, 07/13/2024, 8:39. FINDINGS: Image quality: Diagnostic. Lower Chest: Improving process in left lower lobe. Residual atelectasis. ABDOMEN: Liver: Again noted is a very tiny lateral segment left lobe liver lesion which is FDG positive on PET-CT. Gallbladder: No radiopaque gallstones or wall thickening. Biliary ducts: No biliary dilation. Pancreas: No ductal dilation. Spleen: Size is within normal limits. Adrenal Glands: No adrenal nodules. Kidneys and Ureters: Right kidney is surgically absent. Unremarkable left kidney and ureter. Stomach and Bowel: Normal colonic caliber, without significant wall thickening. Sigmoid colectomy and left lower quadrant colostomy. Stomach appears unremarkable. No dilated loops of bowel. Peritoneum: No abnormal intraperitoneal fluid. No free air. Ventral Wall: No significant ventral hernia. Abdominal Nodes: No retroperitoneal or mesenteric adenopathy by size criteria. Vessels: Aorta and inferior vena cava are normal in size. PELVIS: Pelvic Organs: Uterus is absent. No adnexal masses. Extensive abnormal enhancement and thickening of the vagina and vulvar region with an appearance consistent with locally infiltrative vaginal carcinoma. Findings are unchanged from the recent previous study. Bladder: No bladder wall thickening, accounting for underdistention. Pelvic Nodes: Left pelvic sidewall mass is unchanged, FDG positive. Miscellaneous: No inguinal hernias are seen. Bones: No aggressive osseous abnormality. IMPRESSION: 1. Resolving left basilar pneumonia with residual atelectasis present. 2. Stoma is unremarkable. 3. 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 4. Remote right nephrectomy. 5. Sigmoid colectomy. 6. Left lobe liver lesion and left pelvic sidewall metastatic lesion, unchanged. Dictated by: Jairo Trent M.D. on 07/19/2024 at 8:19 Approved by: Jairo Trent M.D. on 07/19/2024 at 8:33
--- NOTE | 2024-07-19 07:48 | EKG_ITS ---
[facility] [address] [place] [address] Test Date: 2024-07-19 Pat Name: Emily Mckeon Department: [facility] Room: Gender: Female Crystal Lapper: MARI : 1955 Requested By: Order Number: [id number] Reading MD: Giles Stack Measurements Intervals [place] Rate: 81 P: 66 NC: 144 QRS: 41 QRSD: 100 T: 119 QT: 472 QTc: 548 Interpretive Statements Normal sinus rhythm Minimal voltage criteria for LVH, may be normal variant ( Sanjay product ) T wave abnormality, consider anterolateral ischemia Prolonged QT Electronically Signed On 07-19-2024 17:10:12 PST by Giles Stack
--- NOTE | 2024-07-19 08:02 | ED_ITS ---
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 She has had minimal output she was unable to keep the bag attached. She denies fevers or chills. She has had increased abdominal pain at the stoma site. She has gotten radiation to her abdomen and pelvis she has not had any chemotherapy this has been scheduled but not initiated. She only got 1.5 weeks of radiation had to be stopped because of her complications. She denies any nausea or vomiting. States no chest pain, no shortness of breath. Had some output earlier today from her ostomy in several times since. States no black or blood. Denies any urinary symptoms. Patient has supposed to get a biopsy on Friday at [facility] to confirm source of her cancer before starting chemotherapy. Patient had her colostomy and stoma in March of 2024 here at [facility] with Dr. Castrejon. She states the light pinkish skin was outwards that is sort of re-treated had an episode about a month before it sort of came back out and was improved for awhile and then has sort of sucked back inside again. Related Data Home Medications Medication Instructions Recorded Confirmed aspirin 81 mg tablet,delayed 81 mg PO DAILY 09/12/23 07/13/24 release acetaminophen 650 mg 1,300 mg PO PRN PRN Pain 10/23/23 07/13/24 tablet,extended release cetirizine 10 mg tablet 10 mg PO DAILY 10/23/23 07/13/24 clonidine 0.1 mg/24 hr weekly 1 patch transdermal QWEEK 10/23/23 07/13/24 transdermal patch diclofenac sodium 1 % topical gel 2 g topical QID PRN Pain 10/23/23 07/13/24 ferrous sulfate 324 mg (65 mg 324 mg PO BID 10/23/23 07/13/24 iron) tablet,delayed release nifedipine 30 mg tablet,extended 30 mg PO DAILY 10/23/23 07/13/24 release 24 hr omeprazole 20 mg tablet,delayed 20 mg PO DAILY 10/23/23 07/13/24 release pravastatin 40 mg tablet 40 mg PO DAILY 10/23/23 07/13/24 propylene glycol 0.6 % eye drops 1 drp EYE-BOTH DAILY PRN Dry Eye(S) 10/23/23 07/13/24 (Systane Complete) gabapentin 300 mg capsule 300 mg PO 1XD 07/15/24 07/15/24 (Neurontin) Previous Rx's Medication Instructions Recorded oxycodone 5 mg tablet 2.5 mg (1/2 x 5 mg) PO Q6H PRN 04/08/24 pain #10 tabs Allergies Allergy/AdvReac Type Severity Reaction Status Date / Time codeine AdvReac Severe Dizziness Verified 05/17/24 11:12 Review of Systems Review of Systems ROS Unobtainable: All systems reviewed & are unremarkable except as noted in HPI and below Patient History Medical History Adenocarcinoma of sigmoid colon Occipital stroke (~2017) Easy bruisability 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 PVD (peripheral vascular disease) Gastrointestinal hemorrhage with melena Spinal stenosis Hallux valgus Heart murmur Osteoporosis Arthritis Hyperlipemia Hypertension Slipped cervical disc Pancreatitis Constipation Surgical History History of back surgery (12/22/23) History of bunionectomy of right great toe History of bunionectomy of left great toe Hx of bilateral cataract extraction Hx of laparoscopy H/O eye surgery Family History Mother Heart disease Brother Diabetes mellitus Skin cancer Grandmother Cancer Social History marital status: household members: spouse lives independently: Yes occupational status: employed Smoking Status: Former smoker alcohol intake: never substance use type: does not use Smoking Status: Former smoker alcohol intake frequency: holidays/special occasions only Exam Narrative Exam Narrative: GENERAL: Alert and oriented x three, elderly female in moderate distress. HEENT: Head normocephalic, atraumatic, EOMI, pupils reactive, face symmetric, moist mucous membranes NECK: Supple, full range of motion CARDIOVASCULAR: Regular rate and rhythm without murmurs, rubs or gallops. RESPIRATORY: Breath sounds equal bilaterally, no wheezes rales or rhonchi. ABDOMEN: Soft, some generalized tenderness particularly around the stoma itself. Skin is clean dry without any erythema. There was not the typical ring of light pink skin and the portion of stoma that is protruding about a cm and a half is red but without any swelling appreciated. Normoactive bowel sounds all 4 quadrants. No guarding or rebound, rigidity, no mass : No CVA tenderness EXTREMITIES: Normal range of motion, no clubbing or edema. Neurovascularly intact NEUROLOGICAL: Cranial nerves II through XII grossly intact. Moving all extremities SKIN: Warm, dry, no petechiae, no rashes or lesions. Initial Vital Signs Initial Vital Signs: Vital Signs Pulse Rate 86 07/19/24 07:42 Blood Pressure 144/68 H 07/19/24 07:42 Pulse Oximetry 93 07/19/24 07:42 Oxygen Delivery Method Nasal Cannula 07/19/24 07:42 Oxygen Flow Rate 2 07/19/24 07:42 Course Orders Ordered: ED Orders 07/19/24 12:01 Consult to Wound Care Stat Discontinued Medications Morphine Sulfate (Morphine 4 Mg/Ml Inj) 4 mg IV NOW ONE Stop: 07/19/24 08:05 Last Admin: 07/19/24 08:17 Dose: 4 mg Documented By: FILOMENA Ondansetron HCl (Ondansetron 4 Mg/2 Ml Inj) 4 mg IV NOW PRN PRN Reason: Nausea And Vomiting Ondansetron HCl (Ondansetron 4 Mg Odt) 4 mg PO NOW PRN PRN Reason: Nausea And Vomiting Vital Signs Vital signs: Vital Signs - 8 hr 07/19/24 11:00 07/19/24 11:00 07/19/24 11:40 Temperature Pulse Rate 68 73 Respiratory Rate Blood Pressure 122/64 Pulse Oximetry 96 95 Oxygen Delivery Method Nasal Cannula Oxygen Flow Rate 2 07/19/24 12:02 07/19/24 12:04 07/19/24 12:04 Temperature Pulse Rate 100 H 87 Respiratory Rate Blood Pressure 141/92 H Pulse Oximetry 83 L 85 L 92 Oxygen Delivery Method Nasal Cannula Nasal Cannula Oxygen Flow Rate 3 3 07/19/24 12:30 07/19/24 13:11 Temperature 98.6 F Pulse Rate 87 88 Respiratory Rate 20 Blood Pressure 139/89 Pulse Oximetry 94 100 Oxygen Delivery Method Room Air Oxygen Flow Rate MDM - Abdominal Pain Lab Data 07/19/24 08:03 07/19/24 08:03 Labs: Lab Results 07/19/24 07/19/24 Range/Units 08:03 08:30 WBC 5.5 (4.5-11.0) X10^3/uL RBC 4.44 (4.0-5.2) X10^6/uL Hgb 12.5 (12.0-16.0) g/dL Hct 39.0 (36-46) % MCV 87.8 (80-100) fL MCH 28.1 (26-34) PG MCHC 32.0 (30-36) % RDW 17.8 H (11.6-14.8) % Plt Count 256 (150-400) X10^3/uL Neut % (Auto) 82.7 H (50-75) % Lymph % (Auto) 4.7 L (25-40) % Roane % (Auto) 5.6 (3-14) % Eos % (Auto) 6.2 H (2-4) % Baso % (Auto) 0.8 (0-2) % Neut # (Auto) 4500 (9963-0416) /uL Lymph # (Auto) 300 L (7593-1273) /uL Roane # (Auto) 300 (0-900) /uL Eos # (Auto) 300 (0-450) /uL Baso # (Auto) 0 (0-100) /uL Sodium 135 L (137-145) mmol/L Potassium 4.0 (3.4-5.1) mmol/L Chloride 103 (98-107) mmol/L Carbon Dioxide 26 (22-32) mmol/L BUN 15 (7-17) mg/dL Creatinine 0.92 (0.52-1.04) mg/dL Estimated GFR > 60 (>60) mL/min BUN/Creatinine Ratio 16.3 (6-22) Glucose 98 (80-110) mg/dL Calcium 9.2 (8.4-10.2) mg/dL Total Bilirubin 0.4 (0.2-1.3) mg/dL AST 24 (14-36) IU/L ALT 16 (<35) IU/L Alkaline Phosphatase 83 (38-126) U/L Total Protein 6.6 (6.3-8.2) g/dL Albumin 3.5 (3.5-5.0) g/dL Globulin 3.1 (1.7-4.1) g/dL Albumin/Globulin Ratio 1.1 (1.0-2.8) Lipase 58 (23-300) U/L Urine Color Yellow Urine Appearance Clear Urine pH 5.5 (4.5-8.0) Ur Specific [place] 1.010 (1.000-1.035) Urine Protein Negative (Negative) Urine Glucose (UA) Negative (Negative) g/dL Urine Ketones Negative (NEGATIVE) Urine Occult Blood Trace-intact (Negative) Urine Nitrate Negative (Negative) Urine Bilirubin Negative (NEGATIVE) Urine Urobilinogen 0.2 (0.2) E.U./dL Ur Leukocyte Esterase 1+ H (NEGATIVE) Urine RBC None seen (0-5/HPF) Urine WBC 1-5/hpf (0-5/HPF) Ur Squamous Epith Cells None seen (0-5/HPF) Urine Bacteria None seen (None) Ur Culture Indicated? Specimen cultured Vol Urine Centrifuged 10ml (spun) Imaging Data CT scan - abdomen/pelvis: Radiologist's Impression: Close Abdomen/Pelvis CT (Signed) Jairo Trent - 07/19/24 Chest CTA (Signed) TwanJairo - 07/13/24 Abdomen/Pelvis CT (Signed) TwanJairo - 07/13/24 Chest/Abdomen X-ray (Signed) Faraz Resendiz - 04/17/24 Abdomen/Pelvis CT (Signed) Tracy Villarreal - 04/02/24 Lumbar Spine X-Ray (Signed) Paddy Youngblood - 12/22/[address] (Signed) Phoebe Saenz - 09/10/23 Lumbar Spine MRI (Signed) Tracy Villarreal - 08/24/23 Abdomen/Pelvis CT (Signed) Kimberly Mccarthy - 08/09/23 Abdomen/Pelvis CT (Signed) Paddy Youngblood - 06/29/22 DEXA Result 04/17/22 Bone Densitometry 04/17/22 Abdomen/Pelvis CT (Signed) Frederick Dudley - 11/19/20 Shoulder X-Ray (Signed) Faraz Resendiz - 06/13/19 Hand X-Ray (Signed) Faraz Resendiz - 06/13/19 Lumbar Spine X-Ray (Signed) Frederick Dudley - 03/12/19 Hand X-Ray (Signed) Frederick Dudley - 03/12/19 Hand X-Ray (Signed) Frederick Dudley - 03/12/19 Foot X-Ray (Signed) Cedrick Ramon - 03/12/19 Foot X-Ray (Signed) Cedrick Ramon - 03/12/19 Launch?Image [address] [address] [address] Scan Report Signed Patient: Emily Mckeon MR#: [id number] : 1955 Acct:[id number] Age/Sex: 68 / F Date of Service: 07/19/24 Loc: ED Accession Number: [id number] Procedure: CT abdomen pelvis w con Ordering Provider: Breanna Bueno D.O. PROCEDURE: CT ABDOMEN PELVIS W CON INDICATIONS: abd pain, stoma retreated LLQ TECHNIQUE: After the administration of intravenous contrast, axial sections acquired from the lung bases to the pubic symphysis. Coronal and sagittal reformats were performed. For radiation dose reduction, the following was used: automated exposure control, adjustment of mA and/or kV according to patient size. COMPARISON: [facility], CT, CT ABDOMEN PELVIS W CON, 07/13/2024, 8:39. FINDINGS: Image quality: Diagnostic. Lower Chest: Improving process in left lower lobe. Residual atelectasis. ABDOMEN: Liver: Again noted is a very tiny lateral segment left lobe liver lesion which is FDG positive on PET-CT. Gallbladder: No radiopaque gallstones or wall thickening. Biliary ducts: No biliary dilation. Pancreas: No ductal dilation. Spleen: Size is within normal limits. Adrenal Glands: No adrenal nodules. Kidneys and Ureters: Right kidney is surgically absent. Unremarkable left kidney and ureter. Stomach and Bowel: Normal colonic caliber, without significant wall thickening. Sigmoid colectomy and left lower quadrant colostomy. Stomach appears unremarkable. No dilated loops of bowel. Peritoneum: No abnormal intraperitoneal fluid. No free air. Ventral Wall: No significant ventral hernia. Abdominal Nodes: No retroperitoneal or mesenteric adenopathy by size criteria. Vessels: Aorta and inferior vena cava are normal in size. PELVIS: Pelvic Organs: Uterus is absent. No adnexal masses. Extensive abnormal enhancement and thickening of the vagina and vulvar region with an appearance consistent with locally infiltrative vaginal carcinoma. Findings are unchanged from the recent previous study. Bladder: No bladder wall thickening, accounting for underdistention. Pelvic Nodes: Left pelvic sidewall mass is unchanged, FDG positive. Miscellaneous: No inguinal hernias are seen. Bones: No aggressive osseous abnormality. IMPRESSION: 1. Resolving left basilar pneumonia with residual atelectasis present. 2. Stoma is unremarkable. 3. 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 4. Remote right nephrectomy. 5. Sigmoid colectomy. 6. Left lobe liver lesion and left pelvic sidewall metastatic lesion, unchanged. Dictated by: Jairo Trent M.D. on 07/19/2024 at 8:19 Approved by: Jairo Trent M.D. on 07/19/2024 at 8:33 ECG Data Attestation: I personally reviewed and interpreted this ECG as follows: Interpretation: Sinus rhythm rate 81 ME 144 QRS 100 QTC of 458. MDM Narrative Medical decision making narrative: Labs show normal white count, hemoglobin and platelets. Sodium is 135 electrolytes are appropriate creatinine 0.92 glucose is [address] abdomen pelvis shows resolving left basilar pneumonia with a residual atelectasis presents, stoma is unremarkable, extensive infiltrative vaginal carcinoma with regional invasion adjacent structures and spread to the vulva, remote right nephrectomy, sigmoid colectomy, left lobe liver lesion and left pelvic sidewall metastatic lesion unchanged. EKG shows normal sinus rhythm rate 81. Nursing replaced patient's colostomy bag but trouble getting bag to attach well. 1005: Spoke with Dr. Webb, general surgery he reviewed patient's imaging and labs ask if we can see if wound cares available for consult for patient's ostomy. carlene Paige by the emergency department gave me contact for Letty Christie the ostomy the specialist. She was every Friday they are happy to follow with her. Patient was also seen by Dr. Webb here in the department ostomy looks good. He agrees with the plan for ostomy specialist unfortunately patient has a biopsy scheduled for Friday. Letty the ostomy specialist did call back and thick states she maybe able to get her in Friday patient had already discharged at this point but was given her contact number and she will reach out to try to get the patient in. Also reviewed all this with the patient and Dr. Webb is going to also try to put in a referral for [facility] ostomy to see if this can get the patient in sooner. Patient has a bag in place here has not had a lot of output but so far has not had any drainage around the site. Discharge Plan Departure Patient Disposition: Home Clinical Impression: Complication of ostomy Activity Restrictions/Additional Instructions: Please follow up with Dr. Webb for re-evaluation of your ostomy as needed. I also spoke with wound care, they have an ostomy specialist Letty who maybe helpful. The office contact information is below but I have sent consult happy to follow up with you been maybe able to help with your ostomy and care. I spoke with Dr. Mckeon who runs the wound care clinic and they may be able to see you Friday. If that does not work [facility] in [place] may also have their own specialist. Please return for new or worsening changes increasing pain, fevers, vomiting, if you are ostomy is not having any output, if there is redness or new skin changes appearing or other new or concerning changes. Prescriptions: No Action oxycodone 5 mg tablet 2.5 mg PO Q6H PRN (Reason: pain) Qty: 10 0RF Rx Instructions: Take 1/2 tab every 6 hours as needed for pain aspirin 81 mg tablet,delayed release (DR/EC) 81 mg PO DAILY clonidine 0.1 mg/24 hr Patch Weekly 1 patch TRANSDERMAL QWEEK Patient Comments: placed on anterior L chest pravastatin 40 mg Tablet 40 mg PO DAILY acetaminophen 650 mg Tablet Extended Release 1,300 mg PO PRN PRN (Reason: Pain) nifedipine 30 mg Tablet Extended Release 24hr 30 mg PO DAILY cetirizine 10 mg Tablet 10 mg PO DAILY ferrous sulfate 324 mg (65 mg iron) Tablet,Delayed Release (Dr/Ec) 324 mg PO BID diclofenac sodium 1 % Gel 2 g TOPICAL QID PRN (Reason: Pain) omeprazole 20 mg Tablet,Delayed Release (Dr/Ec) 20 mg PO DAILY Systane Complete 0.6 % Drops 1 drp EYE-BOTH DAILY PRN (Reason: Dry Eye(S)) gabapentin [Neurontin] 300 mg capsule 300 mg PO 1XD Referrals: Cedrick Mckeon MD [Physician] - Palmer Webb MD [Physician] - Reilly Ross MD [Primary Care Provider] - Stand Alone Forms: Patient Portal/API/Survey
[2024-07-19] MEDS: MORPHINE 4 MG/ML INJ IV (08:17)
[2024-07-19 08:20] LABS: Add Manual Diff / Slide Review NO; Alanine Aminotransferase 16 IU/L (<35); Albumin 3.5 g/dL (3.5-5.0); Albumin Globulin Ratio 1.1 (1.0-2.8); Alkaline Phosphatase 83 U/L (38-126); Aspartate Aminotransferase 24 IU/L (14-36); BUN Creatinine Ratio 16.3 (6-22); Basophils Absolute Auto 0 /uL (0-100); Basophils Percent Auto 0.8 % (0-2); Bilirubin Total 0.4 mg/dL (0.2-1.3); Blood Urea Nitrogen 15 mg/dL (7-17); Calcium 9.2 mg/dL (8.4-10.2); Carbon Dioxide 26 mmol/L (22-32); Chloride 103 mmol/L (98-107); Eosinophils Absolute Auto 300 /uL (0-450); Eosinophils Percent Auto 6.2 % (2-4); Estimated Glomerular Filt Rate > 60 mL/min (>60); Globulin 3.1 g/dL (1.7-4.1); Glucose 98 mg/dL (80-110); HEMOLYSIS < 15 (0-50); Hemoglobin 12.5 g/dL (12.0-16.0); Lipase 58 U/L (23-300); Lymphocytes Absolute Auto 300 /uL (1100-4500); Lymphocytes Percent Auto 4.7 % (25-40); Mean Corpuscular Hemoglobin 28.1 PG (26-34); Mean Corpuscular Volume 87.8 fL (80-100); Monocytes Absolute Auto 300 /uL (0-900); Monocytes Percent Auto 5.6 % (3-14); Neutrophils Absolute Auto 4500 /uL (1500-7000); Neutrophils Percent Auto 82.7 % (50-75); Platelet Count 256 X10^3/uL (150-400); Red Blood Cell Count 4.44 X10^6/uL (4.0-5.2); Red Cell Distribution Width 17.8 % (11.6-14.8); Sodium 135 mmol/L (137-145); Total Protein 6.6 g/dL (6.3-8.2); White Blood Cell Count 5.5 X10^3/uL (4.5-11.0)
[2024-07-19 08:59] LABS: Appearance Urine UA CLEAR; Bilirubin Urine UA NEGATIVE (NEGATIVE); Color Urine UA YELLOW; Glucose Urine UA NEGATIVE (Negative); Ketones Urine UA NEGATIVE (NEGATIVE); Leukocyte Esterase Urine UA 1+ (NEGATIVE); Nitrite Urine UA NEGATIVE (Negative); Occult Blood Urine UA TRACE-INTACT (Negative); Protein Urine UA NEGATIVE (Negative); Urobilinogen Urine UA 0.2 E.U./dL (0.2)
[2024-07-19 09:04] LABS: pH Urine UA 5.5 (4.5-8.0)
[2024-07-19 09:10] LABS: RBC Urine None Seen (0-5/HPF); Urine Volume 10mL (spun)
[2024-07-19 09:11] LABS: Bacteria Urine None Seen; Culture Indicated Urine Specimen Cultured; Squamous Epithelial Cell Urine None Seen (0-5/HPF); WBC Urine 1-5/HPF (0-5/HPF)
--- NOTE | 2024-07-19 09:38 | PC.NURSE ---
Stoma site cleaned and dried off. Pt's skin around site is red and irritated. ostomy bag placed but does not fully adhere to pts skin. Dr navarro notifed.
--- NOTE | 2024-07-19 12:10 | PC.NURSE ---
Pt returned from ambulating to bathroom. O2 sat dropped to low-mid 80s. Pt denies SOB or difficulty breathing during ambulation. O2 sat increased to 3L NC. Dr Bueno notified.
== END 2024-07-19 13:13 | disposition home or self-care (01) ==
PROVIDERS: Emergency Provider Emergency Medicine; PCP Family Medicine
DX: K94.09 Other complications of colostomy (principal); R10.32 Left lower quadrant pain; C52 Malignant neoplasm of vagina
CPT/HCPCS: 36415; 74177; 80053; 81001; 83690; 85025; 87086; 93005; 96374; 99284; J2270; Q9967

== ENCOUNTER → 2024-07-20 10:19 | Outpatient (CLI) | payer MEDICARE, OTHER, SELFPAY ==
[2024-07-13 14:09] VITALS: BMI 17.0
== END ==
PROVIDERS: PCP Family Medicine; Referring Provider Emergency Medicine; Visit Provider Surgery
DX: K94.03 Colostomy malfunction (principal)
CPT/HCPCS: 99203; 99213

== ENCOUNTER → 2024-07-28 11:36 | Outpatient (CLI) | payer MEDICARE, OTHER, SELFPAY ==
[2024-07-13 14:09] VITALS: BMI 17.0
== END ==
LOC: WC 11:38
PROVIDERS: PCP Family Medicine; Referring Provider Emergency Medicine; Visit Provider Surgery
DX: Z43.3 Encounter for attention to colostomy (principal)
CPT/HCPCS: 99212

== ENCOUNTER → 2024-08-11 13:19 | Outpatient (CLI) | payer MEDICARE, OTHER, SELFPAY ==
[2024-07-13 14:09] VITALS: BMI 17.0
== END ==
PROVIDERS: PCP Family Medicine; Referring Provider Emergency Medicine; Visit Provider Surgery
DX: K94.03 Colostomy malfunction (principal)
CPT/HCPCS: 99213

== ENCOUNTER → 2024-09-06 08:29 | Outpatient (CLI) | payer MEDICARE, OTHER, SELFPAY ==
[2024-07-13 14:09] VITALS: BMI 17.0
--- NOTE | 2024-09-06 08:30 | DI.CT.S_ITS ---
PROCEDURE: CT CHEST ABD PEL W CON INDICATIONS: RESTAGING LUNG CANCER, VULVAR CANCER, COLON CANCER TECHNIQUE: After the administration of intravenous contrast, 5 mm thick sections acquired from the lung apices to the symphysis. 5 mm coronal and sagittal reformats were performed, with additional 7 mm MIP reformats through the lungs. For radiation dose reduction, the following was used: automated exposure control, adjustment of mA and/or kV according to patient size. COMPARISON: [facility], [place], PET NECK TO MID THIGH, 06/24/2024, 9:36. [facility], CT, CT ABDOMEN PELVIS W CON, 07/19/2024, 8:09. [facility], CT, CT ANGIO CHEST PE PROTOCOL, 07/13/2024, 8:39. FINDINGS: Image quality: Excellent. CHEST: Lower Neck: No enlarged lymph nodes. Thyroid: Multinodular goiter. Axillae: No enlarged lymph nodes. Chest Wall: Subtle sclerotic focus in the left humeral head, (2/10), unchanged. Low suspicion. Left-sided PICC with the catheter tip at the lower 3rd of the SVC. Lungs and Pleura: No pneumothorax or pleural effusions. Moderate emphysematous change. No acute airspace opacity. The previously seen opacity in the left lower lobe is resolved. There is minimal streaky opacity at the lung bases which has the appearance of scarring. The central airways are clear. Left lower lobe spiculated pulmonary nodule measuring 1.1 cm, (5/157), unchanged. Heart: Heart size is normal. No pericardial effusion. Thoracic Vessels: The aorta and pulmonary arteries demonstrate normal size. No central pulmonary embolism. Mediastinum and Kaye: No enlarged lymph nodes. Esophagus: No wall thickening. No hiatal hernia. ABDOMEN: Liver: -Small intermediate density focus in the far lateral left liver measuring 0.7 cm, (2/100), unchanged. Prior FDG avidity. -Numerous small hypodense foci which have the appearance of benign cysts. Gallbladder: Decompressed. Biliary ducts: No biliary dilation. Pancreas: No ductal dilation. Spleen: Size is within normal limits. Adrenal Glands: No adrenal nodules. Kidneys and Ureters: No hydronephrosis. No solid mass. No complex renal cystic lesion which requires follow up. Stomach and Bowel: Sigmoid stump. No conspicuous mass. Left lower quadrant colostomy. Prominent stool in the colon. The appendix is not dilated. No small bowel obstruction. Stomach is within normal limits. Peritoneum: No abnormal intraperitoneal fluid. No free air. Ventral Wall: No significant ventral hernia. Abdominal Nodes: No retroperitoneal or mesenteric adenopathy by size criteria. Vessels: Aorta and inferior vena cava are normal in size. Circumferential calcified atherosclerotic plaque. PELVIS: Pelvic Organs: Uterus is absent. Thickening and abnormal enhancement in the region of the vulva is decreased. Bladder: No bladder wall thickening. Pelvic Nodes: No enlarged lymph nodes. Miscellaneous: No inguinal hernias are seen. Bones: No aggressive osseous abnormality. L3-L5 pedicle screw fixation. Prior laminectomies. IMPRESSION: 1. Left lower lobe spiculated pulmonary nodule measuring 1.1 cm. Unchanged. Highly suspicious for malignancy. 2. Left liver lesion measuring 0.7 cm. Unchanged. Prior FDG avidity and suspicious for metastatic disease. 3. Left colostomy. No mass identified. No adenopathy. 4. Thickening and abnormal enhancement in the region of the vulva is decreased. Dictated by: Joe Berry M.D. on 09/06/2024 at 12:54 Approved by: Joe Berry M.D. on 09/06/2024 at 13:16
[2024-09-06 08:51] LABS: Estimated Glomerular Filt Rate 49 mL/min (>60)
== END ==
LOC: CT 08:30
PROVIDERS: PCP Family Medicine; Referring Provider Radiology Radiation Oncology; Visit Provider Radiology Radiation Oncology
DX: C51.9 Malignant neoplasm of vulva, unspecified (principal); C18.7 Malignant neoplasm of sigmoid colon; C34.32 Malignant neoplasm of lower lobe, left bronchus or lung; K76.9 Liver disease, unspecified; Z93.3 Colostomy status; Z90.710 Acquired absence of both cervix and uterus
CPT/HCPCS: 36415; 71260; 74177; 82565; Q9967

== ENCOUNTER → 2024-11-05 08:01 | Outpatient (CLI) | payer MEDICARE, OTHER, SELFPAY ==
[2024-07-13 14:09] VITALS: BMI 17.0
--- NOTE | 2024-11-05 08:02 | DI.MRI.S_ITS ---
PROCEDURE: MR PELVIS WO/W CON INDICATIONS: Carcinoma of vulva TECHNIQUE: Coronal HASTE, sagittal breath-hold T2 FSE; axial T1 FSE with and without fat saturation through the pelvis. Optional long- and short-axis uterine nonbreath-hold T2 FSE through the uterus. Sagittal or axial dynamic VIBE during administration of contrast. Post-contrast axial or coronal VIBE/2-D FLASH with fat saturation from the iliac crests to the symphysis. Optional diffusion weighted imaging and ADC may be performed. COMPARISON: [facility], [place], PET NECK TO MID THIGH, 06/24/2024, 9:36. [facility], CT, CT CHEST ABD PEL W CON, 09/06/2024, 10:08. FINDINGS: Image quality: Diagnostic Lower abdomen: No bowel obstruction in the lower abdomen. No drainable abscess or ascites Bladder: Under distended Reproductive organs: The uterus is absent. Thickening in the skin again seen around the follow-up. Focal area of enhancement is present at the urethral external opening measuring 1.3 cm (21/138) no significant other nodule. Rectum: Unremarkable Vessels and lymph nodes: No enlarged lymph nodes by size criteria. No aneurysmal vessel identified. Pelvic wall: Left lower quadrant colostomy. Bones: No aggressive appearing osseous abnormality. Degenerative and postsurgical changes are present IMPRESSION: Small focal area of enhancement is seen near the urethra external opening. Correlate with direct visualization (see reference image 21/138) and attention on follow-up imaging. Nonspecific mucosal and skin vulvar enhancement, without other area of nodularity or diffusion restriction to suggest definite recurrence. No enlarged lymph nodes in the pelvis by size criteria. Other findings above. Dictated by: Travis Andrews M.D. on 11/06/2024 at 9:36 Approved by: Travis Andrews M.D. on 11/06/2024 at 9:44
== END ==
LOC: MRI 08:01
PROVIDERS: PCP Family Medicine; Referring Provider Radiology Radiation Oncology; Visit Provider Radiology Radiation Oncology
DX: C51.9 Malignant neoplasm of vulva, unspecified (principal); Z90.710 Acquired absence of both cervix and uterus; Z93.3 Colostomy status
CPT/HCPCS: 72197; A9579

== ENCOUNTER → 2025-02-07 07:58 | Outpatient (CLI) | payer MEDICARE, OTHER, SELFPAY ==
[2024-07-13 14:09] VITALS: BMI 17.0
--- NOTE | 2025-02-07 08:00 | DI.RAD.S_ITS ---
PROCEDURE: FL BARIUM ENEMA. Patient was placed in left lateral decubitus position and Gastrografin contrast was instilled in the rectum by gravity.. Additional oblique views were obtained in the contrast was allowed to drain out by gravity. INDICATIONS: rule out rectovaginal fistula. Foul-smelling discharge from vagina. COMPARISON: None. FINDINGS: Contrast distended the rectum to the resection margin. No leakage of contrast from the rectum. No contrast evident in the vagina throughout the examination. No abnormal contour or filling defect within the rectum. IMPRESSION: No evidence of rectovaginal fistula or other abnormality. Dictated by: Anton Maciel M.D. on 02/07/2025 at 9:59 Approved by: Anton Maciel M.D. on 02/07/2025 at 10:01
== END ==
PROVIDERS: PCP Family Medicine; Referring Provider Family Medicine; Visit Provider Radiology Diagnostic Radiology
DX: N82.4 Other female intestinal-genital tract fistulae (principal)
CPT/HCPCS: 74270

== ENCOUNTER → 2025-02-17 08:45 | Outpatient (CLI) | payer MEDICARE, OTHER, SELFPAY ==
[2024-07-13 14:09] VITALS: BMI 17.0
--- NOTE | 2025-02-17 08:47 | DI.CT.S_ITS ---
PROCEDURE: CT CHEST ABD PEL W CON INDICATIONS: CARCOMA OF THE VULVA, LT LUNG AND COLON TECHNIQUE: After the administration of intravenous contrast, 5 mm thick sections acquired from the lung apices to the symphysis. 5 mm coronal and sagittal reformats were performed, with additional 7 mm MIP reformats through the lungs. For radiation dose reduction, the following was used: automated exposure control, adjustment of mA and/or kV according to patient size. COMPARISON: [facility], CT, CT CHEST ABD PEL W CON, 09/06/2024, 10:08. FINDINGS: Image quality: Excellent. CHEST: Lower Neck: No enlarged lymph nodes. Thyroid: Stable appearance of multinodular goiter Axillae: No enlarged lymph nodes. Chest Wall: Unremarkable. Lungs and Pleura: Essentially stable length of the solid nodule in the left lower lobe measuring 1.1 cm, however with decreased thickness on the sagittal images measuring 6 millimeter compared to 8.4 millimeter previously. In addition, there are new sub solid alveolar density seen posteriorly at this time. No new focal lesion seen otherwise. Heart: Heart size is normal. No pericardial effusion. Thoracic Vessels: The aorta and pulmonary arteries demonstrate normal size. Mediastinum and Kaye: No enlarged lymph nodes. Esophagus: No wall thickening. No hiatal hernia. ABDOMEN: Liver: Essentially stable appearance of the 1 centimeter lesion in the lateral segment of the left lobe in a subcapsular location. Several simple cysts are also stable. No new focal lesion seen Gallbladder: No radiopaque gallstones or wall thickening. Biliary ducts: No biliary dilation. Pancreas: No ductal dilation. Spleen: Size is within normal limits. Adrenal Glands: No adrenal nodules. Kidneys and Ureters: Status post right nephrectomy. No suspicious focal lesion seen on left Stomach and Bowel: There is no bowel dilatation. There is apparent wall thickening of the rectum and sigmoid, with mucosal enhancement, also with presacral fat stranding. Ivania closure of the sigmoid is again seen with end colostomy in the left mid abdomen. Peritoneum: No abnormal intraperitoneal fluid. No free air. Ventral Wall: No significant ventral hernia. Abdominal Nodes: No retroperitoneal or mesenteric adenopathy by size criteria. Vessels: Aorta and inferior vena cava are normal in size. PELVIS: Pelvic Organs: Unremarkable. Bladder: No bladder wall thickening, accounting for underdistention. Pelvic Nodes: No enlarged lymph nodes. Miscellaneous: No inguinal hernias are seen. Bones: No aggressive osseous abnormality. IMPRESSION: 1. Slight decrease in the size of the left lower lobe nodule, with new adjacent alveolar densities, suggesting inflammatory etiology. 2. Essentially stable appearance of the subcapsular liver lesion in the lateral segment of the left lobe. 3. No new suspicious focal lesion seen to suggest metastasis. 4. Findings suggestive of inflammatory disease of the rectosigmoid stump. Dictated by: Mando Duggan M.D. on 02/17/2025 at 17:24 Approved by: Mando Duggan M.D. on 02/17/2025 at 17:38
[2025-02-17 09:07] LABS: Estimated Glomerular Filt Rate > 60 mL/min (>60)
== END ==
PROVIDERS: Radiology Diagnostic Radiology; PCP Family Medicine; Referring Provider Family Medicine; Visit Provider Radiology Radiation Oncology
DX: C51.9 Malignant neoplasm of vulva, unspecified (principal); C18.7 Malignant neoplasm of sigmoid colon; C34.32 Malignant neoplasm of lower lobe, left bronchus or lung; K76.9 Liver disease, unspecified; E04.2 Nontoxic multinodular goiter; Z93.3 Colostomy status
CPT/HCPCS: 36415; 71260; 74177; 82565; Q9967

== ENCOUNTER → 2025-04-26 09:01 | Outpatient (CLI) | payer MEDICARE, OTHER, SELFPAY ==
[2024-07-13 14:09] VITALS: BMI 17.0
--- NOTE | 2025-04-26 09:02 | DI.MG.S_ITS ---
MM screening mammo BI: 04/26/2025. BI-RADS: 1 CLINICAL: 69-year old female for bilateral screening mammogram. Tyrer-Cuzick lifetime risk of 4.5%. No personal or first-degree family history of breast cancer. PRIOR EXAMS: No prior examinations available. MAMMOGRAPHY TECHNIQUE: 2D and 3D (tomosynthesis) digital mammographic views obtained, with additional images as needed for full coverage. Current study was also evaluated with a Computer Aided Detection (CAD) system. DENSITY B. There are scattered areas of fibroglandular density. MAMMOGRAPHY FINDINGS Bilateral: No suspicious mass, asymmetry, microcalcification, or other abnormality seen. IMPRESSION: * No evidence of malignancy. RECOMMENDATIONS Bilateral * Annual screening mammography. OVERALL ASSESSMENT CATEGORY BI-RADS-1: Negative. [employer] recommends annual screening mammography beginning at age 40 for women with average risk of breast cancer. ELECTRONICALLY SIGNED: Sindy Leslie M.D. on 04/27/2025 at 03:19:40 PM PT Interpreting Station ID: [id number]
== END ==
LOC: MAMMO 09:01
PROVIDERS: PCP Family Medicine; Referring Provider Family Medicine; Visit Provider Family Medicine
DX: Z12.31 Encounter for screening mammogram for malignant neoplasm of breast (principal)
CPT/HCPCS: 77063; 77067

== ENCOUNTER → 2025-05-03 09:57 | Outpatient (CLI) | payer MEDICARE, OTHER, SELFPAY ==
[2024-07-13 14:09] VITALS: BMI 17.0
--- NOTE | 2025-05-03 10:01 | DI.CT.S_ITS ---
PROCEDURE: CT CHEST ABD PEL W CON INDICATIONS: f/u for cancer TECHNIQUE: After the administration of intravenous contrast, 5 mm thick sections acquired from the lung apices to the symphysis. 5 mm coronal and sagittal reformats were performed, with additional 7 mm MIP reformats through the lungs. For radiation dose reduction, the following was used: automated exposure control, adjustment of mA and/or kV according to patient size. COMPARISON: [facility], CT, CT CHEST ABD PEL W CON, 02/17/2025, 10:24. FINDINGS: Image quality: Diagnostic Lungs and pleura: Scattered scarring and atelectasis. No airspace consolidation or pleural effusion. Increased geographic ground-glass opacity in the left lower lobe. Left lower lobe focal nodule again seen with irregular borders measuring 1.2 cm (3/139), stable. Mediastinum, heart, and esophagus: Coronary calcifications. Ectatic ascending aorta at 4.2 cm, stable. No enlarged lymph nodes by size criteria. Chest wall and thyroid: Goitrous heterogeneous thyroid again seen. No enlarged axillary or supraclavicular lymph nodes by size criteria within the field of view Liver: Scattered liver cysts. Subcentimeter lesions are also again seen, too small to characterize, usually also cysts. A heterogeneous area at the inferior lateral tip of the left lobe is again seen, stable. Gallbladder and biliary system: Similar mildly ectatic biliary system Pancreas: No ductal dilation. Similar mild ductal ectasia. Spleen: Nonenlarged Adrenals: Mild bilateral adrenal thickening Kidneys: Right kidney is absent. No suspicious finding at the right surgical site. Left renal pelvocaliectasis is similar. No solid enhancing renal mass. Vessels and lymph nodes: The main portal vein is patent. Similar ectasia of the portal bifurcation. Moderate aortoiliac atherosclerotic calcifications. No enlarged lymph nodes by size criteria. Bowel and peritoneum: No bowel obstruction. Left lower quadrant colostomy with small peristomal hernia containing fat and fluid again seen. Rectosigmoid stump again seen, with mild inflammation, decreased from prior. No bowel obstruction. No drainable abscess or ascites. Nondilated appendix. Body wall: Postsurgical changes in the anterior body wall Pelvis: Under distended urinary bladder. Uterus is not seen. Bones: No aggressive appearing osseous abnormality. Degenerative osseous changes. Lumbosacral postsurgical changes. IMPRESSION: Left lower lung nodule appears stable. Increased surrounding ground-glass opacities in the left lower lung, likely infectious/inflammatory. Close attention on follow-up suggested. No new or enlarging metastatic disease identified. Mild, decreased inflammatory changes at the rectal sigmoid stump. Other findings above. Dictated by: Travis Andrews M.D. on 05/04/2025 at 14:03 Approved by: Travis Andrews M.D. on 05/04/2025 at 14:12
[2025-05-03 10:38] LABS: Estimated Glomerular Filt Rate > 60 mL/min (>60)
== END ==
PROVIDERS: PCP Family Medicine; Referring Provider Family Medicine; Visit Provider Radiology Radiation Oncology
DX: C51.9 Malignant neoplasm of vulva, unspecified (principal); C34.32 Malignant neoplasm of lower lobe, left bronchus or lung; C18.7 Malignant neoplasm of sigmoid colon; R91.1 Solitary pulmonary nodule; I25.10 Atherosclerotic heart disease of native coronary artery without angina pectoris; I77.810 Thoracic aortic ectasia; E04.9 Nontoxic goiter, unspecified
CPT/HCPCS: 36415; 71260; 74177; 82565; Q9967

== ENCOUNTER → 2025-05-05 07:51 | Outpatient (CLI) | payer MEDICARE, OTHER, SELFPAY ==
[2024-07-13 14:09] VITALS: BMI 17.0
[2025-05-05 09:07] LABS: Alanine Aminotransferase 13 IU/L (<35); Albumin 4.8 g/dL (3.5-5.0); Albumin Globulin Ratio 2.1 (1.0-2.8); Alkaline Phosphatase 74 U/L (38-126); Blood Urea Nitrogen 20 mg/dL (7-17); Calcium 9.7 mg/dL (8.4-10.2); Carbon Dioxide 20 mmol/L (22-32); Chloride 106 mmol/L (98-107); Cholesterol 193 mg/dL (140-199); Estimated Glomerular Filt Rate > 60 mL/min (>60); Globulin 2.3 g/dL (1.7-4.1); Glucose 83 mg/dL (70-99); HDL Cholesterol 103 mg/dL (40-60); HEMOLYSIS < 15 (0-50); Potassium 4.3 mmol/L (3.4-5.1); Sodium 140 mmol/L (137-145); Total Protein 7.1 g/dL (6.3-8.2); Triglycerides 134 mg/dL (35-150)
[2025-05-05 09:37] LABS: Thyroid Stimulating Hormone 1.63 uIU/mL (0.47-4.68)
== END ==
PROVIDERS: PCP Family Medicine; Referring Provider Family Medicine; Visit Provider Family Medicine
DX: Z13.29 Encounter for screening for other suspected endocrine disorder (principal); E78.2 Mixed hyperlipidemia; Z79.899 Other long term (current) drug therapy
CPT/HCPCS: 36415; 80053; 80061; 84443